=== PATIENT | male | born 1965 | race Caucasian/White ===

== ENCOUNTER 2022-09-02 12:11 | Outpatient (REF) | payer MEDICARE, MEDICAID, SELFPAY ==
--- NOTE | ~2022-09-02 | XR_ITS ---
EXAMINATION: XR CHEST CLINICAL INFORMATION: Other general symptoms and signs COMPARISON: Previous chest x-ray from 2011 TECHNIQUE: 2 views of the chest were obtained. FINDINGS: No significant abnormality is noted involving the heart, lungs, mediastinum, or soft tissues. Mild old T10 vertebral body compression fracture similar to previous exam. Mild degenerative changes of the spine. XR/XR chest 2V IMPRESSION: No evidence for acute disease in the chest.
[2022-09-02 15:40] LABS: Influenza A PCR NEGATIVE (Negative); Influenza B PCR NEGATIVE (Negative); Resp Syncy Virus RNA Qual PCR NEGATIVE (Negative); SARS COV2 PCR INHOUSE NEGATIVE (Negative)
== END 2022-09-02 12:12 | disposition home or self-care (01) ==
LOC: HO.HMGCX 12:11
PROVIDERS: Visit Provider Nurse Practitioner Family
DX: Z20.822 Contact with and (suspected) exposure to COVID-19 (principal); R05.9 Cough, unspecified; R68.89 Other general symptoms and signs
CPT/HCPCS: 0241U; 71046

== ENCOUNTER 2023-02-14 02:50 | Emergency (ER) | payer MEDICARE, MEDICAID, SELFPAY ==
[2023-02-14 02:57] VITALS: BP 153/87; PULSE 63; RESP 18; TEMP 36.5; O2SAT 98; BMI 39.9
--- NOTE | 2023-02-14 03:17 | PC.NURSE ---
Assumed care of pt. pt ambulated to room under own power, no cute distress. Pt c/o generalized itchiness throughout torso and rash in inguinal area and under arms. Pt is liver transplant patient, with cats as pets and interior construction work being done in basement including demolition and insulation work, house was built in 1959's (unknown construction materials). Advised pts of risks tiwth cats and transplant patients, and suggested non-pharmacological options for taking care of itchiness. MD entered for assessment. pt made aware of p[werner of care for discharge with prescriptions.
--- NOTE | 2023-02-14 03:25 | ED_ITS ---
HPI - General Adult General Chief complaint: Skin/Abscess/Foreign Body Stated complaint: itchiness Time Seen by Provider: 02/14/23 03:03 Source: patient Mode of arrival: ambulatory Limitations: no limitations History of Present Illness HPI narrative: 57-year-old male with history of liver disease presents with pruritus. Patient's symptoms are generalized but particularly over the chest, groin and axilla. Symptoms have been going on for least a month. They are moderate nature. Denies any difficulty breathing or shortness of breath. No wheezing. No difficulty swallowing. Symptoms are moderate in nature. There is no clear relieving or exacerbating features. There is no prior treatment. Related Data Home Medications Medication Instructions Recorded Confirmed insulin detemir U-100 100 unit/mL unit subcut 09/17/21 09/02/22 (3 mL) subcutaneous pen (Levemir FlexTouch U-100 Insulin) hydroxyzine HCl 25 mg tablet 25 mg PO 09/02/22 09/02/22 insulin lispro 100 unit/mL subcut 09/02/22 09/02/22 subcutaneous pen (Humalog KwikPen (U-100) Insulin) lisinopril 5 mg tablet 5 mg PO DAILY 09/02/22 09/02/22 pen needle, diabetic 31 gauge x #50 ea 09/02/22 09/02/22 3/16 (BD Ultra-Fine Mini Pen Needle) pravastatin 20 mg tablet 20 mg PO DAILY 09/02/22 09/02/22 Previous Rx's Medication Instructions Recorded hydrocortisone 2.5 % topical cream 1 appl topical BID PRN skin 05/25/22 irritation #20 grams hydrocortisone acetate 25 mg 25 mg IN BEDTIME #12 ea 08/05/22 rectal suppository (Anusol-HC) albuterol sulfate 90 mcg/actuation 2 puff inhalation Q4-6H PRN 09/02/22 aerosol inhaler shortness of breath or wheezing 30 days #8.5 grams benzonatate 100 mg capsule 100 mg PO BID 10 days #20 caps 09/02/22 doxycycline hyclate 100 mg capsule 100 mg PO BID 7 days #14 caps 09/02/22 clotrimazole 1 % topical cream 1 appl topical BID 2 weeks #45 02/12/23 (Antifungal (clotrimazole)) grams hydroxyzine HCl 25 mg tablet 25 mg PO QID PRN itching #20 tabs 06/11/23 Allergies Allergy/AdvReac Type Severity Reaction Status Date / Time No Known Allergies Allergy Verified 02/12/23 11:00 Review of Systems Review of Systems: CONSTITUTIONAL: Denies weight loss, fever and chills. HEENT: Denies changes in vision and hearing. RESPIRATORY: Denies SOB and cough. CV: Denies palpitations no CP. GI: Denies abdominal pain, nausea, vomiting and diarrhea. : Denies dysuria and urinary frequency. MSK: Denies myalgia and joint pain. SKIN: Denies rash and pruritus. NEUROLOGICAL: Denies headache and syncope. PSYCHIATRIC: Denies recent changes in mood. Denies anxiety and depression. All other ROS are negative unless in HPI PMFSH Past Medical History Medical History Flu-like symptoms Social History Social History Alcohol intake: never Patient Tobacco Use Status: Never used Tobacco Smoked in Last 30 Days: No Use of substances other than those prescribed or required for medical reasons: No Advance Directives: No Advance Directives Information Provided: Yes Physical Exam ED Vital Signs: Vital Signs - 24 hr 02/14/23 02:57 Temperature 97.7 F Pulse Rate 63 Respiratory Rate 18 Blood Pressure 153/87 H Pulse Oximetry 98 Oxygen Delivery Method Room Air BMI result Body Mass Index 39.9 GEN: Well developed, no acute distress, alert, oriented HEENT: Normocephalic, atraumatic, normal external ears, nose appears normal, no oropharyngeal edema or exudates Eyes: Normal to appearance, no icterus Neck: Supple, no lymphadenopathy Respiratory: Talks in complete sentences, no respiratory distress, clear to auscultation bilaterally Cardiovascular: Regular rate and rhythm, no murmurs rubs or gallops Abdomen: Soft, nontender, nondistended, no guarding, no rebound Back: No CVA tenderness Extremities: No clubbing cyanosis or edema, no jaundice Neurologic: No focal neurologic deficits, cranial nerves 2-12 intact, strength is 5/5 bilaterally Skin: No rash Course Course Course Narrative: Patient presents with generalized pruritus/urticaria. Exam. There is no there is no angioedema. There is no stridor. Patient will be discharged on antihistamines he can follow-up with his primary care provider. Medical Decision Making Medical Decision Making [facility] Narrative: Patient presents with pruritus. Examination is benign. There is no evidence of wheezing or stridor. Symptoms have been going on for several weeks. Patient will be discharged on antihistamines and follow up with primary care provider. Differential Diagnosis Differential Diagnoses: The differential diagnosis associated with the presentation includes (Allergic reaction, urticaria, pruritus) Discharge Plan Discharge Clinical Impression: Urticaria Patient Disposition: Home, Self-Care Instructions: Urticaria (ED) Additional Instructions: For itchiness: Zyrtec or Annie daily in the morning At night hydroxyzine 25 mg Prescriptions: New hydroxyzine HCl 25 mg tablet 25 mg PO QID PRN (Reason: itching) Qty: 20 0RF No Action hydrocortisone 2.5 % cream 1 appl topical BID PRN (Reason: skin irritation) Qty: 20 0RF hydrocortisone acetate [Anusol-HC] 25 mg suppository 25 mg IN BEDTIME Qty: 12 0RF insulin lispro [Humalog KwikPen Insulin] 100 unit/mL insulin pen subcut lisinopril 5 mg tablet 5 mg PO DAILY pravastatin 20 mg tablet 20 mg PO DAILY hydroxyzine HCl 25 mg tablet 25 mg PO (DME) pen needle, diabetic [BD Ultra-Fine Mini Pen Needle] 31 gauge x 3/16 needle See Rx Instructions .ROUTE TID Qty: 50 Rx Instructions: As directed albuterol sulfate 90 mcg/actuation HFA aerosol inhaler 2 puff inhalation Q4-6H PRN (Reason: shortness of breath or wheezing) 30 Days Qty: 8.5 0RF doxycycline hyclate 100 mg capsule 100 mg PO BID 7 Days Qty: 14 0RF benzonatate 100 mg capsule 100 mg PO BID 10 Days Qty: 20 1RF clotrimazole [Antifungal (clotrimazole)] 1 % cream 1 appl topical BID 14 Days Qty: 45 0RF Rx Instructions: apply under breast folds and bilateral inner thighs. Levemir FlexTouch U100 Insulin 100 unit/mL (3 mL) insulin pen subcut Referrals: Physician,Unknown J [Primary Care Provider] - (primary care in 1-2 weeks)
== END 2023-02-14 03:42 | disposition home or self-care (01) ==
PROVIDERS: Emergency Provider Emergency Medicine
DX: L50.0 Allergic urticaria (principal)
CPT/HCPCS: 99283

== ENCOUNTER 2023-02-22 06:15 | Emergency (ER) | payer MEDICARE, MEDICAID, SELFPAY ==
[2023-02-22 06:29] VITALS: BP 152/95; PULSE 77; RESP 18; TEMP 36.1; O2SAT 99
[2023-02-22 06:53] VITALS: BMI 41.6
--- NOTE | 2023-02-22 07:58 | ED_ITS ---
HPI - Skin/Abscess/Foreign Bdy General Chief complaint: Skin/Abscess/Foreign Body Stated complaint: stomach rash? Time Seen by Provider: 02/22/23 07:27 Source: patient Mode of arrival: ambulatory Limitations: no limitations History of Present Illness HPI narrative: 57 yo male with a history of pediculosis pubis, yuko corpis, DM, and s/p liver transplant 2016 presents with itchiness of the chest, stomach, inner thighs and pubic region. He states that his itching started over a month ago and was last treated for pruritis on 02/14. He reports brown spots on his skin where the itchiness is. He states he believes that they may be bite mcdonnell. Denies sick contacts. Denies rash, fever, chest pain, and shortness of breath. MD complaint: other Onset (ago): month(s) Tetanus up to date: unsure Location: chest and genitals Severity: moderate Quality: pruritic Pain Consistency: constant Relieving factors: none Exacerbating factors: none Context: none Associated symptoms: denies other symptoms Treatments prior to arrival: other (treated 02/14 for pruritis with hydroxyzine ) Related Data Home Medications Medication Instructions Recorded Confirmed insulin detemir U-100 100 unit/mL unit subcut 09/17/21 09/02/22 (3 mL) subcutaneous pen (Levemir FlexTouch U-100 Insulin) hydroxyzine HCl 25 mg tablet 25 mg PO 09/02/22 09/02/22 insulin lispro 100 unit/mL subcut 09/02/22 09/02/22 subcutaneous pen (Humalog KwikPen (U-100) Insulin) lisinopril 5 mg tablet 5 mg PO DAILY 09/02/22 09/02/22 pen needle, diabetic 31 gauge x #50 ea 09/02/22 09/02/22 3/16 (BD Ultra-Fine Mini Pen Needle) pravastatin 20 mg tablet 20 mg PO DAILY 09/02/22 09/02/22 Previous Rx's Medication Instructions Recorded hydrocortisone 2.5 % topical cream 1 appl topical BID PRN skin 05/25/22 irritation #20 grams hydrocortisone acetate 25 mg 25 mg FL BEDTIME #12 ea 08/05/22 rectal suppository (Anusol-HC) albuterol sulfate 90 mcg/actuation 2 puff inhalation Q4-6H PRN 09/02/22 aerosol inhaler shortness of breath or wheezing 30 days #8.5 grams benzonatate 100 mg capsule 100 mg PO BID 10 days #20 caps 09/02/22 doxycycline hyclate 100 mg capsule 100 mg PO BID 7 days #14 caps 09/02/22 clotrimazole 1 % topical cream 1 appl topical BID 2 weeks #45 02/12/23 (Antifungal (clotrimazole)) grams hydroxyzine HCl 25 mg tablet 25 mg PO QID PRN itching #20 tabs 02/14/23 permethrin 5 % topical cream 1 appl topical Q14D 2 doses #60 02/22/23 grams Allergies Allergy/AdvReac Type Severity Reaction Status Date / Time No Known Allergies Allergy Verified 02/22/23 06:55 Review of Systems Review of Systems: Yes all other systems are reviewed and are negative [facility] Past Medical History Medical History Flu-like symptoms Social History Social History Alcohol intake: never Patient Tobacco Use Status: Never used Tobacco Smoked in Last 30 Days: No Use of substances other than those prescribed or required for medical reasons: No Advance Directives: Yes Advance Directives Information Provided: No Advance Directives on File: No Physical Exam Vital Signs: Vital Signs: Last Vital Signs Temp 97 F 02/22/23 06:29 Pulse 77 02/22/23 06:29 Resp 18 02/22/23 06:29 BP 152/95 H 02/22/23 06:29 Pulse Ox 99 02/22/23 06:29 O2 Del Method Room Air 02/22/23 06:29 BMI result Body Mass Index 41.6 Appearance: Alert. Oriented X3. No acute distress. HEENT: normal inspection CVS: Normal heart rate and rhythm. Pulses normal. Abdomen: well healed surgical scar c/w liver transplant, soft, nontender, nondistended, no guarding or rebound tenderness Respiratory: No respiratory distress. Skin: Skin warm and dry. Normal skin color. Normal skin turgor. No rashes. Extremities: normal ROM, no cyanosis, edema or jaundice Neuro: Oriented X 3. No motor deficit. No sensory deficit. Skin: no rash, brown spotted pigments on skin of the chest and suprapubic area with mild excoriation, no urticaria Medical Decision Making Medical Decision Making MDM Narrative: 57 yo male with a history of pediculosis pubis, yuko corpis, DM, and s/p liver transplant 2016 presents with itchiness of the chest, stomach, inner thighs and pubic region. Physical exam demonstrated no red rash but brown pigmenetations on the chest and visible burrows on the pubis. Diagnosis most likely scabies given physical exam findings. Topical permethrin prescribed. encouraged to f/u with PCP Differential Diagnosis Differential Diagnoses: The differential diagnosis associated with the presentation includes Scabies, pediculosis pubis, tinea corpis External Record Review External record reviewed: Outpatient record Prescription Management I considered prescription management with: Other (topical antiparasitic) Chronic Conditions Patient?s care impacted by: Other (immunocompromised s/p liver transplant) Critical Care Time Critical Care Time Critical Care Time: No Discharge Plan Discharge Clinical Impression: Scabies Patient Disposition: Home, Self-Care Instructions: Scabies (ED) Additional Instructions: Apply permithrin cream before bed and leave on until the morning, then wash off. Clean all clothes, linen, stuffed animals thoroughly, with a tumbler machine operator and nuñez Notify all [id number] contacts for treatment Follow-up with your primary care provider If symptoms do not improve with treatment, please come back Prescriptions: New permethrin 5 % cream 1 appl topical Q14D Qty: 60 0RF Rx Instructions: apply second treatment 14 days after first treatment if live lice remain No Action hydroxyzine HCl 25 mg tablet 25 mg PO QID PRN (Reason: itching) Qty: 20 0RF hydrocortisone 2.5 % cream 1 appl topical BID PRN (Reason: skin irritation) Qty: 20 0RF hydrocortisone acetate [Anusol-HC] 25 mg suppository 25 mg FL BEDTIME Qty: 12 0RF insulin lispro [Humalog KwikPen Insulin] 100 unit/mL insulin pen subcut lisinopril 5 mg tablet 5 mg PO DAILY pravastatin 20 mg tablet 20 mg PO DAILY hydroxyzine HCl 25 mg tablet 25 mg PO (DME) pen needle, diabetic [BD Ultra-Fine Mini Pen Needle] 31 gauge x 3/16 needle See Rx Instructions .ROUTE TID Qty: 50 Rx Instructions: As directed albuterol sulfate 90 mcg/actuation HFA aerosol inhaler 2 puff inhalation Q4-6H PRN (Reason: shortness of breath or wheezing) 30 Days Qty: 8.5 0RF doxycycline hyclate 100 mg capsule 100 mg PO BID 7 Days Qty: 14 0RF benzonatate 100 mg capsule 100 mg PO BID 10 Days Qty: 20 1RF clotrimazole [Antifungal (clotrimazole)] 1 % cream 1 appl topical BID 14 Days Qty: 45 0RF Rx Instructions: apply under breast folds and bilateral inner thighs. Levemir FlexTouch U100 Insulin 100 unit/mL (3 mL) insulin pen subcut Interventions: ED Discharge Assessment Last Done: 02/22/23 08:09 Discharge Date/Time: 02/22/23 08:10
== END 2023-02-22 08:10 | disposition home or self-care (01) ==
PROVIDERS: Emergency Provider Student in an Organized Health Care Education/Training Program; PCP Internal Medicine
DX: B86 Scabies (principal)
CPT/HCPCS: 99283; 99284

== ENCOUNTER 2023-11-08 09:21 | Outpatient (AMB) | payer MEDICARE, MEDICAID, SELFPAY ==
--- NOTE | 2023-11-08 10:47 | AM.OFFWIN_ITS ---
Intake Vital Signs 11/08/23 10:52 Weight 234 lb BP 184/80 H Blood Pressure Location Rt brachial Position Sitting Pulse 73 Pulse Source Pulse Oximeter Pulse Oximetry (%) 97 Oxygen Delivery Method Room Air Intake Visit Reasons: EP Itchy between legs [phone] Intake Note: Patient here for rash in between legs that has been present for about 1 month. Patient Tobacco Use Status: Never used Tobacco Allergies No Known Allergies Allergy (Verified 02/18/24 10:32) Do you need a note to return to daycare/school/sports/work: No HPI HPI Comments History of Present Illness Details 58-year-old male presents today complain ing of a priuritic rash in his groin area. Status states he has had for about a month. [facility] Medical History Flu-like symptoms Social History Alcohol intake: never Patient Tobacco Use Status: Never used Tobacco Review of Systems Const All systems reviewed & are unremarkable except as noted in HPI and below Physical Exam Vital Signs: Last Vital Signs Pulse 73 11/08/23 10:52 BP 184/80 H 11/08/23 10:52 Pulse Ox 97 11/08/23 10:52 Oxygen Delivery Method Room Air 11/08/23 10:52 Other: He received the surrounding the scrotum and genitalia Male General Exam: Yes erythema Assessment & Plan Assessment & Plan (1) Tinea corporis: Code(s): B35.4 - Tinea corporis Plan: Clotrimazole was ordered for the patient. He will follow up with Dermatology if needed Plan See plan Medications: Changed From clotrimazole 1% apply under breast folds and bilateral inner thighs. 1 appl topical BID 2 weeks 45 grams 0RF B35.4 - Tinea corporis To clotrimazole 1% (Antifungal (clotrimazole)) apply to affected area 1 appl topical BID 45 grams 0RF 2 weeks B35.4 - Tinea corporis Coding Level of Care Code Est Pt Level 3 (60140) Diagnoses Tinea corporis B35.4
[2023-11-08 10:52] VITALS: BP 184/80; PULSE 73; O2SAT 97
== END 2023-11-08 12:04 | disposition home or self-care (01) ==
PROVIDERS: PCP Internal Medicine; Visit Provider Physician Assistant Medical
DX: B35.4 Tinea corporis (principal)
CPT/HCPCS: 99213

== ENCOUNTER 2024-02-18 10:24 | Outpatient (AMB) | payer MEDICARE, MEDICAID, SELFPAY ==
--- NOTE | 2024-02-18 10:24 | MHC.OFFWIV ---
Intake Vital Signs 02/18/24 10:25 Height 5 ft 5 in Weight 235 lb BMI 39.1 BP 130/70 Blood Pressure Location Lt brachial Position Sitting Pulse 75 Pulse Source Pulse Oximeter Temp 97.8 F Temp Source Temporal Artery Scan Pulse Oximetry (%) 96 Oxygen Delivery Method Room Air Intake Visit Reasons: EP itchy stomach Intake Note: pt is here today for itchy stomach started 4 days ago Patient Tobacco Use Status: Never used Tobacco Allergies No Known Allergies Allergy (Verified 02/18/24 10:32) Do you need a note to return to daycare/school/sports/work: No HPI HPI Comments History of Present Illness Details Patient is a 58-year-old male complaining of itching under his bilateral armpits, underneath his bilateral breasts, groin area and upper abdomen for ?awhile? he states he went to the emergency department and they gave him some cream which he has been using daily but it has not working. He states he has bumps in these areas and they are very itchy. He was also given pills that are not working. He denies any fevers. He states his is cheating on him and he thinks she has the 1 who brought something home to him. [facility] Medical History Flu-like symptoms Social History Alcohol intake: never Patient Tobacco Use Status: Never used Tobacco Review of Systems Const All systems reviewed & are unremarkable except as noted in HPI and below Physical Exam Vital Signs: Last Vital Signs Temp 97.8 F 02/18/24 10:25 Pulse 75 02/18/24 10:25 BP 130/70 02/18/24 10:25 Pulse Ox 96 02/18/24 10:25 Oxygen Delivery Method Room Air 02/18/24 10:25 BMI result Body Mass Index 39.1 Const General: cooperative, healthy appearing, comfortable, no acute distress and well developed Orientation/consciousness: patient oriented x3 Limitations: no limitations Eyes General: appearance normal, both eyes and all related structures Resp Effort & Inspection: normal respiratory effort and able to speak in complete sentences Skin Other: Clusters of excoriated pinpoint brown pigmented rash under bilateral armpits, upper central abdomen, underneath bilateral breasts and in his groin and scrotum. Neuro General: patient oriented x3 Assessment & Plan Assessment & Plan (1) Scabies: Code(s): B86 - Scabies Plan: Patient was diagnosed with scabies on February 14 in the emergency department. His physical exam today is consistent with scabies. He was given permethrin cream which she has been applying daily, incorrectly. Educated patient on how to apply the cream properly and sent a new prescription to his pharmacy because he was out of the cream. Also gave him patient education on how to care for his home, washing sheets, clothes, etc. Apply permithrin cream before bed and leave on until the morning, then wash off. Clean all clothes, linen, stuffed animals thoroughly, with a pig casting machine operator and nuñez Notify all [id number] contacts for treatment Follow-up with your primary care provider If symptoms do not improve with treatment, please call the office and we will prescribe ivermectin at that point. Plan see above. Medications: Refilled permethrin 5% apply second treatment 14 days after first treatment if live lice remain 1 appl topical Q14D 60 grams 0RF Coding Level of Care Code Est Pt Level 3 (69731) Diagnoses Scabies B86
[2024-02-18 10:25] VITALS: BP 130/70; PULSE 75; TEMP 36.6; O2SAT 96; BMI 39.1
== END 2024-02-18 10:58 | disposition home or self-care (01) ==
PROVIDERS: PCP Internal Medicine; Visit Provider Physician Assistant
DX: B86 Scabies (principal)
CPT/HCPCS: 99213

== ENCOUNTER 2024-08-15 01:05 | Emergency (ER) | payer MEDICARE, MEDICAID, SELFPAY ==
--- NOTE | ~2024-08-15 | XR_ITS ---
EXAMINATION: XR SHOULDER, RIGHT CLINICAL INFORMATION: painful COMPARISON: None available. TECHNIQUE: AP external rotated, Grashey and transscapular radiographs of the right shoulder. FINDINGS: Glenohumeral and acromioclavicular joint space and alignment are normal in appearance. Chronic appearing posttraumatic deformity of the clavicle is visualized. Visualized right ribs and lung are normal in appearance. A 3 mm x 1 mm ossific/calcific density is noted adjacent to the proximal greater tuberosity. No associated donor site noted. XR/XR shoulder RT min 2V IMPRESSION: *Single 3 mm x 1 mm ossific/calcific density noted in the expected location of the distal supraspinatus tendon. Findings may represent chronic calcific tendinosis. 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 \ *No acute abnormalities identified. Electronically signed by: Kyle Solis MD 08/15/2024 02:46 AM COLT
[2024-08-15 01:11] VITALS: BP 147/81; PULSE 82; RESP 20; TEMP 36.8; O2SAT 98; BMI 36.5
--- NOTE | 2024-08-15 06:27 | ED.EXTPRO ---
HPI - Extremity Problem General Chief complaint: Extremity Injury, Upper Stated complaint: R arm sore Time Seen by Provider: 08/15/24 06:26 Source: patient Mode of arrival: ambulatory Limitations: no limitations History of Present Illness ED Provider: Mary Chakraborty PA-C HPI Narrative: 59 yo right hand dominant male presents to the ER for evaluation of acute on chronic right shoulder pain. He states he has had pain in the right lateral shoulder since May. He states the pain started after he got a vaccine in that arm. He reports history of an old fracture in the right arm as well. He reports the shoulder is very sore after using it, especially at the end of the day and at night. No weakness, numbness or tingling. He reports pain with lateral abduction. He denies any recent falls or new injuries. He has not seen an orthopedic for the pain. MD Complaint: joint pain Onset (ago): month(s) Pain Consistency: constant Location: right and upper extremity Quality: aching Radiation: none Relieving factors: rest Exacerbating factors: range of motion and palpation Associated symptoms: denies other symptoms Related Data Home Medications ?Medication ?Instructions ?Recorded ?Confirmed insulin detemir U-100 100 unit/mL unit subcut 09/17/21 09/02/22 (3 mL) subcutaneous pen (Levemir FlexTouch U-100 Insulin) hydroxyzine HCl 25 mg tablet 25 mg PO 09/02/22 09/02/22 insulin lispro 100 unit/mL subcut 09/02/22 09/02/22 subcutaneous pen (Humalog KwikPen (U-100) Insulin) lisinopril 5 mg tablet 5 mg PO DAILY 09/02/22 09/02/22 pen needle, diabetic 31 gauge x #50 ea 09/02/22 09/02/22 3/16 (BD Ultra-Fine Mini Pen Needle) pravastatin 20 mg tablet 20 mg PO DAILY 09/02/22 09/02/22 Previous Rx's ?Medication ?Instructions ?Recorded hydrocortisone 2.5 % topical cream 1 appl topical BID PRN skin 05/25/22 irritation #20 grams hydrocortisone acetate 25 mg 25 mg IA BEDTIME #12 ea 08/05/22 rectal suppository (Anusol-HC) albuterol sulfate 90 mcg/actuation 2 puff inhalation Q4-6H PRN 12/28/22 aerosol inhaler shortness of breath or wheezing 30 days #8.5 grams benzonatate 100 mg capsule 100 mg PO BID 10 days #20 caps 09/02/22 doxycycline hyclate 100 mg capsule 100 mg PO BID 7 days #14 caps 09/02/22 hydroxyzine HCl 25 mg tablet 25 mg PO QID PRN itching #20 tabs 02/14/23 clotrimazole 1 % topical cream 1 appl topical BID 2 weeks #45 11/08/23 (Antifungal (clotrimazole)) grams permethrin 5 % topical cream 1 appl topical Q14D 2 doses #60 02/18/24 grams naproxen 500 mg tablet,delayed 500 mg PO BID PRN pain #30 tabs 08/15/24 release Allergies Allergy/AdvReac Type Severity Reaction Status Date / Time No Known Allergies Allergy Verified 08/15/24 01:13 Review of Systems Review of Systems: Yes all other systems are reviewed and are negative PMFSH Past Medical History Medical History Flu-like symptoms Social History Social History Alcohol intake: never Patient Tobacco Use Status: Never used Tobacco Advance Directives: No Advance Directives Information Provided: Yes Do you have a plan to hurt others: No Plan Physical Exam Vital Signs: Vital Signs: Last Vital Signs Temp 97.5 F 08/15/24 07:02 Pulse 65 08/15/24 07:02 Resp 16 08/15/24 07:02 BP 139/76 08/15/24 07:02 Pulse Ox 96 08/15/24 07:02 O2 Del Method Room Air 08/15/24 07:02 BMI result Body Mass Index 36.5 Appearance: Alert. Oriented X3. No acute distress. HEENT: normal inspection CVS: Normal heart rate and rhythm. Pulses normal. Respiratory: No respiratory distress. Skin: Skin warm and dry. Normal skin color. Normal skin turgor. No rashes. Extremities: normal inspection of bilateral upper extremities. pain with passive lateral abduction once at 90 degrees. tender lateral shoulder/ac joint. +empty can test. strength is slightly decreased in the proximal UE on the right side. NV intact distally, equal motel front desk clerk strength Neuro: Oriented X 3. nonfocal Medical Decision Making Medical Decision Making MDM Narrative: 59 y/o [id number] male presents to the ER for evaluation of acute on chronic atraumatic right shoulder pain for the last several months. He reports history of a fracture in the past. Reports the pain started after getting a vaccination in the right deltoid. Has tenderness and pain with abduction. Positive empty can test. No overlying swelling, erythema to suggest septic joint or gout. His x-ray today is showing some calcific tendonitis. Will start on anti-inflammatories. Will refer to Orthopedics and his PCP for further evaluation and treatment. Patient advised of the results and need for outpatient follow-up. He is stable for discharge home. Differential Diagnosis Differential Diagnoses: The differential diagnosis associated with the presentation includes Rotator cuff injury, tendinopathy, osteoarthritis, inflammatory arthritis, gout, septic joint less likely Independent Interpretation I performed an independent interpretation of an: Plain X-Ray Interpretation: No acute fracture appreciated, agree with radiology read Radiology Impression Discussion of test interpretation with radiology: I have reviewed the radiologist's reading. Radiologist Impression: XR/XR shoulder RT min 2V IMPRESSION: *Single 3 mm x 1 mm ossific/calcific density noted in the expected location of the distal supraspinatus tendon. Findings may represent chronic calcific tendinosis. 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 \ *No acute abnormalities identified. External Record Review External record reviewed: Outpatient record, Prior outpatient labs and Prior outpatient radiology Prescription Management I considered prescription management with: Pain Medication Critical Care Time Critical Care Time Critical Care Time: No Discharge Plan Discharge Clinical Impression: Calcific tendonitis Patient Disposition: Home, Self-Care Instructions: Calcific Tendinitis (ED) Additional Instructions: You have tendonitis. Rest your shoulder, no heavy lifting with your right arm. Use ice several times per day for 20 minutes at a time for the next 48 hours and then change to heat. Take medication as prescribed to help with pain and discomfort. Continue tylenol. Follow up with your Orthopedics for further evaluation - call for an appointment. name and number below If you develop new or worsening symptoms call 911 or come back to the ER for further evaluation. EXAMINATION: XR SHOULDER, RIGHT CLINICAL INFORMATION: painful COMPARISON: None available. TECHNIQUE: AP external rotated, Grashey and transscapular radiographs of the right shoulder. FINDINGS: Glenohumeral and acromioclavicular joint space and alignment are normal in appearance. Chronic appearing posttraumatic deformity of the clavicle is visualized. Visualized right ribs and lung are normal in appearance. A 3 mm x 1 mm ossific/calcific density is noted adjacent to the proximal greater tuberosity. No associated donor site noted. XR/XR shoulder RT min 2V IMPRESSION: *Single 3 mm x 1 mm ossific/calcific density noted in the expected location of the distal supraspinatus tendon. Findings may represent chronic calcific tendinosis. 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 \ *No acute abnormalities identified. Prescriptions: New naproxen 500 mg tablet,delayed release (DR/EC) 500 mg PO BID PRN (Reason: pain) Qty: 30 0RF No Action hydroxyzine HCl 25 mg tablet 25 mg PO QID PRN (Reason: itching) Qty: 20 0RF hydrocortisone 2.5 % cream 1 appl topical BID PRN (Reason: skin irritation) Qty: 20 0RF hydrocortisone acetate [Anusol-HC] 25 mg suppository 25 mg IA BEDTIME Qty: 12 0RF insulin lispro [Humalog KwikPen Insulin] 100 unit/mL insulin pen subcut lisinopril 5 mg tablet 5 mg PO DAILY pravastatin 20 mg tablet 20 mg PO DAILY hydroxyzine HCl 25 mg tablet 25 mg PO (DME) pen needle, diabetic [BD Ultra-Fine Mini Pen Needle] 31 gauge x 3/16 needle See Rx Instructions .ROUTE TID Qty: 50 Rx Instructions: As directed albuterol sulfate 90 mcg/actuation HFA aerosol inhaler 2 puff inhalation Q4-6H PRN (Reason: shortness of breath or wheezing) 30 Days Qty: 8.5 0RF doxycycline hyclate 100 mg capsule 100 mg PO BID 7 Days Qty: 14 0RF benzonatate 100 mg capsule 100 mg PO BID 10 Days Qty: 20 1RF permethrin 5 % cream 1 appl topical Q14D Qty: 60 0RF Rx Instructions: apply second treatment 14 days after first treatment if live lice remain Levemir FlexTouch U100 Insulin 100 unit/mL (3 mL) insulin pen subcut clotrimazole [Antifungal (clotrimazole)] 1 % cream 1 appl topical BID 14 Days Qty: 45 0RF Rx Instructions: apply to affected area Referrals: [facility] [place], [place] Orthopedic Surgeons [Provider Group] Rodger Dia MD [Primary Care Provider] - Interventions: ED Discharge Assessment Last Done: 08/15/24 07:02 Discharge Date/Time: 08/15/24 07:02 Print Language: [place]
[2024-08-15 06:41] VITALS: BP 139/76; PULSE 65; RESP 16; TEMP 36.4; O2SAT 96
[2024-08-15 07:02] VITALS: BP 139/76; PULSE 65; RESP 16; TEMP 36.4; O2SAT 96
--- OUTSIDE RECORDS SUMMARY | 2024-08-16 18:14 | XMS_ITS ---
Author Organization [facility] Address [address] [place] [address] Care Team Providers Care Exchange Administrator Name Role Phone Ifeoma BLAIR, Shiraztn Jagdish Primary Care Provider Remington Nam Unavailable [phone] Allergies No Known Allergies REASON FOR VISIT Painful nail(s) aggrevated by shoes and causing difficulty standing/walking. Medications Medication SIG (Take, Route, Frequency, Duration) Notes Start Date End Date Status cycloSPORINE 75 mg Active Insulin Active Lisinopril 5 MG TAKE 1 TABLET BY JAYRO TH DAILY Oral for 90 Days Active Pravastatin Sodium 20 MG TAKE 1 TABLET B Y MOUTH DAILY Oral for 90 Days Active Extra Depth Diabetic Shoes with 3 Pair Custom heat-molded multi-density innersoles for 1 year Dx: 12/02/2023 Active Extra Depth Diabetic Shoes with 3 Pair Custom heat-molded multi-density innersoles for 1 year Dx: 06/22/2024 Active Social History Tobacco Use: Social History Observation Description Date Details (start date - stop date) Never Smoker NA - NA Tobacco Use/Smoking Question Answer Notes Are you a: nonsmoker Additional Findings: Tobacco Non-User Current no n-smoker Alcohol Screen Question Answer Notes Did you have a drink containing alcohol in the p ast year? No Points 0 Interpretation Negative Tobacco use other than smoking: Question Answer Notes Are you an other tobacco user? No Vital Signs Height 5ft 5in in 06/22/2024 Weight 236 lbs 06/22/2024 BMI 39.27 kg/m2 06/22/2024 Encounters Encounter Location Date Provider Diagnosis [facility] [address] [place] [address] 06/22/2024 Remington Huerta Type 1 diabetes mellitus with diabetic polyneuropathy E10.42 ; Pain in right toe(s) M79.674 ; Pain in left toe(s) M79.675 ; Tinea unguium B35.1 and Arthritis of right ankle M19.071 Assessments Encounter Date Diagnosis (ICD Code) Assessment Notes Treatment Notes Treatment Clinical Notes Section Notes 06/22/2024 Type 1 diabetes mellitus with diabetic polyneuropathy (ICD-10 - E10.42) 06/22/2024 Pain in right toe(s) (ICD-10 - M79.674) 06/22/2024 Pain in left toe(s) (ICD-10 - M79.675) 06/22/2024 Tinea unguium (ICD-10 - B35.1) 06/22/2024 Arthritis of right ankle (ICD-10 - M19.071) Plan Of Treatment Medication Medication Name Sig Start Date Stop Date Notes Extra Depth Diabetic Shoes w ith 3 Pair Custom heat-molded multi-density innersoles for 1 year Dx: 06/22/2024 Next Appt Details Follow Up: 3 Months, Reason: Provider Name:Debra machado, 09/21/2024 10:00:00 AM, [address] [place] [address], [place], [address], Procedure Notes * Category Sub-Category Detail Notes Debride Nail 6-10 Nail debridement Nail debridem ent performed extensively to reduce/remove overall nail length and girth, subungual debris, and necrotic tissue, by manual and electrical means with use of a nail nipper and/or dremel, to more viable healthy nail plate or bed tissue 6-10. Silver nitrate used for any petechial bleeding as necessary. Patient chooses, no pharmaceutical tx (48515) Keratoma Treatment Parring or Cutting o f Benign Hyperkeratotic Lesion(s) 80114 ( More than 4 Lesions ) - The Benign hyperkeratotic lesions, as described above were pared, and/or cut utilizing a sterile 15 blade, tissue nippers, and/or dremel Progress Notes * Tavon SALTERDOB: [birth year] (59 yo M)Acc No.[id number]:06/22/2024 Progress Note Patient:?Tavon Salter Provider:?Remington Huerta DPM :1965???Age:59 Y???Sex:Male Jayy e:06/22/2024 [facility] [id number] Pcp:Rodger Dia MD Subjective: * Chief Complaints: * ??? Painful nail(s) aggrevat ed by shoes and causing difficulty standing/walking. * HPI: ???At Risk footcare:?Pt States Last PCP Visit:?Date?05/08/2024 ?Misc?liver transplant pt.?Foot Pain:?Nature:?aching.?Location?Right , Midfoot, Rearfoot.?Duration:?several years.?Onset/Cause:?fx ankle 2014.?Aggrevated:?standing, walking.?Treatments:?orif at [facility].?Quality/Severity?moderate.? * ROS:?General/Constitutional:?Nausea?denies.?Vomiting?denies.?Hunger Thirst?denies.?Loss appetite?denies.?Chills?denies.?Fatigue?denies.?Fever?denies.?Night Sweats?denies.?Unexplained weight loss?denies.?Unexplained weight gain?denies.?HEENTM:?Dentures?denies.?Dizziness?denies.?Glasses/contacts?denies.?Retinopathy?de nies.?Blurred/double vision?denies.?TMJ?denies.?Discharge/drainage?denies.?Implants?denies.?Sore throat?denies.?Dental implants?denies.?Hard of hearing ?denies.?Difficulty chewing/swallowing/speaking?denies.?Nose bleeds?denies.?Sore mouth?denies.?Respiratory:?On Oxygen?denies.?Pneumonia/pleurisy?denies.?Bronchitis?denies.?Emphysema?denies.?C oughing?denies.?Cough blood?denies.?Shortness of breath?denies.?Wheezing?denies.?Cardiovascular:?Pacemaker?denies.?MVP?denies.?WPW?denies.?CHF?denies.?Heart attack?denies.?Septal defect?denies.?Rapid beat?denies.?Chest pain ?denies.?Atrial Fib.?denies.?Murmur/Palpitations?denies.?Gastrointestinal:?Hemorrhoids?denies.?Stomach/Abdominal pain?denies.?Dark blood stool?denies.?Irritable bowel ?denies.?Constipation?denies.?Diarrhea?denies.?Hematology:?Swelling?denies.?Clots?denies.?Varicose Veins?denies.?Bruising?denies.?Bleeding problem?denies.?Genitourinary:?Blood urine?denies.?Frequent/Painfu/urination/bladder control?denies.?Kidney stones?denies.?Infection (UTI)?denies.?Nephropathy?denies.?sex trans dis (STD)?denies.?Prostate?denies.?Musculoskeletal:?Hammertoes?denies.?Bunions?denies.?Back Pain?denies.?Muscle Cramps/ Resting?denies.?Muscle cramps / walking?denies.?Generalized aches and pains?denies.?Weakness?denies.?Integ.:?Page?denies.?Scars?denies.?Corns/calluses?denies.?Ingrown nails?denies.?Painful nails?denies.?Open Sores?denies.?Rashes?denies.?Neurologic:?Difficulty sleeping?denies.?Brain disorder?denies.?Numbness?denies.?Balance trouble?denies.?Confusion?denies.?Fainting/blackouts?denies.?Tingling?denies.?Tr emors?denies.? * Medical History:? * Surgical History:?liver sánchez splant - 5 months 03/2016ankle surgery * Hospitalization/Major Diagno stic Procedure:?Denies Past Hospitalization * Family History:?Mother: dece ased, diagnosed with Other malignant neoplasm of unspecified site.?Father: .? * Social History:?Tobacco Use:?Tobacco Use/Smoking?Are you a:?nonsmoker ?Additional Findings: Tobacco Non-User?Current non-smoker ?Tobacco use other than smoking?Are you an other tobacco user??No ???Drugs/Alcohol:?Drugs?Have you used drugs other than those for medical reasons in the past 12 months??No ?Alcohol Screen?Did you have a drink containing alcohol in the past year??No ?Points?0 ?Interpretation?Negative ???Miscellaneous:?no Caffeine. ?Children: yes. ?Exercise: yes, Gym, walking. ?Marital status: . ?Occupation: Retired. * Medications:?TakingInsulin c ycloSPORINE , Notes: 75 mgExtra Depth Diabetic Shoes with 3 Pair Custom heat-molded multi-density innersoles for 1 year Dx:Pravastatin Sodium 20 MG Tablet TAKE 1 TABLET BY MOUTH DAILY Oral Lisinopril 5 MG Tablet TAKE 1 TABLET BY MOUTH DAILY Oral Medication List reviewed and reconciled with the patientTaking Insulin Taking cycloSPORINE , Notes: 75 mgTaking Extra Depth Diabetic Shoes with 3 Pair Custom heat-molded multi-density innersoles for 1 year Dx:Taking Pravastatin Sodium 20 MG Tablet TAKE 1 TABLET BY MOUTH DAILY Oral Taking Lisinopril 5 MG Tablet TAKE 1 TABLET BY MOUTH DAILY Oral Medication List reviewed and reconciled with the patient * Allergies:?N.K.D.A.yes[Aller gies Verified] Objective: * Vitals:?Ht: 5ft 5in, Wt:236, BMI:39.27, Shoe size: 10, BS: 130, Ht-cm: 165.1 cm, Wt-k.05 kg. * Examination: ???Ophthalmology Referral: ?DIABETES EYE EXAM?Neurological: ?SENSORY:? Neurological exam demonstrates, reduced vibration sensation, 5.07 monofilament test performed at plantar aspects of 5 varied sites per foot shows sensation, reduced , B/L, at Forefoot.?TINEL'S COMPRESSION:?Negative tarsal tunnel, la pedis, and medial calcaneal nerves B/L.?BABINSKI REFLEX:?absent.?Vascular: ?DP PULSES(B):? 2/4, B/L.?PT PULSES(B):? 2/4, B/L.?CAPILLARY FILL TIME:?3 secs. per digit, B/L.?TROPHIC CONDITION-TEXTURE/ELASTICITY/TURGOR/HAIR GROWTH(B):?normal, B/L.?TEMPERTURE GRADIENT(C):?warm to cool, proximal to distal, B/L.?PIGMENTATION:?normal, B/L.?EDEMA(C):?no edema.?TELANGECTASIA:?absent.?VARICOSITIES:?absent.?Nails: ?NAILS are:? Elongated, overgrown, dystrophic, lytic, greater than 3mm thick, discolored and friable with crumbly malodorous subungual debris, with dull to no pain on palpation due to neuropathy, 1-4 B/L.?Dermatologic: ?SKIN FINDINGS:? Skin exam reveals Keratotic lesion(s) located at, Plantar, T4, T9, SUB MTH (s), 1, 5, B/L, Heel(s), Left.?General Examination: ?GENERAL APPEARANCE:?pleasant, alert, well nourished, well developed, well hydrated, with good attention to hygene/body habitus, and in no acute distress.?ORIENTED:?person,place, and time.?FOOT EXAM:?Neuroma Pain: ?PALPATION:?No interspace pain noted on palpation.?Orthopedic: ?MUSCLE STRENGTH:?5/5 all groups in a symmetrical fashion , B/L.?GAIT ABNORMALITY:?pronated, abducted, B/L.? Assessment: * Assessment: 1.?Type 1 diabetes mellitus with diabetic polyneuropathy - E10.42?2.?Pain in right toe(s) - M79.674?3.?Pain in left toe(s) - M79.675?4.?Tinea unguium - B35.1 (Primary)?5.?Arthritis of right ankle - M19.071? Plan: * Treatment: * Procedures:?Debride Nail 6-10:?Nail debridement?Nail debridement performed extensively to reduce/remove overall nail length and girth, subungual debris, and necrotic tissue, by manual and electrical means with use of a nail nipper and/or dremel, to more viable healthy nail plate or bed tissue 6-10. Silver nitrate used for any petechial bleeding as necessary. Patient chooses, no pharmaceutical tx (89788).?Keratoma Treatment:?Parring or Cutting of Benign Hyperkeratotic Lesion(s)?20857 ( More than 4 Lesions ) - The Benign hyperkeratotic lesions, as described above were pared, and/or cut utilizing a sterile 15 blade, tissue nippers, and/or dremel.? * Procedure Codes:?53523 DEBRI DE NAIL, 6 OR MORE, Modifiers: XS 19848 TRIM SKIN LESIONS, OVER 4, Modifiers: XS * Follow Up:?3 Months * Images: * Sign off status: Completed true * Provider:?Remington Huerta DPM Date:? 024 Generated for Printi ng/Faxing/eTransmitting on:?08/16/2024 06:14 PM EST History and Physical Notes * HPI (History of Present Illness) Category Sub-Category Detail Notes Category Not es At Risk footcare Pt States Last PCP Visit: Date: [facility] [place] Foot Pain Aggrevated: standing, walking Onset/Cause: fx ankle 2013 Duration: several years Nature: aching Treatments: orif at [facility] Quality/Severity moderate Location Right , Midfoot, [place] rfoot Examination Category Sub-Category Detail Notes Category Not es Neuroma Pain PALPATION: No interspace pain noted on palpation Neurological SENSORY: Neurological exa m demonstrates, reduced vibration sensation, 5.07 monofilament test performed at plantar aspects of 5 varied sites per foot shows sensation, reduced , B/L, at Forefoot BABINSKI REFLEX: absent TINEL'S COMPRESSION: Negative tarsal dominick rusty, la pedis, and medial calcaneal nerves B/L Dermatologic SKIN FINDINGS: Skin exam reveal s Keratotic lesion(s) located at, Plantar, T4, T9, SUB MTH (s), 1, 5, B/L, Heel(s), Left Orthopedic GAIT ABNORMALITY: pronated, abducted, B/L MUSCLE STRENGTH: 5/5 all groups in a symmetrical fashion , B/L General Examination GENERAL APPEARANCE: pleasant , alert, well nourished, well developed, well hydrated, with good attention to hygene/body habitus, and in no acute distress FOOT EXAM: Lower Extremity Neurological Exa m performed:: Yes Visual exam of foot performed:: Yes Date: 06/22/2024 Sensory testing performed:: sensations d iminished Pedal pulse taking performed:: 2+ ORIENTED: person,place, and ti me Ophthalmology Referral DIABETES EYE EXAM Diabetic Reti nopathy Screening:: Yes 08/28 Findings of Diabetic Eye Exam:: no retin opathy Vascular DP PULSES(B): 2/4, B/L PT PULSES(B): 2/4, B/L CAPILLARY FILL TIME: 3 secs. per digit, B/L TEMPERTURE GRADIENT(C): warm to cool, pr oximal to distal, B/L TROPHIC CONDITION-TEXTURE/ELASTICITY/TURGOR/HAIR GROWTH(B): normal, B/L EDEMA(C): no edema TELANGECTASIA: absent VARICOSITIES: absent PIGMENTATION: normal, B/L Nails NAILS are: Elongated, overg rown, dystrophic, lytic, greater than 3mm thick, discolored and friable with crumbly malodorous subungual debris, with dull to no pain on palpation due to neuropathy, 1-4 B/L
--- OUTSIDE RECORDS SUMMARY | 2024-08-16 18:15 | XMS_ITS | Patient Health Record ---
Author Organization [facility] pamela [place] Address [address] [facility] [place] [address] Care Team Providers Care Workers Compensation Coordinator Name Role Phone Ifeoma BLAIR, Rodger Dubon Primary Care Provider Remington Nam Unavailable [phone] Allergies No Known Allergies Reason For Referral No Information Medications Medication SIG (Take, Route, Frequency, Duration) Notes Start Date End Date Status cycloSPORINE 75 mg Active Insulin Active Extra Depth Diabetic Shoes with 3 Pair Custom heat-molded multi-density innersoles for 1 year Dx: 06/22/2024 Active Lisinopril 5 MG TAKE 1 TABLET BY JAYRO TH DAILY Oral for 90 Days Active Pravastatin Sodium 20 MG TAKE 1 TABLET B Y MOUTH DAILY Oral for 90 Days Active Extra Depth Diabetic Shoes with 3 Pair Custom heat-molded multi-density innersoles for 1 year Dx: 12/02/2023 Active Immunizations Vaccine Route Administration Date Status Comme nts Influenza Unknown 05/07/2023 Administered Social History Tobacco Use: Social History Observation [...] Are you an other tobacco user? No Problems Problem Type SNOMED Code ICD Code Onset Dates Problem Status W/U Status Risk Notes Problem Polyneuropathy due to diabetes mellitus type I (378615466) Type 1 diabetes mellitus with diabetic polyneuropathy (E10.42) Active confirmed Problem [id number] Arthritis of right ankle (M19.071) Active confirmed Vital Signs Height 5ft 5in in 06/22/2024 Weight 236 lbs 06/22/2024 BMI 39.27 kg/m2 06/22/2024 Procedures Procedure Date Ordered Date Performed Result Body Sit e 48165-EFIX SKIN LESIONS, OVER 4 12/02/2023 N/A 24982-CSRV SKIN LESIONS, OVER 4 03/13/2024 N/A Encounters Encounter Location Date Provider Diagnosis [address] [address] 12/02/2023 Remington Huerta Type 1 diabetes mellitus with diabetic polyneuropathy E10.42 ; Pain in right toe(s) M79.674 ; Tinea unguium B35.1 ; Pain in left toe(s) M79.675 and Arthritis of right ankle M19.[address] [address] 03/13/2024 RemingtonBrice Type 1 diabetes mellitus with diabetic polyneuropathy E10.42 ; Pain in right toe(s) M79.674 ; Pain in left toe(s) M79.675 ; Tinea unguium B35.1 and Arthritis of right ankle M19.[address] [address] 06/22/2024 Remington Huerta Type 1 diabetes mellitus with diabetic polyneuropathy E10.42 ; Pain in right toe(s) M79.674 ; Pain in left toe(s) M79.675 ; Tinea unguium B35.1 and Arthritis of right ankle M19.[address] [address] 09/13/2023 Remington Huerta [address] [address] 05/31/2024 Remington Bradley Assessments Encounter Date Diagnosis (ICD Code) Assessment Notes Treatment Notes Treatment Clinical Notes Section Notes 12/02/2023 Type 1 diabetes mellitus with diabetic polyneuropathy (ICD-10 - E10.42) 03/13/2024 Type 1 diabetes mellitus with diabetic polyneuropathy (ICD-10 - E10.42) 06/22/2024 Type 1 diabetes mellitus with diabetic polyneuropathy (ICD-10 - E10.42) 06/22/2024 Pain in right toe(s) (ICD-10 - M79.674) 12/02/2023 Pain in right toe(s) (ICD-10 - M79.674) 03/13/2024 Pain in right toe(s) (ICD-10 - M79.674) 03/13/2024 Pain in left toe(s) (ICD-10 - M79.675) 12/02/2023 Tinea unguium (ICD-10 - B35.1) 03/13/2024 Tinea unguium (ICD-10 - B35.1) 12/02/2023 Pain in left toe(s) (ICD-10 - M79.675) 06/22/2024 Pain in left toe(s) (ICD-10 - M79.675) 03/13/2024 Arthritis of right ankle (ICD-10 - M19.071) 06/22/2024 Tinea unguium (ICD-10 - B35.1) 12/02/2023 Arthritis of right ankle (ICD-10 - M19.071) 06/22/2024 Arthritis of right ankle (ICD-10 - M19.071) Plan Of Treatment Pending Test Test Name Order Date 85906-TAIX SKIN LESIONS, OVER 4 12/02/19 24 73388-EFKK SKIN LESIONS, OVER 4 03/13/20 Next Appt Details Provider Name:Debra machado, 09/21/2024 10:00:00 AM, [address] [place] [address], [phone], Insurance Providers Payer Name Payer Address Payer Phone Subscriber Number Group Number Insured Name Patient Relationship to Insured Coverage Start Date Coverage End Date Medicare National [employer] [address] [place] [address] [id number] Tavon Black Self - patient is the insured Medical (General) History Medical History History ICD Code Diabetic Liver disease Mumps Chicken pox Transfusions Surgical History Surgery Date(Month/Year) liver transplant - 5 months 03/2016 ankle surgery
--- OUTSIDE RECORDS SUMMARY | 2024-08-16 18:15 | XMS_ITS ---
Author Organization [facility] Address [address] [place] [address] Care Team Providers Care Client Liaison Name Role Phone Ifeoma BLAIR, Rodger Dubon Primary Care Provider Unav Remington Cesar Unavailable [phone] Simmons Encounters Encounter Location Date Provider Diagnosis [facility] [address] [place] [address] 06/21/2024 Remington Huerta Plan Of Treatment Next Appt Details Provider Name:Debra machado, 09/21/2024 10:00:00 AM, [address] [place], [address], Progress Notes * Tavon SALTERDOB: [birth year] (59 yo M)Acc No.[id number]:06/21/2024 Progress Note Patient:?Tavon SALTER Provider:?Remington Huerta DPM :1965???Age:59 Y???Sex:Male Jayy e:06/21/2024 Address:[address] [id number] Pcp:Rodger Dia MD Subjective: * Chief Complaints: * ???1. Dr Simmons. * Medical History:? Objective: * Vitals:? Assessment: Plan: * Treatment: * Images: * The named appointment provid er may or may not be the originator of this progress note, and it is not deemed complete until electronically signed by the appointment provider. Sign off status: Pending * Provider:?Remington Huerta DPM Date:? 024 Generated for Cameron bill/Kevin/Lala on:?08/16/2024 06:14 PM EST
--- OUTSIDE RECORDS SUMMARY | 2024-08-16 18:15 | XMS_ITS ---
Author Organization [facility] Address [address] [place] [address] Care Team Providers Care Electrician'S Assistant Name Role Phone Ifeoma BLAIR, Rodger Dubon Primary Care Provider Remington Nam [phone] REASON FOR VISIT Balance DOS 03/13 Encounters Encounter Location Date Provider Diagnosis [facility] [address] [place] [address] 05/31/2024 Remington Huerta Plan Of Treatment Next Appt Details Provider Name:Debra machado, 09/21/2024 10:00:00 AM, [address] [place], [address], Progress Notes * Tavon SALTERDOB: [birth year] (59 yo M)Acc No.[id number]:05/31/2024 Patient:?Tavon Salter :1965???Age:59 Y???Sex:Male Address:[place] [address] * true * Date:? Generated for Printi ng/Favickig/eTransmitting on:?08/16/2024 06:14 PM EST
== END 2024-08-15 07:02 | disposition home or self-care (01) ==
PROVIDERS: Emergency Provider Emergency Medicine; PCP Internal Medicine
DX: M75.31 Calcific tendinitis of right shoulder (principal); M25.511 Pain in right shoulder
CPT/HCPCS: 73030; 99283

== ENCOUNTER 2024-09-20 08:55 | Outpatient (AMB) | payer MEDICARE, MEDICAID, SELFPAY ==
--- NOTE | 2024-09-20 08:57 | MHC.OFFVIS ---
Vital Signs 09/20/24 08:58 Height 5 ft 8 in Weight 240 lb BMI 36.5 Intake Visit Reasons: Right shoulder pain and weakness Intake Note: Tavon is a 59 year old male who presents with complaints of progressively worsening right shoulder pain and weakness. The patient states that he 1st injured his shoulder in 2013 when he fell on ice. He suffered a right clavicle fracture at that time. That fracture was treated non operatively. The patient states that since that time he has had difficulty lifting his right hand above shoulder height. The patient states that last year he received an injection in his right shoulder which seemed to aggravate his pain. He has done physical therapy exercises which gave him minimal relief. He has also tried Tylenol and anti-inflammatory medicines which gave him no relief. The patient reports difficulty lifting his right hand above shoulder height. He has failed the last 6 weeks of conservative treatment. Allergies No Known Allergies Allergy (Verified 09/20/24 08:58) Medication List - Last Reviewed 09/20/24 by AMBIKA Glaser clotrimazole 1% (Antifungal (clotrimazole)) 1 appl topical BID 2 weeks cyclosporine modified 50 mg PO BID hydrocortisone 2.5% 1 appl topical BID PRN hydroxyzine HCl 25 mg PO QID PRN insulin detemir U-100 (Levemir FlexTouch U-100 Insulin) units subcut insulin lispro (Humalog KwikPen (U-100) Insulin) subcut lisinopril 5 mg PO DAILY naproxen 500 mg PO BID PRN pen needle, diabetic (BD Ultra-Fine Mini Pen Needle) As directed permethrin 5% 1 appl topical Q14D 2 doses pravastatin 20 mg PO DAILY [facility] Medical History Flu-like symptoms Social History (Updated 09/20/24 @ 09:01 by AMBIKA Glaser) Alcohol intake: never Patient Tobacco Use Status: Never used Tobacco Current occupational status: unemployed Current occupation: rt handed Physical Exam Vital Signs: BMI result Body Mass Index 36.5 Const Other: Well-nourished well-developed very friendly male awake alert and oriented x3 in no acute distress Extrem Other: Bilateral upper extremity examination shows good capillary refill, no skin lesions noted, normal sensation light touch Right shoulder examination shows decreased range of motion when compared to his left shoulder, 4/5 strength with supraspinatus testing, positive impingement signs, tenderness over his acromioclavicular joint, no instability Results Reviewed Results Reviewed: X-rays of the patient's right shoulder show a healed mid shaft clavicle fracture, a type 2 acromion, severe acromioclavicular joint narrowing, no acute bony abnormalities Assessment & Plan Assessment & Plan (1) Rotator cuff insufficiency of right shoulder: Code(s): M25.311 - Other instability, right shoulder Category: Medical Plan Mr. Black presents with progressively worsening right shoulder pain and weakness most likely due to a full-thickness rotator cuff tear. Thus, I will send the patient for an MRI of his right shoulder for further evaluation. I will see him back once the MRI is completed to discuss the findings and treatment options. Feel free to call me at any time should questions regarding his orthopedic management arise. I spent 22 minutes in reviewing the patient's records and imaging studies, seeing the patient and documenting in the medical record. Orders: Orders MR shoulder RT wo con Today M25.311 - Other instability, right shoulder Coding Level of Care Code New Pt Level 3 (17140) Complex EM visit Add On G2211 Diagnoses Rotator cuff insufficiency of right shoulder M25.311
[2024-09-20 08:58] VITALS: BMI 36.5
== END 2024-09-20 09:12 | disposition home or self-care (01) ==
LOC: HO.HOS 08:56
PROVIDERS: PCP Internal Medicine; Visit Provider Orthopaedic Surgery
DX: M25.311 Other instability, right shoulder (principal)
CPT/HCPCS: 99203; G2211

== ENCOUNTER → 2024-09-20 08:55 | Outpatient (BNVA) | payer MEDICARE, MEDICAID, SELFPAY | PROVIDERS: PCP Internal Medicine; Visit Provider Orthopaedic Surgery | DX: M25.311 Other instability, right shoulder (principal) | CPT/HCPCS: 99202 ==

== ENCOUNTER → 2024-10-01 14:50 | Outpatient (BNV) | payer MEDICARE, MEDICAID, SELFPAY | PROVIDERS: PCP Internal Medicine; Visit Provider Radiology Diagnostic Radiology | DX: M19.011 Primary osteoarthritis, right shoulder (principal); M75.101 Unspecified rotator cuff tear or rupture of right shoulder, not specified as traumatic | CPT/HCPCS: 73221 ==

== ENCOUNTER 2024-10-01 14:52 | Outpatient (REF) | payer MEDICARE, MEDICAID, SELFPAY ==
--- NOTE | ~2024-10-01 | MR_ITS ---
EXAMINATION: MRI RIGHT SHOULDER WITHOUT CONTRAST HISTORY: M25.311 - Other instability, right shoulder COMPARISON: Correlation is made with plain films of the right shoulder dated 08/15/2024. TECHNIQUE: Coronal T1, T2, and fat suppressed T2, axial fat suppressed proton density, and sagittal T2 weighted MR images of the right shoulder were obtained. FINDINGS: There is moderate osteoarthritis of the AC joint with cartilage loss and osteophyte formation causing mass effect on the supraspinatus musculotendinous junction. There is no significant joint effusion. There is fraying of the joint surface of the distal supraspinatus tendon near its insertion on the greater tuberosity of the humerus. A focus of fluid signal intensity is seen extending through the thickness of the tendon approximately 1.2 cm proximal to its insertion consistent with a full-thickness tear. There is a small amount of fluid in the subdeltoid/subacromial bursa. There is no tendon retraction or muscle atrophy. The infraspinatus, subscapularis, and teres minor tendons are intact. The biceps tendon is normally located. There is marked thickening of the anterior band of the inferior glenohumeral ligament. The glenoid labrum is grossly unremarkable in appearance. MR/MR shoulder RT wo con IMPRESSION: 1. Moderate osteoarthritis of the AC joint as described. 2. Full-thickness tear of the supraspinatus tendon as described. 3. Marked thickening of the anterior band of the inferior glenohumeral ligament which can be seen in the setting of adhesive capsulitis. Clinical correlation is recommended. Electronically signed by: Santy Weston MD 10/02/2024 02:00 PM EST
--- OUTSIDE RECORDS SUMMARY | 2024-10-01 14:55 | XMS_ITS | Patient Health Record ---
[facility] pamela [place] Address [address] [facility] [place] [address] Care Team Providers Care Foreign Correspondent Name Role Phone Ifeoma BLAIR, Rodger Dubon Primary Care Provider Milad BrowerDebra carrion Unavailable [phone] Remington Huerta Unavailable [phone] Allergies No Known Allergies Results Component Value Reference Range Notes HEMOGLOBIN A1C (GLYCOHEMOGLO BIN) Reviewed date:09/21/2024 10:10:18 AM Interpretation: Performing Lab: Notes/Report: HEMOGLOBIN A1C % (HH) 6.4 Reason For Referral No Information Medications Medication SIG (Take, Route, Frequency, Duration) Notes Start Date End Date Status Extra Depth Diabetic Shoes with 3 Pair Custom heat-molded multi-density innersoles for 1 year Dx: 06/22/2024 Active Insulin Active Lisinopril 5 MG TAKE 1 TABLET BY JAYRO TH DAILY Oral for 90 Days Active Pravastatin Sodium 20 MG TAKE 1 TABLET B Y MOUTH DAILY Oral for 90 Days Active Extra Depth Diabetic Shoes with 3 Pair Custom heat-molded multi-density innersoles for 1 year Dx: 12/02/2023 Active cycloSPORINE 75 mg Active Immunizations Vaccine Route Administration Date Status Comme nts Influenza Unknown 05/07/2023 Administered Social History Tobacco Use: Social History Observation Description Date Details (start date - stop date) Never Smoker NA - NA Tobacco use other than smoking: Question Answer Notes Are you an other tobacco user? No Tobacco Control (Standard) Question Answer Notes Tobacco use: Nonsmoker Additional Findings: Tobacco non-user Current no nsmoker AUDIT-C (Standard) Question Answer Notes Did you have a drink containing alcohol in the p ast year? No Points 0 Interpretation Negative Problems Problem Type SNOMED Code ICD Code Onset Dates Problem Status W/U Status Risk Notes Problem Acquired hammer toe of right foot (7563036488492041 ) Other hammer toe(s) (acquired), right foot (M20.41) Active confirmed Response to treatment, Heri t Problem Acquired hammer toe of left foot (7560192682986802 ) Other hammer toe(s) (acquired), left foot (M20.42) Active confirmed Response to treatment, Improvemen t Problem Polyneuropathy due to diabetes mellitus type I (080327617) Type 1 diabetes mellitus with diabetic polyneuropathy (E10.42) Active confirmed Problem Polyneuropathy due to type 2 diabetes mellitus (482678115) Type 2 diabetes mellitus with diabetic polyneuropathy (E11.42) Active confirmed Vital Signs Blood pressure diastolic 80 mm Hg 09/21/2024 Height 5ft 5in in 09/21/2024 Blood pressure systolic 120 mm Hg 09/21/2024 Weight 236 lbs 09/21/2024 BMI 39.27 kg/m2 09/21/2024 Procedures Procedure Date Ordered Date Performed Result Body Sit e 74238-KJKU SKIN LESIONS, OVER 4 12/02/2023 N/A 33214-GDAA SKIN LESIONS, OVER 4 03/13/2024 N/A 20015-HOUCSZE NAIL, 6 OR MORE 09/21/2024 N/A Encounters Encounter Location Date Provider Diagnosis [address] [address] 12/02/2023 Remington Huerta Type 1 diabetes mellitus with diabetic polyneuropathy E10.42 ; Pain in right toe(s) M79.674 ; Tinea unguium B35.1 ; Pain in left toe(s) M79.675 and Arthritis of right ankle M19.[address] [address] 03/13/2024 Remington Huerta Type 1 diabetes mellitus with diabetic polyneuropathy E10.42 ; Pain in right toe(s) M79.674 ; Pain in left toe(s) M79.675 ; Tinea unguium B35.1 and Arthritis of right ankle M19.[address] [address] 06/22/2024 Remington Huerta Type 1 diabetes mellitus with diabetic polyneuropathy E10.42 ; Pain in right toe(s) M79.674 ; Pain in left toe(s) M79.675 ; Tinea unguium B35.1 and [facility]thritis of right ankle M19.[facility] [address] 09/21/2024 Debra White Type 2 diabetes mellitus with diabetic polyneuropathy E11.42 ; Tinea unguium B35.1 ; Other hammer toe(s) (acquired), right foot M20.41 and Other hammer toe(s) (acquired), left foot M20.[address] [address] 05/31/2024 Remington Huerta Assessments Encounter Date Diagnosis (ICD Code) Assessment Notes Treatment Notes Treatment Clinical Notes Section Notes 12/02/2023 Type 1 diabetes mellitus with diabetic polyneuropathy (ICD-10 - E10.42) 03/13/2024 Type 1 diabetes mellitus with diabetic polyneuropathy (ICD-10 - E10.42) 06/22/2024 Type 1 diabetes mellitus with diabetic polyneuropathy (ICD-10 - E10.42) 09/21/2024 Type 2 diabetes mellitus with diabetic polyneuropathy (ICD-10 - E11.42) 09/21/2024 Tinea unguium (ICD-10 - B35.1) 06/22/2024 Pain in right toe(s) (ICD-10 - M79.674) 12/02/2023 Pain in right toe(s) (ICD-10 - M79.674) 03/13/2024 Pain in right toe(s) (ICD-10 - M79.674) 03/13/2024 Pain in left toe(s) (ICD-10 - M79.675) 12/02/2023 Tinea unguium (ICD-10 - B35.1) 03/13/2024 Tinea unguium (ICD-10 - B35.1) 12/02/2023 Pain in left toe(s) (ICD-10 - M79.675) 06/22/2024 Pain in left toe(s) (ICD-10 - M79.675) 09/21/2024 Other hammer toe(s) (acquired), right foot (ICD-10 - M20.41) Response to treatment,Impro vement 09/21/2024 Other hammer toe(s) (acquired), left foot (ICD-10 - M20.42) Response to treatment,Impro vement 03/13/2024 Arthritis of right ankle (ICD-10 - M19.071) 06/22/2024 Tinea unguium (ICD-10 - B35.1) 12/02/2023 Arthritis of right ankle (ICD-10 - M19.071) 06/22/2024 Arthritis of right ankle (ICD-10 - M19.071) Plan Of Treatment Pending Test Test Name Order Date 59895-RKZUSXN NAIL, 6 OR MORE 09/21/2024 58705-EJLE SKIN LESIONS, OVER 4 12/02/19 24 72266-MZGR SKIN LESIONS, OVER 4 03/13/20 24 Next Appt Details Provider Name:Debra Rangel carter, 01/25/2025 09:15:00 AM, [address] [place] [address], [phone], Insurance Providers Payer Name Payer Address Payer Phone Subscriber Number Group Number Insured Name Patient Relationship to Insured Coverage Start Date Coverage End Date Medicare National Gov[employer] Sv[employer] [address] [place] [address] [id number] Tavon Black Self - patient is the insured Medical (General) History Medical History History ICD Code Diabetic Liver disease Mumps Chicken pox Transfusions Surgical History Surgery Date(Month/Year) liver transplant - 5 months 03/2016 ankle surgery
--- OUTSIDE RECORDS SUMMARY | 2024-10-01 14:55 | XMS_ITS | Clinical Summary ---
Author Organization [address] Address [address] [place] [phone] Phone Care Team Providers Care Feeder Switchboard Operator Name Role Phone Rodger Dia MD Primary Care Provider [phone] Allergies No known active allergies Medications Medication Sig Dispensed Refills Start Date End Date Status lisinopriL (PRINIVIL,ZESTRI L) 5 mg tablet Take 1 tablet (5 mg total) by mouth 1 (one) time each day. 11/23/2023 Active pen needle, diabetic (PEN NEEDLE MISC) USE THREE TIMES DAILY WITH INSULIN 07/05/2023 Active cetirizine (ZyrTEC) 10 mg tablet Take 1 Tablet by mouth daily for 10 days 03/14/2024 Active clotrimazole (LOTRIMIN) 1 % cream Apply thin layer to affected areas twice daily for 4 weeks 03/03/2024 Active cycloSPORINE modified (NEORAL) 25 mg capsule Take 1 capsule (25 mg total) by mouth 2 (two) times a day. 03/17/2022 Active PEN NEEDLE, DIABETIC MISC Insulin Pen Needle (B-D U/F PEN NEEDLE) 31G X 5 MM Misc USE TO INJECT INSULIN 3 TIMES A DAY Active glucose blood test strip 1 each by Other route if needed. Use as instructed Active miscellaneous medical supply misc 1 EA. Dexcom G7 Active hydrocortisone 1 % cream with perineal applicator APPLY THIN LAYER TO AFFECTED AREA TWICE DAILY FOR 2 WEEKS. 06/21/2024 Active BD Ultra-Fine Mini Pen Needle 31 gauge x 3/16 needle USE TO INJECT INSULIN 3 TIMES A DAY 07/20/2024 Active HumaLOG KwikPen Insulin 100 unit/mL injection pen Per Sliding Scale.USE PER SLIDING SCALE three times a day before meals 101-150: 6 units , 151-200: 9 UNITS, 201-250: 12 units . 251-300: 15 units, 301-350: 18 units , 351-400: 20 units >400: call me. 21 units. 30 mL 2 07/25/2024 Active insulin glargine (LANTUS) 100 unit/mL injection Use 21-22 units at bedtime 30 mL 2 07/25/2024 Active pravastatin (PRAVACHOL) 20 mg tablet TAKE 1 TABLET BY MOUTH DAILY 90 tablet 1 09/22/2024 Active pravastatin (PRAVACHOL) 20 mg tablet Take 1 tablet (20 mg total) by mouth 1 (one) time each day. 02/18/2024 5 Discontinued Active Problems Problem Noted Date Diagnosed Date Hemorrhoids 2021 Class 2 severe obesity due t o excess calories with serious comorbidity in adult 12/24/2020 CKD (chronic kidney disease) stage 3, GFR 30-59 ml/min 11/21/2019 Type II diabetes mellitus wi th peripheral circulatory disorder 11/06/2019 Diabetic polyneuropathy asso ciated with diabetes mellitus due to underlying condition 11/03/2019 Hypertension 05/09/2019 Mixed hyperlipidemia 11/02/2018 Diabetes type 2, controlled 07/01/2015 Choledocholithiasis 03/06/2014 Overview (06/14/2024): Status post hospitalization, ERCP with sphincterectomy stone-extraction and stent placement 02/2014. Helicobacter pylori gastritis 10/16/2013 Overview (06/14/2024): EGD and bx 2013, small gastric and duodenal ulcers. Treatment initiated. Esophageal varices without bleeding 10/11/2013 Overview (06/14/2024): Large at EGD 2006 and 2013. Esophageal varices without mention of bleeding in diseases classified elsewhere Compression fracture of vertebrae 12/07/2010 Overview (06/14/2024): Vertebral T10 of uncertain age, noted incidental finding 11/09/2010. [facility]. Pancytopenia 12/01/2010 Obesity (BMI 30-39.9) 12/04/2006 Portal hypertension 12/04/2006 Overview (06/14/2024): See comment on cirrhosis of liver Encounters Date Type Department Care Team Description 07/25/2024 8:20 AM EST Office Visit [facility] [address] [place] [id number] Carisa Silverman PA Type II diabetes mellitus with peripheral circulatory disorder (CMS/HCC) (Primary Dx); Obesity (BMI 30-39.9); Primary hypertension; Mixed hyperlipidemia from Last 3 Months Immunizations Name Administration Dates Next Due Hepatitis A Adult (Havrix; V aqta) 19yo and older 05/02/2014 Hepatitis B (Recombivax HB-D ialysis) 18yo and older 05/02/2014,12/06/2013 Hepatitis B Pediatric (Enger ix B; Recombivax HB) to less than 20 yo 11/02/2013 Influenza Quadravalent, 0.5m l (Fluzone High-dose) 65yo and older 05/10/2024 Influenza Quadravalent, MDCK , 0.5ml, preservative free (Flucelvax) 6mo and older 06/26/2022,05/23/2020,05/09/2019,05/20 Influenza Quadravalent, MDCK , 0.5ml, with preservative (Flucelvax) 6mo and older 05/28/2017 Influenza trivalent, with pr eservative (Fluzone; Afluria) 6mo and older 06/12/2021,06/21/2015,06/07/2014,06/06,05/24/2012,05/26/2011,06/25/2010 ,05/20/2009,06/26/2008,06/22/2007,10/2005 Influenza, Unspecified 05/12/2023 Moderna (age 6mo & older) Bi valent, COVID-19, 0.5 mL or 0.25 mL dosage 05/29/2022 Pneumococcal polysaccharide 23 valent (Pneumovax 23) 2yo and older 12/01/2010 Td Tetanus diptheria (Tdvax) 7yo and older 01/16/2021 Tdap Tetanus diptheria acell ular pertussis (Boostrix; Adacel) 7yo and older 01/16/2021,08/26/2009 Surgical History Surgery Date Site/Laterality Comments COLONOSCOPY 05/23/2007 PROCEDURE: HISTORICAL COLONOSCOPY; COMMENT: Negative HERNIA REPAIR 2004 PROCEDURE: REPAIR UMBILICAL HERNIA; COMMENT: approximately 2004 COLONOSCOPY 10/11/2013 PROCEDURE: HISTORICAL COLONOSCOPY; COMMENT: 6 mm sigmoid colon polyp: Tubular adenoma OTHER SURGICAL HISTORY 03/30/2016 PROCEDURE: LIVER TRANSPLANT, HETEROTOPIC; COMMENT: [facility]. UPPER GASTROINTESTINAL ENDOSCOPY 10/11/2013 PROCEDURE: IN UPPER GI ENDOSCOPY PERFORMED; COMMENT: gastritis, small duodenal ulcers, large esophageal varices. Gastric biopsies positive for H. pylori. UPPER GASTROINTESTINAL ENDOSCOPY 05/23/2007 PROCEDURE: IN UPPER GI ENDOSCOPY PERFORMED; COMMENT: Large esoph varices and portal hypertensive gastropathy. COLONOSCOPY 10/18/2019 PROCEDURE: HISTORICAL COLONOSCOPY; COMMENT: 6 mm cecal polyp. Pathology: Hyperplastic. Medical History Medical History Date Comments Cirrhosis of liver without m ention of alcohol 04/07/2007 DX:Cirrhosis of liver withou t mention of alcohol; COMMENT: EGD 05/23/2007. Large esophageal varices, portal hypertensive gastropathy. Fibula fracture 11/10/2010 DX:Fibula fractu re Portal hypertension (CMS/HCC) 12/04/2006 DX :Portal hypertension (HCC) Esophageal varices without m ention of bleeding in diseases classified elsewhere 10/11/2013 DX:Esophageal varices withou t mention of bleeding in diseases classified elsewhere; COMMENT: Large at EGD 10/11/2013. Helicobacter pylori gastritis 10/16/2013 DX :Helicobacter pylori gastritis; COMMENT: EGD and bx 2013. Choledocholithiasis 03/06/2014 DX:Choledoch olithiasis; COMMENT: Status post hospitalization, ERCP with sphincterectomy stone-extraction and stent placement 02/2014. Liver transplanted (CMS/HCC) 05/14/2016 DX: Liver transplanted (HCC); COMMENT: 03/30/2016 at [facility]. CKD (chronic kidney disease) DX: CKD (chronic kidney disease) Family History Medical History Relation Name Comments Breast cancer Aunt paternal Diabetes Father hypertension Diabetes Mother hypertension Relation Name Status Comments Aunt Father Alive as of 10/03/2012 Mother Alive as of 10/03/2012 Social History Tobacco Use Types Packs/Day Years Used Date Smoking Tobacco: Never Smokeless Tobacco: Never Tobacco Cessation:Counseling Given: Not Answered Alcohol Use Standard Drinks/Week Comments No 0 (1 standard drink = 0.6 oz pur e alcohol) Sex and Gender Information Value Date Recorded Sex Assigned at Not on file Gender Identity Not on file Sexual Orientation Not on file Job Start Date Occupation Industry Not on file Not on file Not on file Obstetrics History Last Filed Vital Signs Vital Sign Reading Time Taken Comments Blood Pressure 108/72 07/25/2024 8:44 AM EST C Pulse 72 07/25/2024 8:44 AM EST Temperature 36.2 ??C (97.2 ??F) 07/25/2024 8:44 AM ES T Respiratory Rate - - Oxygen Saturation 97% 07/25/2024 8:44 AM EST Inhaled Oxygen Concentration - - Weight 105 kg (231 lb 3.2 oz) 07/25/2024 8:44 AM EST Height 165.1 cm (5' 5 ) 07/25/2024 8:44 AM EST Body Mass Index 38.47 07/25/2024 8:44 AM EST Plan of Treatment Upcoming Encounters Date Type Department Care Team (Late st Contact Info) Description 10/16/2024 8:00 AM EST Office Visit Adult Medicine [address] [phone] Gumaro Lan NP [address], [place] 10/26/2024 8:00 AM EST Office Visit Endocrinology [address] [phone] Carisa Silverman PA [address], [place] 11/15/2024 9:30 AM EDT Appointment [facility] [address] [place] [phone] Sameer Hanson MD [address] [phone] Health Maintenance Due Date Last Done Comments Zoster Vaccines (1 of 2) 1983 Pneumococcal Vaccine: Pediatrics (0 to 5 Years) and At-Risk Patients (6 to 64 Years) (2 of 2 - PCV) 12/02/2011 12/01/2010 Hepatitis B Vaccines (3 of 3 - 19+ 3-dose series) 06/27/2014 05/02/2014, 12/06/2013, 11/02/2013 HIV Screening 08/15/2022 Medicare Annual Wellness Visit 08/15/2022 Social Influencers of Health Screening 08/15/2022 Depression Screening 09/14/2024 09/14/2023 Colorectal Cancer Screening: Colonoscopy 10/18/2024 10/18/2019 Diabetes: Annual Retina Eye Exam 11/24/2024 11/25/2023 Diabetes: Annual Foot Exam 03/13/2025 03/13/2024 Diabetes: Blood Sugar Control Test (HGBA1C) 03/18/2025 09/18/2024, 03/28/2024, 03/28/2024 Diabetes: Annual Urine Albumin-Creatinine Ratio (uACR) 03/28/2025 03/28/2024 Diabetes: Annual GFR (Glomerular Filtration Rate) 09/18/2025 09/18/2024, 03/28/2024, 03/28/2024 Hypertension/CHF/CAD Annual BMP Blood Test 09/18/2025 09/18/2024, 03/28/2024, 03/28/2024 Cholesterol Screening (Lipid Panel) 11/25/2028 11/26/2023 DTaP,Tdap,and Td Vaccines (4 - Td or Tdap) 01/16/2031 01/16/2021, 01/16/2021, 08/26/2009 Hepatitis C Screening Completed 01/11/2007 Hepatitis A Vaccines Aged Out 05/02/2014 No long er eligible based on patient's age to complete this topic Influenza Vaccine Completed 05/22/2024, , 06/02/2023, Additional history exists RSV Immunization Patients 60+ Years Old Completed 05/22/2024 COVID-19 Vaccine Completed 06/02/2024, , 01/27/2022, Additional history exists HIB Vaccines Aged Out No longer eligi ble based on patient's age to complete this topic HPV Vaccines Aged Out No longer eligi ble based on patient's age to complete this topic IPV Vaccines Aged Out No longer eligi ble based on patient's age to complete this topic MMR Vaccines Aged Out No longer eligi ble based on patient's age to complete this topic Meningococcal ACWY Vaccine Aged Out N o longer eligible based on patient's age to complete this topic RSV Immunization Patients Under 20 months Aged Out No longer eligible based on patient's age to complete this topic Varicella Vaccines Aged Out No longer eligible based on patient's age to complete this topic Procedures Procedure Name Priority Date/Time Associated Diagnosis Comments BASIC METABOLIC PANEL Routine 09/18/2024 9:37 AM EST Type II diabetes mellitus with peripheral circulatory disorder ([facility]/HCC) Primary hypertension HEMOGLOBIN A1C Routine 09/18/2024 9:37 AM EST Type II diabetes mellitus with peripheral circulatory disorder (CMS/HCC) URINE ALBUMIN CREATININE RATIO Routine 03/28/2024 DIABETES FOOT EXAM Routine 03/13/2024 LIPID PANEL Routine 11/26/2023 DIABETES EYE EXAM Routine 11/25/2023 DEPRESSION SCREENING Routine 09/14/2023 COLONOSCOPY Routine 10/18/2019 HEPATITIS C SCREENING Routine 01/11/2007 from Last 3 Months or Most Recently Relevant to Health Maintenance Results * (ABNORMAL) Hemoglobin A1c (09/18/2024 9:37 AM EST) Hemoglobin A1C 7.1(H) <6.5 % LAB CHEMISTRY METHOD 09/18/2024 2:51 PM EST [facility] Mean Bld Glu Estim. 157 mg/dL LAB CHEMISTRY METHOD 09/18/2024 2:51 PM EST [facility] Blood Venous blood specimen / Unknown Venipuncture / Unknown 09/18/2024 9:37 AM EST 09/18/2024 9:37 AM EST Carisa CHIN LAB BLOOD ORDERABLES [facility] [address] [place] [address], * (ABNORMAL) Basic metabolic panel (09/18/2024 9:37 AM EST) Sodium 141 133 - 145 mmol/L LAB CHEMISTRY METHOD 09/18/2024 1:53 PM [facility] Potassium 4.5 3.5 - 5.5 mmol/L LAB CHEMISTRY METHOD 09/18/2024 1:53 PM [facility] Chloride 112(H) 96 - 110 mmol/L LAB CHEMISTRY METHOD 09/18/2024 1:53 PM [facility] CO2 24 21 - 32 mmol/L LAB CHEMISTRY METHOD 09/18/2024 1:53 PM [facility] Anion Gap 5 3 - 11 LAB CHEMISTRY METHOD 09/18/2024 1:53 PM [facility] Glucose 116(H) 70 - 100 mg/dL LAB CHEMISTRY METHOD 09/18/2024 1:53 PM [facility] BUN 32(H) 5 - 25 mg/dL LAB CHEMISTRY METHOD 09/18/2024 1:53 PM [facility] Creatinine 1.35(H) 0.70 - 1.30 mg/dL LAB CHEMISTRY METHOD 09/18/2024 1:53 PM [facility] eGFR 60 >=60 mL/min/1. 73m2 LAB CHEMISTRY METHOD 09/18/2024 1:53 PM [facility] Comment:Calculation based on the??Chronic Kidney Disease Epidemiology Collaboration (CKD-EPI) equation refit??without adjustment for race. BUN/Creatinine Ratio 23.7 LAB CHEMISTRY METHOD 09/18/2024 1:53 PM EST [facility] Calcium 9.1 8.5 - 10.5 mg/dL LAB CHEMISTRY METHOD 09/18/2024 1:53 PM EST [facility] Blood Venous blood specimen / Unknown Venipuncture / Unknown 09/18/2024 9:37 AM EST 09/18/2024 9:37 AM EST Carisa CHIN LAB BLOOD ORDERABLES [facility] [address] [place] [address], * Urine Albumin Creatinine Ratio (03/28/2024) [facility] Urine Albumin Creatinine Ratio abstracted Historical Provider [facility] Diabetes Foot Exam (03/13/2024) [facility] Diabetes: Annual Foot Exam abstracted Historical Provider [facility] (ABNORMAL) Lipid panel (11/26/2023) [facility] LDL/HDL Ratio 4 0 - 4 Triglycerides 175(A) 0 - 150 mg/dL Cholesterol 166 0 - 200 mg/dL HDL 38(A) 40 mg/dL LDL Cholesterol 93 0 - 100 mg/dL Blood Venous blood specimen / Unknown Historical Provider LAB BLOOD ORDERAB LES * Diabetes Eye Exam (11/25/2023) [facility] Diabetes: Annual Retina Eye Exam abstracted Historical Provider MD WORRELL [facility] Depression Screening (09/14/2023) [facility] Depression Screening abstracted [facility] Provider [facility] * Colonoscopy (10/18/2019) [facility] Colonoscopy no interpretation , abstracted Anatomical Region Laterality Modality Other Historical Provider MD WORRELL [facility] Hepatitis C Screening (01/11/2007) Hepatitis C Screening abstracted Historical Provider MD GM Salazar from Last 3 Months or Most Recently Relevant to Health Maintenance Advance Directives Documents on File Type Date Recorded Patient [employer] Director Expl anation Health Care Decision (hx) 02/24/2014 AD VALENCIA DIRECTIVE Health Care Decision (hx) 02/24/2014 AD VALENCIA DIRECTIVE Health Care Decision (hx) 02/24/2014 AD VALENCIA DIRECTIVE Health Care Decision (hx) 02/24/2014 AD VALENCIA DIRECTIVE Health Care Decision (hx) 02/24/2014 AD VALENCIA DIRECTIVE Health Care Decision (hx) 02/24/2014 AD VALENCIA DIRECTIVE Health Care Decision (hx) 02/24/2014 AD VALENCIA DIRECTIVE Health Care Decision (hx) 02/23/2014 AD VALENCIA DIRECTIVE Health Care Decision (hx) 02/23/2014 AD VALENCIA DIRECTIVE Health Care Decision (hx) 02/23/2014 AD VALENCIA DIRECTIVE Health Care Decision (hx) 02/23/2014 AD VALENCIA DIRECTIVE Health Care Decision (hx) 02/23/2014 AD VALENCIA DIRECTIVE Health Care Decision (hx) 02/23/2014 AD VALENCIA DIRECTIVE Health Care Decision (hx) 02/23/2014 AD VALENCIA DIRECTIVE Care Teams Feeder Switchboard Operator Relationship Specialty Start Date End Date Rodger Dia MD [address] [place] [address] PCP - General 02/10/11
--- OUTSIDE RECORDS SUMMARY | 2024-10-01 14:56 | XMS_ITS ---
Author Organization [facility] Address [address] [place] [address] Care Team Providers Care Transport Driver Name Role Phone Ifeoma BLAIR, Rodger Dubon Primary Care Provider Milad esquivel Debra White Unavailable [phone] Remington Huerta Unavailable [phone] Allergies No Known Allergies REASON FOR VISIT [...] 06/22/2024 Encounters Encounter Location Date Provider Diagnosis [facility] [address] [place] [address] 06/22/2024 Remington Huerta Type 1 diabetes mellitus [...] Up: 3 Months, Reason: Provider Name:Debra machado, 01/25/2025 09:15:00 AM, [address] [place], [phone], Procedure Notes * Category Sub-Category Detail Notes [...] as necessary. Patient chooses, no pharmaceutical tx (45912) Keratoma Treatment Parring or Cutting o f Benign Hyperkeratotic Lesion(s) 08285 ( More than 4 Lesions ) - The Benign hyperkeratotic lesions, as described above were pared, and/or cut utilizing a sterile 15 blade, tissue nippers, and/or dremel Progress Notes * Tavon SALTERDOB: [birth year] (59 yo M)Acc No.[id number]:06/22/2024 Progress Note Patient:?Tavon Salter Provider:?Remington Huerta DPM :1965???Age:59 Y???Sex:Male Jayy e:06/22/2024 Address: [address], [facility] [place], [phone] Pcp:Rodger Dia MD Subjective: * Chief Complaints: * ??? Painful nail(s) aggrevat ed by shoes and causing difficulty standing/walking. * HPI: ???At Risk footcare:?Pt States Last PCP Visit:?Date?05/08/2024 ?Misc?liver transplant pt.?Foot Pain:?Nature:?aching.?Location?Right , Midfoot, Rearfoot.?Duration:?several years.?Onset/Cause:?fx ankle 2014.?Aggrevated:?standing, walking.?Treatments:?orif at [facility].?Quality/Severity?moderate.? * ROS:?General/Constitutional:?Nausea?denies.?Vomiting?denies.?Hunger Thirst?denies.?Loss appetite?denies.?Chills?denies.?Fatigue?denies.?Fever?denies.?Night Sweats?denies.?Unexplained weight loss?denies.?Unexplained [...] as necessary. Patient chooses, no pharmaceutical tx (09802).?Keratoma Treatment:?Parring or Cutting of Benign Hyperkeratotic Lesion(s)?28634 ( More than 4 Lesions ) - The Benign hyperkeratotic lesions, as described above were pared, and/or cut utilizing a sterile 15 blade, tissue nippers, and/or dremel.? * Procedure Codes:?19855 DEBRI DE NAIL, 6 OR MORE, Modifiers: XS 18892 TRIM SKIN LESIONS, OVER 4, Modifiers: XS * Follow Up:?3 Months * Images: * Sign off status: Completed true * Provider:?Remington Huerta DPM Date:? 024 Generated for Printi ng/Leanderg/eTransmitting on:?10/01/2024 02:55 PM EST History and Physical Notes * HPI (History of Present Illness) Category Sub-Category Detail Notes Category Not es At Risk footcare Pt States Last PCP Visit: Date: [facility] liver transplant pt Foot Pain Aggrevated: standing, walking Onset/Cause: fx ankle 2014 Duration: several years Nature: aching Treatments: orif at [facility] Quality/Severity moderate Location Right , Midfoot, [place] rfoot Examination Category Sub-Category Detail Notes Category [...] Eye Exam:: no retin opathy Vascular DP PULSES (B): 2/4, B/L PT PULSES (B): 2/4, B/L CAPILLARY FILL TIME: 3 secs. per digit, B/L TEMPERTURE GRADIENT (C): warm to cool, p roximal to distal, B/L TROPHIC CONDITION-TEXTURE/ELASTICITY/TURGOR/HAIR GROWTH (B): normal, B/L EDEMA (C): no edema TELANGECTASIA: absent VARICOSITIES: absent PIGMENTATION: normal, B/L Nails NAILS are: Elongated, overg rown, dystrophic, lytic, greater than 3mm thick, discolored and friable with crumbly malodorous subungual debris, with dull to no pain on palpation due to neuropathy, 1-4 B/L
--- OUTSIDE RECORDS SUMMARY | 2024-10-01 14:56 | XMS_ITS ---
Author Organization [facility] Address [address] [place] [address] Care Team Providers Care 5Th Grade Teacher Name Role Phone Ifeoma BLAIR, Rodger Dubon Primary Care Provider Debra Hansen Unavailable [phone] Remington Huerta [phone] Simmons Encounters Encounter Location Date Provider Diagnosis [address] [address] 06/21/2024 Remington Huerta Plan Of Treatment Next Appt Details Provider Name:Debra Rangel carter, 01/25/2025 09:15:00 AM, [address] [place] [address], [phone], Progress Notes * Tavon SALTERDOB: [birth year] (59 yo M)Acc No.[id number]:06/21/2024 Progress Note Patient:?aTvon SALTER Provider:?Remington Huerta DPM :1965???Age:59 Y???Sex:Male Jayy [...] appointment provider. Sign off status: Pending * Provider:Melissa Huerta DPM Date:? 024 Generated for Cameron bill/Kevin/Lala on:?10/01/2024 02:55 PM EST
== END 2024-10-01 14:53 | disposition home or self-care (01) ==
LOC: HO.MRI 14:52
PROVIDERS: PCP Internal Medicine; Visit Provider Orthopaedic Surgery
DX: M25.311 Other instability, right shoulder (principal)
CPT/HCPCS: 73221

== ENCOUNTER 2024-10-30 08:19 | Outpatient (AMB) | payer MEDICARE, MEDICAID, SELFPAY ==
--- OUTSIDE RECORDS SUMMARY | 2024-10-30 08:23 | XMS_ITS | Encounter Summary ---
Author Organization [facility] Address [address] [place] [address] Care Team Providers Care Business Director Name Role Phone Rodger Dia MD Primary Care Provider [phone] Encounter Details Date Type Department Care Team Description 03/25/2015 Hospital Medical Records [address] [place] [address] Rip Tijerina MD [address] [place] [id number] Social History Tobacco Use Types Packs/Day Years Used Date Smoking Tobacco: Never Smokeless Tobacco: Never Alcohol Use Standard Drinks/Week Comments No 0 (1 standard drink = 0.6 oz pur e alcohol) Sex Assigned at Date Recorded Not on file Job Start Date Occupation Industry Not on file Not on file Not on file documented as of this encounter Plan of Treatment Not on file documented as of this encounter Visit Diagnoses Not on filedocumented in this encounter Care Teams Business Director Relationship Specialty Start Date End Date Rodger Dia MD [address] [place] [phone] PCP - General 02/10/11 documented as of this encounter
--- OUTSIDE RECORDS SUMMARY | 2024-10-30 08:24 | XMS_ITS | Encounter Summary ---
Author Organization [facility] Address [address] [place] [address] Care Team Providers Care Service Attendant Cafeteria Name Role Phone Rodger Dia MD Primary Care Provider [phone] Encounter Details Date Type Department Care Team Description 01/23/2020 Orders Only Adult Medicine [address] [phone] Rodger Dia MD [address] [place] [address] [phone] Social History Tobacco Use Types Packs/Day Years [...] on filedocumented in this encounter Care Teams Service Attendant Cafeteria Relationship Specialty Start Date End Date Rodger Dia MD [address] [place] [phone] PCP - General 02/10/11 documented as of this encounter
--- OUTSIDE RECORDS SUMMARY | 2024-10-30 08:24 | XMS_ITS | Encounter Summary ---
Author Organization [facility] Address [address] [place] [address] Care Team Providers Care Chinese Language Professor Name Role Phone Rodger Dia MD Primary Care Provider [phone] Encounter Details Date Type Department Care Team Description 12/25/2019 Spot Welder Body Assembly Report Medical Records [address] [place] [phone] Candace Marroquin Social History Tobacco Use Types Packs/Day Years [...] on filedocumented in this encounter Care Teams Chinese Language Professor Relationship Specialty Start Date End Date Rodger Dia MD [address] [place] [address] [phone] PCP - General 02/10/11 documented as of this encounter
--- OUTSIDE RECORDS SUMMARY | 2024-10-30 08:24 | XMS_ITS | Encounter Summary ---
Author Organization [facility] Address [address] [place] [address] Care Team Providers Care Patient Service Rep Name Role Phone Rodgre Dia MD Primary Care Provider [phone] Encounter Details Date Type Department Care Team Description 02/12/2020 Behavioral Therapist Report Medical Records [address] [place] [address] Renetta Rosales [address] [place] [address] Social History Tobacco Use Types Packs/Day Years [...] on filedocumented in this encounter Care Teams Patient Service Rep Relationship Specialty Start Date End Date Rodger Dia MD [address] [place] [address] [phone] PCP - General 02/10/11 documented as of this encounter
--- OUTSIDE RECORDS SUMMARY | 2024-10-30 08:24 | XMS_ITS | Encounter Summary ---
Author Organization [facility] Address [address] [place] [address] Care Team Providers Care Global Expansion Sales Director Name Role Phone Rodger Dia MD Primary Care Provider [phone] Reason for Visit * Reason Onset Date Comments refill request 03/06/2020 Encounter Details Date Type Department Care Team Description 03/06/2020 Telephone Adult Medicine [address] [phone] Rodger Dia MD [address] [place] [address] [phone] refill request Social History Tobacco Use Types Packs/Day Years Used Date Smoking Tobacco: Never Smokeless Tobacco: Never Alcohol Use Standard Drinks/Week Comments No 0 (1 standard drink = 0.6 oz pur e alcohol) Sex Assigned at Date Recorded Not on file Job Start Date Occupation Industry Not on file Not on file Not on file documented as of this encounter Miscellaneous Notes * Telephone Encounter - Hailey Carpenter - 03/06/2020 1:01 PM EDT Patient would like script to be: E-PRESCRIBED/FAXED TO PHARMACY MEDICATION WAS SENT TO PHARMACY THEN CANCELED. PLEASE RESEND JORGE WHEN WAS THE PATIENT'S LAST APPOINTMENT IN ADULT MEDICINE? 01/17/20 WHEN WAS THE LAST TIME THE PATIENT SAW THEIR PCP? Same as above Does patient have an upcoming appointment? NO (THE MEDICATION REQUESTED IS ON THE MED LIST ABOVE) One or some of the medications requested were on the HISTORICAL MED list Did you check the Pharmacy information above?: YES Patient wants: 30 -day supply Is this a mail order prescription request ? NO If the refill is from a FAXED refill request what is the RX # listed on the fax? N/A Patients current insurance carrier is: [place] / Plan: [place]ARE-[employer] / Product Type: MEDICARE [id number] documented in this encounter Plan of Treatment Not on file documented as of this encounter Visit Diagnoses Diagnosis Uncontrolled type 2 diabetes mellitus with stage 3 chronic kidney disease, with long-term current use of insulin documented in this encounter Care Teams Global Expansion Sales Director Relationship Specialty Start Date End Date Rodger Dia MD [address] [place] [address] [phone] PCP - General 02/10/11 documented as of this encounter
--- OUTSIDE RECORDS SUMMARY | 2024-10-30 08:24 | XMS_ITS | Encounter Summary ---
Author Organization [facility] Address [address] [place] [address] Care Team Providers Care Heat Engineering Teacher Name Role Phone Rodger Dia MD Primary Care Provider [phone] Encounter Details Date Type Department Care Team Description 11/13/2014 Freight Broker Report Medical Records [address] [place] [phone] Ronny Mendoza MD Social History Tobacco Use Types Packs/Day Years [...] on filedocumented in this encounter Care Teams Heat Engineering Teacher Relationship Specialty Start Date End Date Rodger Dia MD [address] [place] [address] [phone] PCP - General 02/10/11 documented as of this encounter
--- NOTE | 2024-10-30 08:25 | A.OFFVIS_ITS ---
Vital Signs 10/30/24 08:29 Height 5 ft 8 in Weight 240 lb BMI 36.5 Intake Visit Reasons: OV-right shoulder MRI review. Intake Note: Tavon is a 59 year old right hand dominant male who presents today for a MRI review of his right shoulder. The patient has been doing his range of motion exercises. He reports mild discomfort in his right shoulder. He reports minimal weakness when lifting his right hand above shoulder height. Allergies No Known Allergies Allergy (Verified 10/30/24 08:27) Medication List - Last Reconciled 10/30/24 by Harpal Franklin MD clotrimazole 1% (Antifungal (clotrimazole)) 1 appl topical BID 2 weeks cyclosporine modified 50 mg PO BID hydrocortisone 2.5% 1 appl topical BID PRN hydroxyzine HCl 25 mg PO QID PRN insulin detemir U-100 (Levemir FlexTouch U-100 Insulin) units subcut insulin glargine (Lantus Solostar U-100 Insulin) units subcut insulin lispro (Humalog KwikPen (U-100) Insulin) subcut lisinopril 5 mg PO DAILY pen needle, diabetic (BD Ultra-Fine Mini Pen Needle) As directed permethrin 5% 1 appl topical Q14D 2 doses pravastatin 20 mg PO DAILY PFSH Medical History Flu-like symptoms Social History (Updated 09/20/24 @ 09:01 by AMBIKA Glaser) Alcohol intake: never Patient Tobacco Use Status: Never used Tobacco Current occupational status: unemployed Current occupation: rt handed Physical Exam Vital Signs: BMI result Body Mass Index 36.5 Const Other: Well-nourished well-developed very friendly male awake alert and oriented x3 in no acute distress Extrem Other: Right shoulder examination shows full range of motion when compared to his left shoulder, 4/5 strength with supraspinatus testing, positive impingement signs, tenderness over his acromioclavicular joint, no instability Results Reviewed Results Reviewed: MRI of the patient's right shoulder show severe acromioclavicular joint narrowing, a type 2 acromion, a small full-thickness supraspinatus tendon tear Assessment & Plan Assessment & Plan (1) Rotator cuff insufficiency of right shoulder: Code(s): M25.311 - Other instability, right shoulder Category: Medical Plan Mr. lBack presents with intermittent right shoulder discomfort due to impingement syndrome, acromioclavicular joint arthritis and a small full- thickness rotator cuff tear. I had a lengthy discussion with the patient regarding the treatment options. At this point the patient's symptoms are tolerable to him. He will continue with his range of motion exercises. The do's and don'ts of lifting were discussed at length with the patient. He will contact me prior to his follow-up appointment in 3 months should his symptoms worsen in any way. Feel free to call me at any time should questions regarding his orthopedic management arise. I spent 22 minutes in reviewing the patient's records and imaging studies, seeing the patient and documenting in the medical record. Coding Level of Care Code Est Pt Level 3 (88063) Complex EM visit Add On G2211 Diagnoses Rotator cuff insufficiency of right shoulder M25.311
--- OUTSIDE RECORDS SUMMARY | 2024-10-30 08:25 | XMS_ITS | Encounter Summary ---
Author Organization [facility] Address [address] [place] [address] Care Team Providers Care Coat Presser Name Role Phone Rodger Dia MD Primary Care Provider [phone] Reason for Visit * Reason Onset Date Comments Medication 06/30/2019 prep Encounter Details Date Type Department Care Team Description 06/30/2019 Refill Gastroenterology - [address] [place] [phone] Vikash Leo MD Medication (prep) Social History Tobacco Use Types Packs/Day Years [...] on filedocumented in this encounter Care Teams Coat Presser Relationship Specialty Start Date End Date Rodger Dia MD [address] [place] [address] [phone] PCP - General 02/10/11 documented as of this encounter
--- OUTSIDE RECORDS SUMMARY | 2024-10-30 08:26 | XMS_ITS | Encounter Summary ---
Author Organization [facility] Address [address] [place] [address] Care Team Providers Care Spray Booth Operator Name Role Phone Rodger Dia MD Primary Care Provider [phone] Encounter Details Date Type Department Care Team Description 07/11/2014 Release of Information Medical Records [address] [place] [id number] Abstract, Provider Social History Tobacco Use Types Packs/Day Years [...] on filedocumented in this encounter Care Teams Spray Booth Operator Relationship Specialty Start Date End Date Rodger Dia MD [address] [place] [phone] PCP - General 02/10/11 documented as of this encounter
--- OUTSIDE RECORDS SUMMARY | 2024-10-30 08:26 | XMS_ITS | Encounter Summary ---
Author Organization [facility] Address [address] [place] [address] Care Team Providers Care Tractor Trailer Driver Name Role Phone Rodger Dia MD Primary Care Provider [phone] Encounter Details Date Type Department Care Team Description 07/17/2014 Charger Operator Report Medical Records [address] [place] [phone] Ronny Mendoza MD Social History Tobacco Use [...] on filedocumented in this encounter Care Teams Tractor Trailer Driver Relationship Specialty Start Date End Date Rodger Dia MD [address] [place] [address] [phone] PCP - General 02/10/11 documented as of this encounter
--- OUTSIDE RECORDS SUMMARY | 2024-10-30 08:26 | XMS_ITS | Encounter Summary ---
Author Organization [employer] [facility] Address [address] [place] [address] Care Team Providers Care Returned Case Inspector Name Role Phone Rodger Dia MD Primary Care Provider [phone] Encounter Details Date Type Department Care Team Description 09/05/2014 SCAN Medical Records [address] [place] [address] Abstract, Provider Social History Tobacco Use Types [...] on file documented as of this encounter Procedures Procedure Name Priority Date/Time Associated Diagnosis Comments OUTSIDE LAB Routine 06/07/2014 documented in this encounter Results * OUTSIDE LAB (06/07/2014) Provider Abstract LAB documented in this encounter Visit Diagnoses Not on filedocumented in this encounter Care Teams Returned Case Inspector Relationship Specialty Start Date End Date Rodger Dia MD [address] [place] [address] PCP - General 02/10/11 documented as of this encounter
--- OUTSIDE RECORDS SUMMARY | 2024-10-30 08:26 | XMS_ITS | Encounter Summary ---
Author Organization [facility] Address [address] [place] [address] Care Team Providers Care Bingo Checker Name Role Phone Rodger Dia MD Primary Care Provider [phone] Encounter Details Date Type Department Care Team Description 04/15/2011 Legal Mediator Report Orthopedic Surgery - [address] [place] [address] [facility] [place] Social History Tobacco Use Types Packs/Day Years [...] on filedocumented in this encounter Care Teams Bingo Checker Relationship Specialty Start Date End Date Rodger Dia MD [address] [place] [address] [phone] PCP - General 02/10/11 documented as of this encounter
--- OUTSIDE RECORDS SUMMARY | 2024-10-30 08:27 | XMS_ITS | Encounter Summary ---
Author Organization [facility] Address [address] [place] [address] Care Team Providers Care Class A Regional Drivers Name Role Phone Rodger Dia MD Primary Care Provider [phone] Encounter Details Date Type Department Care Team Description 11/04/2015 Welder/Fabricator Report Medical Records [address] [place] [address] Grisel [place] Social History Tobacco Use Types Packs/Day Years [...] on filedocumented in this encounter Care Teams Class A Regional Drivers Relationship Specialty Start Date End Date Rodger Dia MD [address] [place] [address] [phone] PCP - General 02/10/11 documented as of this encounter
--- OUTSIDE RECORDS SUMMARY | 2024-10-30 08:27 | XMS_ITS | Encounter Summary ---
Author Organization [facility] Address [address] [place] [address] Care Team Providers Care Computer Aided Drafter Name Role Phone Rodger Dia MD Primary Care Provider [phone] Encounter Details Date Type Department Care Team Description 11/12/2015 Wellness Visit Medical Records [address] [place] [address] Rodger Dia MD [address] [place] [address] [phone] Social History Tobacco Use Types Packs/Day Years [...] on filedocumented in this encounter Care Teams Computer Aided Drafter Relationship Specialty Start Date End Date Rodger Dia MD [address] [place] [address] [phone] PCP - General 02/10/11 documented as of this encounter
--- OUTSIDE RECORDS SUMMARY | 2024-10-30 08:27 | XMS_ITS | Encounter Summary ---
Author Organization [facility] Address [address] [place] [address] Care Team Providers Care Deputy Jailer Name Role Phone Rodger Dia MD Primary Care Provider [phone] Reason for Visit * Reason Comments Diabetes Encounter Details Date Type Department Care Team (Late st Contact Info) Description 10/26/2024 8:00 AM EST Office Visit Endocrinology - [place] [address] [place] [phone] Carisa Silverman PA [address] [place] [address] Type II diabetes mellitus with peripheral circulatory disorder (CMS/HCC) (Primary Dx); Primary hypertension; Obesity (BMI 30-39.9); Mixed hyperlipidemia Social History Tobacco Use Types Packs/Day Years Used Date Smoking Tobacco: Never Smokeless Tobacco: Never Tobacco Cessation:Counseling Given: Not Answered Alcohol Use Standard Drinks/Week Comments No 0 (1 standard drink = 0.6 oz pur e alcohol) Sex and Gender Information Value Date Recorded Sex Assigned at Not on file Legal Sex Male 11:01 AM EST Gender Identity Not on file Sexual Orientation Not on file documented as of this encounter Last Filed Vital Signs Vital Sign Reading Time Taken Comments Blood Pressure 128/82 10/26/2024 7:57 AM EST C Pulse 75 10/26/2024 7:57 AM EST Temperature 36.4 ??C (97.5 ??F) 10/26/2024 7:57 AM ES T Respiratory Rate - - Oxygen Saturation 98% 10/26/2024 7:57 AM EST Inhaled Oxygen Concentration - - Weight 105 kg (232 lb) 10/26/2024 7:57 AM EST Height 165.1 cm (5' 5 ) 10/26/2024 7:57 AM EST Body Mass Index 38.61 10/26/2024 7:57 AM EST documented in this encounter Progress Notes * Eden Montoya MA - 10/26/2024 8:00 AM EST BS - 208 - Per CGM per PT - Fasting * GIUSEPPE Claudio - 10/26/2024 8:00 AM EST CHIEF COMPLAINT: Diabetes IDENTIFIER: Tavon Black is a 59 y.o. old male HPI: Patient is a 59-year-old male with a history of liver transplant (following with [facility]) who presents today for diabetes. Current diabetic regimen: Lantus 22 units at bedtime Humalog sliding scale TID Using Dexcom device to monitor glucose levels. Average glucose: 196 Standard deviation: 70% GMI: 8.1% Time in range: Very high: 20% High: 34% In range: 46% Low or very low: <0% Joined gym--going twice a week. Fasting sugars are generally in the low 100s. Sugars are high during the day after meals--admits to poor dietary choices. No low sugars. Denies any polyuria, polydipsia. Denies any nausea or vomiting. No abdominal pain. Negative microalbumin urine test. Up-to-date on eye exam. BP today at 128/82. With CKD. Following nephrology, Dr. Berumen Following with [facility] routinely, history of liver transplant. Hyperlipidemia is treated with 20 mg of pravastatin daily. Lab Results Component Value Date HGBA1C 7.1 (H) 09/18/2024 ROS: GENERAL: No malaise HEENT: No changes in hearing or vision RESPIRATORY: No cough, wheezing or shortness of breath CARDIOVASCULAR: No chest pain, leg swelling or palpitations GI: No abdominal discomfort ENDO: see HPI NEURO: No persistent headache, syncope PAST MEDICAL HISTORY: Patient Active Problem List Diagnosis Date Noted Hemorrhoids 2021 Class 2 severe obesity due to excess calories with serious comorbidity in adult (CMS/HCC) 12/24/2020 CKD (chronic kidney disease) stage 3, GFR 30-59 ml/min ([facility]) 11/21/2019 Type II diabetes mellitus with peripheral circulatory disorder ([facility]) 11/06/2019 Diabetic polyneuropathy associated with diabetes mellitus due to underlying condition ([facility]) 11/03/2019 Hypertension 05/09/2019 Mixed hyperlipidemia 11/02/2018 Diabetes type 2, controlled ([facility]) 07/01/2015 Choledocholithiasis 03/06/2014 Helicobacter pylori gastritis 10/16/2013 Esophageal varices without bleeding ([facility]) 10/11/2013 Compression fracture of vertebrae ([facility]) 12/07/2010 Pancytopenia ([facility]) 12/01/2010 Obesity (BMI 30-39.9) 12/04/2006 Portal hypertension ([facility]) 12/04/2006 Past Surgical History: Procedure Laterality Date COLONOSCOPY 05/23/2007 PROCEDURE: HISTORICAL COLONOSCOPY; COMMENT: Negative COLONOSCOPY 10/11/2013 PROCEDURE: HISTORICAL COLONOSCOPY; COMMENT: 6 mm sigmoid colon polyp: Tubular adenoma COLONOSCOPY 10/18/2019 PROCEDURE: HISTORICAL COLONOSCOPY; COMMENT: 6 mm cecal polyp. Pathology: Hyperplastic. HERNIA REPAIR 2004 PROCEDURE: REPAIR UMBILICAL HERNIA; COMMENT: approximately 2004 OTHER SURGICAL HISTORY 03/30/2016 PROCEDURE: LIVER TRANSPLANT, HETEROTOPIC; COMMENT: [facility]. UPPER GASTROINTESTINAL ENDOSCOPY 10/11/2013 PROCEDURE: [place] UPPER GI ENDOSCOPY PERFORMED; COMMENT: gastritis, small duodenal ulcers, large esophageal varices. Gastric biopsies positive for H. pylori. UPPER GASTROINTESTINAL ENDOSCOPY 05/23/2007 PROCEDURE: [place] UPPER GI ENDOSCOPY PERFORMED; COMMENT: Large esoph varices and portal hypertensive gastropathy. SOCIAL HISTORY: Social History Tobacco Use Smoking status: Never Smokeless tobacco: Never Substance Use Topics Alcohol use: No FAMILY HISTORY: Family History Problem Relation Name Age of Onset Diabetes Mother hypertension Diabetes Father hypertension Breast cancer Aunt paternal Family Status Relation Name Status Mother Alive as of 10/03/2012 Father Alive as of 10/03/2012 Aunt (Not Specified) No partnership data on file MEDICATIONS DISCONTINUED/REORDERED: Medications Discontinued During This Encounter Medication Reason BD Ultra-Fine Mini Pen Needle 31 gauge x 3/16 needle Duplicate order ACTIVE MEDICATIONS: Outpatient Medications Marked as Taking for the 10/26/24 encounter (Office Visit) with GIUSEPPE Claudio Medication Sig Dispense Refill BD Ultra-Fine Short Pen Needle 31 gauge x 5/16 needle USE DIRECTED TO INJECT INSULIN 3 TIMES A DAY. 100 each 3 cycloSPORINE modified (NEORAL) 25 mg capsule Take 1 capsule (25 mg total) by mouth 2 (two) times a day. Transplant Team in [place] prescribe. He had a liver Transplant. glucose blood test strip 1 each by Other route if needed. Use as instructed HumaLOG KwikPen Insulin 100 unit/mL injection pen Per Sliding Scale.USE PER SLIDING SCALE three times a day before meals 101-150: 6 units , 151-200: 9 UNITS, 201-250: 12 units . 251-300: 15 units, 301-350: 18 units , 351-400: 20 units >400: call me. 21 units. 30 mL 2 insulin glargine (LANTUS) 100 unit/mL injection Use 21-22 units at bedtime 30 mL 2 lisinopriL (PRINIVIL,ZESTRIL) 5 mg tablet Take 1 tablet (5 mg total) by mouth 1 (one) time each day. 90 tablet 1 miscellaneous medical supply misc 1 EA. Dexcom G7 pen needle, diabetic (PEN NEEDLE MISC) USE THREE TIMES DAILY WITH INSULIN pravastatin (PRAVACHOL) 20 mg tablet TAKE 1 TABLET BY MOUTH DAILY 90 tablet 1 ALLERGIES: Patient has no known allergies. PHYSICAL EXAM: Blood pressure 128/82, pulse 75, temperature 36.4 ??C (97.5 ??F), temperature source Temporal, height 1.651 m (65 ), weight 105 kg (232 lb), SpO2 98%. Body mass index is 38.61 kg/m??. BMI is greater than 25.0 (above the normal range) - see Plan APPEARANCE: Alert and in no acute distress HEART: RRR LUNG: clear to auscultation NEURO: Awake, alert LABS: Lab Results Component Value Date HGBA1C 7.1 (H) 09/18/2024 HGBA1C 6.9 (A) 03/28/2024 Lab Results Component Value Date CREATININE 1.35 (H) 09/18/2024 MICROALBCREA abstracted 03/28/2024 Lab Results Component Value Date GLUCOSE 116 (H) 09/18/2024 IMAGING: IMPRESSION: 1. Type II diabetes mellitus with peripheral circulatory disorder (CMS/HCC) 2. Primary hypertension 3. Obesity (BMI 30-39.9) 4. Mixed hyperlipidemia PLAN: Diabetes: A1c at 7.1% No change to lantus. Humalog TID per SS--add 2 units before lunch and dinner. New instructions are given to patient. Has been eating fast foods. Cut back on carbohydrates avoid sugary snacks and drinks, add more protein in diet along healthy fats and fiber. Increase workouts, at least 3 times at the gym per week. Negative microalbumin urine test. CKD. Monitor renal function. Avoid NSAIDS, hydrate appropriately Up-to-date on eye exam Continue with statin. Low-fat diet advised. Approaches towards weight loss are discussed, including burning more calories than one takes in by frequent, small meals, portion control and avoiding eating before bedtime. Seeing podiatry Follow-up with [facility] in May as scheduled. Return here in 3 months for reevaluation of diabetes, complete labs before appointment Medication and lab orders: Orders Placed This Encounter Procedures Hemoglobin A1c None GIUSEPPE Perez on 10/26/2024 at 9:49 AM EST documented in this encounter Plan of Treatment Upcoming Encounters Date Type Department Care Team (Late st Contact Info) Description 11/15/2024 9:30 AM EDT Appointment Endoscopy [address] [place] [phone] Sameer Hanson MD [address] [address] 01/25/2025 8:20 AM EDT Office Visit Endocrinology [address] [phone] Carisa Silverman PA [address] [place] [address] 04/26/2025 11:00 AM EDT Office Visit Adult Medicine [facility] - [address] [phone] Rodger Dia MD [address] [place] [address] Scheduled Orders Name Type Priority Associated Diagnoses Orde r Schedule Hemoglobin A1c Lab Routine Type II diabetes mellitus with peripheral circulatory disorder (CMS/HCC) Expected: 01/17/2025, Expires: 10/26/2025 documented as of this encounter Visit Diagnoses Diagnosis Type II diabetes mellitus with peripheral circulatory disorder (CMS/HCC)- Primary Type II or unspecified type diabetes mellitus with peripheral circulatory disorders, not stated as uncontrolled Primary hypertension Unspecified essential hypertension Obesity (BMI 30-39.9) Mixed hyperlipidemia documented in this encounter Discontinued Medications Medication Sig Discontinue Reason Start Date End Da te BD Ultra-Fine Mini Pen Needle 31 gauge x 3/16 needleIndications:Type II diabetes mellitus with peripheral circulatory disorder (CMS/HCC) USE TO INJECT INSULIN 3 TIMES A DAY Duplicate order 10/25/2024 10/26/2024 documented as of this encounter Additional Health Concerns Assessment Noted Time PHQ-9 Depression Total Score: 0 10/16/19 25 8:00 AM EST documented as of this encounter Care Teams Deputy Jailer Relationship Specialty Start Date End Date Rodger Dia MD [address] [place] [address] PCP - General 02/10/11 documented as of this encounter
--- OUTSIDE RECORDS SUMMARY | 2024-10-30 08:27 | XMS_ITS | Encounter Summary ---
Author Organization [facility] Address [address] [place] [address] Care Team Providers Care Casting Associate Name Role Phone Rodger Dia MD Primary Care Provider [phone] Blayne Peres MD Primary Care Provider [phone] Encounter Details Date Type Department Care Team Description 12/26/2010 Home Health Certification Medical Records [address] [place] [address] Social History Tobacco Use Types Packs/Day Years [...] on filedocumented in this encounter Care Teams Casting Associate Relationship Specialty Start Date End Date Rodger Dia MD [address] [place] [address] [phone] PCP - General 02/10/11 Blayne Peres MD [address] [place] [address] [phone] PCP - General 08/26/1994 02/09/11 documented as of this encounter
--- OUTSIDE RECORDS SUMMARY | 2024-10-30 08:27 | XMS_ITS | Encounter Summary ---
Author Organization [facility] Address [address] [place] [address] Care Team Providers Care Business Unit Leader Name Role Phone Rodger Dia MD Primary Care Provider [phone] Encounter Details Date Type Department Care Team Description 04/14/2015 Hospital Medical Records [address] [place] [id number] Marga Quinones NP Social History Tobacco Use Types Packs/Day Years [...] filedocumented in this encounter Care Teams Business Unit Leader Relationship Specialty Start Date End Date Rodger iDa MD [address] [place] [address] [phone] PCP - General 02/10/11 documented as of this encounter
--- OUTSIDE RECORDS SUMMARY | 2024-10-30 08:27 | XMS_ITS | Encounter Summary ---
Author Organization [facility] Address [address] [place] [address] Care Team Providers Care Residential Lawn Specialist Name Role Phone Rodger Dia MD Primary Care Provider [phone] Reason for Visit * Reason Comments Follow-up 4 month f/u for bp , DM , LIPID blood sugar 173 fasting Encounter Details Date Type Department Care Team (Late st Contact Info) Description 10/16/2024 8:00 AM EST Office Visit Adult Medicine [facility] [address] [place] [id number] Gumaro Lan, RAGMAN [address] [place] [phone] Controlled type 2 diabetes mellitus with stage 3 chronic kidney disease, without long-term current use of insulin ([facility]) (Primary Dx); Primary hypertension; Mixed hyperlipidemia; Class 2 severe obesity due to excess calories with serious comorbidity and body mass index (BMI) of 39.0 to 39.9 in adult ([facility]/HCC); Encounter for screening for malignant neoplasm of prostate; Need for tetanus, diphtheria, and acellular pertussis (Tdap) vaccine; Need for vaccination with 20-polyvalent pneumococcal conjugate vaccine Social History Tobacco Use Types Packs/Day Years [...] Sign Reading Time Taken Comments Blood Pressure 124/82 10/16/2024 8:48 AM EST Pulse 68 10/16/2024 8:23 AM EST Temperature 35.9 ??C (96.7 ??F) 10/16/2024 8:23 AM ES T Respiratory Rate 18 10/16/2024 8:23 AM EST Oxygen Saturation 98% 10/16/2024 8:23 AM EST Inhaled Oxygen Concentration - - Weight 106 kg (234 lb 3.2 oz) 10/16/2024 8:23 AM EST Height 165.1 cm (5' 5 ) 10/16/2024 8:23 AM EST Body Mass Index 38.97 10/16/2024 8:23 AM EST documented in this encounter Ordered Prescriptions Prescription Sig Dispense Quantity Refills Last Filled Start Date End Date lisinopriL (PRINIVIL,ZESTRIL) 5 mg tablet Take 1 tablet (5 mg total) by mouth 1 (one) time each day. 90 tablet 1 10/16/2024 documented in this encounter Progress Notes * Gumaro Lan, RAGMAN - 10/16/2024 8:00 AM ESTAssociated Problem(s): Diabetes type 2, controlled ([facility]) Diabetes: Patient is to continue Humalog sliding scale. Per patient he has not been following sliding scale because he was only aware. I print highlighted in bold sliding scale. I also educated patient on sliding scale and how to use. Checking Your Blood Sugars: Please check your sugars at the following times of day: before breakfast, before lunch, before dinner, and before bedtime. Write your fingerstick blood sugars down on a log sheet or record book. Bring them to your appointment Educated patient on pre and post prandial blood sugar goals of <120 and <170 respectively, aswell as an A1c goal of <7% and goal FBG of 90-130. Educated patient on complications associated with uncontrolled diabetes. These include but are not limited to an increased risk of cardiovasculardisease, retinopathy, neuropathy, renal disease, increased risk of infections with open wounds and a mputations. Diet Recommendation: Patient is maintain a low carb diet to optimize blood sugar levels. Patient iscounseled about low calorie diet (avoid sweet drinks/snacks, and replace red meat with chicken and fish and increase salad intake). Activity/Exercise Recommendation: Patient is to attempt exercise daily or at least 3 times a week for 30 min. If able to set aside 2 days of of the week for strength exercise. Recheck A1c in 3 months Patient has appointment with endocrinology 10/26/2024. When to Call your Healthcare Provider If your blood sugar falls below 70 and you do not know why or you become unconscious If you are sick and unable to take liquids because or nausea or vomiting If you have a fever over 101 If your blood sugar is 300 or higher on greater than 3 separate occasions during the same week If you are just unsure what to do Your Action Plan Check blood glucose as directed and write down all results. Review blood pressure medications Make appointment to see your eye doctor Check feet for sores every day Avoid walking in bare or stocking feet due to the numbness in your feet Increase physical activity Contact the office if you experience any barriers to care such as inability to purchase your medication difficulty getting to your appointments or difficulty understanding your care plan Avoid alcohol Please get your pneumonia shot Please get your yearly flu shot Orders: Hemoglobin A1c; Future Basic metabolic panel; Future * Gumaro Lan NP - 10/16/2024 8:00 AM ESTAssociated Problem(s): Hypertension blood pressure stable patient is to continue lisinopril 5 mg daily. Patient is to maintain a low-sodium diet. Contact office if blood pressures greater than 140/90 twice. Orders: Hemoglobin A1c; Future Basic metabolic panel; Future * Gumaro Lan NP - 10/16/2024 8:00 AM ESTAssociated Problem(s): Mixed hyperlipidemia Last LDL 93. I will continue statin. Cardiovascular risk and specific lipid/LDL goals reviewed. Tavon is asked to be alert for persistent nausea, abdominal pain, jaundice or pronounced persistent, diffuse muscle pain. Should such symptoms occur. He is to discontinue the drug immediately and let us know. Orders: Hemoglobin A1c; Future Basic metabolic panel; Future * Gumaro Lan NP - 10/16/2024 8:00 AM ESTAssociated Problem(s): Class 2 severe obesity due to excess calories with serious comorbidity in adult (CMS/HCC) Nutritional and exercise counseling - Approaches towards weight loss were encouraged, including burning more calories than one takes in by frequent, small meals, portion control, avoiding eating before bedtime, regular exercise with an emphasis on duration rather than intensity , and strength training exercise. Orders: Hemoglobin A1c; Future Basic metabolic panel; Future * Gumaro Lan NP - 10/16/2024 8:00 AM EST SLIDING SCALE three times a day before meals 101-150: 6 units , 151-200: 9 UNITS, 201-250: 12 units . 251-300: 15 units, 301-350: 18 units , 351-400: 20 units Greater 400: call Provider 21 units. * Gumaro Lan NP - 10/16/2024 8:00 AM EST PATIENT'S PCP: Rodger Dia MD LAST VISIT IN THIS DEPARTMENT: Visit date not found Tavon Black is a 59 y.o. (: 1965) male who presents today for chronic medical and medication management. SUBJECTIVE HPI Diabetes & CKD Stage III: Last A1c was 7.1%. Patient is followed by endocrine and uses a sensorto check blood sugar. He is on lispro sliding scale and Lantus 20 units at bedtime. Per patient he did not know he was on a sliding scale and has been taking 12 units when his blood sugar is elevated. I reiterate what his sliding scale is and a printout was given to patient, so patient would know what is exact Humalog dose should be after he check his blood sugar. Patient has had a 1 pound weightincrease in weight since last appointment. Activities include walking. He denies any hypoglycemic episodes. Patient renal function has decreased, compared to previous lab work. Last GFR 60, creatinine 1.35 and BUN 32. Patient is followed by nephrology in [place]. He is up-to-date with foot exam and eye exam. He denies any lower extremity pain such as neuropathy. Hypertension: Stable, Tavon is on 1 antihypertensive medication, lisinopril 5 mg daily. Blood pressure in the office is today 148/89. After patient sat for a while BP was reassessed manually and was 124/82. Today he reported no chest pain on exertion, no dyspnea on exertion, no swelling of ankles, no palpitation, sweating, dizziness, abdominal pain or tearing back pain. He also denied TIAs, headache, vision changes, or sensory and motor deficit. Hypercholesterolemia: Last LDL was 93, triglyceride 175. Patient is on a statin. He is tolerating statin well. He denies nausea, abdominal pain, jaundice or pronounced persistent, diffuse muscle pain. Health Maintenance Addressed Today: Patient's colonoscopy is scheduled for November 16, 2023. He is torepeat every every 5 years. Tdap given in office today. Pneumonia vaccine also completed in office today. ROS Review of Systems Constitutional: Negative. Respiratory: Negative. Cardiovascular: Negative. Gastrointestinal: Negative. Endocrine: Negative. Genitourinary: Negative. Musculoskeletal: Negative. Skin: Negative. Neurological: Negative. Hematological: Negative. PAST MEDICAL HISTORY: Patient Active Problem List Diagnosis Date Noted Hemorrhoids 2021 Class 2 severe obesity due to excess calories with serious comorbidity in adult ([facility] 12/24/2020 CKD (chronic kidney disease) stage 3, GFR 30-59 ml/min ([facility] 11/21/2019 Type II diabetes mellitus with peripheral circulatory disorder ([facility] 11/06/2019 Diabetic polyneuropathy associated with diabetes mellitus due to underlying condition ([facility] 11/03/2019 Hypertension 05/09/2019 Mixed hyperlipidemia 11/02/2018 Diabetes type 2, controlled ([facility] 07/01/2015 Choledocholithiasis 03/06/2014 Helicobacter pylori gastritis 10/16/2013 Esophageal varices without bleeding ([facility] 10/11/2013 Compression fracture of vertebrae ([facility] 12/07/2010 Pancytopenia ([facility] 12/01/2010 Obesity (BMI 30-39.9) 12/04/2006 Portal hypertension ([facility] 12/04/2006 Past Surgical History: Procedure Laterality Date COLONOSCOPY 05/23/2007 PROCEDURE: HISTORICAL COLONOSCOPY; COMMENT: Negative COLONOSCOPY 10/11/2013 PROCEDURE: HISTORICAL COLONOSCOPY; COMMENT: 6 mm sigmoid colon polyp: Tubular adenoma COLONOSCOPY 10/18/2019 PROCEDURE: HISTORICAL COLONOSCOPY; COMMENT: 6 mm cecal polyp. Pathology: Hyperplastic. HERNIA REPAIR 2004 PROCEDURE: REPAIR UMBILICAL HERNIA; COMMENT: approximately 2004 OTHER SURGICAL HISTORY 03/30/2016 PROCEDURE: LIVER TRANSPLANT, HETEROTOPIC; COMMENT: [facility]. UPPER GASTROINTESTINAL ENDOSCOPY 10/11/2013 PROCEDURE: [place] UPPER [...] (Not Specified) No partnership data on file Social Influencer of Health (SIOH): The following portions of the patient's chart were reviewed in this encounter and updated as appropriate: OBJECTIVES Vitals: 10/16/24 0823 10/16/24 0848 BP: (!) 147/89 124/82 BP Location: Left arm Patient Position: Sitting Pulse: 68 Resp: 18 Temp: 35.9 ??C (96.7 ??F) SpO2: 98% Weight: 106 kg (234 lb 3.2 oz) Height: 1.651 m (65 ) Body mass index is 38.97 kg/m??. BMI is greater than 25.0 (above the normal range) - see Plan BP Readings from Last 5 Encounters: 10/16/24 124/82 07/25/24 108/72 06/21/24 114/72 06/14/24 128/82 03/28/24 116/64 Wt Readings from Last 5 Encounters: 10/16/24 0823 106 kg (234 lb 3.2 oz) 07/25/24 0844 105 kg (231 lb 3.2 oz) 06/21/24 1303 105 kg (231 lb 6.4 oz) 06/14/24 0801 106 kg (233 lb) 03/28/24 0842 104 kg (230 lb) No Known Allergies Active Medications: Current Outpatient Medications Medication Instructions BD Ultra-Fine Mini Pen Needle 31 gauge x 3/16 needle USE TO INJECT INSULIN 3 TIMES A DAY cycloSPORINE modified (NEORAL) 25 mg capsule Take 1 capsule (25 mg total) by mouth 2 (two) times a day. Transplant Team in [place] prescribe. He had a liver Transplant. glucose blood test strip 1 each, As needed HumaLOG KwikPen Insulin 100 unit/mL injection pen Per Sliding Scale.USE PER SLIDING SCALE three times a day before meals 101-150: 6 units , 151-200: 9 UNITS, 201-250: 12 units . 251-300: 15 units, 301-350: 18 units , 351-400: 20 units >400: call me. 21 units. insulin glargine (LANTUS) 100 unit/mL injection Use 21-22 units at bedtime lisinopriL (PRINIVIL,ZESTRIL) 5 mg, oral, Daily miscellaneous medical supply misc 1 EA pen needle, diabetic (PEN NEEDLE MISC) USE THREE TIMES DAILY WITH INSULIN PEN NEEDLE, DIABETIC MISC Insulin Pen Needle (B-D U/F PEN NEEDLE) 31G X 5 MM Misc USE TO INJECT INSULIN 3 TIMES A DAY pravastatin (PRAVACHOL) 20 mg, oral, Daily Physical Exam Vitals reviewed. Constitutional: Appearance: Normal appearance. Cardiovascular: Rate and Rhythm: Normal rate and regular rhythm. Pulses: Normal pulses. Heart sounds: Normal heart sounds. Pulmonary: Effort: Pulmonary effort is normal. Breath sounds: Normal breath sounds. Abdominal: General: Bowel sounds are normal. Palpations: Abdomen is soft. Musculoskeletal: General: Normal range of motion. Cervical back: Normal range of motion and neck supple. Skin: General: Skin is warm and dry. Neurological: General: No focal deficit present. Mental Status: He is alert. Mental status is at baseline. Imaging No Pertinent Imaging Laboratory: CBC: No results found for: WBC , HGB , HCT , MCV , PLT CMP: Lab Results Component Value Date NA 141 09/18/2024 K 4.5 09/18/2024 CL 112 (H) 09/18/2024 CO2 24 09/18/2024 GLUCOSE 116 (H) 09/18/2024 BUN 32 (H) 09/18/2024 CREATININE 1.35 (H) 09/18/2024 CALCIUM 9.1 09/18/2024 EGFR 60 09/18/2024 A1c/Microalbuminuria/LDL/GFR: Lab Results Component Value Date HGBA1C 7.1 (H) 09/18/2024 HGBA1C 6.9 (A) 03/28/2024 Lab Results Component Value Date CREATININE 1.35 (H) 09/18/2024 MICROALBCREA abstracted 03/28/2024 Lipids: Lab Results Component Value Date CHOL 166 11/26/2023 TRIG 175 (A) 11/26/2023 HDL 38 (A) 11/26/2023 TSH: No results found for: TSH PSA: No results found for: PSA Assessment & Plan Controlled type 2 diabetes mellitus with stage 3 chronic kidney disease, without long-term current use of insulin ([facility]) Diabetes: Patient is to continue Humalog sliding scale. Per patient he has not been following sliding scale because he was only aware. I print highlighted in bold sliding scale. I also educated patient on sliding scale and how to use. Checking Your Blood Sugars: Please check your sugars at the following times of day: before breakfast, before lunch, before dinner, and before bedtime. Write your fingerstick blood sugars down on a log sheet or record book. Bring them to your appointment Educated patient on pre and post prandial blood sugar goals of <120 and <170 respectively, aswell as an A1c goal of <7% and goal FBG of 90-130. Educated patient on complications associated with uncontrolled diabetes. These include but are not limited to an increased risk of cardiovasculardisease, retinopathy, neuropathy, renal disease, increased risk of infections with open wounds and a mputations. Diet Recommendation: Patient is maintain a low carb diet to optimize blood sugar levels. Patient iscounseled about low calorie diet (avoid sweet drinks/snacks, and replace red meat with chicken and fish and increase salad intake). Activity/Exercise Recommendation: Patient is to attempt exercise daily or at least 3 times a week for 30 min. If able to set aside 2 days of of the week for strength exercise. Recheck A1c in 3 months Patient has appointment with endocrinology 10/26/2024. When to Call your Healthcare Provider If your blood sugar falls below 70 and you do not know why or you become unconscious If you are sick and unable to take liquids because or nausea or vomiting If you have a fever over 101 If your blood sugar is 300 or higher on greater than 3 separate occasions during the same week If you are just unsure what to do Your Action Plan Check blood glucose as directed and write down all results. Review blood pressure medications Make appointment to see your eye doctor Check feet for sores every day Avoid walking in bare or stocking feet due to the numbness in your feet Increase physical activity Contact the office if you experience any barriers to care such as inability to purchase your medication difficulty getting to your appointments or difficulty understanding your care plan Avoid alcohol Please get your pneumonia shot Please get your yearly flu shot Orders: Hemoglobin A1c; Future Basic metabolic panel; Future Primary hypertension blood pressure stable patient is to continue lisinopril 5 mg daily. Patient is to maintain a low-sodium diet. Contact office if blood pressures greater than 140/90 twice. Orders: Hemoglobin A1c; Future Basic metabolic panel; Future Mixed hyperlipidemia Last LDL 93. I will continue statin. Cardiovascular risk and specific lipid/LDL goals reviewed. Tavon is asked to be alert for persistent nausea, abdominal pain, jaundice or pronounced persistent, diffuse muscle pain. Should such symptoms occur. He is to discontinue the drug immediately and let us know. Orders: Hemoglobin A1c; Future Basic metabolic panel; Future Class 2 severe obesity due to excess calories with serious comorbidity and body mass index (BMI) of39.0 to 39.9 in adult ([facility]) Nutritional and exercise counseling - Approaches towards weight loss were encouraged, including burning more calories than one takes in by frequent, small meals, portion control, avoiding eating before bedtime, regular exercise with an emphasis on duration rather than intensity , and strength training exercise. Orders: Hemoglobin A1c; Future Basic metabolic panel; Future Encounter for screening for malignant neoplasm of prostate Orders: Hemoglobin A1c; Future Prostate specific antigen screen; Future Basic metabolic panel; Future Need for tetanus, diphtheria, and acellular pertussis (Tdap) vaccine Orders: Hemoglobin A1c; Future Tdap Tetanus diptheria acellular pertussis (Boostrix; Adacel) 7yo and older Basic metabolic panel; Future Need for vaccination with 20-polyvalent pneumococcal conjugate vaccine Orders: Hemoglobin A1c; Future Pneumococcal conjugate 20 valent (Prevnar 20, PCV 20) 2mo and older Basic metabolic panel; Future FOLLOW-UP: Follow up in about 4 months (around 02/13/2025) for Please book with PCP, AWV and DM. Health Maintenance Due Topic Date Due Zoster Vaccines (1 of 2) Never done Social Influencers of Health Screening Never done Medicare Annual Wellness Visit Never done Colorectal Cancer Screening: Colonoscopy 10/18/2024 Gumaro Lan NP [address] [phone] Today's documentation was made using voice recognition software.This note may contain grammatical errors secondary to this software. * Duyen Sarabia MA - 10/16/2024 8:00 AM EST The patient acknowledges that they will be receiving the Tdap (Brand Name Boostrix or Adacel) (Tetanus/Diptheria/Pertussis) vaccine: yes Immunization tab reviewed: It has been at least 9 years since last Tdap vaccine administration. If less than 9 years, provider notified. yes Exception: patients should receive a Tdap with each , preferably during the 3rd trimester. Denies allergy or reaction to previous Tetanus, Diptheria or pertussis vaccination: yes Denies history of Guillain [place] Syndrome.or any type of seizure disorder. yes Patient made aware that they may experience pain/swelling at the site after receiving a Tetanus or Diptheria vaccine. yes Acknowledges reviewing the VIS for Tdap vaccine (copy made available): yes Denies moderate or severe illness or fever of >100 degrees F: yes Patient agrees to wait in the office for 20 minutes after receiving the injection: { yes Tdap vaccine administered IM. See Imm/Inj tab Electronically signed by: Duyen Sarabia MA 10/16/2024 11:12 AM EST * Duyen Sarabia MA - 10/16/2024 8:00 AM EST Staff Review: Pneumococcal vaccine has been ordered. The following was reviewed: Immunization verified as PCV20 in Operations Section Manager: yes Immunization tab reviewed: If previous immunization of Pneumococcal vaccine noted in Immunization tab, order and time interval confirmed with provider: yes Female patient under 55 years old: Last LMP confirmed. If - may be able to receive immunization- check with provider Confirmed that patient is not receiving Shingrix on same day or within 28 days of the PPSV23: yes Patient: The following questions were reviewed with the patient: The patient acknowledges that they will be receiving the pneumococcal vaccine: yes Denies allergy or reaction to previous Pneumococcal vaccine or Diptheria toxoid: yes Acknowledges reviewing the VIS for PPSV23, for PCV13, or for PCV20 (copy made available): yes Denies moderate or severe illness or fever of >100 degrees F: yes Patient agrees to wait in the office for 20 minutes after receiving the injection: yes Pneumococcal vaccine administered: PCV20. See Imm/Inj tab Electronically signed by: Duyen Sarabia MA 10/16/2024 11:14 AM EST documented in this encounter Plan of Treatment Upcoming Encounters Date Type Department Care Team (Late st Contact Info) Description 11/15/2024 9:30 AM EDT Appointment Endoscopy [address] [place] [id number] Sameer Hanson MD [address] [facility] [address] [place] [address] 01/25/2025 8:20 AM EDT Office Visit Endocrinology [address] [phone] Carisa Silverman PA [address], [place] 04/26/2025 11:00 AM EDT Office Visit Adult Medicine [place] [address] [phone] Rodger Dia MD [address], [place] Scheduled Orders Name Type Priority Associated Diagnoses Orde r Schedule Hemoglobin A1c Lab Routine Controlled type 2 diabetes mellitus with stage 3 chronic kidney disease, without long-term current use of insulin ([facility]) Primary hypertension Mixed hyperlipidemia Class 2 severe obesity due to excess calories with serious comorbidity and body mass index (BMI) of 39.0 to 39.9 in adult ([facility]) Encounter for screening for malignant neoplasm of prostate Need for tetanus, diphtheria, and acellular pertussis (Tdap) vaccine Need for vaccination with 20-polyvalent pneumococcal conjugate vaccine Expected: 10/16/2024, Expires: 04/15/2025 Prostate specific antigen screen Lab Routine Encounter for screening for malignant neoplasm of prostate 1 Occurrences starting 10/16/2024 until 04/15/2025 Basic metabolic panel Lab Routine Controlled type 2 diabetes mellitus with stage 3 chronic kidney disease, without long-term current use of insulin ([facility]) Primary hypertension Mixed hyperlipidemia Class 2 severe obesity due to excess calories with serious comorbidity and body mass index (BMI) of 39.0 to 39.9 in adult ([facility]) Encounter for screening for malignant neoplasm of prostate Need for tetanus, diphtheria, and acellular pertussis (Tdap) vaccine Need for vaccination with 20-polyvalent pneumococcal conjugate vaccine 1 Occurrences starting 10/16/2024 until 10/16/2025 documented as of this encounter Visit Diagnoses Diagnosis Controlled type 2 diabetes mellitus with stage 3 chronic kidney disease, without long-term current use of insulin ([facility])- Primary Primary hypertension Unspecified essential hypertension Mixed hyperlipidemia Class 2 severe obesity due to excess calories with serious comorbidity and body mass index (BMI) of 39.0 to 39.9 in adult ([facility]) Encounter for screening for malignant neoplasm of prostate Need for tetanus, diphtheria, and acellular pertussis (Tdap) vaccine Need for vaccination with 20-polyvalent pneumococcal conjugate vaccine documented in this encounter Discontinued Medications Medication Sig Discontinue Reason Start Date End Da te clotrimazole (LOTRIMIN) 1 % cream Apply thin layer to affected areas twice daily for 4 weeks Stop Taking at Discharge 03/03/2024 10/16/2024 hydrocortisone 1 % cream with perineal applicator APPLY THIN LAYER TO AFFECTED AREA TWICE DAILY FOR 2 WEEKS. Therapy completed 06/21/2024 10/16/2024 cetirizine (ZyrTEC) 10 mg tablet Take 1 Tablet by mouth daily for 10 days 03/14/2024 10/16/2024 lisinopriL (PRINIVIL,ZESTRIL) 5 mg tablet Take 1 tablet (5 mg total) by mouth 1 (one) time each day. Reorder 11/23/2023 10/16/2024 documented as of this encounter Orders Immunization/Injection Count Last Ordered Date First Ordered Date PNEUMOCOCCAL CONJUGATE 20 VA LENT (PREVNAR 20, PCV 20) 2MO AND OLDER 1 10/16/2024 TDAP TETANUS DIPTHERIA ACELL ULAR PERTUSSIS (BOOSTRIX; ADACEL) 7YO AND OLDER 1 10/16/2024 documented in this encounter Additional Health Concerns Assessment Noted Time PHQ-9 Depression Total Score: 0 10/16/19 25 8:00 AM EST documented as of this encounter Care Teams Residential Lawn Specialist Relationship Specialty Start Date End Date Rodger Dia MD [address] [place] [address] PCP - General 02/10/11 documented as of this encounter
--- OUTSIDE RECORDS SUMMARY | 2024-10-30 08:28 | XMS_ITS | Encounter Summary ---
Author Organization [facility] Address [address] [place] [address] Care Team Providers Care Senior Sql Developer Name Role Phone Rodger Dia MD Primary Care Provider [phone] Encounter Details Date Type Department Care Team Description 01/15/2016 Hospital Medical Records [address] [place] [id number] Roseline Monroy MD Social History Tobacco Use Types Packs/Day [...] on filedocumented in this encounter Care Teams Senior Sql Developer Relationship Specialty Start Date End Date Rodger Dia MD [address] [place] [address] [phone] PCP - General 02/10/11 documented as of this encounter
--- OUTSIDE RECORDS SUMMARY | 2024-10-30 08:28 | XMS_ITS | Encounter Summary ---
Author Organization [facility] Address [address] [place] [address] Care Team Providers Care Lockstitcher Name Role Phone Rodger Dia MD Primary Care Provider [phone] Encounter Details Date Type Department Care Team Description 01/07/2012 Deliverer Merchandise Report Medical Records [address] [place] [address] Ronny Mendoza MD Social History Tobacco Use [...] on filedocumented in this encounter Care Teams Lockstitcher Relationship Specialty Start Date End Date Rodger Dia MD [address] [place] [address] [phone] PCP - General 02/10/11 documented as of this encounter
--- OUTSIDE RECORDS SUMMARY | 2024-10-30 08:28 | XMS_ITS | Encounter Summary ---
Author Organization [facility] Address [address] [place] [address] Care Team Providers Care Medical Dermatologist Name Role Phone Rodger Dia MD Primary Care Provider [phone] Reason for Visit * Reason Comments E-prescribe Rx Request Encounter Details Date Type Department Care Team Description 11/21/2023 Refill Adult Medicine [facility] [address] [place] [address] [phone] Rodger Dia MD [address] [place] [address] [phone] E-prescribe Rx Request Social History Tobacco Use Types Packs/Day Years [...] encounter Miscellaneous Notes * Telephone Encounter - Danni Arambula M.A. - 11/23/2023 9:34 AM EDT Lab Results Component Value Date NA 143 08/11/2023 K 5.2 08/11/2023 CO2 25 08/11/2023 CL 111 08/11/2023 BUN 29 08/11/2023 CREAT 1.47 08/11/2023 GLU 134 08/11/2023 CA 9.3 08/11/2023 GFR 55 08/11/2023 Last appt 09/14/23 * Telephone Encounter - Alexandra Ruiz - 11/23/2023 7:42 AM EDT Patient would like script to be: E-PRESCRIBED/FAXED TO PHARMACY WHEN WAS THE PATIENT'S LAST APPOINTMENT IN ADULT MEDICINE? 09/14/23 WHEN WAS THE LAST TIME THE PATIENT SAW THEIR PCP? 05/25/23 Does patient have an upcoming appointment? No-[facility] to refill request. (THE MEDICATION REQUESTED IS ON THE MED LIST ABOVE) All of the medications requested were on the CURRENT MEDS list Did you check the Pharmacy information above?: YES Patient wants: 90 -day supply Is this a mail order prescription request ? NO If the refill is from a FAXED refill request what is the RX # listed on the fax? N/A Patients current insurance carrier is: [place] / [place] / Product Type: MED[place]ARE [id number] documented in this encounter Plan of Treatment Not on file documented as of this encounter Visit Diagnoses Diagnosis Essential hypertension Unspecified essential hypertension documented in this encounter Care Teams Medical Dermatologist Relationship Specialty Start Date End Date Rodger Dia MD [address] [place] [address] PCP - General 02/10/11 documented as of this encounter
--- OUTSIDE RECORDS SUMMARY | 2024-10-30 08:28 | XMS_ITS | Encounter Summary ---
Author Organization [facility] Address [address] [place] [address] Care Team Providers Care Stock Mixer Name Role Phone Rodger Dia MD Primary Care Provider [phone] Encounter Details Date Type Department Care Team Description 08/09/2015 Draftsperson Report Medical Records [address] [place] [address] Ronny Mendoza MD Social History Tobacco Use [...] on filedocumented in this encounter Care Teams Stock Mixer Relationship Specialty Start Date End Date Rodger Dia MD [address] [place] [address] [phone] PCP - General 02/10/11 documented as of this encounter
--- OUTSIDE RECORDS SUMMARY | 2024-10-30 08:28 | XMS_ITS | Encounter Summary ---
Author Organization [facility] Address [address] [place] [address] Care Team Providers Care Woven Paper Hat Mender Name Role Phone Rodger Dia MD Primary Care Provider Blayne Peres MD Primary Care Provider [phone] Encounter Details Date Type Department Care Team Description 02/09/2011 Customer Consulting Manager Report Orthopedic Surgery - [address] [address] Rehab[facility] [place] Social History Tobacco Use Types Packs/Day Years [...] on filedocumented in this encounter Care Teams Woven Paper Hat Mender Relationship Specialty Start Date End Date Rodger Dia MD [address] [place] [address] [phone] PCP - General 02/10/11 Blayne Peres MD [address] [place] [address] [phone] PCP - General 08/26/1994 02/09/11 documented as of this encounter
--- OUTSIDE RECORDS SUMMARY | 2024-10-30 08:28 | XMS_ITS | Encounter Summary ---
Author Organization [facility] Address [address] [place] [address] Care Team Providers Care Joint Cutter Machine Name Role Phone Rodger Dia MD Primary Care Provider [phone] Reason for Visit * Reason Onset Date Comments Faxed Order 01/29/2016 Encounter Details Date Type Department Care Team Description 01/29/2016 Telephone Adult Medicine [address] [phone] Rodger Dia MD [address] [place] [address] [phone] Faxed Order Social History Tobacco Use Types Packs/Day Years [...] encounter Miscellaneous Notes * Telephone Encounter - Zulay Amador - 01/29/2016 1:33 PM EDT Pysicians order-Diabetic Form/Sent to Dr Dia documented in this encounter Plan of Treatment Not on file documented as of this encounter Visit Diagnoses Not on filedocumented in this encounter Care Teams Joint Cutter Machine Relationship Specialty Start Date End Date Rodger Dia MD [address] [place] [phone] PCP - General 02/10/11 documented as of this encounter
--- OUTSIDE RECORDS SUMMARY | 2024-10-30 08:28 | XMS_ITS | Encounter Summary ---
Author Organization [facility] Address [address] [place] [address] Care Team Providers Care Health Information Technician Name Role Phone Rodger Dia MD Primary Care Provider [phone] Encounter Details Date Type Department Care Team Description 07/17/2015 System Architect Report Medical Records [address] [place] [address] Grisel Jackson Social History Tobacco Use Types [...] on filedocumented in this encounter Care Teams Health Information Technician Relationship Specialty Start Date End Date Rodger Dia MD [address] [place], [place] [phone] PCP - General 02/10/11 documented as of this encounter
[2024-10-30 08:29] VITALS: BMI 36.5
--- OUTSIDE RECORDS SUMMARY | 2024-10-30 08:29 | XMS_ITS | Encounter Summary ---
Author Organization [facility] Address [address] [place] [address] Care Team Providers Care Vehicle Painter Name Role Phone Rodger Dia MD Primary Care Provider [phone] Reason for Visit * Reason Comments E-prescribe Rx Request Encounter Details Date Type Department Care Team Description 03/14/2012 Refill Gastroenterology - [address] [phone] Vikash Leo MD E-prescribe Rx Request Social History Tobacco Use [...] on filedocumented in this encounter Care Teams Vehicle Painter Relationship Specialty Start Date End Date Rodger Dia MD [address] [place] [address] PCP - General 02/10/11 documented as of this encounter
--- OUTSIDE RECORDS SUMMARY | 2024-10-30 08:29 | XMS_ITS | Clinical Summary ---
Author Organization [facility] Address [address] [place] [address] Care Team Providers Care Global Compensation Analyst Name Role Phone Rodger Dia MD Primary Care Provider [phone] Medications Medication Sig Dispensed Refills Start Date End Date Status Continuous Blood Gluc Sensor (DEXCOM G6 SENSOR) MiscIndications:Unco ntrolled type 2 diabetes mellitus with stage 3 chronic kidney disease, with long-term current use of insulin 3 sensors per 1 month supply--Use as directed 1 Each 12 11/03/2019 Active cycloSPORINE modified (NEORAL) 25 MG capsule 0 03/17/2022 Active pravastatin (PRAVACHOL) 20 MG tablet TAKE 1 TABLET BY MOUTH DAILY 90 Tablet 1 02/18/2024 Active clotrimazole (LOTRIMIN) 1 % cream Apply thin layer to affected areas twice daily for 4 weeks 60 g 0 03/03/2024 02/26/2025 Active Insulin Lispro (HumaLOG KwikPen) 100 UNIT/ML Solution Pen-injectorIndicati ons:Type II diabetes mellitus with peripheral circulatory disorder (HCC) USE PER SLIDING SCALE three times a day before meals 101-150: 4 units , 151-200: 8 UNITS, 201-250: 10UNITS . 251-300: 12 units 300-350: 13 units 351-400: 14units >400: call me. 15 units. PLUS 2 UNITS BEFORE DINNER 15 mL 2 05/17/2024 Active lisinopril (PRINIVIL,ZESTRIL) 5 MG tabletIndications:Es sential hypertension Take 1 Tablet by mouth daily. 90 Tablet 1 05/24/2024 Active Insulin Glargine (Lantus SoloStar) 100 UNIT/ML Solution Pen-injector Use 20 units at bedtime. 30 mL 2 05/27/2024 Active Insulin Pen Needle (B-D U/F PEN NEEDLE) 31G X 5 MM MiscIndications:Type II diabetes mellitus with peripheral circulatory disorder (HCC) USE TO INJECT INSULIN 3 TIMES A DAY 300 Each 2 06/21/2024 Active hydrocortisone 1 % cream Apply thin layer to affected area twice daily for 2 weeks. 30 g 0 06/21/2024 06/16/2025 Active Active Problems Problem Noted Date Hemorrhoids 2021 Class 2 severe obesity due t o excess calories with serious comorbidity in adult 12/24/2020 CKD (chronic kidney disease) stage 3, GF R 30-59 ml/min 11/21/2019 Type II diabetes mellitus with periphera l circulatory disorder 11/06/2019 Diabetic polyneuropathy asso ciated with diabetes mellitus due to underlying condition 11/03/2019 Hypertension 05/09/2019 Mixed hyperlipidemia 11/02/2018 S/P liver transplant (HCC) fax / [facility] 08/27/2017 Overview: 03/30/2016; cirrhosis due to SANCHEZ. Diabetes type 2, controlled 07/01/2015 Choledocholithiasis 03/06/2014 Overview: Status post hospitalization, ERCP with sphincterectomy stone-extraction and stent placement 02/2014. Helicobacter pylori gastritis 10/16/2013 Overview: EGD and bx 2013, small gastric and duodenal ulcers. Treatment initiated. Esophageal varices without m ention of bleeding in diseases classified elsewhere 10/11/2013 Overview: Large at EGD 2006 and 2013. Compression fracture 12/07/2010 Overview: Vertebral T10 of uncertain age, noted incidental finding 11/09/2010. [facility]. Pancytopenia 12/01/2010 Portal hypertension 12/04/2006 Overview: See comment on cirrhosis of liver Obesity (BMI 30-39.9) 12/04/2006 Resolved Problems Problem Noted Date Resolved Date Liver transplant recipient 12/06/201712/06 Liver transplanted 05/14/2016 12/06/2017 Overview: 03/30/2016 at [facility]. CIRRHOSIS OF LIVER / liver t ransplant candidate fax [phone]/ [facility] 11/16/2013 12/06/2017 Overview: MELD=23 (04/11/2015) Positive blood culture, 07/17 with pneumonia 08/27/2017 Pneumonia 08/03/2011 08/27/2017 Hyperglycemia 03/05/2011 09/20/2015 Ankle fracture, right,s/p ORIF 12/01/2010 1 10/28/2016 Fibula fracture 11/10/2010 08/27/2017 Overview: Right 10/17 Elevated blood sugar 07/14/2007 09/20/2015 Special screening for malignant neoplasms, colon 05/26/2007 10/11/2013 Overview: Negative colonoscopy 05/23/2007, no colon cancer screening needed for 10 years. CIRRHOSIS OF LIVER 04/07/2007 11/16/2013 Overview: Etiology not clear. [facility] transplant evaluation 2008. EGD 05/23/2007. Large esophageal varices, portal hypertensive gastropathy. MELD=12 on 03/15/2007. MELD=14 on 06/26/2008. MELD=13 (01/04/2009). MELD-UNOS=17 (10/28/2010); 18 (02/25/2011); 16 (04/19/2012). [facility] service advocate contact: Brissa García RN. Thrombocytopenia 12/04/2006 10/11/2013 Immunizations Name Administration Dates Next Due COVID-19 (Moderna) 01/27/2022, 1,12/18/2020,11/19 Covid-19 Bivalent (Moderna) 05/29/2022 Flu (Generic) 06/21/2015, 4,06/06/2013,05/24,05/26/2011,06/25/2010,05/20/2009 ,06/26/2008,06/22/2007,08/07/2006 Hepatitis B (Generic) 05/02/2014,12/06/2013 Hepatitis B > 19yrs 05/02/2014,12/06/2013 Hepatitis B-3 Dose (<19yrs) 11/02/2013 Hepatitis-A (>19YRS) 05/02/2014 Hepb Vacc, Ill Pat 3 Dose 05/02/2014,12/06/2013 Influenza (> 6 Months) 06/12/2021,2014,06/21/2015,06/07,06/07/2014,06/06/2013,06/06/2013 ,05/24/2012,05/24/2012,05/26/2011,05/08,06/25/2010,06/25/2010, 9,05/20/2009,06/26/2008,06/26/2008,,06/22/2007,08/07/2006,08/07/20 06 Influenza Flu (PT Reported) 05/12/2023 Influenza Vaccine-preservati ve Free-quadrivalent 4 Years 06/26/2022,05/23/2020,05/09/2019,05/20 Influenza Vaccine-quadrivale nt 4 Years Plus 06/12/2021,05/28/2017 Influenza vaccine high dose age 65 and over 05/10/2024 Pneumoccoccal(Adult) Polysac charide PPSV23 12/01/2010 TD (STATE SUPPLIED FOR ADULT S AND CHILDREN) 01/16/2021 Tdap 08/26/2009 Tdap (Adacel) 01/16/2021 Family History Medical History Relation Name Comments CA Breast Aunt paternal Diabetes Father hypertension Diabetes Mother [...] file Not on file Not on file Last Filed Vital Signs Vital Sign Reading Time Taken Comments Blood Pressure 114/72 06/21/2024 1:03 PM EDT Pulse 78 06/21/2024 1:03 PM EDT Temperature 36.6 ??C (97.9 ??F) 06/21/2024 1:03 PM ED T Respiratory Rate 14 06/21/2024 1:03 PM EDT Oxygen Saturation 96% 06/21/2024 1:03 PM EDT Inhaled Oxygen Concentration - - Weight 105 kg (231 lb 6.4 oz) 06/21/2024 1:03 PM EDT Height 165.1 cm (5' 5 ) 06/21/2024 1:03 PM EDT Body Mass Index 38.51 06/21/2024 1:03 PM EDT Plan of Treatment Health Maintenance Due Date Last Done Comments Covid-19 Vaccine (2022-10 4 season) 2024 05/29/2022, 01/27/2022, 04/24/2021, Additional history exists DIABETES: BLOOD SUGAR CONTRO L TEST (HGBA1C) 06/28/2024 03/28/2024, 03/28/2024, 11/26/2023, Additional history exists BMI CHECK/ADVISE 09/06/2024 06/21/2024, 05/2024, 03/28/2024, Additional history exists DEPRESSION SCREEN 09/14/2024 09/14/2023 (Co mpleted), 06/26/2022, 06/26/2022 (Completed), Additional history exists COLON CANCER SCREENING 10/18/2024 (Completed), 10/18/2019, 10/12/2013, Additional history exists DIABETES: ANNUAL EYE EXAM 11/24/20242023 (External Completion of test per patient (Patient reports normal results)), 11/24/2023, 10/12/2022, Additional history exists DIABETES/HEART DISEASE: BLANCA AL CHOLESTEROL (LDL) 11/25/2024 11/26/2023, 09/14/2022, 04/06/2022, Additional history exists DIABETES: ANNUAL FOOT EXAM 03/13/202503/13, 12/02/2023, 09/14/2023, Additional history exists DIABETES: ANNUAL URINE PROTE IN TEST (MICROALBUMIN) 03/28/2025 03/28/2024, 12/17/2022, 04/06/2022, Additional history exists BASELINE HEALTH EXAM 40-64 05/19/202505/19 (Completed), 04/25/2021, 02/03/2019, Additional history exists PNEUMOCOCCAL VACCINE FOR HIG H RISK PATIENTS (#2) 2029 12/01/2010 DTAP/TDAP/TD (4 - Td or Tdap) 01/16/2031, 01/16/2021, 08/26/2009 HEPATITIS C SCREENING Completed 01/11/2007, 005 INFLUENZA Completed 05/10/2024, 02/2023, 06/26/2022, Additional history exists SHINGLES VACCINE Discontinued Advance Directives For more information, please contact: [phone] Documents on File Type Date Recorded Patient Grab Hooker Expl [facility] Proxy 12/05/2010 Care Teams Global Compensation Analyst Relationship Specialty Start Date End Date Rodger Dia MD [address] [place] [id number] PCP - General 02/10/11
--- OUTSIDE RECORDS SUMMARY | 2024-10-30 08:29 | XMS_ITS | Encounter Summary ---
Author Organization [facility] Address [address] [place] [address] Care Team Providers Care Project Buyer Name Role Phone Rodger Dia MD Primary Care Provider [phone] Reason for Visit * Reason Comments E-prescribe Rx Request Encounter Details Date Type Department Care Team Description 07/29/2024 Refill Adult Medicine [facility] [address] [place] [address] [phone] Gumaro Lan, BEAN PICKER [address] [place], [place] [phone] E-prescribe Rx Request Social History Tobacco Use [...] on filedocumented in this encounter Care Teams Project Buyer Relationship Specialty Start Date End Date Rodger Dia MD [address] [place] [address] [phone] PCP - General 02/10/11 documented as of this encounter
--- OUTSIDE RECORDS SUMMARY | 2024-10-30 08:30 | XMS_ITS | Clinical Summary ---
Author Organization [facility] [address] [place] [address] [place] [phone] Phone Care Team Providers Care Research Advisor Name Role Phone Rodger Dia MD Primary Care Provider [phone] Allergies No known active allergies Medications pen needle, diabetic (PEN NEEDLE MISC) USE THREE TIMES DAILY WITH INSULIN 023 Active cycloSPORINE modified (NEORAL) 25 mg capsule Take 1 capsule (25 mg total) by mouth 2 (two) times a day. Transplant Team in [place] prescribe. He had a liver Transplant. Active glucose blood test strip 1 each by Other route if needed. Use as instructed Active miscellaneous medical supply misc 1 EA. Dexcom G7 Active HumaLOG KwikPen Insulin 100 unit/mL injection pen Per Sliding Scale.USE PER SLIDING SCALE three times a day before meals 101-150: 6 units , 151-200: 9 UNITS, 201-250: 12 units . 251-300: 15 units, 301-350: 18 units , 351-400: 20 units >400: call me. 21 units. 30 mL 2 024 Active insulin glargine (LANTUS) 100 unit/mL injection Use 21-22 units at bedtime 30 mL 2 024 Active pravastatin (PRAVACHOL) 20 mg tablet TAKE 1 TABLET BY MOUTH DAILY 90 tablet 1 025 Active lisinopriL (PRINIVIL,ZESTRIL ) 5 mg tablet Take 1 tablet (5 mg total) by mouth 1 (one) time each day. 90 tablet 1 025 Active BD Ultra-Fine Short Pen Needle 31 gauge x 5/16 needleIndications :Diabetic polyneuropathy associated with diabetes mellitus due to underlying condition (CMS/HCC) USE DIRECTED TO INJECT INSULIN 3 TIMES A DAY. 100 each 3 025 Active lisinopriL (PRINIVIL,ZESTRIL ) 5 mg tablet Take 1 tablet (5 mg total) by mouth 1 (one) time each day. 024 2024 Discontinued(R eorder) cetirizine (ZyrTEC) 10 mg tablet Take 1 Tablet by mouth daily for 10 days 024 2024 Discontinued clotrimazole (LOTRIMIN) 1 % cream Apply thin layer to affected areas twice daily for 4 weeks 024 2024 Discontinued(S top Taking at Discharge) PEN NEEDLE, DIABETIC MISC Insulin Pen Needle (B-D U/F PEN NEEDLE) 31G X 5 MM Misc USE TO INJECT INSULIN 3 TIMES A DAY 2024 Discontinued(R eorder) hydrocortisone 1 % cream with perineal applicator APPLY THIN LAYER TO AFFECTED AREA TWICE DAILY FOR 2 WEEKS. 024 2024 Discontinued(T herapy completed) BD Ultra-Fine Mini Pen Needle 31 gauge x 3/16 needle USE TO INJECT INSULIN 3 TIMES A DAY 024 2024 Discontinued(R eorder) pen needle, diabetic 31 gauge x 5/16 needle 1 each by Other route 3 (three) times a day. Insulin Pen Needle (B-D U/F PEN NEEDLE) 31G X 5 MM Misc USE TO INJECT INSULIN 3 TIMES A DAY 100 each 3 025 2024 Discontinued BD Ultra-Fine Mini Pen Needle 31 gauge x 3/16 needleIndications :Type II diabetes mellitus with peripheral circulatory disorder (CMS/HCC) USE TO INJECT INSULIN 3 TIMES A DAY 200 each 2 025 2024 Discontinued(D uplicate order) Active Problems Problem Noted Date Diagnosed Date Hemorrhoids 2021 Class 2 severe obesity due t o excess calories with serious comorbidity in adult 12/24/2020 Assessment & Plan (10/16/2024 7:15 PM EST): Nutritional and exercise counseling - Approaches towards weight loss were encouraged, including burning more calories than one takes in by frequent, small meals, portion control, avoiding eating before bedtime, regular exercise with an emphasis on duration rather than intensity , and strength training exercise. Orders: Hemoglobin A1c; Future Basic metabolic panel; Future CKD (chronic kidney disease) stage 3, GFR 30-59 ml/min 11/21/2019 Type II diabetes mellitus wi th peripheral circulatory disorder 11/06/2019 Diabetic polyneuropathy asso ciated with diabetes mellitus due to underlying condition 11/03/2019 Hypertension 05/09/2019 Assessment & Plan (10/16/2024 7:15 PM EST): blood pressure stable patient is to continue lisinopril 5 mg daily. Patient is to maintain a low-sodium diet. Contact office if blood pressures greater than 140/90 twice. Orders: Hemoglobin A1c; Future Basic metabolic panel; Future Mixed hyperlipidemia 11/02/2018 Assessment & Plan (10/16/2024 7:15 PM EST): Last LDL 93. I will continue statin. Cardiovascular risk and specific lipid/LDL goals reviewed. Tavon is asked to be alert for persistent nausea, abdominal pain, jaundice or pronounced persistent, diffuse muscle pain. Should such symptoms occur. He is to discontinue the drug immediately and let us know. Orders: Hemoglobin A1c; Future Basic metabolic panel; Future Diabetes type 2, controlled 07/01/2015 Assessment & Plan (10/16/2024 7:15 PM EST): Diabetes: Patient is to continue Humalog sliding [...] sugar goals of <120 and <170 respectively, as well as an A1c goal of <7% and goal FBG of 90-130. Educated patient on complications associated with uncontrolled diabetes. These include but are not limited to an increased risk of cardiovascular disease, retinopathy, neuropathy, renal disease, increased risk of infections with open wounds and amputations. Diet Recommendation: Patient is maintain a low carb diet to optimize blood sugar levels. Patient is counseled about low calorie diet (avoid sweet drinks/snacks, [...] Hemoglobin A1c; Future Basic metabolic panel; Future Choledocholithiasis 03/06/2014 Overview (06/14/2024): Status post hospitalization, [...] of uncertain age, noted incidental finding 11/09/2010. [facility]. Pancytopenia 12/01/2010 Obesity (BMI 30-39.9) 12/04/2006 Portal hypertension 12/04/2006 Overview (06/14/2024): See comment on cirrhosis of liver Encounters Date Type Department Care Team Description 10/26/2024 8:00 AM EST Office Visit [facility] - [address] [phone] Carisa Silverman PA Type II diabetes mellitus with peripheral circulatory disorder (CMS/HCC) (Primary Dx); Primary hypertension; Obesity (BMI 30-39.9); Mixed hyperlipidemia 10/16/2024 8:00 AM EST Office Visit [facility] [place] - [address] [phone] Gumaro Lan NP Controlled type 2 diabetes mellitus with stage 3 chronic kidney disease, without long-term current use of insulin (CMS/HCC) (Primary Dx); Primary hypertension; Mixed hyperlipidemia; Class 2 severe obesity due to excess calories with serious comorbidity and body mass index (BMI) of 39.0 to 39.9 in adult (CMS/HCC); Encounter for screening for malignant neoplasm of prostate; Need for tetanus, diphtheria, and acellular pertussis (Tdap) vaccine; Need for vaccination with 20-polyvalent pneumococcal conjugate vaccine from Last 3 Months Immunizations Name Administration [...] eservative (Fluzone; Afluria) 6mo and older 06/12/2021,06/21/2015,06/07/2014,06/06,05/24/2012,05/26/2011,06/25/2010 ,05/20/2009,06/26/2008,06/22/2007,12/0 10/2005 Influenza, Unspecified 05/12/2023 Moderna (age 6mo & older) Bi valent, COVID-19, 0.5 mL or 0.25 mL dosage 05/29/2022 Pneumococcal conjugate 20 va lent (Prevnar 20, PCV 20) 2mo and older 10/16/2024 Pneumococcal polysaccharide 23 valent (Pneumovax 23) 2yo and older 12/01/2010 Td Tetanus diptheria (Tdvax) 7yo and older 01/16/2021 Tdap Tetanus diptheria acell ular pertussis (Boostrix; Adacel) 7yo and older 10/16/2024,01/16/2021,08/26/2009 Surgical History Surgery Date Site/Laterality Comments COLONOSCOPY 05/23/2007 PROCEDURE: HISTORICAL COLONOSCOPY; COMMENT: Negative HERNIA REPAIR 2004 PROCEDURE: REPAIR UMBILICAL HERNIA; COMMENT: approximately 2005 COLONOSCOPY 10/11/2013 PROCEDURE: HISTORICAL COLONOSCOPY; COMMENT: 6 mm sigmoid colon polyp: Tubular adenoma OTHER SURGICAL HISTORY 03/30/2016 PROCEDURE: LIVER TRANSPLANT, HETEROTOPIC; COMMENT: [facility]. UPPER GASTROINTESTINAL ENDOSCOPY 10/11/2013 PROCEDURE: [place] UPPER GI ENDOSCOPY PERFORMED; COMMENT: gastritis, small duodenal ulcers, large esophageal varices. Gastric biopsies positive for H. pylori. UPPER GASTROINTESTINAL ENDOSCOPY 05/23/2007 PROCEDURE: [place] UPPER GI ENDOSCOPY PERFORMED; COMMENT: Large esoph [...] DX: Liver transplanted (HCC); COMMENT: 03/30/2016 at [facility]. CKD (chronic kidney disease) DX: CKD (chronic [...] on file Sexual Orientation Not on file Obstetrics History Last Filed Vital Signs Vital Sign Reading Time Taken Comments Blood Pressure 128/82 10/26/2024 7:57 AM EST C Pulse 75 10/26/2024 7:57 AM EST Temperature 36.4 ??C (97.5 ??F) 10/26/2024 7:57 AM ES T Respiratory Rate 18 10/16/2024 8:23 AM EST Oxygen Saturation 98% 10/26/2024 7:57 AM EST Inhaled Oxygen Concentration - - Weight 105 kg (232 lb) 10/26/2024 7:57 AM EST Height 165.1 cm (5' 5 ) 10/26/2024 7:57 AM EST Body Mass Index 38.61 10/26/2024 7:57 AM EST Plan of Treatment Upcoming Encounters Date Type Department Care Team (Late st Contact Info) Description 11/15/2024 9:30 AM EDT Appointment [facility] [address] [place] [phone] Sameer Hanson MD [address] [address] 01/25/2025 8:20 AM EDT Office Visit Endocrinology [facility] [address], [place] [phone] Carisa Silverman PA [address] [place], [place] 04/26/2025 11:00 AM EDT Office Visit [facility] [place] [facility] [place] [address] [place] [address] Rodger Dia MD [address] [place], [place] Health Maintenance Due Date Last Done Comments Zoster Vaccines (1 of 2) 1983 Medicare Annual Wellness Visit 08/15/2022 Social Influencers of Health Screening 08/15/2022 Colorectal Cancer Screening: Colonoscopy 10/18/2024 10/18/2019 Diabetes: Annual Retina Eye Exam 11/24/2024 11/25/2023 Diabetes: Annual Foot Exam 03/13/2025 03/13/2024 Diabetes: Blood Sugar Control Test (HGBA1C) 03/18/2025 09/18/2024, 03/28/2024, 03/28/2024 Diabetes: Annual Urine Albumin-Creatinine Ratio (uACR) 03/28/2025 03/28/2024 Diabetes: Annual GFR (Glomerular Filtration Rate) 09/18/2025 09/18/2024, 03/28/2024, 03/28/2024 Hypertension/CHF/CAD Annual BMP Blood Test 09/18/2025 09/18/2024, 03/28/2024, 03/28/2024 Depression Screening 10/16/2025 10/16/2024, 09/14/19 24 Cholesterol Screening (Lipid Panel) 11/25/2028 11/26/2023 DTaP,Tdap,and Td Vaccines (5 - Td or Tdap) 10/16/2034 10/16/2024, 01/16/2021, 01/16/2021, Additional history exists Hepatitis C Screening Completed 01/11/2007 Hepatitis A Vaccines Aged Out 05/02/2014 No long er eligible based on patient's age to complete this topic Hepatitis B Vaccines Discontinued 05/02/2014, 12/06/2013, 11/02/2013 Influenza Vaccine Completed 05/22/2024, , 06/02/2023, Additional history exists RSV Immunization Patients 60+ Years Old Completed 05/22/2024 COVID-19 Vaccine Completed 06/02/2024, , 01/27/2022, Additional history exists Pneumococcal Vaccine: 50+ Years Completed 10/16/2024, 12/01/2010 Pneumococcal Vaccine: Pediatrics (0 to 5 Years) and At-Risk Patients (6 to 64 Years) Discontinued 10/16/2024, 12/01/2010 HIB Vaccines Aged Out No longer eligi ble based on patient's age to complete this topic HIV Screening Discontinued HPV Vaccines Aged Out No longer eligi [...] patient's age to complete this topic Meningococcal B Vacine Aged Out No lo nger eligible based on patient's age to complete [...] diabetes mellitus with peripheral circulatory disorder (CMS/HCC) Primary hypertension HEMOGLOBIN A1C Routine 09/18/2024 9:37 [...] (ABNORMAL) Hemoglobin A1c (09/18/2024 9:37 AM EST) Pathologist [facility] Hemoglobin A1C 7.1(H) <6.5 % LAB CHEMISTRY METHOD 09/18/2024 2:51 PM EST [facility] Mean Bld Glu Estim. 157 mg/dL LAB CHEMISTRY METHOD 09/18/2024 2:51 PM [facility] Blood Venous blood specimen / Unknown Venipuncture / Unknown 09/18/2024 9:37 AM EST 09/18/2024 9:37 AM EST us Carisa CHIN LAB BLOOD ORDERABLES Final Resul t [facility] [address] [place] [address], * (ABNORMAL) Basic metabolic panel (09/18/2024 9:37 AM EST) Pathologist [facility] Sodium 141 133 - 145 mmol/L LAB CHEMISTRY METHOD 09/18/2024 1:53 PM [facility] Potassium 4.5 3.5 - 5.5 mmol/L LAB CHEMISTRY METHOD 09/18/2024 1:53 PM [facility] Chloride 112(H) 96 - 110 mmol/L LAB CHEMISTRY METHOD 09/18/2024 1:53 PM [facility] CO2 24 21 - 32 mmol/L LAB CHEMISTRY METHOD 09/18/2024 1:53 PM [facility] Anion Gap 5 3 - 11 LAB CHEMISTRY METHOD 09/18/2024 1:53 PM EST [facility] Glucose 116(H) 70 - 100 mg/dL LAB CHEMISTRY METHOD 09/18/2024 1:53 PM [facility] BUN 32(H) 5 - 25 mg/dL LAB CHEMISTRY METHOD 09/18/2024 1:53 PM [facility] Creatinine 1.35(H) 0.70 - 1.30 mg/dL LAB CHEMISTRY METHOD 09/18/2024 1:53 PM [facility] eGFR 60 >=60 mL/min/1. 73m2 LAB CHEMISTRY METHOD 09/18/2024 1:53 PM [facility] Comment:Calculation based on the??Chronic Kidney Disease Epidemiology Collaboration (CKD-EPI) equation refit??without adjustment for race. BUN/Creatinine Ratio 23.7 LAB CHEMISTRY METHOD 09/18/2024 1:53 PM [facility] Calcium 9.1 8.5 - 10.5 mg/dL LAB CHEMISTRY METHOD 09/18/2024 1:53 PM [facility] Blood Venous blood specimen / Unknown Venipuncture / Unknown 09/18/2024 9:37 AM EST 09/18/2024 9:37 AM EST Carisa CHIN LAB BLOOD ORDERABLES Final Resul t [facility] [address] [place] [address], * Urine Albumin Creatinine Ratio (03/28/2024) Urine Albumin Creatinine Ratio abstracted Historical Provider MD HEALTH MAINTENANCE Final Result * Diabetes Foot Exam (03/13/2024) Pathologist [facility] Diabetes: Annual Foot Exam abstracted Historical Provider HEALTH MAINTENANCE Final Result * (ABNORMAL) Lipid panel (11/26/2023) Pathologist [facility] LDL/HDL Ratio 4 0 - 4 Triglycerides 175(A) 0 - 150 mg/dL Cholesterol 166 0 - 200 mg/dL HDL 38(A) >=40 mg/dL LDL Cholesterol 93 0 - 100 mg/dL Blood Venous blood specimen / Unknown Result [facility] Provider LAB BLOOD ORDERABLES Saida l Result * Diabetes Eye Exam (11/25/2023) [facility] Diabetes: Annual Retina Eye Exam abstracted Result [facility] Provider HEALTH MAINTENANCE Final Result * Depression Screening (09/14/2023) [facility] Depression Screening abstracted Result Replaced by [facility] HEALTH MAINTENANCE Final Result * Colonoscopy (10/18/2019) [facility] Colonoscopy no interpretation , abstracted Anatomical Region Laterality Modality Other Result [facility] Provider HEALTH MAINTENANCE Final Result * Hepatitis C Screening (01/11/2007) [facility] Hepatitis C Screening abstracted [facility] Provider HEALTH MAINTENANCE Final Result from Last 3 Months or Most Recently Relevant to Health Maintenance Insurance MEDICARE [place]ICAID - [place] Advance Directives Documents on File Type Date Recorded Patient Bar Finish Operator Expl anation Health Care Decision (hx) 02/24/2014 [...] (hx) 02/23/2014 AD VALENCIA DIRECTIVE Care Teams Research Advisor Relationship Specialty Start Date End Date Rodger Dia MD [address] [place] [address] PCP - General 02/10/11
--- OUTSIDE RECORDS SUMMARY | 2024-10-30 08:30 | XMS_ITS | Encounter Summary ---
Author Organization [facility] Address [address] [place] [address] Care Team Providers Care Colon And Rectal Surgeon Name Role Phone Rodger Dia MD Primary Care Provider [phone] Reason for Visit * Reason Onset Date Comments refill request 05/23/2024 Encounter Details Date Type Department Care Team Description 05/23/2024 Refill Adult Medicine [address] [id number] Rodger Dia MD [address] [place] [phone] refill request Social History Tobacco Use Types [...] encounter Miscellaneous Notes * Telephone Encounter - Myrna Hazel M.A. - 05/24/2024 12:26 PM EDT Last office visit 03/14/24 Next office visit 06/14/24 Lab Results Component Value Date NA 142 03/28/2024 K 4.9 03/28/2024 CO2 23 03/28/2024 CL 112 03/28/2024 BUN 38 03/28/2024 CREAT 1.58 03/28/2024 GLU 108 03/28/2024 CA 9.6 03/28/2024 GFR 50 03/28/2024 * Telephone Encounter - Thelma Jayce - 05/23/2024 1:42 PM EDT Patient would like script to be: E-PRESCRIBED/FAXED TO PHARMACY WHEN WAS THE PATIENT'S LAST APPOINTMENT IN ADULT MEDICINE? 03/14/24 WHEN WAS THE LAST TIME THE PATIENT SAW THEIR PCP? 05/25/23 Does patient have an upcoming appointment? Yes 06/14/24 (THE MEDICATION REQUESTED IS ON THE MED [...] / Plan: [place] / Product Type: MEDICARE [id number] documented in this encounter Plan of Treatment Not on file documented as of this encounter Visit Diagnoses Diagnosis Essential hypertension Unspecified essential hypertension documented in this encounter Care Teams Colon And Rectal Surgeon Relationship Specialty Start Date End Date Rodger Dia MD [address] [place] [address] PCP - General 02/10/11 documented as of this encounter
--- OUTSIDE RECORDS SUMMARY | 2024-10-30 08:30 | XMS_ITS | Encounter Summary ---
Author Organization [facility] Address [address] [place] [address] Care Team Providers Care Motel Operator Name Role Phone Rodger Dia MD Primary Care Provider [phone] Reason for Visit * Reason Onset Date Comments REFERRAL 01/01/2021 pt requesting a ref to derm Mr. Joy for a full skin exam Encounter Details Date Type Department Care Team Description 01/01/2021 Telephone Adult Medicine [address] [phone] Rodger Dia MD [address] [place] [address] [phone] REFERRAL (pt requesting a ref to derm Mr. Joy for a full skin exam) Social History Tobacco Use Types Packs/Day Years Used Date Smoking Tobacco: Never Smokeless Tobacco: Never Alcohol Use Standard Drinks/Week Comments No 0 (1 standard drink = 0.6 oz pur e alcohol) Sex Assigned at Date Recorded Not on file Job Start Date Occupation Industry Not on file Not on file Not on file COVID-19 Exposure Response Date Recorded In the last month, have you been in contact with someone who was confirmed or suspected to have Coronavirus / COVID-19? No / Unsure 12/24/2020 9:47 AM EDT documented as of this encounter Miscellaneous Notes * Telephone Encounter - Clive Jacobsen L.P.NRyder - 01/03/2021 2:31 PM EDT Spoke with patitn he doesn't need a referral to derm He wants an appt with Dr. Dia for follow up on his liver cancer he will needs labs Appt with Dr Dia on 01/20 at 3:30 * Telephone Encounter - DANGELO Cook- BC, PMKAYDEN-BC - 01/03/2021 8:11 AM EDT Please triage patient and ask what the skin issue is. I might be able to just refer him without an appointment. If it is a new and bothersome rash we [facility] set up a video call if he does not want to come in. Take care Maryam Ramey * Telephone Encounter - Danni Arambula M.A. - 01/02/2021 8:59 AM EDT Message left on pt voicemail advising him to call our office back [phone] when pt calls back ask him why he is requesting a referral to derm * Telephone Encounter - Soraya Moon R.N. - 01/01/2021 12:29 PM EDT I left a message for the patient to return my call. Pt was seen by maryam Ramey 12/24 but no mention of any skin problems, needs triage * Telephone Encounter - Chucho Sinclair - 01/01/2021 12:17 PM EDT Caller requesting call back from provider: Is the caller the patient? YES If caller is not the patient, what is the callers name? N/A Callers relationship to patient? N/A If person calling is not the patient themselves, is there a verbal release in FYI or permanent comments for this person: NO Reason for call back: Pt asking for referral to dermotology Caller offered to speak with the nurse for assistance: YES Response: Patient offered to speak with nurse for assistance and patient agreed. Message forwarded to nurse. documented in this encounter Plan of Treatment Not on file documented as of this encounter Visit Diagnoses Not on filedocumented in this encounter Care Teams Motel Operator Relationship Specialty Start Date End Date Rodger Dia MD [address] [place] [id number] PCP - General 02/10/11 documented as of this encounter
--- OUTSIDE RECORDS SUMMARY | 2024-10-30 08:30 | XMS_ITS | Encounter Summary ---
Author Organization [facility] Address [address] [place] [address] Care Team Providers Care Cut And Cover Line Worker Name Role Phone Rodger Dia MD Primary Care Provider [phone] Reason for Visit * Reason Onset Date Comments medication problems 05/23/2024 Encounter Details Date Type Department Care Team Description 05/23/2024 Telephone Adult Medicine [address] [phone] Rodger Dia MD [address] [place] [address] [phone] medication problems Social History Tobacco Use Types Packs/Day Years [...] encounter Miscellaneous Notes * Telephone Encounter - Eden Mnotoya M.A. - 05/26/2024 4:15 PM EDT Telephone Information: Spoke to PT, he states his INS will no longer cover Levemir and will cover Tresiba, will you send in for provider out of the office this afternoon? Pended for your review, thank you. * Telephone Encounter - Duyen Dumont - 05/25/2024 3:22 PM EDT Patient is here stating he needs the Lantus Tresiba. This will be going to [facility] on [address] [facility]. * Telephone Encounter - Kiara Jeong PA-C - 05/25/2024 1:00 PM EDT Please call patient and clarify specific information regarding which pen needles she is requesting * Telephone Encounter - Thelma Eduardo - 05/23/2024 1:50 PM EDT Patient calling in states we sent over the incorrect pen needles, requests call back documented in this encounter Plan of Treatment Not on file documented as of this encounter Visit Diagnoses Not on filedocumented in this encounter Care Teams Cut And Cover Line Worker Relationship Specialty Start Date End Date Rodger Dia MD [address] [place] [phone] PCP - General 02/10/11 documented as of this encounter
--- OUTSIDE RECORDS SUMMARY | 2024-10-30 08:30 | XMS_ITS | Patient Health Record ---
Author Organization [facility] [place] Address [address] [facility] [place] [address] Care Team Providers Care Speed Belt Sander Name Role Phone Ifeoma BLAIR, Rodger Dubon Primary Care Provider Unarenetta BrowerDebra carrion Unavailable [phone] Remington Huerta Unavailable [phone] Allergies No Known Allergies Results Component Value [...] Problem Acquired hammer toe of right foot (8123626973809199 ) Other hammer toe(s) (acquired), right foot (M20.41) Active confirmed Response to treatment, Heri t Problem Acquired hammer toe of left foot (0067109126552824 ) Other hammer toe(s) (acquired), left foot (M20.42) Active confirmed Response to treatment, Improvemen t Problem Polyneuropathy due to diabetes mellitus type I (866702296) Type 1 diabetes mellitus with diabetic polyneuropathy (E10.42) Active confirmed Problem Polyneuropathy due to type 2 diabetes mellitus (526015401) Type 2 diabetes mellitus with diabetic polyneuropathy (E11.42) Active confirmed Vital Signs Blood pressure diastolic 80 mm Hg 09/21/2024 Height 5ft 5in in 09/21/2024 Blood pressure systolic 120 mm Hg 09/21/2024 Weight 236 lbs 09/21/2024 BMI 39.27 kg/m2 09/21/2024 Procedures Procedure Date Ordered Date Performed Result Body Sit e 63285-FODS SKIN LESIONS, OVER 4 12/02/2023 N/A 80009-LTRN SKIN LESIONS, OVER 4 03/13/2024 N/A 08342-NOVRRTK NAIL, 6 OR MORE 09/21/2024 N/A Encounters Encounter Location Date Provider Diagnosis [address] [address] 12/02/2023 Remington Huerta Type 1 diabetes mellitus with diabetic polyneuropathy E10.42 ; Pain in right toe(s) M79.674 ; Tinea unguium B35.1 ; Pain in left toe(s) M79.675 and Arthritis of right ankle M19.[address] [address] 03/13/2024 Remington Huerta Type 1 diabetes mellitus with diabetic polyneuropathy E10.42 ; Pain in right toe(s) M79.674 ; Pain in left toe(s) M79.675 ; Tinea unguium B35.1 and Arthritis of right ankle M19.[address] [address] 06/22/2024 Remington Huerta Type 1 diabetes mellitus with diabetic polyneuropathy E10.42 ; Pain in right toe(s) M79.674 ; Pain in left toe(s) M79.675 ; Tinea unguium B35.1 and Arthritis of right ankle M19.071 [facility] [address] 09/21/2024 Debra White Type 2 diabetes mellitus with diabetic polyneuropathy E11.42 ; Tinea unguium B35.1 ; Other hammer toe(s) (acquired), right foot M20.41 and Other hammer toe(s) (acquired), left foot M20.[address] [address] 05/31/2024 Remington Huerta Assessments Encounter Date Diagnosis [...] Treatment Pending Test Test Name Order Date 26331-DOVPNZT NAIL, 6 OR MORE 09/21/2024 11486-ZNVU SKIN LESIONS, OVER 4 12/02/19 24 01664-HYZS SKIN LESIONS, OVER 4 03/13/20 24 Next Appt Details Provider Name:Debra Rangel carter, 01/25/2025 09:15:00 AM, [address] [place] [address], [phone], Insurance Providers Payer Name Payer Address Payer Phone Subscriber Number Group Number Insured Name Patient Relationship to Insured Coverage Start Date Coverage End Date Medicare National [employer] [address] [place] [address] [id number] Tavon Black Self - patient is the insured Medical (General) History Medical History History ICD Code Diabetic Liver disease Mumps Chicken pox Transfusions Surgical History Surgery Date(Month/Year) liver transplant - 5 months 03/2016 ankle surgery
--- OUTSIDE RECORDS SUMMARY | 2024-10-30 08:30 | XMS_ITS | Encounter Summary ---
Author Organization [facility] Address [address] [place] [address] Care Team Providers Care Buyer Grain Name Role Phone Rodger Dia MD Primary Care Provider [phone] Encounter Details Date Type Department Care Team Description 12/27/2020 Electrostatic Paint Operator Report Medical Records [address] [place] [address] Abstract, Provider Social History Tobacco Use Types [...] AM EDT documented as of this encounter Plan of Treatment Not on file documented as of this encounter Visit Diagnoses Not on filedocumented in this encounter Care Teams Buyer Grain Relationship Specialty Start Date End Date Rodger Dia MD [address] [place] [address] PCP - General 02/10/11 documented as of this encounter
--- OUTSIDE RECORDS SUMMARY | 2024-10-30 08:31 | XMS_ITS ---
Author Organization [facility] Address [address] [place] [address] Care Team Providers Care Oven Baker Name Role Phone Ifeoma BLAIR, Rodger Dubon Primary Care Provider Milad esquivel Debra White Unavailable [phone] Remington Huerta Unavailable [phone] Allergies No Known Allergies REASON FOR VISIT [...] 06/22/2024 Encounters Encounter Location Date Provider Diagnosis [facility] [address] [place] [address] 06/22/2024 Remington Huerta Type 1 diabetes mellitus [...] Provider Name:Debra machado, 01/25/2025 09:15:00 AM, [address] [place], [address], Procedure Notes * Category Sub-Category Detail Notes [...] as necessary. Patient chooses, no pharmaceutical tx (46331) Keratoma Treatment Parring or Cutting o f Benign Hyperkeratotic Lesion(s) 64435 ( More than 4 Lesions ) - The Benign hyperkeratotic lesions, as described above were pared, and/or cut utilizing a sterile 15 blade, tissue nippers, and/or dremel Progress Notes * Tavon SALTERDOB: [birth year] (59 yo M)Acc No.[id number]:06/22/2024 Progress Note Patient:?Tavon Salter Provider:?Remington Huerta DPM :1965???Age:59 Y???Sex:Male Jayy e:06/22/2024 Address: [address], [facility] [place], [id number] Pcp:Rodger Dia MD Subjective: * Chief Complaints: * ??? Painful nail(s) aggrevat ed by shoes and causing difficulty standing/walking. 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 * ROS:?General/Constitutional:?Nausea?denies.?Vomiting?denies.?Hunger Thirst?denies.?Loss appetite?denies.?Chills?denies.?Fatigue?denies.?Fever?denies.?Night Sweats?denies.?Unexplained weight loss?denies.?Unexplained [...] as necessary. Patient chooses, no pharmaceutical tx (90337).?Keratoma Treatment:?Parring or Cutting of Benign Hyperkeratotic Lesion(s)?61456 ( More than 4 Lesions ) - The Benign hyperkeratotic lesions, as described above were pared, and/or cut utilizing a sterile 15 blade, tissue nippers, and/or dremel.? * Procedure Codes:?28512 DEBRI DE NAIL, 6 OR MORE, Modifiers: XS 49350 TRIM SKIN LESIONS, OVER 4, Modifiers: XS * Follow Up:?3 Months * Images: * Sign off status: Completed true * Provider:?Remington Huerta DPM Date:? 024 Generated for Printi ng/Leanderg/eTransmitting on:?10/30/2024 08:30 AM EST History and Physical Notes * HPI (History of Present Illness) Category Sub-Category Detail Notes Category Not es At Risk footcare Pt States Last PCP Visit: [place] [facility] [place] Foot Pain Aggrevated: standing, walking Onset/Cause: fx ankle 2014 Duration: several years Nature: aching Treatments: orif at [facility] Quality/Severity moderate Location Right , Midfoot, Rosanne rfoot Examination Category Sub-Category Detail Notes Category [...]
--- OUTSIDE RECORDS SUMMARY | 2024-10-30 08:31 | XMS_ITS | Encounter Summary ---
Author Organization [facility] Address [address] [place] [address] Care Team Providers Care Schedule Checker Name Role Phone Rodger Dia MD Primary Care Provider [phone] Encounter Details Date Type Department Care Team Description 12/27/2020 Cyber Instructor Report Medical Records [address] [place] [address] Abstract, Provider Social History Tobacco Use Types [...] on filedocumented in this encounter Care Teams Schedule Checker Relationship Specialty Start Date End Date Rodger Dia MD [address] [place] [address] PCP - General 02/10/11 documented as of this encounter
--- OUTSIDE RECORDS SUMMARY | 2024-10-30 08:31 | XMS_ITS | Encounter Summary ---
Author Organization [facility] Address [address] [place] [address] Care Team Providers Care Senior Ui Ux Designer Name Role Phone Rodger Dia MD Primary Care Provider [phone] Encounter Details Date Type Department Care Team Description 02/09/2022 Cashier Office Report Medical Records [address] [place] [address] Grisel Jackson Social History Tobacco Use Types [...] filedocumented in this encounter Care Teams Senior Ui Ux Designer Relationship Specialty Start Date End Date Rodger Dia MD [address] [place] [address] [phone] PCP - General 02/10/11 documented as of this encounter
--- OUTSIDE RECORDS SUMMARY | 2024-10-30 08:31 | XMS_ITS | Encounter Summary ---
Author Organization [facility] Address [address] [place] [address] Care Team Providers Care Field Organizer Name Role Phone Rodger Dia MD Primary Care Provider [phone] Encounter Details Date Type Department Care Team Description 04/26/2016 Log Rafter Report Medical Records [address] [place] [address] Tavon Rodriguez Social History Tobacco Use Types Packs/Day Years [...] on filedocumented in this encounter Care Teams Field Organizer Relationship Specialty Start Date End Date Rodger Dia MD [address] [place] [address] [phone] PCP - General 02/10/11 documented as of this encounter
--- OUTSIDE RECORDS SUMMARY | 2024-10-30 08:32 | XMS_ITS | Encounter Summary ---
Author Organization [facility] Address [address] [place] [address] Care Team Providers Care Technical Supervisor Name Role Phone Rodger Dia MD Primary Care Provider [phone] Encounter Details Date Type Department Care Team Description 04/03/2016 Welder Apprentice Arc Report Medical Records [address] [place] [address] Grisel Jackson Social History Tobacco Use Types [...] on filedocumented in this encounter Care Teams Technical Supervisor Relationship Specialty Start Date End Date Rodger Dia MD [address] [place], [place] [phone] PCP - General 02/10/11 documented as of this encounter
--- OUTSIDE RECORDS SUMMARY | 2024-10-30 08:32 | XMS_ITS | Encounter Summary ---
Author Organization [facility] Address [address] [place] [address] Care Team Providers Care Organ Teacher Name Role Phone Rodger Dia MD Primary Care Provider [phone] Encounter Details Date Type Department Care Team Description 05/01/2016 Hospital Medical Records [address] [place] [address] Grisel Jackson Social History Tobacco Use Types [...] on filedocumented in this encounter Care Teams Organ Teacher Relationship Specialty Start Date End Date Rodger Dia MD [address] [place] [address] [phone] PCP - General 02/10/11 documented as of this encounter
--- OUTSIDE RECORDS SUMMARY | 2024-10-30 08:32 | XMS_ITS | Encounter Summary ---
Author Organization [facility] Address [address] [place] [address] Care Team Providers Care Roofing Machine Operator Name Role Phone Rodger Dia MD Primary Care Provider [phone] Encounter Details Date Type Department Care Team Description 04/10/2016 Hospital Medical Records [address] [place] [address] Grisel Jackson Social History Tobacco Use Types [...] on filedocumented in this encounter Care Teams Roofing Machine Operator Relationship Specialty Start Date End Date Rodger Dia MD [address] [place] [address] [phone] PCP - General 02/10/11 documented as of this encounter
--- OUTSIDE RECORDS SUMMARY | 2024-10-30 08:33 | XMS_ITS | Encounter Summary ---
Author Organization [facility] Address [address] [place] [address] Care Team Providers Care Toe Stripper Name Role Phone Rodger Dia MD Primary Care Provider [phone] Encounter Details Date Type Department Care Team Description 08/06/2016 Ambulance Dispatcher Report Medical Records [address] [place] [address] Paresh Hirsch Social History Tobacco Use Types Packs/Day Years [...] on filedocumented in this encounter Care Teams Toe Stripper Relationship Specialty Start Date End Date Rodger Dia MD [address] [place] [address] [phone] PCP - General 02/10/11 documented as of this encounter
--- OUTSIDE RECORDS SUMMARY | 2024-10-30 08:33 | XMS_ITS | Encounter Summary ---
Author Organization [facility] Address [address] [place] [address] Care Team Providers Care Tilting Head Band Sawyer Name Role Phone Rodger Dia MD Primary Care Provider [phone] Encounter Details Date Type Department Care Team Description 03/30/2016 Hospital Medical Records [address] [place] [address] AkMirela long Social History Tobacco Use Types Packs/Day Years [...] on filedocumented in this encounter Care Teams Tilting Head Band Sawyer Relationship Specialty Start Date End Date Rodger Dia MD [address] [place] [address] [phone] PCP - General 02/10/11 documented as of this encounter
--- OUTSIDE RECORDS SUMMARY | 2024-10-30 08:34 | XMS_ITS | Encounter Summary ---
Author Organization [facility] Address [address] [place] [address] Care Team Providers Care Curb Worker Name Role Phone Rodger Dia MD Primary Care Provider [phone] Encounter Details Date Type Department Care Team Description 04/28/2017 Wellness Visit Medical Records [address] [place] [address] Rodger Dia MD [address] [place] [address] [phone] Social History Tobacco Use Types Packs/Day Years [...] on filedocumented in this encounter Care Teams Curb Worker Relationship Specialty Start Date End Date Rodger Dia MD [address] [place] [address] [phone] PCP - General 02/10/11 documented as of this encounter
--- OUTSIDE RECORDS SUMMARY | 2024-10-30 08:34 | XMS_ITS | Encounter Summary ---
Author Organization [facility] Address [address] [place] [address] Care Team Providers Care Signal Engineer Name Role Phone Rodger Dia MD Primary Care Provider [phone] Reason for Visit * Reason Onset Date Comments Faxed Order 11/01/2016 Encounter Details Date Type Department Care Team Description 11/01/2016 Telephone Adult Medicine [address] [phone] Rodger Dia MD [address] [place] [address] [phone] Faxed Order Social History Tobacco Use Types [...] encounter Miscellaneous Notes * Telephone Encounter - An Roy - 11/01/2016 4:04 PM EST ANABELLA IS FAXING ORDERS. FAX BACK TO [phone] documented in this encounter Plan of Treatment Not on file documented as of this encounter Visit Diagnoses Not on filedocumented in this encounter Care Teams Signal Engineer Relationship Specialty Start Date End Date Rodger Dia MD [address] [place] [address] [phone] PCP - General 02/10/11 documented as of this encounter
--- OUTSIDE RECORDS SUMMARY | 2024-10-30 08:34 | XMS_ITS | Encounter Summary ---
Author Organization [facility] Address [address] [place] [address] Care Team Providers Care Steel Layout Worker Name Role Phone Rodger Dia MD Primary Care Provider [phone] Encounter Details Date Type Department Care Team Description 07/24/2022 CGM Report Medical Records [address] [place] [address] Abstract, Provider Social History Tobacco Use Types Packs/Day Years Used Date Smoking Tobacco: Never Smokeless Tobacco: Never Alcohol Use Standard Drinks/Week Comments No 0 (1 standard drink = 0.6 oz pur e alcohol) Sex Assigned at Date Recorded Not on file Job Start Date Occupation Industry Not on file Not on file Not on file COVID-19 Exposure Response Date Recorded In the last 10 days, have hayley arroyo been in contact with someone who was confirmed or suspected to have Coronavirus/COVID-19? No / Unsure 06/26/2022 7:40 AM EDT documented as of this encounter Plan of Treatment Not on file documented as of this encounter Visit Diagnoses Not on filedocumented in this encounter Care Teams Steel Layout Worker Relationship Specialty Start Date End Date Rodger Dia MD [address] [place] [address] PCP - General 02/10/11 documented as of this encounter
--- OUTSIDE RECORDS SUMMARY | 2024-10-30 08:34 | XMS_ITS | Encounter Summary ---
Author Organization [facility] Address [address] [place] [address] Care Team Providers Care Sidehand Name Role Phone Rodger Dia MD Primary Care Provider [phone] Encounter Details Date Type Department Care Team Description 07/14/2012 Allergist/Immunologist Report Medical Records [address] [place] [address] Ronny Mendoza MD Social History Tobacco Use [...] on filedocumented in this encounter Care Teams Sidehand Relationship Specialty Start Date End Date Rodger Dia MD [address] [place] [address] [phone] PCP - General 02/10/11 documented as of this encounter
--- OUTSIDE RECORDS SUMMARY | 2024-10-30 08:34 | XMS_ITS | Encounter Summary ---
Author Organization [facility] Address [address] [place] [address] Care Team Providers Care Fuel Assembler Name Role Phone Rodger Dia MD Primary Care Provider Encounter Details Date Type Department Care Team Description 06/20/2012 Rotary Bar Operator Report Medical Records [address] [place] [address] Grisel Jackson Social History Tobacco Use Types [...] on filedocumented in this encounter Care Teams Fuel Assembler Relationship Specialty Start Date End Date Rodger Dia MD [address] [place], [place] [phone] PCP - General 02/10/11 documented as of this encounter
--- OUTSIDE RECORDS SUMMARY | 2024-10-30 08:34 | XMS_ITS | Encounter Summary ---
Author Organization [facility] Address [address] [place] [address] Care Team Providers Care Data Input Clerk Name Role Phone Rodger Dia MD Primary Care Provider [phone] Reason for Visit * Reason Onset Date Comments Care Management 01/05/2017 monthly outreach Encounter Details Date Type Department Care Team Description 01/05/2017 Telephone Adult Medicine [address] [phone] Rodger Dia MD [address] [place] [address] [phone] Care Management (monthly outreach) Social History Tobacco Use Types Packs/Day Years [...] encounter Miscellaneous Notes * Telephone Encounter - Pina Colvin RN - 01/05/2017 1:51 PM EDT Outreach call to assess care needs complex medical issues. History of DDLT for SANCHEZ in 03/2016. Message left for patient to return call to childbirth and infant care teacher. documented in this encounter Plan of Treatment Not on file documented as of this encounter Visit Diagnoses Not on filedocumented in this encounter Care Teams Data Input Clerk Relationship Specialty Start Date End Date Rodger Dia MD [address] [place] [phone] PCP - General 02/10/11 documented as of this encounter
--- OUTSIDE RECORDS SUMMARY | 2024-10-30 08:34 | XMS_ITS | Encounter Summary ---
Author Organization [facility] Address [address] [place] [address] Care Team Providers Care Rug Measurer Name Role Phone Rodger Dia MD Primary Care Provider [phone] Encounter Details Date Type Department Care Team Description 03/29/2023 Building Maintenance Worker Report Medical Records [address] [place] [address] Grisel Jackson Social History Tobacco Use Types [...] on filedocumented in this encounter Care Teams Rug Measurer Relationship Specialty Start Date End Date Rodger Dia MD [address] [place] [address] [phone] PCP - General 02/10/11 documented as of this encounter
--- OUTSIDE RECORDS SUMMARY | 2024-10-30 08:34 | XMS_ITS | Encounter Summary ---
Author Organization [facility] Address [address] [place] [address] Care Team Providers Care Intermediate Teacher Name Role Phone Rodger Dia MD Primary Care Provider [phone] Encounter Details Date Type Department Care Team Description 06/20/2012 Release of Information Medical Records [address] [place] [address] Abstract, Provider Social History Tobacco Use Types [...] on filedocumented in this encounter Care Teams Intermediate Teacher Relationship Specialty Start Date End Date Rodger Dia MD [address] [place] [address] [phone] PCP - General 02/10/11 documented as of this encounter
--- OUTSIDE RECORDS SUMMARY | 2024-10-30 08:34 | XMS_ITS | Encounter Summary ---
Author Organization [facility] Address [address] [place] [address] Care Team Providers Care Lavender Farm Worker Name Role Phone Rodger Dia MD Primary Care Provider [phone] Encounter Details Date Type Department Care Team Description 09/28/2012 Karate Instructor Report Medical Records [address] [place] [address] Grisel Jackson Social History Tobacco Use Types [...] on filedocumented in this encounter Care Teams Lavender Farm Worker Relationship Specialty Start Date End Date Rodger Dia MD [address] [place] [address] [phone] PCP - General 02/10/11 documented as of this encounter
--- OUTSIDE RECORDS SUMMARY | 2024-10-30 08:35 | XMS_ITS | Encounter Summary ---
Author Organization [facility] Address [address] [place] [address] Care Team Providers Care Cyber Instructor Name Role Phone Rodger Dia MD Primary Care Provider [phone] Encounter Details Date Type Department Care Team Description 10/01/2017 Instrument Repairer Steam Plant Report Medical Records [address] [place] [address] Brittanie Sauceda Social History Tobacco Use Types Packs/Day Years [...] on filedocumented in this encounter Care Teams Cyber Instructor Relationship Specialty Start Date End Date Rodger Dia MD [address] [place] [address] [phone] PCP - General 02/10/11 documented as of this encounter
--- OUTSIDE RECORDS SUMMARY | 2024-10-30 08:35 | XMS_ITS ---
Author Organization [facility] pamela [place] Address [address] [facility] [place] [address] Care Team Providers Care Hot Dip Plating Supervisor Name Role Phone Ifeoma BLAIR, Rodger Dubon Primary Care Provider Debra Hansen Unavailable [phone] Allergies No Known Allergies REASON FOR VISIT At Risk Footcare, Toe Irritation Medications Medication SIG (Take, Route, Frequency, Duration) Notes Start Date End Date Status Extra Depth Diabetic Shoes with 3 Pair Custom heat-molded multi-density innersoles for 1 year Dx: 06/22/2024 Active Insulin Active Lisinopril 5 MG TAKE 1 TABLET BY JAYRO TH DAILY Oral for 90 Days Active Extra Depth Diabetic Shoes with 3 Pair Custom heat-molded multi-density innersoles for 1 year Dx: 12/02/2023 Active cycloSPORINE 75 mg Active Pravastatin Sodium 20 MG TAKE 1 TABLET B Y MOUTH DAILY Oral for 90 Days Active Social History Tobacco Use: Social History [...] Status Risk Notes Problem Polyneuropathy due to type 2 diabetes mellitus (600930514) Type 2 diabetes mellitus with diabetic polyneuropathy (E11.42) Active confirmed Problem Polyneuropathy due to diabetes mellitus type I (255998777) Type 1 diabetes mellitus with diabetic polyneuropathy (E10.42) Active confirmed Problem Acquired hammer toe of right foot (8029146930059957 ) Other hammer toe(s) (acquired), right foot (M20.41) Active confirmed Response to treatment, Improvemen t Problem Acquired hammer toe of left foot (8102216019430423 ) Other hammer toe(s) (acquired), left foot (M20.42) Active confirmed Response to treatment, Improvemen t Vital Signs Height 5ft 5in in 09/21/2024 Weight 236 lbs 09/21/2024 BMI 39.27 kg/m2 09/21/2024 Blood pressure systolic 120 mm Hg 09/21/19 25 Blood pressure diastolic 80 mm Hg 025 Procedures Procedure Date Ordered Date Performed Result Body Sit e 54975-LAJUXFA NAIL, 6 OR MORE 09/21/2024 N/A Encounters Encounter Location Date Provider Diagnosis [facility] [address] [address] 09/21/2024 Debra White Type 2 diabetes mellitus with diabetic polyneuropathy E11.42 ; Tinea unguium B35.1 ; Other hammer toe(s) (acquired), right foot M20.41 and Other hammer toe(s) (acquired), left foot M20.42 Assessments Encounter Date Diagnosis (ICD Code) Assessment Notes Treatment Notes Treatment Clinical Notes Section Notes 09/21/2024 Type 2 diabetes mellitus with diabetic polyneuropathy (ICD-10 - E11.42) 09/21/2024 Tinea unguium (ICD-10 - B35.1) 09/21/2024 Other hammer toe(s) (acquired), right foot (ICD-10 - M20.41) Response to treatment,Impro vement 09/21/2024 Other hammer toe(s) (acquired), left foot (ICD-10 - M20.42) Response to treatment,Impro vement Plan Of Treatment Pending Test Test Name Order Date [id number] NAIL, 6 OR MORE 09/21/2024 Next Appt Details Follow Up: 3 Months, Reason: Provider Name:Debra machado, 01/25/2025 09:15:00 AM, [address] [place] [address], [id number], Procedure Notes * Category Sub-Category Detail Notes Debride Nail 6-10 Nail debridement Due to the cl inical pathology outlined in the exam findings, performance of this nail treatment is medically necessary as its management by an unskilled/untrained nonprofessional would put this patients foot and overall health at risk. Therefore, debridement to affected nail(s), as described in exam ( TA, T1, T2, T3, T4, T5, T6, T7, T8 ), was performed exclusively by the physician of record to reduce/remove overall nail length, girth, thickness, subungual debris, and necrotic tissue, by manual and/or electrical means through the use of a nail nipper and/or dremel-type grinder hardboard, to a more viable healthy nail plate or bed tissue 6-10 nails in total. Silver nitrate was used for any petechial bleeding as necessary. Definitive antifungal treatment options, both pharmaceutical and surgical, have been reviewed and discussed with the patient. The patient solely prefers the use of intermittent/as needed professional debridement services for their nail condition and understands the need for additional periodic treatments to maintain effectiveness in symptomatic relief - 47234 Keratoma Treatment Parring or Cutting o f Benign Hyperkeratotic Lesion(s) (-57) More than 4 Lesions - Due to the at risk nature of the patients medical condition as documented in the exam findings, performance of this keratoderma treatment is medically necessary as its management by an unskilled/untrained nonprofessional would put this patients foot and overall health at risk. Therefore, the benign hyperkeratotic lesions, ( 7) in total, locations as stated and described in the exam (Plantar, T9, SUB MTH (s), 1, 5, B/L, Heel(s), Left.), were pared, and/or cut utilizing a sterile 15 blade, tissue nippers, and/or power dremel instrumentation by the physician of record - 33733 Progress Notes * GAETANOAbdirashid RICHEYjovi JimenezDOB: [birth year] (59 yo M)Acc No.[id number]:09/21/2024 Progress Note Patient:?Tavon SALTER Provider:?Debra White DPM :1965???Age:59 Y???Sex:Male Jayy e:09/21/2024 Address:[address], [facility] [place], [id number] Pcp:Rodger Dia MD Subjective: * Chief Complaints: * ???At Risk FootcareToe Irrit ation * HPI: ???At Risk footcare:?Pt States Last PCP Visit:?Date?05/08/2024 ???Toe pain:?Treatments:?Rx shoes .? * ROS:?General/Constitutional:?Nausea?denies.?Vomiting?denies.?Hunger Thirst?denies.?Loss appetite?denies.?Chills?denies.?Fatigue?denies.?Fever?denies.?Night Sweats?denies.?Unexplained weight loss?denies.?Unexplained [...] unspecified site.?Father: .? * Social History:?Tobacco Use:?Tobacco use other than smoking?Are you an other tobacco user??No ?Tobacco Control (Standard)?Tobacco use:?Nonsmoker ?Additional Findings: Tobacco non-user?Current nonsmoker ???Drugs/Alcohol:?Drugs?Have you used drugs other than those for medical reasons in the past 12 months??No ???Drug/Alcohol:?AUDIT-C (Standard)?Did you have a drink containing alcohol in the past year??No ?Points?0 ?Interpretation?Negative * Medications:?TakingInsulin c ycloSPORINE , Notes to Pharmacist: 75 mgExtra Depth Diabetic Shoes with 3 Pair Custom heat-molded multi-density innersoles for 1 year Dx: Pravastatin Sodium 20 MG Tablet TAKE 1 TABLET BY MOUTH DAILY Oral Lisinopril 5 MG Tablet TAKE 1 TABLET BY MOUTH DAILY Oral Extra Depth Diabetic Shoes with 3 Pair Custom heat-molded multi-density innersoles for 1 year Dx: Medication List reviewed and reconciled with the patientTaking Insulin Taking cycloSPORINE , Notes to Pharmacist: 75 mgTaking Extra Depth Diabetic Shoes with 3 Pair Custom heat- molded multi-density innersoles for 1 year Dx: Taking Pravastatin Sodium 20 MG Tablet TAKE 1 TABLET BY MOUTH DAILY Oral Taking Lisinopril 5 MG Tablet TAKE 1 TABLET BY MOUTH DAILY Oral Taking Extra Depth Diabetic Shoes with 3 Pair Custom heat-molded multi- density innersoles for 1 year Dx: Medication List reviewed and reconciled with the patient * Allergies:?N.K.D.A.yes[Aller gies Verified] Objective: * Vitals:?Ht:5ft 5in, Wt:236, BMI:39.27, Shoe size:10, BP:120/80mm Hg, BS:204, Ht- cm: 165.1 cm, Wt-k.05 kg. * ???Past Orders: ???Lab:HEMOGLOBIN A1C (GLYCO HEMOGLOBIN) (Order Date - 09/21/2024) (Collection Date & Time - 07/07/2024 10:09 AM) ? Value Reference Range ?HEMOGLOBIN A1C % (HH) 6.4 * Examination: ???Ophthalmology Referral: ?DIABETES EYE EXAM?Neurological: ?SENSORY:? Neurological exam demonstrates, reduced light touch sensation, reduced sharp/dull pin prick discrimination , B/L, 5.07 monofilament test performed at plantar aspects of 5 varied sites per foot shows sensation, reduced , B/L.?Nails: ?NAILS are:?Elongated, overgrown, dystrophic, lytic, greater than 3mm thick, discolored and friable with crumbly malodorous subungual debris, TA, T1, T2, T3, T4, T5, T6, T7, T8.?Dermatologic: ?SKIN FINDINGS:?Skin exam reveals Keratotic lesion(s) located at?Plantar,? T9, SUB MTH (s), 1, 5, B/L, Heel(s), Left..?Vascular: ?DP PULSES (B):?2/4, B/L.?PT PULSES (B):? 2/4, B/L.?CAPILLARY FILL TIME:?3 secs. per digit, B/L.?TROPHIC CONDITION-TEXTURE/ELASTICITY/TURGOR/HAIR GROWTH (B):?normal, B/L.?TEMPERTURE GRADIENT (C):?warm to cool, proximal to distal, B/L.?PIGMENTATION:?normal, B/L.?EDEMA (C):?no edema.?TELANGECTASIA:?absent.?VARICOSITIES:?absent.?Orthopedic: ?MUSCLE STRENGTH:?5/5 all groups in a symmetrical fashion, B/L.?FOOTWEAR:?good condition, exhibit proper fit and accommodation for pedal deformities. OT were inspected and noted to be worn, but in good condition giving proper support at the present time.?General Examination: ?GENERAL APPEARANCE:?Reveals a pleasant, alert, well nourished, well- developed, well hydrated individual, who demonstrates proper attention to hygiene/body habitus, and is in no acute distress, Pt serves as own historian for office visit today.?ORIENTED:?person, place, and time.?Footwear Evaluation? Assessment: * Assessment: 1.?Type 2 diabetes mellitus with diabetic polyneuropathy - E11.42 (Primary)???2.?Tinea unguium - B35.1???3.?Other hammer toe(s) (acquired), right foot - M20.41???Specify :Chronic problem, Stable (1=3,2=4)???Notes :Response to treatment,Improvement???4.?Other hammer toe(s) (acquired), left foot - M20.42???Specify :Chronic problem, Stable (1=3,2=4)???Notes :Response to treatment,Improvement??? Plan: * Treatment: * Procedures:?Debride Nail 6-10:?Nail debridement?Due to the clinical pathology outlined in the exam findings, performance of this nail treatment is medically necessary as its management by an unskilled/untrained nonprofessional would put this patients foot and overall health at risk. Therefore, debridement to affected nail(s), as described in exam ( TA, T1, T2, T3, T4, T5, T6, T7, T8 ), was performed exclusively by the physician of record to reduce/remove overall nail length, girth, thickness, subungual debris, and necrotic tissue, by manual and/or electrical means through the use of a nail nipper and/or dremel-type grinder hardboard, to a more viable healthy nail plate or bed tissue 6- 10 nails in total. Silver nitrate was used for any petechial bleeding as necessary. Definitive antifungal treatment options, both pharmaceutical and surgical, have been reviewed and discussed with the patient. The patient solely prefers the use of intermittent/as needed professional debridement services for their nail condition and understands the need for additional periodic treatments to maintain effectiveness in symptomatic relief - 36450.?Keratoma Treatment:?Parring or Cutting of Benign Hyperkeratotic Lesion(s)?(-57) More than 4 Lesions - Due to the at risk nature of the patients medical condition as documented in the exam findings, performance of this keratoderma treatment is medically necessary as its management by an unskilled/untrained nonprofessional would put this patients foot and overall health at risk. Therefore, the benign hyperkeratotic lesions, ( 7) in total, locations as stated and described in the exam (Plantar,? T9, SUB MTH (s), 1, 5, B/L, Heel(s), Left.), were pared, and/or cut utilizing a sterile 15 blade, tissue nippers, and/or power dremel instrumentation by the physician of record - 09855.? * Procedure Codes:?15453 DEBRI DE NAIL, 6 OR MORE, Modifiers: XS 3044F HG A1C LEVEL LT 7.0% * Preventive Medicine:? ??Counseling:?Discussion:?-13: Office or other outpatient visit for the evaluation and management of an established patient, which required a medically appropriate history and/or examination and LOW level of DECISION MAKING for: 1 STABLE ACUTE UNCOMPLICATED PROBLEM, 2 OR MORE MINOR PROBLEMS, OR 1 STABLE CHRONIC PROBLEM, THAT POSE(S) A LOW RISK FOR MORBIDITY/MORTALITY. The visit on the day of the encounter encompassed interpreting the data and educating the patient as to the nature of their condition, treatment options available according to their individual PMH, meds, allergies, and overall health/living conditions, as well as any potential risks or complications that may occur from a failure to adhere to, and participate in, the recommended course of therapy. The discussion included a complete verbal, and/or written explanation of the examination results, any x-rays taken, the proposed diagnosis, and outline of the treatment plan. A schedule for future care needs was also explained. The patient verbalized an understanding of the instructions at this time and agreed to be an active participant in their treatment. If the patient should think of any questions or concerns after the visit, I have encouraged the patient to call the office.?Shoe Gear Counseling:?A thorough inspection of the patients Rxed shoegear and inserts was performed and findings communicated. We reviewed the many important medical advantages for adhering to regularly wearing these shoe and insert accomidative devices daily as well as reviewed the fact that a failure in accepting these recommedations may be deleterious, unable to prevent, and disadvantagely result in, many pedal complications such as skin irritation, skin ulceration, infection, and even loss of toe/foot/leg/or even their life. Time was also spent reviewing the proper footcare techniques including daily skin moisturization, daily foot inspection for any interruption in skin integrity, open lesions, or sign of infection such as redness/malodor/drainage/swelling as well as daily shoe inspection for the presence of internal foreign bodies and shoe as well as insert wear. Patient questions re: shoes, inserts, and self foot inspections were answered to their satisfaction as the patient verbally confirmed a full understanding of the above information.? ??Screening/Special Tests:?Fall Risk?Screening:?No falls in the past year ?FALLS: Screening for Future Fall Risk?Have you had any falls with injury in the past year??No * Follow Up:?3 Months * Images: * Sign off status: Completed true * Provider:?Debra White DPM Date:?0 09/21/2024 Generated for Cameron bill/Kevin/Lala on:?10/30/2024 08:35 AM EST History and Physical Notes * HPI (History of Present Illness) Category Sub-Category Detail Notes Category Not es Toe pain Treatments: Rx shoes At Risk footcare Pt States Last PCP Visit: Date: 4 Examination Category Sub-Category Detail Notes Category Not es Neurological SENSORY: Neurological exa m demonstrates, reduced light touch sensation, reduced sharp/dull pin prick discrimination , B/L, 5.07 monofilament test performed at plantar aspects of 5 varied sites per foot shows sensation, reduced , B/L Dermatologic SKIN FINDINGS: Skin exam reveal s Keratotic lesion(s) located at Plantar, T9, SUB MTH (s), 1, 5, B/L, Heel(s), Left. Orthopedic FOOTWEAR: good condition, exhibit proper fit and accommodation for pedal deformities. OT were inspected and noted to be worn, but in good condition giving proper support at the present time MUSCLE STRENGTH: 5/5 all groups in a symmetrical fashion, B/L General Examination GENERAL APPEARANCE: Reveals a pleasant, alert, well nourished, well-developed, well hydrated individual, who demonstrates proper attention to hygiene/body habitus, and is in no acute distress, Pt serves as own historian for office visit today ORIENTED: person, place, and t deanne Footwear Evaluation Footwear Evaluation performe d:: Yes Ophthalmology Referral DIABETES EYE EXAM Procedure Perform ed:: No Findings of Diabetic Eye Exam:: no retin [...] and friable with crumbly malodorous subungual debris, TA, T1, T2, T3, T4, T5, T6, T7, T8
--- OUTSIDE RECORDS SUMMARY | 2024-10-30 08:35 | XMS_ITS | Encounter Summary ---
Author Organization [facility] Address [address] [place] [address] Care Team Providers Care Petroleum Refining Equipment Operator Name Role Phone Rodger Dia MD Primary Care Provider [phone] Encounter Details Date Type Department Care Team Description 02/23/2014 Hospital Medical Records [address] [place] [id number] Wesley Willis MD Social History Tobacco Use Types Packs/Day [...] on filedocumented in this encounter Care Teams Petroleum Refining Equipment Operator Relationship Specialty Start Date End Date Rodger Dia MD [address] [place] [address] [id number] PCP - General 02/10/11 documented as of this encounter
--- OUTSIDE RECORDS SUMMARY | 2024-10-30 08:35 | XMS_ITS | Encounter Summary ---
Author Organization [facility] Address [address] [place] [address] Care Team Providers Care Coating And Embossing Unit Operator Name Role Phone Rodger Dia MD Primary Care Provider [phone] Encounter Details Date Type Department Care Team Description 12/21/2016 Interior Design Consultant Report Medical Records [address] [place] [address] Grisel Jackson Social History Tobacco Use Types [...] on filedocumented in this encounter Care Teams Coating And Embossing Unit Operator Relationship Specialty Start Date End Date Rodger Dia MD [address] [place], [place] [phone] PCP - General 02/10/11 documented as of this encounter
--- OUTSIDE RECORDS SUMMARY | 2024-10-30 08:35 | XMS_ITS | Encounter Summary ---
Author Organization [facility] Address [address] [place] [address] Care Team Providers Care Tread Tuber Machine Operator Name Role Phone Rodger Dia MD Primary Care Provider [phone] Encounter Details Date Type Department Care Team Description 04/10/2013 Dictating Machine Transcriber Report Medical Records [address] [place] [address] Grisel Jackson Social History Tobacco Use Types [...] on filedocumented in this encounter Care Teams Tread Tuber Machine Operator Relationship Specialty Start Date End Date Rodger Dia MD [address] [place], [place] [phone] PCP - General 02/10/11 documented as of this encounter
--- OUTSIDE RECORDS SUMMARY | 2024-10-30 08:35 | XMS_ITS | Encounter Summary ---
Author Organization [facility] Address [address] [place] [address] Care Team Providers Care Anthropology Department Chair Name Role Phone Rodger Dia MD Primary Care Provider [phone] Encounter Details Date Type Department Care Team Description 11/17/2017 Hospital Medical Records [address] [place] [phone] Cheo Manley, DO Social History Tobacco Use Types Packs/Day Years [...] on filedocumented in this encounter Care Teams Anthropology Department Chair Relationship Specialty Start Date End Date Rodger Dia MD [address] [place] [address] [phone] PCP - General 02/10/11 documented as of this encounter
--- OUTSIDE RECORDS SUMMARY | 2024-10-30 08:35 | XMS_ITS | Encounter Summary ---
Author Organization [facility] Address [address] [place] [address] Care Team Providers Care Shipping Hand Name Role Phone Rodger Dia MD Primary Care Provider [phone] Encounter Details Date Type Department Care Team Description 09/03/2017 Night Triage Doc Medical Records [address] [place] [address] Abstract, Provider Social History Tobacco Use Types [...] on filedocumented in this encounter Care Teams Shipping Hand Relationship Specialty Start Date End Date Rodger Dia MD [address] [place], [place] [phone] PCP - General 02/10/11 documented as of this encounter
--- OUTSIDE RECORDS SUMMARY | 2024-10-30 08:35 | XMS_ITS | Encounter Summary ---
Author Organization [facility] Address [address] [place] [address] Care Team Providers Care Ward Nurse Name Role Phone Rodger Dia MD Primary Care Provider [phone] Encounter Details Date Type Department Care Team Description 10/04/2017 Preparation Department Supervisor Report Medical Records [address] [place] [id number] Abstract, Provider Social History Tobacco Use Types [...] on filedocumented in this encounter Care Teams Ward Nurse Relationship Specialty Start Date End Date Rodger Dia MD [address] [place] [phone] PCP - General 02/10/11 documented as of this encounter
--- OUTSIDE RECORDS SUMMARY | 2024-10-30 08:36 | XMS_ITS | Encounter Summary ---
Author Organization [facility] Address [address] [place] [address] Care Team Providers Care Rehabilitation Teacher Name Role Phone Rodger Dia MD Primary Care Provider [phone] Encounter Details Date Type Department Care Team Description 11/01/2013 Religious Ritual Slaughterer Report Medical Records [address] [place] [address] Grisel Jackson Social History Tobacco Use Types [...] on filedocumented in this encounter Care Teams Rehabilitation Teacher Relationship Specialty Start Date End Date Rodger Dia MD [address] [place] [address] [phone] PCP - General 02/10/11 documented as of this encounter
--- OUTSIDE RECORDS SUMMARY | 2024-10-30 08:36 | XMS_ITS | Encounter Summary ---
Author Organization [facility] Address [address] [place] [address] Care Team Providers Care Registration Representative Name Role Phone Rdoger Dia MD Primary Care Provider [phone] Encounter Details Date Type Department Care Team Description 02/23/2014 Hospital Medical Records [address] [place] [address] Eduarda Dubon MD Social History Tobacco Use Types Packs/Day [...] on filedocumented in this encounter Care Teams Registration Representative Relationship Specialty Start Date End Date Rodger Dia MD [address] [place] [address] [phone] PCP - General 02/10/11 documented as of this encounter
--- OUTSIDE RECORDS SUMMARY | 2024-10-30 08:36 | XMS_ITS | Encounter Summary ---
Author Organization [facility] Address [address] [place] [address] Care Team Providers Care Sole Conforming Machine Operator Name Role Phone Rodger Dia MD Primary Care Provider [phone] Encounter Details Date Type Department Care Team Description 11/09/2013 Can Maker Report Medical Records [address] [place] [address] Grisel Jackson Social History Tobacco Use Types [...] on filedocumented in this encounter Care Teams Sole Conforming Machine Operator Relationship Specialty Start Date End Date Rodger Dia MD [address] [place] [address] [phone] PCP - General 02/10/11 documented as of this encounter
--- OUTSIDE RECORDS SUMMARY | 2024-10-30 08:36 | XMS_ITS | Encounter Summary ---
Author Organization [facility] Address [address] [place] [address] Care Team Providers Care Neonatal Intensive Care Nurse Name Role Phone Rodger Dia MD Primary Care Provider Blayne Peres MD Primary Care Provider [phone] Encounter Details Date Type Department Care Team Description 12/10/2009 Die Maker Apprentice Report Medical Records [address] [place] [address] Ronny Mendoza MD Social History Tobacco Use Types Packs/Day Years Used Date Smoking Tobacco: Never Alcohol Use Standard Drinks/Week Comments [...] on filedocumented in this encounter Care Teams Neonatal Intensive Care Nurse Relationship Specialty Start Date End Date Rodger Dia MD [address] [place] [address] [phone] PCP - General 02/10/11 Blayne Peres MD [address] [place] [address] [phone] PCP - General 08/26/1994 02/09/11 documented as of this encounter
--- OUTSIDE RECORDS SUMMARY | 2024-10-30 08:37 | XMS_ITS | Encounter Summary ---
Author Organization [facility] Address [address] [place] [address] Care Team Providers Care Transformer Assembler Name Role Phone Rodger Dia MD Primary Care Provider [phone] Blayne Peres MD Primary Care Provider [phone] Encounter Details Date Type Department Care Team Description 11/25/2010 Hospital Medical Records [address] [place] [phone] Claus Watson, Social History Tobacco Use Types Packs/Day Years [...] on filedocumented in this encounter Care Teams Transformer Assembler Relationship Specialty Start Date End Date Rodger Dia MD [address] [place] [address] [phone] PCP - General 02/10/11 Blayne Peres MD [address] [place] [address] [phone] PCP - General 08/26/1994 02/09/11 documented as of this encounter
--- OUTSIDE RECORDS SUMMARY | 2024-10-30 08:37 | XMS_ITS | Encounter Summary ---
Author Organization [facility] Address [address] [place] [address] Care Team Providers Care Underwriting Operations Manager Name Role Phone Rodger Dia MD Primary Care Provider [phone] Blayne Peres MD Primary Care Provider [phone] Encounter Details Date Type Department Care Team Description 12/02/2010 Business Doc Medical Records [address] [place] [id number] Abstract, Provider Social History Tobacco Use Types [...] on filedocumented in this encounter Care Teams Underwriting Operations Manager Relationship Specialty Start Date End Date Rodger Dia MD [address] [place] [address] [id number] PCP - General 02/10/11 Blayne Peres MD [address] [place] [address] [phone] PCP - General 08/26/1994 02/09/11 documented as of this encounter
--- OUTSIDE RECORDS SUMMARY | 2024-10-30 08:38 | XMS_ITS | Encounter Summary ---
Author Organization [facility] Address [address] [place] [address] Care Team Providers Care Stock Parts Fabricator Name Role Phone Rodger Dia MD Primary Care Provider Blayne Peres MD Primary Care Provider [phone] Encounter Details Date Type Department Care Team Description 11/11/2010 Poke In Report Orthopedic Surgery - [address] [address] Sixto Blood MD Social History Tobacco Use Types Packs/Day [...] filedocumented in this encounter Care Teams Stock Parts Fabricator Relationship Specialty Start Date End Date Rodger Dia MD [address] [place] [address] [phone] PCP - General 02/10/11 Blayne Peres MD [address] [place] [address] [phone] PCP - General 08/26/1994 02/09/11 documented as of this encounter
--- OUTSIDE RECORDS SUMMARY | 2024-10-30 08:38 | XMS_ITS | Encounter Summary ---
Author Organization [facility] Address [address] [place] [address] Care Team Providers Care Distributor Cleaner Name Role Phone Rodger Dia MD Primary Care Provider [phone] Encounter Details Date Type Department Care Team Description 01/13/2019 Welder Report Medical Records [address] [place] [address] [facility] Diabetes Education [address] [facility] [address] [place] [address] Social History Tobacco Use Types Packs/Day Years [...] on filedocumented in this encounter Care Teams Distributor Cleaner Relationship Specialty Start Date End Date Rodger Dia MD [address] [place] [address] PCP - General 02/10/11 documented as of this encounter
--- OUTSIDE RECORDS SUMMARY | 2024-10-30 08:38 | XMS_ITS | Encounter Summary ---
Author Organization [facility] Address [address] [place] [address] Care Team Providers Care Computer Systems Information Director Name Role Phone Rodger Dia MD Primary Care Provider [phone] Encounter Details Date Type Department Care Team Description 06/09/2018 Record Label Internship Report Medical Records [address] [place] [id number] Abstract, Provider Social History Tobacco Use Types [...] filedocumented in this encounter Care Teams Computer Systems Information Director Relationship Specialty Start Date End Date Rodger Dia MD [address] [place] [address] [phone] PCP - General 02/10/11 documented as of this encounter
--- OUTSIDE RECORDS SUMMARY | 2024-10-30 08:38 | XMS_ITS ---
Author Organization [facility] Address [address] [place] [address] Care Team Providers Care Computer Typesetter Keyliner Name Role Phone Ifeoma BLAIR, Rodger Dubon Primary Care Provider Debra Hansen Unavailable [phone] Remington Huerta [phone] Simmons Encounters Encounter Location Date Provider Diagnosis [address] [phone] 06/21/2024 Remington Huerta Plan Of Treatment Next Appt Details Provider Name:Debra Rangel carter, 01/25/2025 09:15:00 AM, [address] [place] [address], [phone], Progress Notes * Tavon SALTERDOB: [birth year] (59 yo M)Acc No.[id number]:06/21/2024 Progress Note Patient:?Tavon SALTER Provider:?Remington Huerta DPM [...] DPM Date:? 024 Generated for Cameron bill/Kevin/Lala on:?10/30/2024 08:38 AM EST
--- OUTSIDE RECORDS SUMMARY | 2024-10-30 08:38 | XMS_ITS | Encounter Summary ---
Author Organization [facility] Address [address] [place] [address] Care Team Providers Care General Foreman Name Role Phone Rogder Dia MD Primary Care Provider [phone] Reason for Visit * Reason Onset Date Comments Error 05/20/2018 Encounter Details Date Type Department Care Team Description 05/20/2018 Refill Adult Medicine [address] [phone] Rodger Dia MD [address] [place] [address] [phone] Error Social History Tobacco Use Types Packs/Day Years [...] on filedocumented in this encounter Care Teams General Foreman Relationship Specialty Start Date End Date Rodger Dia MD [address] [place] [phone] PCP - General 02/10/11 documented as of this encounter
--- OUTSIDE RECORDS SUMMARY | 2024-10-30 08:39 | XMS_ITS | Encounter Summary ---
Author Organization [facility] Address [address] [place] [address] Care Team Providers Care Rigging Supervisor Name Role Phone Rodger Dia MD Primary Care Provider [phone] Encounter Details Date Type Department Care Team Description 03/15/2019 Family Resource Specialist Report Medical Records [address] [place] [address] [facility] Diabetes Education 300 [facility] [address] [place] [phone] Social History Tobacco Use Types Packs/Day Years [...] on filedocumented in this encounter Care Teams Rigging Supervisor Relationship Specialty Start Date End Date Rodger Dia MD [address] [place] [address] PCP - General 02/10/11 documented as of this encounter
--- OUTSIDE RECORDS SUMMARY | 2024-10-30 08:39 | XMS_ITS | Encounter Summary ---
Author Organization [facility] Address [address] [place] [address] Care Team Providers Care Test Engineering Technician Name Role Phone Rodger Dia MD Primary Care Provider Reason for Visit * Reason Onset Date Comments Call From Pharmacy 09/02/2018 Encounter Details Date Type Department Care Team Description 09/02/2018 Telephone Adult Medicine [facility] [address] [place] [address] [phone] Rodger Dia MD [address] [place] [address] [phone] Call From Pharmacy Social History Tobacco Use Types Packs/Day Years [...] encounter Miscellaneous Notes * Telephone Encounter - Janeth Ruff M.A. - 09/02/2018 4:16 PM EST Left message for fili to call back. We are unable to give office notes with out a release of information form. * Telephone Encounter - Karla Michel - 09/02/2018 3:53 PM EST Caller requesting call back from provider: Is the caller the patient? NO If caller is not the patient, what is the callers name? fili Callers relationship to patient? deccom If person calling is not the patient themselves, is there a verbal release in FYI or permanent comments for this person: NO Reason for call back: Fili is calling requesting office notes from the last office ivist and requesting it state how many times patient checks his blood sugar please advise and fax to: [phone] Caller offered to speak with the nurse for assistance: YES Response: Patient offered to speak with nurse for assistance and patient agreed. Message forwarded to nurse. documented in this encounter Plan of Treatment Not on file documented as of this encounter Visit Diagnoses Not on filedocumented in this encounter Care Teams Test Engineering Technician Relationship Specialty Start Date End Date Rodger Dia MD [address] [place] [id number] PCP - General 02/10/11 documented as of this encounter
--- OUTSIDE RECORDS SUMMARY | 2024-10-30 08:39 | XMS_ITS | Encounter Summary ---
Author Organization [facility] Address [address] [place] [address] Care Team Providers Care Top Closer Name Role Phone Rodger Dia MD Primary Care Provider [phone] Reason for Visit * Reason Onset Date Comments Call From Pharmacy 11/30/2018 supply compan y Encounter Details Date Type Department Care Team Description 11/30/2018 Telephone Adult Medicine [address] [phone] Rodger Dia MD [address] [place] [address] [phone] Call From Pharmacy ([facility]) Social History Tobacco Use Types Packs/Day Years [...] encounter Miscellaneous Notes * Telephone Encounter - Sanjana Blanco M.A. - 12/02/2018 2:25 PM EDT Called patient at phone num [phone] left a message to call us back.. * Telephone Encounter - Hannah So NP - 12/02/2018 7:26 AM EDT I cannot talk to anyone that is not on verbal release. * Telephone Encounter - Jagdish Valera MD - 12/01/2018 5:20 PM EDT I am going to forward this to Mayra. * Telephone Encounter - Myrna Hazel M.A. - 12/01/2018 1:20 PM EDT Last office visit 11/01/18 Next office visit 02/03/19 please review and advise * Telephone Encounter - Christopher Melendez - 11/30/2018 11:56 AM EDT Information Needed Who is calling: Other [employer] ([employer]) Information being requested? Calling to speak to Dr. Valera about patients progress for diabetes If information is regarding a referral and notes are needed- transfer call to HIM department If other information is needed, was an MICHELLE signed? NO How is the information to be communicated back to the caller? documented in this encounter Plan of Treatment Not on file documented as of this encounter Visit Diagnoses Not on filedocumented in this encounter Care Teams Top Closer Relationship Specialty Start Date End Date Rodger Dia MD [address] [place] [id number] PCP - General 02/10/11 documented as of this encounter
--- OUTSIDE RECORDS SUMMARY | 2024-10-30 08:39 | XMS_ITS | Encounter Summary ---
Author Organization [facility] Address [address] [place] [address] Care Team Providers Care Drapery Cutter Name Role Phone Rodger Dia MD Primary Care Provider [phone] Encounter Details Date Type Department Care Team Description 10/12/2018 Citrus Fruit Colorer Report Medical Records [address] [place] [address] [facility] Diabetes Education 300 [facility] [address] [place] [address] Social History Tobacco Use Types Packs/Day Years [...] on filedocumented in this encounter Care Teams Drapery Cutter Relationship Specialty Start Date End Date Rodger Dia MD [address] [place] [address] PCP - General 02/10/11 documented as of this encounter
== END 2024-10-30 08:42 | disposition home or self-care (01) ==
PROVIDERS: PCP Internal Medicine; Visit Provider Orthopaedic Surgery
DX: M25.311 Other instability, right shoulder (principal); M75.41 Impingement syndrome of right shoulder
CPT/HCPCS: 99213; G2211

== ENCOUNTER → 2024-10-30 08:19 | Outpatient (BNVA) | payer MEDICARE, MEDICAID, SELFPAY | PROVIDERS: PCP Internal Medicine; Visit Provider Orthopaedic Surgery | DX: M25.311 Other instability, right shoulder (principal) | CPT/HCPCS: 99212 ==

== ENCOUNTER 2025-01-21 12:07 | Emergency (ER) | payer MEDICARE, MEDICAID, SELFPAY ==
[2025-01-21] VITALS (7 sets, daily range): BP systolic 126–146; BP diastolic 61–75; PULSE 78–82; RESP 16–20; TEMP 36.4–36.8; O2SAT 96–98; BMI 38.3
--- NOTE | ~2025-01-21 | CT_ITS ---
CLINICAL HISTORY: RLQ tenderness CT abdomen and pelvis with contrast Comparison: CT - CT ABDOMEN PELVIS W IV CON - 01/21/25 13:51 EDT Findings: No consolidation or effusion. Calcification of the coronary vasculature. Gallbladder is absent. Liver is shrunken and demonstrates a nodular contour without focal mass. Solid organs are otherwise within normal limits. There are mildly distended small bowel loops, with a transition point at the right flank hernia. Colon is nondistended. Mild gastric distention. There is a fat containing anterior abdominal wall hernia measuring 90 mm transverse which contains the anti mesenteric wall of transverse colon. No pneumoperitoneum, or pneumatosis. There is a right flank hernia containing a loop of small bowel, measuring 90 mm anteroposterior, which contains internal fat stranding, as well as thickened small bowel loops, and a small amount of fluid. Multiple portosystemic collateral vessels are present, predominantly within the left upper quadrant and periesophageal location. Pelvic contents unremarkable. Appendix is not seen. No acute fracture. IMPRESSION: 1. Strangulated right flank hernia containing small bowel, causing small-bowel obstruction. The hernia contains thickened small bowel. 2. Fat and bowel containing anterior abdominal wall hernia. 3. Cirrhosis and portal hypertension. 4. Coronary artery disease. This document has been electronically signed by: Leeann Arrington MD on 01/21/2025 15:12:42
--- NOTE | 2025-01-21 12:10 | ED.ABDPAIN ---
HPI - Abdominal Pain General Chief Complaint: Abdominal Pain Stated Complaint: Abd pain Time Seen by Provider: 01/21/25 13:16 Source: patient, family, RN notes reviewed and old records reviewed Mode of arrival: ambulatory Limitations: no limitations History of Present Illness ED Provider: Gio HOWARD narrative: Patient is a 59-year-old male with history of liver transplant in [address] [facility] presenting to emergency department with right lower quadrant abdominal pain since 6:00 a.m. today. Reports known right sided abdominal hernia. Reports nausea without vomiting or diarrhea. States he attempted to have a bowel movement but was unable to go. Denies fever. Denies urinary symptoms. MD elicited complaint: abdominal pain Onset (ago): hour(s) Related Data Home Medications ?Medication ?Instructions ?Recorded ?Confirmed insulin detemir U-100 100 unit/mL unit subcut 09/17/21 09/20/24 (3 mL) subcutaneous pen (Levemir FlexTouch U-100 Insulin) insulin lispro 100 unit/mL subcut 09/02/22 09/20/24 subcutaneous pen (Humalog KwikPen (U-100) Insulin) lisinopril 5 mg tablet 5 mg PO DAILY 09/02/22 09/20/24 pen needle, diabetic 31 gauge x #50 ea 09/02/22 09/20/2411/19 (BD Ultra-Fine Mini Pen Needle) pravastatin 20 mg tablet 20 mg PO DAILY 09/02/22 09/20/24 cyclosporine modified 50 mg capsule 50 mg PO BID 09/20/24 10/30/24 insulin glargine 100 unit/mL (3 unit subcut 10/30/24 10/30/24 mL) subcutaneous pen (Lantus Solostar U-100 Insulin) Previous Rx's ?Medication ?Instructions ?Recorded hydrocortisone 2.5 % topical cream 1 appl topical BID PRN skin 05/25/22 irritation #20 grams hydroxyzine HCl 25 mg tablet 25 mg PO QID PRN itching #20 tabs 02/14/23 clotrimazole 1 % topical cream 1 appl topical BID 2 weeks #45 11/08/23 (Antifungal (clotrimazole)) grams permethrin 5 % topical cream 1 appl topical Q14D 2 doses #60 02/18/24 grams Allergies Allergy/AdvReac Type Severity Reaction Status Date / Time No Known Allergies Allergy Verified 01/21/25 12:12 Review of Systems Review of Systems As per HPI Yes all other systems are reviewed and are negative Constitutional: Reports as per HPI [facility] Past Medical History Medical History (Updated 01/21/25 @ 17:14 by Gillian Powers NP) Incisional hernia following transplant Flu-like symptoms Social History Social History Alcohol intake: never Patient Tobacco Use Status: Never used Tobacco Advance Directives: No Advance Directives Information Provided: Yes Current occupational status: unemployed Current occupation: rt handed Physical Exam ED Vital Signs: Vital Signs - 24 hr 01/21/25 12:10 01/21/25 15:34 01/21/25 16:02 Temperature 97.6 F 98.3 F Pulse Rate 80 82 Respiratory Rate 20 18 16 Blood Pressure 146/61 H 126/75 Pulse Oximetry 98 97 Oxygen Delivery Method Room Air Room Air 01/21/25 17:21 01/21/25 18:21 Temperature 97.9 F Pulse Rate 79 Respiratory Rate 18 16 Blood Pressure 137/68 Pulse Oximetry 97 Oxygen Delivery Method Room Air BMI result Body Mass Index 38.3 Vital signs have been reviewed and appear to be correct. Blood pressure normal. Heart rate normal. Respiratory rate normal. Temperature normal. Oxygen saturation normal. Const General: cooperative, healthy appearing and no acute distress Orientation/consciousness: oriented to person, oriented to place, oriented to time and patient oriented x3 Limitations: no limitations HENMT Head: Yes normocephalic and Yes atraumatic Ears: external ears normal General nose exam: Normal external nose present Face and sinus: Yes face symmetric Mouth: oropharynx normal and moist mucous membranes Throat: Yes uvula midline Eyes Pupils: Equal, round and reactive pupils present Neck Neck: Yes normal visual inspection and Yes supple Resp Effort & Inspection: normal respiratory effort and able to speak in complete sentences Auscultation: clear to auscultation bilaterally Cardio Rate: regular rate Rhythm: regular rhythm Heart sounds: S1 normal heart sound present and S2 normal heart sound present GI Inspection: Yes Abdominal panniculus present and Yes scar Palpation (GI): Soft to palpation, Tenderness to palpation present (GI) other (right mid abdomen in area of hernia) and Hernia present other (right mid abdomen) Auscultation: normoactive bowel sounds General: Yes no CVA tenderness Back/Spine/Pelvis Back: no CVA tenderness Skin General skin exam: elasticity normal and turgor normal Neuro General: oriented to person, oriented to place, oriented to time, patient oriented x3, moves all extremities, no focal motor deficits and CN's II-XI intact bilaterally Cranial nerves: Yes Equal, round and reactive pupils present Cognition (Neuro): normal cognition Extrem General: Yes full ROM, Yes no pedal edema and Yes no calf tenderness Psych Mental Status: mental status grossly normal Affect: normal affect Thought process: Normal thought process present Course Course Course Narrative: 01/21/25 1214 GIUSEPPE Munoz This is a Rapid Medical Examination (RME) performed by Todd Andrew PA-C in triage. Full HPI, ROS, assessment and treatment plan per primary provider in the Main ED. Hx: 59 yo male here w/ 10/10 RLQ abdominal pain since 0600 this morning. assoc nausea w/o vomiting. had normal BM this morning. surgical hx includes liver transplant in 2016. no other abd surgeries. no urinary sx. PE/vitals: large healed scar noted to RUQ. abd soft, ND, TTP of RLQ w/ mild guarding. no rebound. Plan: screening labs, UA Reevaluation(s) Reevaluation #1: Patient evaluated at bedside by Dr. Sinclair who feels patient is more appropriate for transfer to [facility] where his transplant was performed. Time: 16:00 Reevaluation #2: Spoke with Dr. Rivera at [facility] who accepts patient for transfer. Time: 17:12 Reevaluation #3: Notified by GEOVANY Otto that when she attempted to call report to [facility] she was told by transfer line nurse that the patient has not yet been accepted as a transfer as they do not have a bed available for him despite Dr. Rivera accepting the transfer. Transfer nurse unable to provide a timeline as to when a bed will become available. Tigertext sent to Dr. Sinclair to discuss admission here until bed is available at [facility]. Dr. Sinclair not willing to admit patient. Spoke with ED medical records specialist Dr. Gibson who recommends transfer elsewhere with availability. Time: 18:27 Additional Reevaluation(s): 01/21/[address] Rivera again at [facility] who states that he would prefer patient come to [facility] but they do not currently have an available bed and will not have an available bed until tomorrow morning at the earliest. Call out to [facility] as [facility] and [facility] both closed to transfers other than trauma and STEMIs at this time. 01/21/25 19:22 patient accepted as transfer to [facility] Emergency Department, accepting MD Dr. Cope. Medical Decision Making Medical Decision Making [facility] Narrative: Patient is a 59-year-old male with history of liver transplant in [address] [facility] presenting to emergency department with right lower quadrant abdominal pain since 6:00 a.m. today. On exam patient is awake, A+Ox3, VS WNL, afebrile, normal neurological exam without focal deficits, physical exam findings as above. Given reported symptoms and physical exam findings, initial differential includes but is not limited to incarcerated hernia, bowel obstruction, renal colic. Labs notable for left shift without leukocytosis, thrombocytopenia, mildly elevated bilirubin, elevated glucose without anion gap, hypomagnesemia. IV magnesium ordered. CT notable for strangulated right flank hernia containing small bowel causing small bowel obstruction. My interpretation is in agreement with the radiologist's interpretation. Case discussed with Dr. Sinclair who will come to the ED to evaluate patient, however, states patient may possibly need transferred to [facility] where his transplant was performed. Differential Diagnosis Differential Diagnoses: The differential diagnosis associated with the presentation includes as per the [facility] Admission/Observation Consideration of admission/observation: Escalation of care including admission/observation considered Patient would have been admitted to the hospital had their work up had any findings where hospital admission was appropriate and their clinical presentation warranted hospital admission. Consult Healthcare Provider Management of the patient was discussed with: Biomedical Repair Technician (Dr. Sinclair) Lab Data [facility] Lab Attestation statement: I reviewed the patient's lab results. as per the [facility] 01/21/25 12:21 01/21/25 12:21 Labs: Lab Results 01/21/25 01/21/25 Range/Units 12:21 12:23 WBC 8.0 (4.8-10.8) X10*3/uL RBC 4.61 (4.60-5.80) X10*6/uL Hgb 14.5 (14.0-18.0) g/dl Hct 41.3 L (42.0-52.0) % MCV 89.6 (80.0-98.0) fL MCH 31.5 (27.0-33.0) pg MCHC 35.1 (31.0-36.0) g/dl RDW 12.2 (11.0-16.0) % Plt Count 89 L (160-400) X10*3/uL MPV 11.0 (9.4-12.4) fL Immature Gran % (Auto) 0.4 (0.0-0.4) % Neut % (Auto) 84.8 H (45-73) % Lymph % (Auto) 9.2 L (20-40) % [place] % (Auto) 4.5 (2-11) % Eos % (Auto) 0.9 (0-4) % Baso % (Auto) 0.2 (0-2) % Lymph # (Auto) 0.7 L (1.2-4.9) X10*3/uL [place] # (Auto) 0.4 (0.1-1.2) X10*3/uL Eos # (Auto) 0.1 (0.0-0.4) X10*3/uL Baso # (Auto) 0.0 (0.0-0.2) X10*3/uL Abs Immat Gran (auto) 0.03 (0.00-0.03) X10*3/uL Absolute Neuts (auto) 6.8 (2.0-8.3) x10*3/uL Absolute Nucleated RBC 0.000 (0.0-0.012) X10*3/uL Nucleated RBC % (auto) 0.0 (0.0-0.2) /100WBC Sodium 136 (135-145) mmol/L Potassium 5.0 (3.3-5.1) mmol/L Chloride 108 (96-108) mmol/L Carbon Dioxide 19 L (22-29) mmol/L Anion Gap 14 (12-20) BUN 30 H (9-16) mg/dL Creatinine 1.33 (0.5-1.4) mg/dL Estim Creat Clear Calc 65.6 Estimated GFR 55 Random Glucose 269 H (60-115) mg/dL Calcium 9.4 (8.4-10.2) mg/dL Magnesium 1.5 L (1.6-2.6) mg/dL Total Bilirubin 1.3 H (0.0-1.0) mg/dL AST 15 (5-37) U/L ALT 6 (0-40) U/L Alkaline Phosphatase 82 (39-117) U/L Total Protein 6.7 (6.5-8.0) g/dL Albumin 4.0 (3.5-5.0) g/dL Lipase 8 (8-78) U/L Urine Color Yellow Urine Appearance Clear Urine pH 5.0 (5.0-9.0) Ur Specific [place] 1.020 (1.005-1.025) Urine Protein Negative (Neg-Trace) mg/dL Urine Glucose (UA) >=1000 H (Negative) mg/dL Urine Ketones Trace (Negative) mg/dL Urine Blood Trace H (Negative) Urine Nitrite Negative (Negative) Ur Leukocyte Esterase Negative (Negative) Urine RBC 0-2 (0-2) /HPF Urine WBC 0-5 (0-5) /HPF Ur Squamous Epith Cells 0-2 (0-2) /HPF Urine Bacteria None Seen (None Seen) Hyaline Casts 0-2 (0-2) /LPF Independent Interpretation I performed an independent interpretation of an: CT Scan Interpretation: CT notable for strangulated right flank hernia containing small bowel causing small bowel obstruction. Radiology Impression Discussion of test interpretation with radiology: I have reviewed the radiologist's reading. Radiologist Impression: IMPRESSION: 1. Strangulated right flank hernia containing small bowel, causing small-bowel obstruction. The hernia contains thickened small bowel. 2. Fat and bowel containing anterior abdominal wall hernia. 3. Cirrhosis and portal hypertension. 4. Coronary artery disease. External Record Review External record reviewed: Inpatient record, Office record and Outpatient record Medications Administered Discontinued Medications Generic Name Dose Route Start Last Admin Trade Name Freq PRN Reason Stop Dose Admin Magnesium Sulfate 2 gm in 50 mls @ 25 mls/hr 01/21/25 13:17 01/21/25 15:34 Magnesium Sulfate/H2o IV 01/21/25 15:16 Infused ONCE ONE Infusion Sodium Chloride 1,000 mls @ 999 mls/hr 01/21/25 15:45 01/21/25 16:50 Ns IV 01/21/25 16:45 Infused .Q1H1M LAVERN Infusion Iohexol 100 ml 01/21/25 14:03 01/21/25 14:03 Iohexol 350 Mg/Ml 100 Ml Infus..Btl IV 01/21/25 14:04 85 ml ONCE ONE Administration Morphine Sulfate 4 mg 01/21/25 15:27 01/21/25 15:34 Morphine Sulfate 4 Mg/Ml Cartridge IVPUSH 01/21/25 15:28 4 mg ONCE ONE Administration Protocol Morphine Sulfate 4 mg 01/21/25 17:14 01/21/25 17:21 Morphine Sulfate 4 Mg/Ml Cartridge IVPUSH 01/21/25 17:15 4 mg ONCE ONE Administration Protocol Ondansetron HCl 4 mg 01/21/25 15:27 01/21/25 15:34 Ondansetron Hcl 4 Mg/2 Ml Vial IVPUSH 01/21/25 15:28 4 mg ONCE ONE Administration Critical Care Time Critical Care Time Critical Care Time: Yes Total Critical Care Time: 47 Attestation: I have personally provided critical care time exclusive of time spent on separately billable procedures. Time includes review of lab data, radiology results, discussion with consultants, and monitoring for potential decompensation. Intervention performed as documented. Discharge Plan Discharge Clinical Impression: Incarcerated intra-abdominal hernia, Small bowel obstruction Patient Disposition: [facility] Transfer Details: to [facility] Emergency Department, accepting Dr. Cope Prescriptions: No Action hydroxyzine HCl 25 mg tablet 25 mg PO QID PRN (Reason: itching) Qty: 20 0RF hydrocortisone 2.5 % cream 1 appl topical BID PRN (Reason: skin irritation) Qty: 20 0RF insulin lispro [Humalog KwikPen Insulin] 100 unit/mL insulin pen subcut lisinopril 5 mg tablet 5 mg PO DAILY pravastatin 20 mg tablet 20 mg PO DAILY (DME) pen needle, diabetic [BD Ultra-Fine Mini Pen Needle] 31 gauge x 3/16 needle See Rx Instructions .ROUTE TID Qty: 50 Rx Instructions: As directed permethrin 5 % cream 1 appl topical Q14D Qty: 60 0RF Rx Instructions: apply second treatment 14 days after first treatment if live lice remain Levemir FlexTouch U100 Insulin 100 unit/mL (3 mL) insulin pen subcut clotrimazole [Antifungal (clotrimazole)] 1 % cream 1 appl topical BID 14 Days Qty: 45 0RF Rx Instructions: apply to affected area cyclosporine modified 50 mg capsule 50 mg PO BID insulin glargine [Lantus Solostar U-100 Insulin] 100 unit/mL (3 mL) insulin pen subcut Print Language: Hungarian
[2025-01-21 12:28] LABS: MANUAL DIFF FLAG NO
[2025-01-21 12:36] LABS: Appearance Urine Clear; Color Urine Yellow; Glucose Urine UA >=1000 mg/dL (Negative); Leukocyte Esterase Urine Negative (Negative); Nitrite Urine Negative (Negative); UMIC TRIGGER UACC YES; Urine Blood Trace (Negative); Urine Ketones Trace mg/dL (Negative); Urine Protein Negative (Neg-Trace)
[2025-01-21 12:39] LABS: Basophils Percent Auto 0.2 % (0-2); Eosinophils Absolute Auto 0.1 X10*3/uL (0.0-0.4); Eosinophils Percent Auto 0.9 % (0-4); Hematocrit 41.3 % (42.0-52.0); Hemoglobin 14.5 g/dl (14.0-18.0); Imm Gran Abs Auto 0.03 X10*3/uL (0.00-0.03); Imm Gran Pct Auto 0.4 % (0.0-0.4); Lymphocytes Absolute Auto 0.7 X10*3/uL (1.2-4.9); Lymphocytes Percent Auto 9.2 % (20-40); Mean Corpuscular HGB Conc 35.1 g/dl (31.0-36.0); Mean Corpuscular Hemoglobin 31.5 pg (27.0-33.0); Mean Corpuscular Volume 89.6 fL (80.0-98.0); Monocytes Absolute Auto 0.4 X10*3/uL (0.1-1.2); Monocytes Percent Auto 4.5 % (2-11); Neutrophils Absolute Auto 6.8 x10*3/uL (2.0-8.3); Neutrophils Percent Auto 84.8 % (45-73); Red Blood Count 4.61 X10*6/uL (4.60-5.80); Red Cell Distribution Width 12.2 % (11.0-16.0)
[2025-01-21 12:41] LABS: Bacteria Urine None Seen (None Seen); Hyaline Casts Urine 0-2 /LPF (0-2); RBC Urine 0-2 /HPF (0-2); Squamous Epithelial Cell Urine 0-2 /HPF (0-2); WBC Urine 0-5 /HPF (0-5)
[2025-01-21 12:42] LABS: Alanine Aminotransferase 6 U/L (0-40); Alkaline Phosphatase 82 U/L (39-117); Anion Gap 14 (12-20); Aspartate Amino Transferase 15 U/L (5-37); Bilirubin Total 1.3 mg/dL (0.0-1.0); Blood Urea Nitrogen 30 mg/dL (9-16); Calcium 9.4 mg/dL (8.4-10.2); Carbon Dioxide 19 mmol/L (22-29); Chloride 108 mmol/L (96-108); Creatinine Clr Calc Pharmacy 65.6; Estimated Glomerular Filt Rate 55; Glucose Random 269 mg/dL (60-115); Lipase 8 U/L (8-78); Magnesium 1.5 mg/dL (1.6-2.6); Sodium 136 mmol/L (135-145); Total Protein 6.7 g/dL (6.5-8.0)
[2025-01-21 12:57] LABS: Platelet Count 89 X10*3/uL (160-400)
--- OUTSIDE RECORDS SUMMARY | 2025-01-21 13:19 | XMS_ITS ---
Author Organization [facility] Address [address] [place] [address] Care Team Providers Care Director Loan Name Role Phone Ifeoma BLAIR, Rodger Dubon Primary Care Provider Milad esquivel Debra White Unavailable [phone] Remington Huerta Unavailable [phone] Allergies No Known Allergies REASON FOR VISIT [...] 06/22/2024 Encounters Encounter Location Date Provider Diagnosis [facility] [address] [place] [address] 06/22/2024 Remington Huerta Type 1 diabetes mellitus [...] Provider Name:Debra machado, 01/25/2025 09:15:00 AM, [address] [place], [address], Procedure Notes * Category Sub-Category Detail Notes [...] as necessary. Patient chooses, no pharmaceutical tx (05231) Keratoma Treatment Parring or Cutting o f Benign Hyperkeratotic Lesion(s) 29520 ( More than 4 Lesions ) - The Benign hyperkeratotic lesions, as described above were pared, and/or cut utilizing a sterile 15 blade, tissue nippers, and/or dremel Progress Notes * Tavon SALTERDOB: [birth year] (59 yo M)Acc No.[id number]:06/22/2024 Progress Note Patient:?Tavon Salter Provider:?Remington Huerta DPM :1965???Age:59 Y???Sex:Male Jayy e:06/22/2024 Address: [address], [facility] [place], [id number] Pcp:Rodger Dia MD Subjective: * Chief Complaints: * ??? Painful nail(s) aggrevat ed by shoes and causing difficulty standing/walking. * HPI: ???At Risk footcare:?Pt States Last PCP Visit:?Date?05/08/2024 ?Misc?liver transplant pt.?Foot Pain:?Nature:?aching.?Location?Right , Midfoot, Rearfoot.?Duration:?several years.?Onset/Cause:?fx ankle 2014.?Aggrevated:?standing, walking.?Treatments:?orif at [facility].?Quality/Severity?moderate.? * ROS:?General/Constitutional:?Nausea?denies.?Vomiting?denies.?Hunger Thirst?denies.?Loss appetite?denies.?Chills?denies.?Fatigue?denies.?Fever?denies.?Night Sweats?denies.?Unexplained weight [...] kg. * Examination: ???Ophthalmology Referral: ?DIABETES EYE EXAM?Diabetic Retinopathy Screening:?Yes 08/28 ?Findings of Diabetic Eye Exam:?no retinopathy?Neurological: ?SENSORY:? Neurological exam demonstrates, reduced vibration sensation, [...] and in no acute distress.?ORIENTED:?person,place, and time.?FOOT EXAM:?Lower Extremity Neurological Exam performed:?Yes ?Visual exam of foot performed:?Yes ?Date?06/22/2024 ?Sensory testing performed:?sensations diminished ?Pedal pulse taking performed:?2+?Neuroma Pain: ?PALPATION:?No interspace pain noted on palpation.?Orthopedic: [...] as necessary. Patient chooses, no pharmaceutical tx (33905).?Keratoma Treatment:?Parring or Cutting of Benign Hyperkeratotic Lesion(s)?70303 ( More than 4 Lesions ) - The Benign hyperkeratotic lesions, as described above were pared, and/or cut utilizing a sterile 15 blade, tissue nippers, and/or dremel.? * Procedure Codes:?93239 DEBRI DE NAIL, 6 OR MORE, Modifiers: XS 06872 TRIM SKIN LESIONS, OVER 4, Modifiers: XS * Follow Up:?3 Months * Images: * Sign off status: Completed true * Provider:?Remington Huerta DPM Date:? 024 Generated for Cameron bill/Kevin/eTransmitting on:?01/21/2025 01:19 PM EDT History and Physical Notes * HPI (History of Present Illness) Category Sub-Category Detail Notes Category Not es At Risk footcare Pt States Last PCP Visit: Date: 4 [facility] liver transplant pt Foot Pain Aggrevated: standing, walking Onset/Cause: fx ankle 2014 Duration: several years Nature: aching Treatments: orif at [facility] Quality/Severity moderate Location Right , Midfoot, [place] rfoot Examination Category Sub-Category Detail Notes Category [...] taking performed:: 2+ ORIENTED: person,place, and ti ma Ophthalmology Referral DIABETES EYE EXAM Diabetic Reti [...]
--- OUTSIDE RECORDS SUMMARY | 2025-01-21 13:20 | XMS_ITS ---
Author [facility] pam[facility] Cobb Address [address] [facility] [place] [address] Care Team Providers Care B[employer] Labor Name Role Phone Ifeoma BLAIR, Rodger Dubon Primary Care Provider Debra Hansen Unavailable [phone] Allergies No Known Allergies REASON FOR VISIT [...] Polyneuropathy due to type 2 diabetes mellitus (027726647) Type 2 diabetes mellitus with diabetic polyneuropathy (E11.42) Active confirmed Problem Polyneuropathy due to diabetes mellitus type I (772474559) Type 1 diabetes mellitus with diabetic polyneuropathy (E10.42) Active confirmed Problem Acquired hammer toe of right foot (3966293144084996 ) Other hammer toe(s) (acquired), right foot (M20.41) Active confirmed Response to treatment, Improvemen t Problem Acquired hammer toe of left foot (3086519650486193 ) Other hammer toe(s) (acquired), left foot (M20.42) Active confirmed Response to treatment, Improvemen t Vital Signs Height 5ft 5in in 09/21/2024 Weight 236 lbs 09/21/2024 BMI 39.27 kg/m2 09/21/2024 Blood pressure systolic 120 mm Hg 09/21/19 25 Blood pressure diastolic 80 mm Hg 025 Procedures Procedure Date Ordered Date Performed Result Body Sit e 91852-YZBNBVP NAIL, 6 OR MORE 09/21/2024 N/A Encounters Encounter Location Date Provider Diagnosis [facility] [address] [address] 09/21/2024 Debra White Type 2 diabetes mellitus [...] Treatment Pending Test Test Name Order Date 40015-TURBMAM NAIL, 6 OR MORE 09/21/2024 Next Appt Details Follow Up: 3 Months, Reason: Provider Name:Debra machado, 01/25/2025 09:15:00 AM, [address] [place] [address], [id number], Procedure Notes * Category Sub-Category Detail Notes [...] of a nail nipper and/or dremel-type grinder machine setter, to a more viable healthy nail plate [...] to maintain effectiveness in symptomatic relief - 94771 Keratoma Treatment Parring or Cutting o f [...] instrumentation by the physician of record - 13755 Progress Notes * GAETANOAbdirashid RICHEYjovi JimenezDOB: [birth year] (59 yo M)Acc No.[id number]:09/21/2024 Progress Note Patient:?Tavon SALTER Provider:?Debra White DPM :1965???Age:59 Y???Sex:Male Jayy e:09/21/2024 Address:[address], [facility] [place], [id number] Pcp:Rodger Dia MD Subjective: * Chief Complaints: [...] 6.4 * Examination: ???Ophthalmology Referral: ?DIABETES EYE EXAM?Procedure Performed:?No ?Findings of Diabetic Eye Exam:?no retinopathy?Neurological: ?SENSORY:? Neurological exam demonstrates, reduced light touch [...] for office visit today.?ORIENTED:?person, place, and time.?Footwear Evaluation?Footwear Evaluation performed:?Yes??? Assessment: * Assessment: 1.?Type 2 diabetes mellitus [...] of a nail nipper and/or dremel-type grinder machine setter, to a more viable healthy nail plate [...] to maintain effectiveness in symptomatic relief - 13456.?Keratoma Treatment:?Parring or Cutting of Benign Hyperkeratotic Lesion(s)?(-57) [...] instrumentation by the physician of record - 84511.? * Procedure Codes:?54470 DEBRI DE NAIL, 6 OR MORE, Modifiers: [...] Provider:?Debra White DPM Date:?0 09/21/2024 Generated for Cameorn bill/Kevin/Lala on:?01/21/2025 01:19 PM EDT History and Physical [...] (s), 1, 5, B/L, Heel(s), Left. Orthopedic FOOTWEAR EVALUATION: good condit ion, exhibit proper fit and accommodation for pedal [...]
--- OUTSIDE RECORDS SUMMARY | 2025-01-21 13:20 | XMS_ITS | Clinical Summary ---
Author Organization [address] Address [address] [place] [phone] Phone Care Team Providers Care Service Trainer Name Role Phone Rodger Dia MD Primary Care Provider [phone] Allergies No known active allergies Medications pen needle, diabetic (PEN NEEDLE MISC) USE THREE TIMES DAILY WITH INSULIN 07/05/20 23 Active cycloSPORINE modified (NEORAL) 25 mg capsule Take 1 capsule (25 mg total) by mouth 2 (two) times a day. Transplant Team in [place] prescribe. He had a liver Transplant. Active glucose blood test strip 1 each by Other route if needed. Use as instructed Active miscellaneous medical supply misc 1 EA. Dexcom G7 Acti ve HumaLOG KwikPen Insulin 100 unit/mL injection pen Per Sliding Scale.USE PER SLIDING SCALE three times a day before meals 101-150: 6 units , 151-200: 9 UNITS, 201-250: 12 units . 251-300: 15 units, 301-350: 18 units , 351-400: 20 units >400: call az. 21 units. 30 mL 2 07/25/20 24 Active lisinopriL (PRINIVIL,ZESTRIL) 5 mg tablet Take 1 tablet (5 mg total) by mouth 1 (one) time each day. 90 tablet 1 10/16/19 25 Active BD Ultra-Fine Short Pen Needle 31 gauge x 5/16 needleIndications: Diabetic polyneuropathy associated with diabetes mellitus due to underlying condition (CMS/HCC V24, CMS/HCC V28) USE DIRECTED TO INJECT INSULIN 3 TIMES A DAY. 100 each 3 10/25/19 25 Active polyethylene glycol (Golytely) 236-22.74-6.74 -5.86 gram solution Take 4L by mouth once for one dose. May substitue any PEG. Starting at 6PM the night before your procedure drink 1 8oz glasses at your own pace until you complete half of the gallon. Finish 2nd half of the gallon 5 hours before your procedure. 4000 mL 11/01/19 25 Active bisacodyL (DULCOLAX) 5 mg EC tablet Take 2 tablets by mouth right before beginning bowel prep. See instructions provided by the office 2 tablet 11/01/19 25 Active Lantus Solostar U-100 Insulin 100 unit/mL (3 mL) injection pen USE 21-22 UNITS AT BEDTIME 10/20/19 25 Active pravastatin (PRAVACHOL) 20 mg tablet Take 1 tablet (20 mg total) by mouth 1 (one) time each day. 90 tablet 1 12/19/19 25 Active Active Problems Problem Noted Date Diagnosed Date Supraspinatus tendon tear 12/07/2024 Overview (12/07/2024): Follows with Dr. Franklin. Hemorrhoids 2021 Class 2 severe obesity due t o excess calories with serious comorbidity in adult ([facility] V24, [facility] V28) 12/24/2020 Assessment & Plan (10/16/2024 7:15 PM [...] kidney disease) stage 3, GFR 30-59 ml/min ([facility] V24, [facility] V28) 11/21/2019 Type II diabetes mellitus wi th peripheral circulatory disorder ([facility] V24, [facility] V28) 11/06/2019 Diabetic polyneuropathy asso ciated with diabetes mellitus due to underlying condition ([facility] V24, [facility] V28) 11/03/2019 Hypertension 05/09/2019 Assessment & Plan (10/16/2024 [...] Cardiovascular risk and specific lipid/LDL goals reviewed. Kathleen is asked to be alert for persistent nausea, abdominal pain, jaundice or pronounced persistent, diffuse muscle pain. Should such symptoms occur. He is to discontinue the drug immediately and let us know. Orders: Hemoglobin A1c; Future Basic metabolic panel; Future Diabetes mellitus, type 2 ([facility] V24, [facility] V28) 07/01/2015 Assessment & Plan (10/16/2024 7:15 PM [...] duodenal ulcers. Treatment initiated. Esophageal varices without b leeding ([facility] V24, [facility] V28) 10/11/2013 Overview (06/14/2024): Large at EGD 2006 and 2013. Esophageal varices without mention of bleeding in diseases classified elsewhere Compression fracture of vert ebrae ([facility] V24, [facility] V28) 12/07/2010 Overview (06/14/2024): Vertebral T10 of uncertain age, noted incidental finding 11/09/2010. [facility]. Pancytopenia ([facility] V24, [facility] V28) 12/02/19 11 Obesity (BMI 30-39.9) 12/04/2006 Portal hypertension ([facility] V24, [facility] V28) 0 12/04/2006 Overview (06/14/2024): See comment on cirrhosis of liver Encounters Date Type Department Care Team Description 12/14/2024 Telephone Endocrinology - [place] [address] [place] [phone] Carisa Silverman PA 11/15/2024 9:13 AM EDT Anesthesia Event [facility] [address] [place] [phone] Elsi Giraldo MD 11/15/2024 7:06 AM EDT - 11/15/2024 11:59 PM EDT Hospital Encounter [facility] [address] [place] [phone] Sameer Hanson MD Steele, Matthew G, CRNA Chang, Daniel J, MD History of colon polyps Discharge Disposition: Home or Self Care 11/06/2024 Telephone Gastroenterology - [place] [address] [facility] [address] [facility] [address] [place] [phone] Sameer Hanson MD special procedure 10/26/2024 8:00 AM EST Office Visit Endocrinology - [address] [phone] Carisa Silverman PA Type II diabetes mellitus with peripheral circulatory disorder (CMS/HCC V24, CMS/HCC V28) (Primary Dx); Primary hypertension; Obesity (BMI 30-39.9); Mixed hyperlipidemia from Last 3 Months Immunizations [...] HISTORY 03/30/2016 PROCEDURE: LIVER TRANSPLANT, HETEROTOPIC; COMMENT: [facility]. UPPER GASTROINTESTINAL ENDOSCOPY 10/11/2013 PROCEDURE: [place] UPPER GI ENDOSCOPY PERFORMED; COMMENT: gastritis, small duodenal ulcers, large esophageal varices. Gastric biopsies positive for H. pylori. UPPER GASTROINTESTINAL ENDOSCOPY 05/23/2007 PROCEDURE: [place] UPPER GI ENDOSCOPY PERFORMED; COMMENT: Large esoph [...] fracture 11/10/2010 DX:Fibula fractu re Portal hypertension (CMS/HCC V24, CMS/HCC V28) 12/04/2006 DX:Portal hypertension (HCC) Esophageal varices without m ention of bleeding in diseases classified elsewhere 10/11/2013 DX:Esophageal varices withou t mention of bleeding in diseases classified elsewhere; COMMENT: Large at EGD 10/11/2013. Helicobacter pylori gastritis 10/16/2013 DX :Helicobacter pylori gastritis; COMMENT: EGD and bx 2013. Choledocholithiasis 03/06/2014 DX:Choledoch olithiasis; COMMENT: Status post hospitalization, ERCP with sphincterectomy stone-extraction and stent placement 02/2014. Liver transplanted (CMS/HCC V24, CMS/HCC V28) 05/14/2016 DX:Liver transplanted (HCC); COMMENT: 03/30/2016 at [facility]. CKD [...] drink = 0.6 oz pur e alcohol) Interpersonal Safety Answer Date Record ed Physical Abuse 11/15/2024 Verbal Abuse 11/15/2024 Sex and Gender Information Value Date Recorded Sex Assigned at Male 11/14/2024 9:31 AM EDT Legal Sex Male 11:01 AM EST Gender Identity Male 11/14/2024 9:31 AM EDT Sexual Orientation Straight 11/14/2024 9: 31 AM EDT Obstetrics History Last Filed Vital Signs Vital Sign Reading Time Taken Comments Blood Pressure 119/75 11/15/2024 9:56 AM EDT Pulse 69 11/15/2024 9:56 AM EDT Temperature 36.2 ??C (97.2 ??F) 11/15/2024 8:25 AM ED T Respiratory Rate 16 11/15/2024 9:56 AM EDT Oxygen Saturation 99% 11/15/2024 9:56 AM EDT Inhaled Oxygen Concentration - - Weight 107 kg (235 lb) 11/08/2024 11:00 AM EST Height 165.1 cm (5' 5 ) 11/08/2024 11:00 AM EST Body Mass Index 39.11 11/08/2024 11:00 AM EST Plan of Treatment Upcoming Encounters Date Type Department Care Team (Late st Contact Info) Description 01/25/2025 8:20 AM EDT Office Visit Endocrinology [facility] [address] [place] [address] Carisa Silverman PA [address], [place] 04/26/2025 11:00 AM EDT Office Visit Adult [facility] [place] [facility] [address] [place] [address] Rodger Dia MD [address], [place] Health Maintenance Due Date Last Done Comments Zoster Vaccines (1 of 2) 1983 Medicare Annual Wellness Visit 08/15/2022 Social Influencers of Health Screening 08/15/2022 Diabetes: Annual Retina Eye Exam 11/24/2024 11/25/2023 COVID-19 Vaccine (7 - Moderna risk 2023- season) 2024 06/02/2024, 05/29/2022, 01/27/2022, Additional history exists Diabetes: Annual Foot Exam 03/13/2025 03/13/2024 Diabetes: Blood Sugar Control Test (HGBA1C) 03/18/2025 09/18/2024, 03/28/2024, 03/28/2024 Diabetes: Annual Urine Albumin-Creatinine Ratio (uACR) 03/28/2025 03/28/2024 Diabetes: Annual GFR (Glomerular Filtration Rate) 09/18/2025 09/18/2024, 03/28/2024, 03/28/2024 Hypertension/CHF/CAD Annual BMP Blood Test 09/18/2025 09/18/2024, 03/28/2024, 03/28/2024 Depression Screening 10/16/2025 10/16/2024, 09/14/19 Colorectal Cancer Screening: Colonoscopy 11/16/2027 11/15/2024, 10/18/2019 Cholesterol Screening (Lipid Panel) 11/25/2028 11/26/2023 DTaP,Tdap,and Td Vaccines (5 - Td or Tdap) 10/16/2034 10/16/2024, 01/16/2021, 01/16/2021, Additional history exists Hepatitis C Screening Completed 01/11/2007 Hepatitis A Vaccines Aged Out 05/02/2014 No long er eligible based on patient's age to complete this topic Hepatitis B Vaccines Discontinued 05/02/2014, 12/06/2013, 11/02/2013 Influenza Vaccine Completed 05/22/2024, , 06/02/2023, Additional history exists RSV Immunization Adult Patients Completed 05/22/2024 Pneumococcal Vaccine: 50+ Years Completed 10/16/2024, 12/01/2010 [...] age to complete this topic Meningococcal B Vaccine Aged Out No l onger eligible based on patient's age to complete this topic RSV Immunization Patients Under 20 months Aged Out No longer eligible based on patient's age to complete this topic Varicella Vaccines Aged Out No longer eligible based on patient's age to complete this topic Procedures Procedure Name Priority Date/Time Associated Diagnosis Comments COLONOSCOPY Routine 11/15/2024 9:35 AM EDT History of colon polyps TISSUE EXAM Routine 11/15/2024 9:22 AM EDT History of colon polyps BASIC METABOLIC PANEL Routine 09/18/2024 9:37 AM EST Type II diabetes mellitus with peripheral circulatory disorder (CMS/HCC V24, CMS/HCC V28) Primary hypertension HEMOGLOBIN A1C Routine 09/18/2024 9:37 AM EST Type II diabetes mellitus with peripheral circulatory disorder (CMS/HCC V24, CMS/HCC V28) HM URINE ALBUMIN CREATININE RATIO Routine 03/28/2024 HM DIABETES FOOT EXAM Routine 03/13/2024 LIPID PANEL Routine 11/26/2023 DIABETES EYE EXAM Routine 11/25/2023 HM DEPRESSION SCREENING Routine 09/14/2023 HM HEPATITIS C SCREENING Routine 01/11/2007 from Last 3 Months or Most Recently Relevant to Health Maintenance Results * COLONOSCOPY Anesthesia - MAC; [facility] ENDOSCOPY (11/15/2024 9:35 AM EDT) Anatomical Region Laterality Modality Endoscopy 11/15/2024 9:15 AM EDT Impressions 11/15/2024 9:38 AM EDT - Five 3 to 7 mm polyps in the descending colon, in ? the transverse colon and in the cecum, removed with a ? cold snare. Resected and retrieved. ? - Internal hemorrhoids. ? - The examination was otherwise normal. Recommendation: ?- Discharge patient to home. ? - Await pathology results. ? - Repeat colonoscopy in 3 years for surveillance. Narrative 11/15/2024 9:[address] [facility] Patient Name: Kathleen Salter Procedure Date: 11/15/2024 9:15 AM Date of : 1965 Age: 59 Gender: Male Note Status: Finalized Attending MD: Sameer Hanson MD, Procedure Date No Time: 11/15/2024 Procedure: ? Colonoscopy Indications: ? Screening for colorectal malignant neoplasm Providers: ? Sameer Hanson MD Referring MD: ?Sameer Hanson MD Medicines: ? Monitored Anesthesia Care Complications: ? No immediate complications. Estimated blood loss: ? Minimal. Estimated Blood Loss: ? Estimated blood loss was minimal. Procedure: ? Pre-Anesthesia Assessment: ? - Prior to the procedure, a History and Physical was ? performed, and patient medications and allergies were ? reviewed. The patient is competent. The risks and ? benefits of the procedure and the sedation options and ? risks were discussed with the patient. All questions ? were answered and informed consent was obtained. ? Patient identification and proposed procedure were ? verified by the physician, the nurse, the construction operations manager ? and the lead based paint technician in the pre-procedure area in the ? endoscopy suite. Mental Status Examination: alert and ? oriented. Airway Examination: normal oropharyngeal ? airway and neck mobility. Respiratory Examination: ? clear to auscultation. CV Examination: normal. ? Prophylactic Antibiotics: The patient does not require ? prophylactic antibiotics. Prior Anticoagulants: The ? patient has taken no anticoagulant or antiplatelet ? agents. ASA Grade Assessment: III - A patient with ? severe systemic disease. After reviewing the risks and ? benefits, the patient was deemed in satisfactory ? condition to undergo the procedure. The anesthesia ? plan was to use monitored anesthesia care (MAC). ? Immediately prior to administration of medications, ? the patient was re-assessed for adequacy to receive ? sedatives. The heart rate, respiratory rate, oxygen ? saturations, blood pressure, adequacy of pulmonary ? ventilation, and response to care were monitored ? throughout the procedure. The physical status of the ? patient was re-assessed after the procedure. ? After I obtained informed consent, the scope was ? passed under direct vision. Throughout the procedure, ? the patient's blood pressure, pulse, and oxygen ? saturations were monitored continuously. The ? Colonoscope was introduced through the anus and ? advanced to the cecum, identified by appendiceal ? orifice and ileocecal valve. The colonoscopy was ? performed without difficulty. The patient tolerated ? the procedure well. The quality of the bowel ? preparation was good. Findings: ?The perianal and digital rectal examinations were ? normal. ? Five sessile polyps were found in the descending ? colon, transverse colon and cecum. The polyps were 3 ? to 7 mm in size. These polyps were removed with a cold ? snare. Resection and retrieval were complete. ? Estimated blood loss was minimal. ? Internal hemorrhoids were found during retroflexion. ? The hemorrhoids were Grade I (internal hemorrhoids ? that do not prolapse). ? The exam was otherwise without abnormality. Procedure Code(s): ? --- Professional --- ? 49631, Colonoscopy, flexible; with removal of ? tumor(s), polyp(s), or other lesion(s) by snare ? technique Diagnosis Code(s): ? --- Professional --- ? D12.4, Benign neoplasm of descending colon ? D12.3, Benign neoplasm of transverse colon (hepatic ? flexure or splenic flexure) ? D12.0, Benign neoplasm of cecum CPT copyright 2021 [employer]. All rights reserved. The codes documented in this report are preliminary and upon carding machine operator review may be revised to meet current compliance requirements. Sameer Hanson MD 11/15/2024 9:38:16 AM This report has been signed electronically.Sameer Hanson MD Number of Addenda: 0 Note Initiated On: 11/15/2024 9:15 AM Scope Withdrawal Time: 0 hours 12 minutes 46 seconds Scope In: 9:18:29 AM Scope Out: 9:33:10 AM ? Endoscopy Department at [facility] - [address] [place] [address], ? [place] [phone] Procedure Note Sameer Hanson MD - 11/15/2024 [facility] Patient Name: Kathleen Salter Procedure Date: 11/15/2024 9:15 AM Date of : 1965 Age: 59 Gender: Male Note Status: Finalized Attending MD: Sameer Hanson MD, Procedure Date No Time: 11/15/2024 Procedure: Colonoscopy Indications: Screening for colorectal malignant neoplasm Providers: Sameer Hanson MD Referring MD: Sameer Hanson MD Medicines: Monitored Anesthesia Care Complications: No immediate complications. Estimated blood loss: Minimal. Estimated Blood Loss: Estimated blood loss was minimal. Procedure: Pre-Anesthesia Assessment: - Prior to the procedure, a History and Physicalwas performed, and patient medications and allergieswere reviewed. The patient is competent. The risks and benefits of the procedure and the sedation optionsand risks were discussed with the patient. Allquestions were answered and informed consent was obtained. Patient identification and proposed procedure were verified by the physician, the nurse, theanesthetist and the lead based paint technician in the pre-procedure area in the endoscopy suite. Mental Status Examination: alertand oriented. Airway Examination: normal oropharyngeal airway and neck mobility. Respiratory Examination: clear to auscultation. CV Examination: normal. Prophylactic Antibiotics: The patient does notrequire prophylactic antibiotics. Prior Anticoagulants: The patient has taken no anticoagulant or antiplatelet agents. ASA Grade Assessment: III - A patient with severe systemic disease. After reviewing the risksand benefits, the patient was deemed in satisfactory condition to undergo the procedure. The anesthesia plan was to use monitored anesthesia care (MAC). Immediately prior to administration of medications, the patient was re-assessed for adequacy to receive sedatives. The heart rate, respiratory rate, oxygen saturations, blood pressure, adequacy of pulmonary ventilation, and response to care were monitored throughout the procedure. The physical status ofthe patient was re-assessed after the procedure. After I obtained informed consent, the scope was passed under direct vision. Throughout theprocedure, the patient's blood pressure, pulse, and oxygen saturations were monitored continuously. The Colonoscope was introduced through the anus and advanced to the cecum, identified by appendiceal orifice and ileocecal valve. The colonoscopy was performed without difficulty. The patient tolerated the procedure well. The quality of the bowel preparation was good. Findings: The perianal and digital rectal examinations were normal. Five sessile polyps were found in the descending colon, transverse colon and cecum. The polyps were3 to 7 mm in size. These polyps were removed with acold snare. Resection and retrieval were complete. Estimated blood loss was minimal. Internal hemorrhoids were found duringretroflexion. The hemorrhoids were Grade I (internal hemorrhoids that do not prolapse). The exam was otherwise without abnormality. Procedure Code(s): --- Professional --- 60254, Colonoscopy, flexible; with removal of tumor(s), polyp(s), or other lesion(s) by snare technique Diagnosis Code(s): --- Professional --- D12.4, Benign neoplasm of descending colon D12.3, Benign neoplasm of transverse colon (hepatic flexure or splenic flexure) D12.0, Benign neoplasm of cecum CPT copyright 2020 [employer]. All rights reserved. The codes documented in this report are preliminary and upon carding machine operator reviewmay be revised to meet current compliance requirements. Sameer Hanson MD 11/15/2024 9:38:16 AM This report has been signed electronically.Sameer Hanson MD Number of Addenda: 0 Note Initiated On: 11/15/2024 9:15 AM Scope Withdrawal Time: 0 hours 12 minutes 46 seconds Scope In: 9:18:29 AM Scope Out: 9:33:10 AM Endoscopy Department at [facility] - [address] [place] [phone] IMPRESSION: - Five 3 to 7 mm polyps in the descending colon, in the transverse colon and in the cecum, removed witha cold snare. Resected and retrieved. - Internal hemorrhoids. - The examination was otherwise normal. Recommendation: - Discharge patient to home. - Await pathology results. - Repeat colonoscopy in 3 years for surveillance. us Sameer Hanson MD GI~PROCEDURE ORDERABLES Fin al Result * Tissue exam (11/15/2024 9:22 AM EDT) Final Diagnosis A. Large Intestine, Cecum, polyp x1: - Sessile serrated lesion (polyp). B. Large Intestine, Transverse Colon, polyps x2: - Tubular adenoma(s). C. Large Intestine, Left/Descending Colon, polyps x2: - Tubular adenomas x2. 11/16/2024 8:39 AM EDT [facility] Gross Description A. Large Intestine, Cecum, polyp x1: Labeled colon cecum polyp x 1 . Received in formalin six irregular dobbins-pink to red disrupted mucosal tissue fragments, ranging from 0.2 cm to 0.8 cm in greatest dimension, which are wrapped in paper and submitted in toto one cassette, six pieces, multiple levels on one slide. B. Large Intestine, Transverse Colon, polyp x2: Labeled trans colon polyp x 2 . Received in formalin are two irregular dobbins mucosal tissue fragments, each measuring approximately 0.3 cm in greatest dimension, which are wrapped in paper and submitted in toto one cassette, two pieces, multiple levels on one slide. C. Large Intestine, Left/Descending Colon, polyp x2: Labeled descending colon polyp x 2 . Received in formalin are three irregular to polypoid dobbins-pink to white mucosal tissue fragments, ranging from 0.2 cm to 0.4 cm in greatest dimension, which are wrapped in paper and submitted in toto one cassette, three pieces, multiple levels on one slide. RHEA 11/16/2024 8:39 AM EDT [facility] Disclaimer Unless otherwise specified, all tissue is 10% NB formalin fixed and paraffin embedded. 11/16/2024 8:39 AM [facility] Tissue Cecum structure / Unknown 11/15/2024 9:22 AM EDT 11/15/2024 10:16 AM EDT Tissue specimen (specimen) Transverse colon structure / Unknown 11/15/2024 9:26 AM EDT 11/15/2024 10:16 AM EDT Tissue specimen (specimen) Descending colon structure / Unknown 11/15/2024 9:29 AM EDT 11/15/2024 10:16 AM EDT Sameer Hanson MD LAB PATHOLOGY ORDERABLES Fi nal Result Performing Organization Address [facility] Co de Phone Number [facility] [address] [place] [address], [place] [phone] * (ABNORMAL) Hemoglobin A1c (09/18/2024 9:37 AM EST) Hemoglobin A1C 7.1(H) <6.5 % LAB CHEMISTRY METHOD 09/18/2024 2:51 PM EST [facility] Mean Bld Glu Estim. 157 mg/dL LAB CHEMISTRY METHOD 09/18/2024 2:51 PM EST [facility] Blood Venous blood specimen / Unknown Venipuncture / Unknown 09/18/2024 9:37 AM EST 09/18/2024 9:37 AM EST Carisa CHIN LAB BLOOD ORDERABLES Final Resul t Performing Organization Address [facility]/ZIP Co de Phone Number [facility] [address] [place] [address], [place] [phone] * (ABNORMAL) Basic metabolic panel (09/18/2024 9:37 AM EST) Sodium 141 133 - 145 mmol/L LAB CHEMISTRY METHOD 09/18/2024 1:53 PM EST [facility] Potassium 4.5 3.5 - 5.5 mmol/L LAB CHEMISTRY METHOD 09/18/2024 1:53 PM EST [facility] Chloride 112(H) 96 - 110 mmol/L LAB CHEMISTRY METHOD 09/18/2024 1:53 PM [facility] CO2 24 21 - 32 mmol/L LAB CHEMISTRY METHOD 09/18/2024 1:53 PM [facility] Anion Gap 5 3 - 11 LAB CHEMISTRY METHOD 09/18/2024 1:53 PM [facility] Glucose 116(H) 70 - 100 mg/dL LAB CHEMISTRY METHOD 09/18/2024 1:53 PM [facility] BUN 32(H) 5 - 25 mg/dL LAB CHEMISTRY METHOD 09/18/2024 1:53 PM [facility] Creatinine 1.35(H) 0.70 - 1.30 mg/dL LAB CHEMISTRY METHOD 09/18/2024 1:53 PM [facility] eGFR 60 >=60 mL/min/1. 73m2 LAB CHEMISTRY METHOD 09/18/2024 1:53 PM [facility] Comment:Calculation based on the??Chronic Kidney Disease Epidemiology Collaboration (CKD-EPI) equation refit??without adjustment for race. BUN/Creatinine Ratio 23.7 LAB CHEMISTRY METHOD 09/18/2024 1:53 PM [facility] Calcium 9.1 8.5 - 10.5 mg/dL LAB CHEMISTRY METHOD 09/18/2024 1:53 PM [facility] Blood Venous blood specimen / Unknown Venipuncture / Unknown 09/18/2024 9:37 AM EST 09/18/2024 9:37 AM EST us Carisa CHIN LAB BLOOD ORDERABLES Final Resul t [facility] [address] [place] [address], [place] [phone] * Urine Albumin Creatinine Ratio (03/28/2024) Urine Albumin Creatinine Ratio abstracted Historical Provider HEALTH MAINTENANCE Final Result * Diabetes Foot Exam (03/13/2024) [facility] Diabetes: Annual Foot Exam abstracted [facility] Provider HEALTH MAINTENANCE Final Result * (ABNORMAL) Lipid panel (11/26/2023) [facility] LDL/HDL Ratio 4 0 - 4 Triglycerides 175(A) 0 - 150 mg/dL Cholesterol 166 0 - 200 mg/dL HDL 38(A) >=40 mg/dL LDL Cholesterol 93 0 - 100 mg/dL Blood Venous blood specimen / Unknown Result [facility] Provider LAB BLOOD ORDERABLES Saida l Result * Diabetes Eye Exam (11/25/2023) [facility] Diabetes: Annual Retina Eye Exam abstracted Result [facility] Provider HEALTH MAINTENANCE Final Result * Depression Screening (09/14/2023) [facility] Depression Screening abstracted [facility] Provider HEALTH MAINTENANCE Final Result * Hepatitis C Screening (01/11/2007) [facility] Hepatitis C Screening abstracted [facility] Provider HEALTH MAINTENANCE Final Result from Last 3 Months or Most Recently Relevant to Health Maintenance Insurance MEDICARE [place]ICAID - [place] Advance Directives Documents on File Type Date Recorded Patient Kalsominer Expl anation Health Care Decision (hx) 02/24/2014 AD VALENCIA DIRECTIVE Health Care Decision (hx) 02/24/2014 AD VALENICA DIRECTIVE Health Care Decision (hx) 02/24/2014 AD [...] (hx) 02/23/2014 AD VALENCIA DIRECTIVE Care Teams Service Trainer Relationship Specialty Start Date End Date Rodger Dia MD [address] [place] [id number] PCP - General 02/10/11
--- OUTSIDE RECORDS SUMMARY | 2025-01-21 13:20 | XMS_ITS | Patient Health Record ---
[facility] pamela [place] Address [address] [facility] [place] [address] Care Team Providers Care Vault Custodian Name Role Phone Ifeoma BLAIR, Rodger Dubon Primary Care Provider Unarenetta BrowerDebra carrion Unavailable [phone] Remington Huerta Unavailable [phone] Allergies No Known Allergies Results Component Value [...] Problem Status W/U Status Risk Notes Problem Other hammer toe(s) (acquired), right foot (M20.41) Active confirmed Response to treatment, Heri gonzalez Problem Acquired hammer toe of left foot (2945816422716922 ) Other hammer toe(s) (acquired), left foot (M20.42) Active confirmed Response to treatment, Improvemen t Problem Polyneuropathy due to diabetes mellitus type I (194335052) Type 1 diabetes mellitus with diabetic polyneuropathy (E10.42) Active confirmed Problem Polyneuropathy due to type 2 diabetes mellitus (160964482) Type 2 diabetes mellitus with diabetic polyneuropathy (E11.42) Active confirmed Vital Signs Blood pressure diastolic 80 mm Hg 09/21/2024 Height 5ft 5in in 09/21/2024 Blood pressure systolic 120 mm Hg 09/21/2024 Weight 236 lbs 09/21/2024 BMI 39.27 kg/m2 09/21/2024 Procedures Procedure Date Ordered Date Performed Result Body Sit e 73692-XVGV SKIN LESIONS, OVER 4 03/13/2024 N/A 90181-LRDIXRX NAIL, 6 OR MORE 09/21/2024 N/A Encounters Encounter Location Date Provider Diagnosis [address] [address] 03/13/2024 Remington Huerta Type 1 diabetes mellitus with diabetic polyneuropathy E10.42 ; Pain in right toe(s) M79.674 ; Pain in left toe(s) M79.675 ; Tinea unguium B35.1 and Arthritis of right ankle M19.[address] [address] 06/22/2024 Remington Huerta Type 1 diabetes mellitus with diabetic polyneuropathy E10.42 ; Pain in right toe(s) M79.674 ; Pain in left toe(s) M79.675 ; Tinea unguium B35.1 and Arthritis of right ankle M19.[address] [address] 09/21/2024 Debra White Type 2 diabetes mellitus with diabetic polyneuropathy E11.42 ; Tinea unguium B35.1 ; Other hammer toe(s) (acquired), right foot M20.41 and Other hammer toe(s) (acquired), left foot M20.42 [facility] [address] [address] 05/31/2024 Remington Huerta Assessments Encounter Date Diagnosis (ICD Code) Assessment Notes Treatment Notes Treatment Clinical Notes Section Notes 03/13/2024 Type 1 diabetes mellitus with diabetic [...] in left toe(s) (ICD-10 - M79.675) 03/13/2024 Tinea unguium (ICD-10 - B35.1) 06/22/2024 Pain in left toe(s) (ICD-10 - M79.675) 09/21/2024 Other hammer toe(s) (acquired), right foot (ICD-10 - M20.41) Response to treatment,Impro vement 09/21/2024 Other hammer toe(s) (acquired), left foot (ICD-10 - M20.42) Response to treatment,Impro vement 03/13/2024 Arthritis of right ankle (ICD-10 - M19.071) 06/22/2024 Tinea unguium (ICD-10 - B35.1) 06/22/2024 Arthritis of right ankle (ICD-10 - M19.071) Plan Of Treatment Pending Test Test Name Order Date 30871-TMAPXEN NAIL, 6 OR MORE 09/21/2024 02102-IBVR SKIN LESIONS, OVER 4 12/02/19 25129-LFGK SKIN LESIONS, OVER 4 03/13/20 Next Appt Details Provider Name:Debra machado, 01/25/2025 09:15:00 AM, [address] [place], [address], Insurance Providers Payer Name Payer Address Payer Phone Subscriber Number Group Number Insured Name Patient Relationship to Insured Coverage Start Date Coverage End Date Medicare [employer] [address] [place] [address] [id number] Tavon Black Self - patient is the insured Medical (General) History Medical History History ICD Code Diabetic Liver disease Mumps Chicken pox Transfusions Surgical History Surgery Date(Month/Year) liver transplant - 5 months 03/2016 ankle surgery
[2025-01-21] MEDS: Magnesium Sulfate/H2O 2 GM/50 ML PIGGYBACK IV (13:28)
[2025-01-21] MEDS: iohexoL 350 MG/ML 100 ML INFUS..BTL IV (14:03)
[2025-01-21] MEDS: Morphine Sulfate 4 MG/ML CARTRIDGE IVPUSH ×2 (15:34→17:21)
[2025-01-21] MEDS: ondansetron HCL 4 MG/2 ML VIAL IVPUSH (15:34)
[2025-01-21] MEDS: 0.9 % Sodium Chloride 1,000 ML 999 ML IV (15:37)
--- NOTE | 2025-01-21 16:17 | P.CONGS_ITS ---
History of Present Illness Consult details Consult date: 01/21/25 Narrative: 59-year-old male, known diabetic, with a liver transplant in [facility] in 2016, here today in the ER because of pain on the right flank area. He says this started early this morning. He said he has had this constant and moderate to severe pain. He denied any nausea or vomiting. He said he was fine when he went to bed last night He had a CAT scan here in the ER showing bowel containing hernia on the right flank area along his old right upper quadrant incision for his liver transplant. There seems to be some transition point within the hernia consistent with acute incarceration. There is another smaller hernia in the midline same incision containing mostly fat He said he actually has had a hernia for many years but this really did not bother him. He says his transplant surgeon new about his hernia for a long time but this has been asymptomatic, this was being followed clinically. He says he is being followed by Dr. Riojas in [facility]. 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 Review of Systems 2 Constitutional: Constitutional: Denies chills and Denies fever(s) Cardiovascular: Cardiovascular: Denies chest pain, Denies dyspnea and Denies dyspnea on exertion Respiratory: Respiratory: Denies cough, Denies dyspnea and Denies dyspnea on exertion Gastrointestinal: Gastrointestinal: Denies hematochezia and Denies change in bowel habits Genitourinary: Genitourinary: Denies hematuria and Denies difficulty urinating Musculoskeletal: Musculoskeletal: Denies back pain and Denies limited range of motion Neurologic: Denies focal weakness and Denies convulsions Psychiatric: Psychiatric: Denies depression and Denies mood swings [facility] Past Medical History Medical History (Updated 01/22/25 @ 00:00 by Ashley Dabart) Incisional hernia following transplant Flu-like symptoms Social History Social History Alcohol intake: never Patient Tobacco Use Status: Never used Tobacco Current occupational status: unemployed Current occupation: rt handed Meds Allergies Allergy/AdvReac Type Severity Reaction Status Date / Time No Known Allergies Allergy Verified 01/21/25 12:12 Active Medications: Current Medications Sodium Chloride (Ns) 1,000 mls @ 999 mls/hr IV .Q1H1M LAVERN Stop: 01/21/25 16:45 Last Admin: 01/21/25 15:37 Dose: 999 mls/hr Home Medications ?Medication ?Instructions ?Recorded ?Confirmed ?Last Taken ?Type insulin detemir U-100 100 unit/mL unit subcut 09/17/21 09/20/24 Unknown History (3 mL) subcutaneous pen (Levemir FlexTouch U-100 Insulin) insulin lispro 100 unit/mL subcut 09/02/22 09/20/24 Unknown History subcutaneous pen (Humalog KwikPen (U-100) Insulin) lisinopril 5 mg tablet 5 mg PO DAILY 09/02/22 09/20/24 Unknown History pen needle, diabetic 31 gauge x #50 ea 09/02/22 09/20/24 Unknown History 11/19 (BD Ultra-Fine Mini Pen Needle) pravastatin 20 mg tablet 20 mg PO DAILY 09/02/22 09/20/24 Unknown History cyclosporine modified 50 mg capsule 50 mg PO BID 09/20/24 10/30/24 Unknown History insulin glargine 100 unit/mL (3 unit subcut 10/30/24 10/30/24 Unknown History mL) subcutaneous pen (Lantus Solostar U-100 Insulin) Physical Exam 2 Vital Signs: Vital Signs: Last Vital Signs Temp 98.3 F 01/21/25 16:02 Pulse 82 01/21/25 16:02 Resp 16 01/21/25 16:02 BP 126/75 01/21/25 16:02 Pulse Ox 97 01/21/25 16:02 O2 Del Method Room Air 01/21/25 16:02 BMI result Body Mass Index 38.3 Const: General: no acute distress Resp: Effort & Inspection: normal respiratory effort Cardio: Rate: regular rate GI: Other: Palpable large vague hernia on the right upper quadrant towards the flank, tender to touch, nonreducible Results Labs 01/21/25 12:21 01/21/25 12:21 Labs: Abnormal lab results 01/21/25 01/21/25 Range/Units 12:21 12:23 Hct 41.3 L (42.0-52.0) % Plt Count 89 L (160-400) X10*3/uL Neut % (Auto) 84.8 H (45-73) % Lymph % (Auto) 9.2 L (20-40) % Lymph # (Auto) 0.7 L (1.2-4.9) X10*3/uL Carbon Dioxide 19 L (22-29) mmol/L BUN 30 H (9-16) mg/dL Random Glucose 269 H (60-115) mg/dL Magnesium 1.5 L (1.6-2.6) mg/dL Total Bilirubin 1.3 H (0.0-1.0) mg/dL Urine Glucose (UA) >=1000 H (Negative) mg/dL Urine Blood Trace H (Negative) Short CBC 01/21/25 Range/Units 12:21 WBC 8.0 (4.8-10.8) X10*3/uL Hgb 14.5 (14.0-18.0) g/dl Hct 41.3 L (42.0-52.0) % Plt Count 89 L (160-400) X10*3/uL BMP 01/21/25 12:21 Sodium 136 Potassium 5.0 Chloride 108 Carbon Dioxide 19 L BUN 30 H Creatinine 1.33 Calcium 9.4 Liver Function 01/21/25 Range/Units 12:21 Total Bilirubin 1.3 H (0.0-1.0) mg/dL AST 15 (5-37) U/L ALT 6 (0-40) U/L Alkaline Phosphatase 82 (39-117) U/L Albumin 4.0 (3.5-5.0) g/dL Urine 01/21/25 Range/Units 12:23 Urine Color Yellow Urine Appearance Clear Urine pH 5.0 (5.0-9.0) Ur Specific [place] 1.020 (1.005-1.025) Urine Protein Negative (Neg-Trace) mg/dL Urine Glucose (UA) >=1000 H (Negative) mg/dL All other labs normal. Imaging Additional studies: There are mildly distended small bowel loops, with a transition point at the right flank hernia. Colon is nondistended. Mild gastric distention. There is a fat containing anterior abdominal wall hernia measuring 90 mm transverse which contains the anti mesenteric wall of transverse colon. No pneumoperitoneum, or pneumatosis. There is a right flank hernia containing a loop of small bowel, measuring 90 mm anteroposterior, which contains internal fat stranding, as well as thickened small bowel loops, and a small amount of fluid. Multiple portosystemic collateral vessels are present, predominantly within the left upper quadrant and periesophageal location. Pelvic contents unremarkable. Appendix is not seen. No acute fracture. IMPRESSION: 1. Strangulated right flank hernia containing small bowel, causing small-bowel obstruction. The hernia contains thickened small bowel. 2. Fat and bowel containing anterior abdominal wall hernia. 3. Cirrhosis and portal hypertension. 4. Coronary artery disease. This document has been electronically signed by: Leeann Arrington MD on 01/21/2025 15:12:42 Assessment and Plan (1) Incisional hernia following transplant: Status: Acute He has an incisional hernia on the right upper quadrant along his old transplant surgery incision. This contains bowel loops on the CAT scan. He has significant tenderness on the area along with pain. His CAT scan is suggestive of acute incarceration with suggestion of some degree of the obstruction In view of this finding of acute incarceration, I have recommended surgical intervention to reduce the hernia, with possible small bowel resection. He will require a mesh. He is a transplant patient and is being followed by Dr. Riojas of [facility]. Liver transplant patients he had an abdominal abdominal issue requiring surgical intervention are normally managed by their own transplant surgeon in view of the risks to the explanted organ, and postop complications that may compromise organ function. I have therefore recommended for him to be transferred to the [facility] for further management. I explained this to the patient and his family at bedside. Their questions were answered I have discussed the above with the emergency room staff. Exam is otherwise benign but nevertheless, he should benefit from surgical intervention in view of the risk of strangulation. Procedures Date of Service Date of Service: 01/24/25
--- NOTE | 2025-01-21 18:31 | PC.NURSE ---
Per ED Provider and General Surgery notes, Pt to be transferred to [facility] for further management of incarcerated hernia and small bowel obstruction. Call placed to [facility] and spoke with Transfer RN Ricarda. Per RN Ricarda, Pt has not been accepted for transfer at this time. This RN reports that per General Surgery consult notes, Dr. Rivera accepted Pt for transfer. Ricarda restates that Pt has not been accepted at this time. Dr. Rivera gave orders for Pt to remain at [facility] until a bed is available at [facility]. ED provider made aware and reaching out to [facility] and [facility] General Surgery.
--- NOTE | 2025-01-21 18:56 | PM.EVENT ---
Event Note Date of Service: 01/24/25 Event Note: i have discussed the case with Dr Carlson of [facility] He stated he will accept the pstient He says they will wait for the bed to be available Time Spent With Patient Time: Total time managing care of this patient today ____ minutes.
== END 2025-01-21 20:14 | disposition short-term general hospital (02) ==
PROVIDERS: Physician Assistant Medical; Emergency Provider Emergency Medicine; PCP Internal Medicine
DX: K43.0 Incisional hernia with obstruction, without gangrene (principal); R10.31 Right lower quadrant pain; Z94.9 Transplanted organ and tissue status, unspecified
CPT/HCPCS: 36415; 74177; 80053; 81001; 83690; 83735; 85025; 96361; 96365; 96366; 96375; 96376; 99285; J2270; J2405; J3475; Q9967

== ENCOUNTER → 2025-01-21 13:16 | Outpatient (BNV) | payer MEDICARE, MEDICAID, SELFPAY | PROVIDERS: Emergency Provider Emergency Medicine; PCP Internal Medicine; Visit Provider Surgery | DX: K43.2 Incisional hernia without obstruction or gangrene (principal); Z94.9 Transplanted organ and tissue status, unspecified | CPT/HCPCS: 99283; 99499 ==

== ENCOUNTER → 2025-01-21 13:25 | Outpatient (BNV) | payer MEDICARE, MEDICAID, SELFPAY | PROVIDERS: Emergency Provider Emergency Medicine; PCP Internal Medicine; Visit Provider Radiology Diagnostic Radiology | DX: K45.0 Other specified abdominal hernia with obstruction, without gangrene (principal) | CPT/HCPCS: 74177 ==

== ENCOUNTER 2025-01-31 07:43 | Outpatient (AMB) | payer MEDICARE, MEDICAID, SELFPAY ==
--- NOTE | 2025-01-31 07:45 | A.OFFVIS_ITS ---
Vital Signs 01/31/25 07:48 Height 5 ft 8 in Weight 229 lb BMI 34.8 Intake Visit Reasons: OV- f/u right shoulder Intake Note: Tavon is a 59 year old right hand dominant male who presents today for follow up of his right shoulder pain. The patient continues with his range of motion exercises. He states that his right shoulder discomfort has improved somewhat since his last visit. He reports mild weakness when lifting objects above shoulder height. He does not take any medicines for his discomfort. Allergies No Known Allergies Allergy (Verified 01/31/25 07:48) Medication List - Last Reconciled 01/31/25 by Harpal Franklin MD clotrimazole 1% (Antifungal (clotrimazole)) 1 appl topical BID 2 weeks cyclosporine modified 50 mg PO BID hydrocortisone 2.5% 1 appl topical BID PRN hydroxyzine HCl 25 mg PO QID PRN insulin detemir U-100 (Levemir FlexTouch U-100 Insulin) units subcut insulin glargine (Lantus Solostar U-100 Insulin) units subcut insulin lispro (Humalog KwikPen (U-100) Insulin) subcut lisinopril 5 mg PO DAILY pen needle, diabetic (BD Ultra-Fine Mini Pen Needle) As directed permethrin 5% 1 appl topical Q14D 2 doses pravastatin 20 mg PO DAILY [facility] Medical History (Updated 01/22/25 @ 00:00 by Ashley Townsend) Incisional hernia following transplant Flu-like symptoms Social History Alcohol intake: never Patient Tobacco Use Status: Never used Tobacco Current occupational status: unemployed Current occupation: rt handed Physical Exam Vital Signs: BMI result Body Mass Index 34.8 Const Other: Well-nourished well-developed very friendly male awake alert and oriented x3 in no acute distress Extrem Other: Bilateral upper extremity examination shows good capillary refill, no skin lesions noted, normal sensation light touch Right shoulder examination shows full range of motion when compared to his left shoulder, 4/5 strength with supraspinatus testing, positive impingement signs, no instability Assessment & Plan Assessment & Plan (1) Rotator cuff insufficiency of right shoulder: Code(s): M25.311 - Other instability, right shoulder Category: Medical Plan Mr. Black presents with right shoulder pain and mild weakness due to impingem ent syndrome and a small rotator cuff tear. I had a lengthy discussion with the patient regarding the treatment options. At this point the patient's symptoms are tolerable to him. The do's and don'ts of lifting were discussed at length with the patient. The patient will contact me prior to his follow-up appointment in 3 months should his symptoms worsen in any way. Feel free to call me at any time should questions regarding his orthopedic management arise. I spent 21 minutes in reviewing the patient's records and imaging studies, seeing the patient and documenting in the medical record. Coding Level of Care Code Est Pt Level 3 (57779) Complex EM visit Add On G2211 Diagnoses Rotator cuff insufficiency of right shoulder M25.311
[2025-01-31 07:48] VITALS: BMI 34.8
== END 2025-01-31 07:53 | disposition home or self-care (01) ==
LOC: HO.HOS 07:44
PROVIDERS: PCP Internal Medicine; Visit Provider Orthopaedic Surgery
DX: M25.311 Other instability, right shoulder (principal)
CPT/HCPCS: 99213; G2211

== ENCOUNTER → 2025-01-31 07:43 | Outpatient (BNVA) | payer MEDICARE, MEDICAID, SELFPAY | PROVIDERS: PCP Internal Medicine; Visit Provider Orthopaedic Surgery | DX: M25.311 Other instability, right shoulder (principal) | CPT/HCPCS: 99212 ==

== ENCOUNTER 2025-03-08 08:02 | Emergency (ER) | payer MEDICARE, MEDICAID, SELFPAY ==
--- OUTSIDE RECORDS SUMMARY | 2025-01-25 05:15 | XMS_ITS ---
Author Organization [facility] Address [address] [place] [address] Care Team Providers Care Electrophysiology Scientist Name Role Phone Ifeoma BLAIR, Rodger Dubon Primary Care Provider Unav Debra Kay [phone] Encounters Encounter Location Date Provider Diagnosis [facility] [address] [place] [address] 01/25/2025 Debra White Plan Of Treatment Next Appt Details Provider Name:Debra machado, 03/08/2025 03:00:00 PM, [address] [place], [address], Progress Notes * Tavon SALTERDOB: [birth year] (59 yo M)Acc No.[id number]:01/25/2025 Progress Note Patient: Parrish MONTEMAYORTavon Provider: Jimmy White DPM :1965 A ge:59 Y S ex:Male Date:01/25/2025 Address:[address] [id number] Pcp:Rodger Dia MD Subjective: * Chief Complaints: * * Medical History: Objective: * Vitals: Assessment: Plan: * Treatment: * Images: * The named appointment provid er may or may not be the originator of this progress note, and it is not deemed complete until electronically signed by the appointment provider. Sign off status: Pending * Provider: Jimmy White DPM Date: 0 01/25/2025 Generated for Cameron bill/Kevin/Lala on: 0 03/08/2025 09:50 AM EDT
--- NOTE | ~2025-03-08 | CT_ITS ---
EXAMINATION: CT ABDOMEN AND PELVIS WITH CONTRAST CLINICAL INFORMATION: Right lower quadrant abdominal pain. COMPARISON: January 21, 2025. TECHNIQUE: Multidetector volumetric images were obtained from the superior aspect of the liver through the pubic symphysis following administration 85 mL of Omnipaque 350 intravenous contrast. Sagittal and coronal reformatted images were obtained on the technologist's workstation. Oral contrast: No This CT examination was performed using dose optimization techniques as appropriate, variously including the following: *Automated exposure control *Adjustment of mA and/or kV according to patient size (this includes techniques or standardized protocols for targeted exams where dose is matched to indication/reason for exam; i.e. extremities or head) *Use of iterative reconstruction technique. DLP: 783 mGy centimeter. FINDINGS: LUNG BASES: No acute airspace disease. Nonspecific 2 mm pulmonary nodule, left lung base. LIVER, GALLBLADDER, AND BILIARY TREE: Liver measures 13 cm. Sutures in the posterior medial margin of the right hepatic lobe. No focal lesion. Normal enhancement pattern of the main vessels. No intrahepatic biliary ductal dilatation. Absent gallbladder. Common bile duct measures 3 mm. PANCREAS: No peripancreatic fluid collection. Decreased volume of the pancreatic parenchyma. No focal mass. No main pancreatic ductal dilatation. SPLEEN: 11 cm. No focal lesion. ADRENAL GLANDS: No nodular lesions. KIDNEYS AND URETERS: Bilateral renal cortical thinning. No gross hydronephrosis. No gross nephrolithiasis. No enhancing mass. Normal enhancement pattern of the renal parenchyma. Extrarenal pelvises bilaterally. BLADDER: Fluid-filled. GASTROINTESTINAL TRACT: There is a lobulated fat omental herniation/eventration through at least 2 or 3 abdominal wall defect in the anterior right midline upper abdomen with edema pattern. There is a catheter and fluid-filled distended small bowel loops herniating through a anterior lateral right lower abdomen and pelvis wall defect with edema pattern within the fat component. Multiple prominent gas and fluid-filled air-fluid levels in the mid to distal small bowel loops. There is a collapsed appearance of the distal ileal loops and terminal ileum. Fat-containing epigastric hernia. I do not see the appendix. No pneumoperitoneum. No pneumatosis intestinalis. There is a collapsed appearance of the large intestine with questionable edema pattern more pronounced in the transverse colon and hepatic colonic flexure. No peripheral enhancing fluid collection peritoneal cavity. No gross ascites. ABDOMINAL WALL: Multiple abdominal wall defect/eventration in the right midline upper and right lateral lower abdominal wall. LYMPH NODES: No lymphadenopathy, mesenteric or retroperitoneal. VASCULAR: Gastroesophageal varices and splenorenal shunting. No aneurysm or dissection abdominal aorta. Mixed plaques throughout the abdominal aorta wall and iliac arteries. PELVIC VISCERA: Not enlarged. OSSEOUS STRUCTURES: Multilevel thoracolumbar spondylosis. Old wedge-shaped compression deformity representing 50% volume loss at T10 resulting in kyphotic deformity T9-10. Desiccation in the posterior intervertebral disc L5-S1. Degenerative changes in the coxofemoral joints. No acute fracture or dislocation in either hip. CT/CT abdomen pelvis w IV con IMPRESSION: Concerning partial/intermittent distal small bowel obstruction through a anterior lateral right lower abdominal wall defect. Multiple lobulated omental fat herniation right midline upper abdomen wall defect. Collapsed large intestine. Superimposed colitis cannot be excluded. No other change. Fleischner guidelines were followed. Electronically signed by: Arya Cintron MD 03/08/2025 10:05 AM EDT
--- NOTE | ~2025-03-08 | XR_ITS ---
EXAMINATION: XR CHEST CLINICAL INFORMATION: NGT placement recheck COMPARISON: March 08, 2025 at 12:14 PM. TECHNIQUE: Frontal view of the chest was obtained. FINDINGS: The NG tube tip ends below the left hemidiaphragm. No other change in the appearance of the lungs or the cardiomediastinal silhouette. XR/XR chest 1V IMPRESSION: Extremity below the left hemidiaphragm near the proximal stomach region. Electronically signed by: Arya Cintron MD 03/08/2025 12:50 PM EDT
--- NOTE | ~2025-03-08 | XR_ITS ---
EXAMINATION: XR CHEST 1 VIEW HISTORY: ng tube placement COMPARISON: Comparison is made with the prior examination dated 09/02/2022. FINDINGS: Two AP portable views of the chest performed at 12:14 PM are submitted. A nasogastric tube has been placed with its tip at the GE junction and the sidehole in the distal esophagus. The lungs are expanded and clear. There is no pleural effusion, pneumothorax, or pulmonary vascular congestion. The heart is normal in size. The bones are intact. XR/XR chest 1V IMPRESSION: The tip of the nasogastric tube is at the GE junction, with the sidehole in the distal esophagus. Advancement of the tube is recommended. Electronically signed by: Santy Weston MD 03/08/2025 12:31 PM EDT
[2025-03-08 08:08] VITALS: BP 144/86; PULSE 78; RESP 16; TEMP 36.7; O2SAT 98; BMI 38.3
[2025-03-08 08:17] LABS: Glucose, Whole Blood 338 mg/dL (60-115)
--- NOTE | 2025-03-08 08:17 | ECG_ITS ---
Test Reason : abd pain Blood Pressure : */* mmHG Vent. Rate : 75 BPM Atrial Rate : 75 BPM P-R Int : 166 ms QRS Dur : 80 ms QT Int : 370 ms P-R-T Axes : 37 25 50 degrees QTcB Int : 413 ms Normal sinus rhythm Normal ECG No previous ECGs available Referred By: Irma Espinosa Electronically Signed By: TERESA ROSS MD
[2025-03-08 08:33] LABS: MANUAL DIFF FLAG NO
[2025-03-08 08:39] LABS: Hematocrit 39.5 % (42.0-52.0); Hemoglobin 14.1 g/dl (14.0-18.0); Imm Gran Abs Auto 0.03 X10*3/uL (0.00-0.03); Imm Gran Pct Auto 0.3 % (0.0-0.4); Lymphocytes Absolute Auto 0.7 X10*3/uL (1.2-4.9); Mean Corpuscular HGB Conc 35.7 g/dl (31.0-36.0); Mean Corpuscular Hemoglobin 31.8 pg (27.0-33.0); Mean Corpuscular Volume 89.2 fL (80.0-98.0); NRBC Abs Auto 0.000 X10*3/uL (0.0-0.012); NRBC Pct Auto 0.0 /100WBC (0.0-0.2); Platelet Count 102 X10*3/uL (160-400); Red Blood Count 4.43 X10*6/uL (4.60-5.80); White Blood Count 9.1 X10*3/uL (4.8-10.8)
--- NOTE | 2025-03-08 08:40 | PC.NURSE ---
Pt roomed and changed and placed on full monitor- VSS NSR no ectopy on telemetry. Pt being seen by provcider. Provider aware of glucose POC >300. Pt states hx liver transplant and right lower quad hernia. States recent bowel obstruction as well.
[2025-03-08 08:51] LABS: Alanine Aminotransferase 6 U/L (0-40); Albumin Level 4.3 g/dL (3.5-5.0); Alkaline Phosphatase 88 U/L (39-117); Aspartate Amino Transferase 15 U/L (5-37); Blood Urea Nitrogen 39 mg/dL (9-16); Calcium 9.7 mg/dL (8.4-10.2); Creatinine Clr Calc Pharmacy 50.7; Estimated Glomerular Filt Rate 41; Lipase 10 U/L (8-78); Magnesium 2.0 mg/dL (1.6-2.6); Total Protein 6.9 g/dL (6.5-8.0)
--- NOTE | 2025-03-08 08:58 | ED_ITS ---
HPI - Abdominal Pain General Chief Complaint: Abdominal Pain Stated Complaint: SOB Time Seen by Provider: 03/08/25 08:13 Related Data Home Medications ?Medication ?Instructions ?Recorded ?Confirmed insulin detemir U-100 100 unit/mL unit subcut 09/17/21 01/31/25 (3 mL) subcutaneous pen (Levemir FlexTouch U-100 Insulin) insulin lispro 100 unit/mL subcut 09/02/22 01/31/25 subcutaneous pen (Humalog KwikPen (U-100) Insulin) lisinopril 5 mg tablet 5 mg PO DAILY 09/02/2201/31 pen needle, diabetic 31 gauge x #50 ea 09/02/2211/19 (BD Ultra-Fine Mini Pen Needle) pravastatin 20 mg tablet 20 mg PO DAILY 09/02/2201/05 cyclosporine modified 50 mg capsule 50 mg PO BID 09/2001/31/25 insulin glargine 100 unit/mL (3 unit subcut 10/30/24 0 01/31/25 mL) subcutaneous pen (Lantus Solostar U-100 Insulin) Previous Rx's ?Medication ?Instructions ?Recorded hydrocortisone 2.5 % topical cream 1 appl topical BID PRN skin 05/25/22 irritation #20 grams hydroxyzine HCl 25 mg tablet 25 mg PO QID PRN itching #20 tabs 02/14/23 clotrimazole 1 % topical cream 1 appl topical BID 2 we eks #45 11/08/23 (Antifungal (clotrimazole)) grams permethrin 5 % topical cream 1 appl topical Q14D 2 dos es #60 02/18/24 grams Allergies Allergy/AdvReac Type Severity Reaction Status Date / Time No Known Allergies Allergy Verified 03/08/25 08:13 FOR[facility]LY [facility] Past Medical History Medical History (Updated 03/08/25 @ 12:50 by Irma Espinosa MD) Incisional hernia following transplant Flu-like symptoms Social History Social History Alcohol intake: never Patient Tobacco Use Status: Never used Tobacco Smoked in Last 30 Days: No Use of substances other than those prescribed or required for medical reasons: No Advance Directives: No Advance Directives Information Provided: No Current occupational status: unemployed Current occupation: rt handed Physical Exam ED Vital Signs: Vital Signs - 24 hr 03/08/25 08:08 03/08/25 11:38 03/08/25 11:59 Temperature 98.1 F 98.2 F Pulse Rate 78 88 Respiratory Rate 16 18 18 Blood Pressure 144/86 H 145/78 H Pulse Oximetry 98 98 Oxygen Delivery Method Room Air Room Air BMI result Body Mass Index 38.3 Medical Decision Making Medical Decision Making [facility] Narrative: Patient presented today with having nausea vomiting generalized malaise. Has a history of liver transplant has a history of internal hernia in the past. Complicated by history of bowel obstruction. Last time was evaluated at [facility] then subsequently sent to [facility]. Patient complaining of similar symptoms right lower quadrant pain. His electrolytes showed an elevated potassium of 6.1. With elevated BUN and creatinine. I verify with the lab it is not hemolyzed. We gave him treatment for hyperkalemia including insulin glucose bicarb and lokelma. His creatinine was elevated at 1.7 today we gave him additional fluids thinking patient has pre renal insufficiency. CT scan of the abdomen pelvis was done. It was done without contrast because refused p.o. contrast. CT scan showed evidence of small bowel obstruction. An NG tube was placed by nursing. Patient's lactate is 1.2. Patient's case consulted by surgeon at [facility] felt patient case beyond the capability of [facility]. Patient's case then spoke with the surgeon at [facility] accepted patient to their emergency department. Risk and benefit of transfer explained to the patient. Patient is going to have by ambulance I repeated patient's electrolyte after IV fluids and treatment. Potassium is down to 5.1. Patient's creatinine is down to 1.48. Risk and benefits explained to patient he is going to [facility] in [facility] Differential Diagnosis Differential Diagnoses: The differential diagnosis associated with the presentation includes Small-bowel obstruction, electrolyte disturbance Admission/Observation Consideration of admission/observation: Escalation of care including admission/observation considered Will transfer to [facility] Consult Healthcare Provider Surgery at [facility] surgery at [facility] Lab Data [facility] Lab Attestation statement: I reviewed the patient's lab results. 03/08/25 08:25 03/08/25 12:09 Labs: Lab Results 03/08/25 03/08/25 03/08/25 Range/Units 08:14 08:25 09:10 WBC 9.1 (4.8-10.8) X10*3/uL RBC 4.43 L (4.60-5.80) X10*6/uL Hgb 14.1 (14.0-18.0) g/dl Hct 39.5 L (42.0-52.0) % MCV 89.2 (80.0-98.0) fL MCH 31.8 (27.0-33.0) pg MCHC 35.7 (31.0-36.0) g/dl RDW 12.2 (11.0-16.0) % Plt Count 102 L (160-400) X10*3/uL MPV 11.1 (9.4-12.4) fL Immature Gran % (Auto) 0.3 (0.0-0.4) % Neut % (Auto) 87.1 H (45-73) % Lymph % (Auto) 7.9 L (20-40) % [place] % (Auto) 4.5 (2-11) % Eos % (Auto) 0.1 (0-4) % Baso % (Auto) 0.1 (0-2) % Lymph # (Auto) 0.7 L (1.2-4.9) X10*3/uL [place] # (Auto) 0.4 (0.1-1.2) X10*3/uL Eos # (Auto) 0.0 (0.0-0.4) X10*3/uL Baso # (Auto) 0.0 (0.0-0.2) X10*3/uL Abs Immat Gran (auto) 0.03 (0.00-0.03) X10*3/uL Absolute Neuts (auto) 7.9 (2.0-8.3) x10*3/uL Absolute Nucleated RBC 0.000 (0.0-0.012) X10*3/uL Nucleated RBC % (auto) 0.0 (0.0-0.2) /100WBC PT 11.8 (10.9-12.4) SEC INR 1.0 (0.9-1.1) VBG pH (7.32-7.43) VBG pCO2 mmHg VBG pO2 mmHg VBG HCO3 (22-26) mmol/L VBG O2 Saturation % VBG Base Excess mmol/L Sodium 133 L (135-145) mmol/L Potassium 6.3 H* D (3.3-5.1) mmol/L Chloride 105 (96-108) mmol/L Carbon Dioxide 20 L (22-29) mmol/L Anion Gap 14 (12-20) BUN 39 H (9-16) mg/dL Creatinine 1.72 H (0.5-1.4) mg/dL Estim Creat Clear Calc 50.7 Estimated GFR 41 POC Glucose 338 H (60-115) mg/dL Random Glucose 401 H* (60-115) mg/dL Lactic Acid 1.2 (0.5-2.0) mmol/L Calcium 9.7 (8.4-10.2) mg/dL Magnesium 2.0 (1.6-2.6) mg/dL Total Bilirubin 1.5 H (0.0-1.0) mg/dL Direct Bilirubin 0.5 (0.0-0.5) mg/dL AST 15 (5-37) U/L ALT 6 (0-40) U/L Alkaline Phosphatase 88 (39-117) U/L Troponin I High Sens 3.5 (<3.5-35.0) ng/L Total Protein 6.9 (6.5-8.0) g/dL Albumin 4.3 (3.5-5.0) g/dL Lipase 10 (8-78) U/L Urine Color Urine Appearance Urine pH (5.0-9.0) Ur Specific [place] (1.005-1.025) Urine Protein (Neg-Trace) mg/dL Urine Glucose (UA) (Negative) mg/dL Urine Ketones (Negative) mg/dL Urine Blood (Negative) Urine Nitrite (Negative) Ur Leukocyte Esterase (Negative) Urine RBC (0-2) /HPF Urine WBC (0-5) /HPF Ur Squamous Epith Cells (0-2) /HPF Urine Bacteria (None Seen) Hyaline Casts (0-2) /LPF 03/08/25 03/08/25 03/08/25 Range/Units 09:16 09:45 09:54 WBC (4.8-10.8) X10*3/uL RBC (4.60-5.80) X10*6/uL Hgb (14.0-18.0) g/dl Hct (42.0-52.0) % MCV (80.0-98.0) fL MCH (27.0-33.0) pg MCHC (31.0-36.0) g/dl RDW (11.0-16.0) % Plt Count (160-400) X10*3/uL MPV (9.4-12.4) fL Immature Gran % (Auto) (0.0-0.4) % Neut % (Auto) (45-73) % Lymph % (Auto) (20-40) % [place] % (Auto) (2-11) % Eos % (Auto) (0-4) % Baso % (Auto) (0-2) % Lymph # (Auto) (1.2-4.9) X10*3/uL [place] # (Auto) (0.1-1.2) X10*3/uL Eos # (Auto) (0.0-0.4) X10*3/uL Baso # (Auto) (0.0-0.2) X10*3/uL Abs Immat Gran (auto) (0.00-0.03) X10*3/uL Absolute Neuts (auto) (2.0-8.3) x10*3/uL Absolute Nucleated RBC (0.0-0.012) X10*3/uL Nucleated RBC % (auto) (0.0-0.2) /100WBC PT (10.9-12.4) SEC INR (0.9-1.1) VBG pH 7.41 (7.32-7.43) VBG pCO2 29 mmHg VBG pO2 49 mmHg VBG HCO3 19 L (22-26) mmol/L VBG O2 Saturation 82.0 % VBG Base Excess -4.3 mmol/L Sodium (135-145) mmol/L Potassium (3.3-5.1) mmol/L Chloride (96-108) mmol/L Carbon Dioxide (22-29) mmol/L Anion Gap (12-20) BUN (9-16) mg/dL Creatinine (0.5-1.4) mg/dL Estim Creat Clear Calc Estimated GFR POC Glucose 399 H* (60-115) mg/dL Random Glucose (60-115) mg/dL Lactic Acid (0.5-2.0) mmol/L Calcium (8.4-10.2) mg/dL Magnesium (1.6-2.6) mg/dL Total Bilirubin (0.0-1.0) mg/dL Direct Bilirubin (0.0-0.5) mg/dL AST (5-37) U/L ALT (0-40) U/L Alkaline Phosphatase (39-117) U/L Troponin I High Sens (<3.5-35.0) ng/L Total Protein (6.5-8.0) g/dL Albumin (3.5-5.0) g/dL Lipase (8-78) U/L Urine Color Yellow Urine Appearance Clear Urine pH 6.0 (5.0-9.0) Ur Specific [place] 1.020 (1.005-1.025) Urine Protein Negative (Neg-Trace) mg/dL Urine Glucose (UA) >=1000 H (Negative) mg/dL Urine Ketones Trace (Negative) mg/dL Urine Blood Negative (Negative) Urine Nitrite Negative (Negative) Ur Leukocyte Esterase Negative (Negative) Urine RBC 0-2 (0-2) /HPF Urine WBC 0-5 (0-5) /HPF Ur Squamous Epith Cells 6-10 (0-2) /HPF Urine Bacteria None Seen (None Seen) Hyaline Casts 0-2 (0-2) /LPF 03/08/25 03/08/25 Range/Units 10:51 12:09 WBC (4.8-10.8) X10*3/uL RBC (4.60-5.80) X10*6/uL Hgb (14.0-18.0) g/dl Hct (42.0-52.0) % MCV (80.0-98.0) fL MCH (27.0-33.0) pg MCHC (31.0-36.0) g/dl RDW (11.0-16.0) % Plt Count (160-400) X10*3/uL MPV (9.4-12.4) fL Immature Gran % (Auto) (0.0-0.4) % Neut % (Auto) (45-73) % Lymph % (Auto) (20-40) % [place] % (Auto) (2-11) % Eos % (Auto) (0-4) % Baso % (Auto) (0-2) % Lymph # (Auto) (1.2-4.9) X10*3/uL [place] # (Auto) (0.1-1.2) X10*3/uL Eos # (Auto) (0.0-0.4) X10*3/uL Baso # (Auto) (0.0-0.2) X10*3/uL Abs Immat Gran (auto) (0.00-0.03) X10*3/uL Absolute Neuts (auto) (2.0-8.3) x10*3/uL Absolute Nucleated RBC (0.0-0.012) X10*3/uL Nucleated RBC % (auto) (0.0-0.2) /100WBC PT (10.9-12.4) SEC INR (0.9-1.1) VBG pH (7.32-7.43) VBG pCO2 mmHg VBG pO2 mmHg VBG HCO3 (22-26) mmol/L VBG O2 Saturation % VBG Base Excess mmol/L Sodium 135 (135-145) mmol/L Potassium 5.1 (3.3-5.1) mmol/L Chloride 106 (96-108) mmol/L Carbon Dioxide 22 (22-29) mmol/L Anion Gap 12 (12-20) BUN 35 H (9-16) mg/dL Creatinine 1.48 H (0.5-1.4) mg/dL Estim Creat Clear Calc 59.0 Estimated GFR 48 POC Glucose 335 H (60-115) mg/dL Random Glucose 367 H* (60-115) mg/dL Lactic Acid (0.5-2.0) mmol/L Calcium 8.8 D (8.4-10.2) mg/dL Magnesium (1.6-2.6) mg/dL Total Bilirubin (0.0-1.0) mg/dL Direct Bilirubin (0.0-0.5) mg/dL AST (5-37) U/L ALT (0-40) U/L Alkaline Phosphatase (39-117) U/L Troponin I High Sens (<3.5-35.0) ng/L Total Protein (6.5-8.0) g/dL Albumin (3.5-5.0) g/dL Lipase (8-78) U/L Urine Color Urine Appearance Urine pH (5.0-9.0) Ur Specific [place] (1.005-1.025) Urine Protein (Neg-Trace) mg/dL Urine Glucose (UA) (Negative) mg/dL Urine Ketones (Negative) mg/dL Urine Blood (Negative) Urine Nitrite (Negative) Ur Leukocyte Esterase (Negative) Urine RBC (0-2) /HPF Urine WBC (0-5) /HPF Ur Squamous Epith Cells (0-2) /HPF Urine Bacteria (None Seen) Hyaline Casts (0-2) /LPF Independent Interpretation I performed an independent interpretation of an: EKG (Sinus heart rate is 75 [place] QRS QTC within normal limits is no acute ST segment elevation) and CT Scan (CT scan showed small bowel obstruction) Radiology Impression Discussion of test interpretation with radiology: I have reviewed the radiologist's reading. External Record Review External record reviewed: Inpatient record Social Determinants Patient?s care significantly limited by Social Determinants of Health including: Problems related to primary support group Medications Administered Discontinued Medications Generic Name Dose Route Start Last Admin Trade Name Richyq PRN Reason Stop Dose Admin Dextrose 25 gm 03/08/25 09:01 03/08/25 09:13 Dextrose 50 % 25 Gm/50 Ml Syringe IVPUSH 03/08/25 09:02 25 gm ONCE ONE Administration Hydromorphone HCl 0.5 mg 03/08/25 11:34 03/08/25 11:38 Hydromorphone Hcl 0.5 Mg/0.5 Ml Syringe IVPUSH 03/08/25 11:35 0.5 mg ONCE ONE Administration Protocol Sodium Chloride 1,000 mls @ 999 mls/hr 03/08/25 09:00 03/08/25 10:14 Ns IV 03/08/25 10:00 Infused .Q1H1M LAVERN Infusion Insulin Human Regular 5 unit 03/08/25 09:01 03/08/25 09:12 Insulin Regular, Human 100 Unit/Ml 10 Ml Vial IVPUSH 03/08/25 09:02 5 unit ONCE ONE Administration Iohexol 100 ml 03/08/25 09:36 03/08/25 09:36 Iohexol 350 Mg/Ml 100 Ml Infus..Btl IV 03/08/25 09:37 80 ml ONCE ONE Administration Ondansetron HCl 4 mg 03/08/25 08:29 03/08/25 08:33 Ondansetron Hcl 4 Mg/2 Ml Vial IVPUSH 03/08/25 08:30 4 mg ONCE ONE Administration Sodium Bicarbonate 50 meq 03/08/25 09:01 03/08/25 09:13 Sodium Bicarbonate 8.4% 50 Meq/50 Ml Syringe IVPUSH 03/08/25 09:02 50 meq ONCE ONE Administration Sodium Zirconium Cyclosilicate 10 gm 03/08/25 09:01 03/08/25 09:15 Sodium Zirconium Cyclosilicate 10 Gm Powd.Pack PO 03/08/25 09:02 10 gm ONCE ONE Administration Critical Care Time Critical Care Time Critical Care Time: Yes Total Critical Care Time: 90 Attestation: I have personally provided 90 minutes of critical care time exclusive of time spent on separately billable procedures. ?Time includes review of lab data, radiology results, discussion with consultants, and monitoring for potential decompensation. ?Interventions were performed as documented above Discharge Plan Discharge Clinical Impression: Acute hyperkalemia, Intermittent small bowel obstruction, Acute renal insufficiency Patient Disposition: [facility] Transfer Details: Transferred to [facility] Prescriptions: No Action hydroxyzine HCl 25 mg tablet 25 mg PO QID PRN (Reason: itching) Qty: 20 0RF hydrocortisone 2.5 % cream 1 appl topical BID PRN (Reason: skin irritation) Qty: 20 0RF insulin lispro [Humalog KwikPen Insulin] 100 unit/mL insulin pen subcut lisinopril 5 mg tablet 5 mg PO DAILY pravastatin 20 mg tablet 20 mg PO DAILY (DME) pen needle, diabetic [BD Ultra-Fine Mini Pen Needle] 31 gauge x 3/16 needle See Rx Instructions .ROUTE TID Qty: 50 Rx Instructions: As directed permethrin 5 % cream 1 appl topical Q14D Qty: 60 0RF Rx Instructions: apply second treatment 14 days after first treatment if live lice remain Levemir FlexTouch U100 Insulin 100 unit/mL (3 mL) insulin pen subcut clotrimazole [Antifungal (clotrimazole)] 1 % cream 1 appl topical BID 14 Days Qty: 45 0RF Rx Instructions: apply to affected area cyclosporine modified 50 mg capsule 50 mg PO BID insulin glargine [Lantus Solostar U-100 Insulin] 100 unit/mL (3 mL) insulin pen subcut Print Language: American
[2025-03-08 09:01] LABS: Anion Gap 14 (12-20); Carbon Dioxide 20 mmol/L (22-29); Chloride 105 mmol/L (96-108); Potassium 6.3 mmol/L (3.3-5.1); Sodium 133 mmol/L (135-145)
[2025-03-08 09:09] LABS: Troponin-I High Sensitivity 3.5 ng/L (<3.5-35.0)
[2025-03-08 09:19] LABS: Venous Blood Gas Refer to POC result
[2025-03-08 09:19] LABS: VBG HCO3 19 mmol/L (22-26); VBG O2 % Saturation 82.0 %
[2025-03-08 09:24] LABS: INTERNATIONAL NORM RATIO 1.0 (0.9-1.1); Prothrombin Time 11.8 SEC (10.9-12.4)
[2025-03-08] MEDS: iohexoL 350 MG/ML 100 ML INFUS..BTL IV (09:36)
--- OUTSIDE RECORDS SUMMARY | 2025-03-08 09:50 | XMS_ITS | Encounter Summary ---
Author Organization [facility] Address [address] [place] [address] Care Team Providers Care Food Service Sales Representatives Name Role Phone Rodger iDa MD Primary Care Provider [phone] Encounter Details Date Type Department Care Team Description 03/25/2015 Hospital Medical Records [address] [place] [address] Rip Tijerina MD [address] [place] [id number] Social History Tobacco Use Types Packs/Day Years [...] on filedocumented in this encounter Care Teams Food Service Sales Representatives Relationship Specialty Start Date End Date Rodger Dia MD [address] [place] [address] [id number] PCP - General 02/10/11 documented as of this encounter
--- OUTSIDE RECORDS SUMMARY | 2025-03-08 09:50 | XMS_ITS | Clinical Summary ---
Author Organization [facility] Address [address] [place] [address] Care Team Providers Care Cardiology Physician Assistant Name Role Phone Rodger Dia MD Primary Care Provider Unavailabl e Allergies No known active allergies Medications Lantus SoloStar 100 UNIT/ML prefilled pen injection Inject 22 Units under the skin nightly. Active HumaLOG KWIKPEN 100 UNIT/ML prefilled pen injection Inject 12 Units under the skin 3 (three) times a day before meals. In addition to sliding scale: 101-150: 6 units , 151-200: 9 UNITS, 201-250: 12 units . 251-300: 15 units, 301-350: 18 units , 351-400: 20 units >400: call me. 21 units. 05/17/2024 Active B-D UF III MINI PEN NEEDLES 31G X 5 MM needle USE DIRECTED TO INJECT INSULIN 3 TIMES A DAY. 12/11/2024 Active lisinopril (PRINIVIL,ZeSTR IL) 5 MG tablet Take 1 tablet (5 mg total) by mouth daily. Active pravastatin (PRAVACHOL) 20 MG tablet Take 1 tablet (20 mg total) by mouth daily. 02/18/2024 Active PREDNISONE PO Take 10 mg by mouth daily. Active cycloSPORINE (SandIMMUNE) 100 MG capsule Take 1 capsule (100 mg total) by mouth 2 (two) times a day. Active Active Problems Problem Noted Date Diagnosed Date Bowel obstruction 01/21/2025 Encounters Date Type Department Care Team Description 01/21/2025 9:55 PM EDT Ancillary Procedure [facility] Radiology [address] [place] [address] 01/21/2025 9:02 PM EDT - 01/23/2025 11:22 AM EDT Hospital Encounter [place] [address] [address] [place] [address] Jesus Cope MD Hannoush, Edward J, MD Small bowel obstruction (HCC) (Primary Dx); Liver transplant recipient (HCC); Abdominal pain, right lower quadrant; Incisional hernia, without obstruction or gangrene Discharge Disposition: Home or Self Care 01/21/2025 Travel from Last 3 Months Social History Tobacco Use Types Packs/Day Years Used Date Smoking Tobacco: Never Passive Smoke Exposure: Never Smokeless Tobacco: Never Tobacco Cessation:Counseling Given: No Alcohol Use Standard Drinks/Week Comments Never 0 (1 standard drink = 0.6 oz pur e alcohol) [facility] Utilities Answer Date Recorded In the past 12 months has th e electric, gas, oil, or water company threatened to shut off services in your home? No 01/22/2025 AUDIT-C Answer Date Recorded Q1: How often do you have a drink containing alcohol? Never 01/22/2025 Q2: How many drinks containi ng alcohol do you have on a typical day when you are drinking? Patient does not drink Q3: How often do you have si x or more drinks on one occasion? Never 01/22/2025 Hunger Vital Sign Answer Date Recorded Within the past 12 months, y ou worried that your food would run out before you got the money to buy more. Never true 01/23/20 25 Within the past 12 months, t he food you bought just didn't last and you didn't have money to get more. Never true 01/22/2025 PRAPARE - Transportation Answer Date Re corded In the past 12 months, has l ack of transportation kept you from medical appointments or from getting medications? No 01/04 In the past 12 months, has l ack of transportation kept you from meetings, work, or from getting things needed for daily living? No 01/22/2025 Housing Stability Vital Sign Answer Jayy e Recorded In the last 12 months, was t here a time when you were not able to pay the mortgage or rent on time? No 01/22/2025 In the past 12 months, how m any times have you moved where you were living? 1 01/22/2025 At any time in the past 12 m [facility], were you homeless or living in a group home (including now)? No 01/22/2025 Sex and Gender Information Value Date Recorded Sex Assigned at Male 01/21/2025 9:28 PM EDT Legal Sex Male 7:11 PM EDT Gender Identity Male 01/21/2025 9:28 PM EDT Sexual Orientation Heterosexual (straight) 01/21 9:28 PM EDT Last Filed Vital Signs Vital Sign Reading Time Taken Comments Blood Pressure 140/74 01/23/2025 8:30 AM EDT Pulse 77 01/23/2025 8:30 AM EDT Temperature 36.6 C (97.9 F) 01/23/2025 8:30 AM EDT Respiratory Rate 17 01/23/2025 8:30 AM EDT Oxygen Saturation 97% 01/23/2025 8:30 AM EDT Inhaled Oxygen Concentration - - Weight 121 kg (265 lb 10.5 oz) 01/22/2025 11:57 PM EDT Height 165.1 cm (5' 5 ) 01/22/2025 11:57 PM EDT Body Mass Index 44.21 01/22/2025 11:57 PM EDT Plan of Treatment Health Maintenance Due Date Last Done Comments Hepatitis C Virus Screening 1964 HIV Screening 1977 DTaP/Tdap/Td Vaccines (1 - Tdap) 1983 Pneumococcal Vaccines 50+ (1 of 2 - PCV) 1983 Zoster (Shingles) Vaccine (1 of 2) 1983 Colonoscopy 2009 COVID-19 Vaccine ( season) 2024 05/29/2022, 01/27/2022, 04/24/2021, Additional history exists RSV Vaccine 60 years and older and Patients (1 - Risk 60-74 years 1-dose series) 2024 Influenza Vaccine 04/06/2025 05/10/2024, , 05/12/2023, Additional history exists Hepatitis B Vaccines Aged Out No long er eligible based on patient's age to complete this topic Procedures Procedure Name Priority Date/Time Associated Diagnosis Comments POCT GLUCOSE, FINGERSTICK (CHARGE) Routine 01/23/2025 8:18 AM EDT HEMOGLOBIN A1C WITH ESTIMATED AVERAGE GLUCOSE STAT 01/23/2025 6:33 AM EDT CYCLOSPORINE LEVEL (FPIA) STAT 01/23/2025 6:33 AM EDT HEPATIC FUNCTION PANEL STAT 6:33 AM EDT POCT GLUCOSE, FINGERSTICK (CHARGE) Routine 01/23/2025 3:55 AM EDT POCT GLUCOSE, FINGERSTICK (CHARGE) Routine 01/23/2025 12:20 AM EDT XR ABDOMEN 1 VIEW STAT 01/22/2025 9:1 8 PM EDT POCT GLUCOSE, FINGERSTICK (CHARGE) Routine 01/22/2025 8:22 PM EDT [place] SMALL BOWEL SERIES ONLY STAT 01/22/2025 6:42 PM EDT POCT GLUCOSE, FINGERSTICK (CHARGE) Routine 01/22/2025 4:33 PM EDT HEPATIC FUNCTION PANEL STAT 2:06 PM EDT BASIC METABOLIC PANEL STAT 01/22/2025 2:06 PM EDT POCT GLUCOSE, FINGERSTICK (CHARGE) Routine 01/22/2025 11:42 AM EDT POCT GLUCOSE, FINGERSTICK (CHARGE) Routine 01/22/2025 8:04 AM EDT CYCLOSPORINE LEVEL (FPIA) STAT 01/22/2025 5:19 AM EDT HEPATIC FUNCTION PANEL STAT 5:19 AM EDT COMPLETE BLOOD COUNT, WITH DIFFERENTIAL STAT 01/22/2025 3:56 AM EDT PHOSPHORUS STAT 01/22/2025 3:56 AM EDT MAGNESIUM STAT 01/22/2025 3:56 AM EDT BASIC METABOLIC PANEL STAT 01/22/2025 3:56 AM EDT ABO CONFIRMATION STAT 01/21/2025 11:2 1 PM EDT XR ABDOMEN 1 VIEW-PORTABLE STAT 01/21/2025 11:12 PM EDT BESSY ARCHIVE FOR REFERENCE ONLY Routine 01/21/2025 9:55 PM EDT LACTIC ACID, PLASMA Routine 01/21/2025 9 :29 PM EDT MAGNESIUM STAT 01/21/2025 9:29 PM EDT PROTIME-INR STAT 01/21/2025 9:29 PM EDT COMPREHENSIVE METABOLIC PANEL STAT 01/21/2025 9:29 PM EDT COMPLETE BLOOD COUNT, WITH DIFFERENTIAL STAT 01/21/2025 9:29 PM EDT TYPE AND SCREEN STAT 01/21/2025 9:27 PM EDT from Last 3 Months Results * (ABNORMAL) POCT Glucose, Fingerstick (01/23/2025 8:18 AM EDT) Only the most recent of7 resultswithin the time period is included. POC Glucose 201(H) 65 - 99 mg/dL 01/23/2025 8:23 AM EDT Blood specimen / Unknown 01/23/2025 8:18 AM EDT 01/23/2025 8:23 AM EDT us Jesus Cope MD POINT OF CARE TEST ORDERABLES Fi nal Result HOSPITAL LAB See Below * (ABNORMAL) Hemoglobin A1c with Estimated Average Glucose (01/23/2025 6:33 AM EDT) Hemoglobin A1C 7.4(H) <5.7 % 01/23/2025 1:19 PM EDT [facility] Comment: A1c% Interpretation 5.7 - 6.0 Increase risk of diabetes 6.1 - 6.4 Higher risk of diabetes > or = 6.5 Consistent with diabetes Diabetes Care, 33(Supp 1):S1-S61, 2010 Estimated Average Glucose 166 mg/dL 01/23/2025 1:19 PM EDT [facility] Blood Blood specimen / Unknown 01/23/2025 6:33 AM EDT 01/23/2025 7:18 AM EDT Carina Alaniz APRN LAB BLOOD ORDERABLES Fi nal Result Performing Organization Address City/[facility]/ZIP Co de Phone Number [address] [address], [address] [address] * Cyclosporine Level (FPIA) (01/23/2025 6:33 AM EDT) Only the most recent of2 resultswithin the time period is included. Cyclosporine Level 621 ng/mL 2024 3:14 PM EDT [facility] Comment: Performed by using Direct Chemiluminescence Test results repeated. Time of Last Dose 1,700 025 9:30 PM EDT [facility] Blood Blood specimen / Unknown 01/23/2025 6:33 AM EDT 01/23/2025 7:19 AM EDT Elvis Ty MD LAB BLOOD ORDERABLES Final Result [facility] [address] [place] [address], * (ABNORMAL) HEPATIC FUNCTION PANEL (01/23/2025 6:33 AM EDT) Only the most recent of3 resultswithin the time period is included. Alkaline Phosphatase 71 45 - 128 U/L 01/23/2025 7:55 AM EDT [facility] Aspartate Aminotrans (AST) 21 10 - 55 U/L 01/23/2025 7:55 AM EDT [facility] Alanine Aminotrans (ALT) 11 10 - 55 U/L 01/23/2025 7:55 AM [facility] Bilirubin, Total 1.0 0.2 - 1.0 mg/dL 01/23/2025 7:55 AM T [facility] Protein, Total 5.5(L) 6.3 - 8.3 g/dL 01/23/2025 7:55 AM T [facility] Albumin 3.3(L) 3.5 - 5.0 g/dL 01/23/2025 7:55 AM [facility] Bilirubin, Direct 0.3(H) 0 - 0.2 mg/dL 01/23/2025 7:55 AM [facility] Globulin 2.2 1.5 - 3.9 g/dL 01/23/2025 7:55 AM [facility] Albumin/Globulin Ratio 1.5 1.0 - 3.0 Ratio 01/23/2025 7:55 AM [facility] Blood Blood specimen / Unknown 01/23/2025 6:33 AM EDT 01/23/2025 7:18 AM EDT Elvis Ty MD LAB BLOOD ORDERABLES Final Result Performing Organization Address City/State/[facility] Co de Phone Number [address] [address], [address] [address] * XR Abdomen 1 view (01/22/2025 9:18 PM EDT) Anatomical Region Laterality Modality Abdomen Computed Radiogr aphy 01/22/2025 8:53 PM EDT Impressions 01/23/2025 3:03 AM EDT * Contrast opacification of the transverse and distal colon. * Persistent dilated loops of small bowel measuring up to 3.7 cm. * Overall, the abnormally dilated small bowel segments in conjunction with contrast agent arising within the descending colon without evidence of colonic obstruction is suspicious for low-grade small bowel obstruction or ileus. Interpreted by: Shashi Danielle DO Aluminum Molding Machine Operator I personally reviewed the images and the resident's preliminary report and AGREE with the report as it is now presented ([email or web address]). Narrative 01/23/2025 3:03 AM EDT EXAMINATION: XR ABDOMEN PORTABLE 1 VIEW CLINICAL INDICATION: Advancement of contrast, COMPARISON: Abdominal radiograph 01/21/2025 TECHNIQUE: AP view of the abdomen. FINDINGS: Contrast opacification of the transverse and distal colon. Persistent dilated loops of small bowel measuring up to 3.7 cm. Visualized lung bases are unremarkable. No acute osseus abnormalities. Procedure Note Kyle Solis MD - 01/23/2025 EXAMINATION: XR ABDOMEN PORTABLE 1 VIEW CLINICAL INDICATION: Advancement of contrast, COMPARISON: Abdominal radiograph 01/21/2025 TECHNIQUE: AP view of the abdomen. FINDINGS: Contrast opacification of the transverse and distal colon. Persistent dilated loops of small bowel measuring up to 3.7 cm. Visualized lung bases are unremarkable. No acute osseus abnormalities. IMPRESSION: * Contrast opacification of the transverse and distal colon. * Persistent dilated loops of small bowel measuring up to 3.7 cm. * Overall, the abnormally dilated small bowel segments in conjunction with contrast agent arising within the descending colon without evidence of colonic obstruction is suspicious for low-grade small bowel obstruction or ileus. Interpreted by: Shashi Danielle DO Aluminum Molding Machine Operator I personally reviewed the images and the resident's preliminary report and AGREE with the report as it is now presented ([email or web address]). Elvis Ty MD [facility] DIAGNOSTIC IMAGING CAROLINAMartin COWAN Final Result * FL Small bowel series only (01/22/2025 6:42 PM EDT) Anatomical Region Laterality Modality Abdomen, Pelvis Radio Fluoroscop y 01/22/2025 10:2 6 AM EDT Impressions 01/23/2025 10:21 AM EDT No evidence of small bowel obstruction with normal progression of contrast through to the colon. Interpreted by: Hayes Dwyer MD Aluminum Molding Machine Operator I personally reviewed the images and, if necessary, I edited the report. I agree with the report as now presented. Narrative 01/23/2025 10:21 AM EDT EXAMINATION: FLUOROSCOPY SMALL BOWEL SERIES WITH GASTROGRAFIN CLINICAL INFORMATION: hx of liver tx in 2016, now with ? SBO, please evaluate for obstruction COMPARISON: XR abdomen 01/21/2025 TECHNIQUE: Pre and 6 hours post AP views of the abdomen were obtained following ingestion of oral Gastroview. FINDINGS: Initial hand fabric cutter images: No dilated loops of small bowel. Scattered stool and air throughout the colon and rectum. Visualized lung bases are clear. Enteric tube tip overlying the proximal stomach. Postcontrast images: Oral contrast seen progressed through to the sigmoid colon with residual contrast in the colon and small bowel. No dilated small bowel loops. Procedure Note Esequiel Hoang MD - 01/23/2025 EXAMINATION: FLUOROSCOPY SMALL BOWEL SERIES WITH GASTROGRAFIN CLINICAL INFORMATION: hx of liver tx in 2016, now with ? SBO, please evaluate for obstruction COMPARISON: XR abdomen 01/21/2025 TECHNIQUE: Pre and 6 hours post AP views of the abdomen were obtained following ingestion of oral Gastroview. FINDINGS: Initial hand fabric cutter images: No dilated loops of small bowel. Scattered stool and air throughout the colon and rectum. Visualized lung bases are clear. Enteric tube tip overlying the proximal stomach. Postcontrast images: Oral contrast seen progressed through to the sigmoid colon with residual contrast in the colon and small bowel. No dilated small bowel loops. IMPRESSION: No evidence of small bowel obstruction with normal progression of contrast through to the colon. Interpreted by: Hayes Dwyer MD Aluminum Molding Machine Operator I personally reviewed the images and, if necessary, I edited the report. I agree with the report as now presented. Carina Alainz LAB ANALYST IMG FLUOROSCOPY ORDERAB LES Final Result * (ABNORMAL) Basic Metabolic Panel (Routine) (01/22/2025 2:06 PM EDT) Only the most recent of2 resultswithin the time period is included. Glucose 244(H) 65 - 99 mg/dL 01/22/2025 3:44 PM EDT [facility] Comment:Fasting: <100 mg/dL, Non-Fasting: <200 mg/dL (ADA 2004) Blood Urea Nitrogen (BUN) 32(H) 8 - 21 mg/dL 01/22/2025 3:44 PM EDT [facility] Creatinine 1.5(H) 0.5 - 1.3 mg/dL 01/22/2025 3:44 PM EDT [facility] eGFR 53(L) >59 01/22/2025 3:44 PM EDT [facility] Comment:CKD-EPI (2020) in mL /min/1.73 sq meters. Sodium 136 136 - 145 mmol/L 01/22/2025 3:44 PM EDT [facility] Potassium 5.2 3.4 - 5.3 mmol/L 01/22/2025 3:44 PM EDT [facility] Chloride 107 98 - 107 mmol/L 01/22/2025 3:44 PM EDT [facility] CO2 20(L) 22 - 33 mmol/L 01/22/2025 3:44 PM EDT [facility] Anion Gap 9 7 - 17 01/22/2025 3:44 PM EDT [facility] Calcium 9.3 8.7 - 10.5 mg/dL 01/22/2025 3:44 PM EDT [facility] BUN/Creatinine Ratio 21 10.0 - 25.0 Ratio 01/22/2025 3:44 PM T [facility] Blood Blood specimen / Unknown 01/22/2025 2:06 PM EDT 01/22/2025 3:11 PM EDT Elvis Ty MD LAB BLOOD ORDERABLES Final Result [address] [address], [address] [address] * (ABNORMAL) Complete Blood Count, with Differential (01/22/2025 3:56 AM EDT) Only the most recent of2 resultswithin the time period is included. White Blood Cell Count 6.5 4.0 - 11.0 Thou/uL 01/22/2025 4:29 AM EDT [facility] Platelet Count 84(L) 150 - 450 Thou/uL 01/22/2025 4:29 AM EDT [facility] Hemoglobin 13.3 13.0 - 17.7 g/dL 01/22/2025 4:29 AM [facility] Hematocrit 39.6 39.0 - 54.0 % 01/22/2025 4:29 AM [facility] Red Blood Cell Count 4.40(L) 4.50 - 6.20 Mil/uL 01/22/2025 4:29 AM [facility] MCV 90 80 - 100 fL 01/22/2025 4:29 AM [facility] MCH 30.2 27.0 - 31.0 pg 01/22/2025 4:29 AM [facility] MCHC 33.6 30.0 - 36.0 g/dL 01/22/2025 4:29 AM [facility] RDW 12.0 11.5 - 14.5 % 01/22/2025 4:29 AM [facility] MPV 11.2 7.5 - 12.5 fL 01/22/2025 4:29 AM [facility] Immature Platelet Fraction 2.7 1.2 - 8.6 % 01/22/2025 4:29 AM [facility] Neutrophils Auto 89.2 % 01/23/20 4:29 AM [facility] Immature Granulocytes 0.2 % 01/22/2025 4:29 AM [facility] Lymphocytes Auto 8.0 % 01/23/20 4:29 AM [facility] Monocytes Auto 2.1 % 01/22/2025 4:29 AM [facility] Eosinophils Auto 0.3 % 01/23/20 4:29 AM [facility] Basophils Auto 0.2 % 01/22/2025 4:29 AM [facility] Abs Neutrophils Auto 5.83 2.00 - 7.50 Thou/uL 01/22/2025 4:29 AM [facility] Abs Immature Granulocytes 0.01 0.00 - 0.10 Thou/uL 01/22/2025 4:29 AM [facility] Abs Lymphocytes Auto 0.52(L) 1.50 - 4.50 Thou/uL 01/22/2025 4:29 AM [facility] Abs Monocytes Auto 0.14(L) 0.20 - 1.50 Thou/uL 01/22/2025 4:29 AM [facility] Abs Eosinophils Auto 0.02 0.00 - 0.70 Thou/uL 01/22/2025 4:29 AM EDT [facility] Abs Basophils Auto 0.01 0.00 - 0.20 Thou/uL 01/22/2025 4:29 AM EDT [facility] Blood Blood specimen / Unknown 01/22/2025 3:56 AM EDT 01/22/2025 4:12 AM EDT Elvis Ty MD LAB BLOOD ORDERABLES Final Result Performing Organization Address [facility] [place] [address], [place] [address] * (ABNORMAL) Phosphorus (01/22/2025 3:56 AM EDT) Phosphorus 2.3(L) 2.7 - 4.5 mg/dL 01/22/2025 4:40 AM EDT [facility] Blood Blood specimen / Unknown 01/22/2025 3:56 AM EDT 01/22/2025 4:12 AM EDT Elvis Ty MD LAB BLOOD ORDERABLES Final Result Performing Organization Address [facility] [place] [address], [place] [address] * Magnesium (01/22/2025 3:56 AM EDT) Only the most recent of2 resultswithin the time period is included. Magnesium 1.9 1.6 - 2.7 mg/dL 01/22/2025 4:40 AM EDT [facility] Blood Blood specimen / Unknown 01/22/2025 3:56 AM EDT 01/22/2025 4:12 AM EDT Elvis Ty MD LAB BLOOD ORDERABLES Final Result Performing Organization Address City/[facility]/ZIP Co de Phone Number [address] [address], [address] [address] * ABO Confirmation (01/21/2025 11:21 PM EDT) ABO/Rh O POSITIVE 01/22/2025 12:47 AM EDT [facility] Blood Blood specimen / Unknown 01/21/2025 11:21 PM EDT 01/22/2025 12:01 AM EDT us Zhane CHIN BLOOD BANK TEST ORDERABLES Fi nal Result [address] [address], [address] [address] * XR Abdomen 1 view-Portable (01/21/2025 11:12 PM EDT) Anatomical Region Laterality Modality Abdomen Computed Radiogr aphy 01/21/2025 11:0 1 PM EDT Impressions 01/21/2025 11:58 PM EDT NG tube within the stomach. Narrative 01/21/2025 11:58 PM EDT EXAMINATION: XR ABDOMEN KUB CLINICAL INDICATION: confirm ngt placement COMPARISON: None available. TECHNIQUE: AP view of the abdomen. FINDINGS: NG tube distal tip within the stomach. Procedure Note Francisco King MD - 01/22/2025 EXAMINATION: XR ABDOMEN KUB CLINICAL INDICATION: confirm ngt placement COMPARISON: None available. TECHNIQUE: AP view of the abdomen. FINDINGS: NG tube distal tip within the stomach. IMPRESSION: NG tube within the stomach. us Elvis CHIN DIAGNOSTIC IMAGING ASA COWAN Final Result * BESSY Archive for reference only (01/21/2025 9:55 PM EDT) Narrative GREG - 01/21/2025 9:54 PM EDT This order has been auto-finalized and does not contain a result. us Zhane D Qualey PA IMG DIGITIZE FILMS Final Resu lt Performing Organization Address City/[facility]/ZIP Co de Phone Number GREG [phone] * INR (01/21/2025 9:29 PM EDT) Anticoagulant NO ANTI COAGULANT MEDS 01/21/2025 9:18 PM EDT [facility] Prothrombin Time (PT) 11.8 10.0 - 13.5 seconds 01/21/2025 10:05 PM EDT [facility] INR 1.0 01/21/2025 10:05 PM EDT [facility] Comment:INR Therapeutic Rang es: Standard dose anticoagulant 2.0 to 3.0, High dose anticoagulant 2.5-3.5. Blood Blood specimen / Unknown 01/21/2025 9:29 PM EDT 01/21/2025 9:51 PM EDT us Zhane CHIN LAB BLOOD ORDERABLES Final Re sult Performing Organization Address [facility] [place] [address], [place] [address] * Lactic Acid, Plasma (01/21/2025 9:29 PM EDT) [facility] Lactic Acid 1.5 0.5 - 1.9 mmol/L 01/21/2025 10:14 PM EDT [facility] Blood Blood specimen / Unknown 01/21/2025 9:29 PM EDT 01/21/2025 9:51 PM EDT us Zhane CHIN LAB BLOOD ORDERABLES Final Re sult Performing Organization Address [facility] [place] [address], [address] [address] * (ABNORMAL) Comprehensive Metabolic Panel (01/21/2025 9:29 PM EDT) Glucose 247(H) 65 - 99 mg/dL 01/21/2025 10:18 PM EDT [facility] Comment:Fasting: <100 mg/dL, Non-Fasting: <200 mg/dL (ADA 2004) Blood Urea Nitrogen (BUN) 26(H) 8 - 21 mg/dL 01/21/2025 10:18 PM [facility] Creatinine 1.3 0.5 - 1.3 mg/dL 01/21/2025 10:18 PM [facility] eGFR 63 >59 01/21/2025 10:18 PM [facility] Comment:CKD-EPI (2020) in mL /min/1.73 sq meters. Sodium 136 136 - 145 mmol/L 01/21/2025 10:18 PM [facility] Potassium 5.0 3.4 - 5.3 mmol/L 01/21/2025 10:18 PM [facility] Chloride 106 98 - 107 mmol/L 01/21/2025 10:18 PM [facility] CO2 19(L) 22 - 33 mmol/L 01/21/2025 10:18 PM [facility] Calcium 9.2 8.7 - 10.5 mg/dL 01/21/2025 10:18 PM [facility] Alkaline Phosphatase 82 45 - 128 U/L 01/21/2025 10:18 PM [facility] Aspartate Aminotrans (AST) 15 10 - 55 U/L 01/21/2025 10:18 PM [facility] Alanine Aminotrans (ALT) 13 10 - 55 U/L 01/21/2025 10:18 PM [facility] Bilirubin, Total 1.1(H) 0.2 - 1.0 mg/dL 01/21/2025 10:18 PM [facility] Protein, Total 6.2(L) 6.3 - 8.3 g/dL 01/21/2025 10:18 PM [facility] Albumin 3.8 3.5 - 5.0 g/dL 01/21/2025 10:18 PM [facility] BUN/Creatinine Ratio 20 10.0 - 25.0 Ratio 01/21/2025 10:18 PM [facility] Globulin 2.4 1.5 - 3.9 g/dL 01/21/2025 10:18 PM [facility] Albumin/Globulin Ratio 1.6 1.0 - 3.0 Ratio 01/21/2025 10:18 PM EDT [facility] Anion Gap 11 7 - 17 01/21/2025 10:18 PM EDT [facility] Blood Blood specimen / Unknown 01/21/2025 9:29 PM EDT 01/21/2025 9:51 PM EDT us Zhane CHIN LAB BLOOD ORDERABLES Final Re sult Performing Organization Address City/[facility]/ZIP Co de Phone Number [address] [address], [address] [address] * Type and Screen (01/21/2025 9:27 PM EDT) ABO/Rh O POSITIVE 01/21/2025 10:34 PM EDT [facility] Antibody Screen NEGATIVE 10:34 PM EDT [facility] Specimen Expiration 01/24/2025 01/21/2025 10:34 PM EDT [facility] Blood Blood specimen / Unknown 01/21/2025 9:27 PM EDT 01/21/2025 9:56 PM EDT us Zhane CHIN BLOOD BANK TEST ORDERABLES Fi nal Result Performing Organization Address [facility] Co de Phone Number [address] [address], [address] [address] from Last 3 Months Insurance [facility] [employer] MEDICARE PART A & B Advance Directives * Full Code (Latest Code Status on File) Date Activated Date Inactivated Comments 01/21/2025 10:37 PM Care Teams Cardiology Physician Assistant Relationship Specialty Start Date End Date Rodger Dia MD PCP - General 01/23/25
--- OUTSIDE RECORDS SUMMARY | 2025-03-08 09:50 | XMS_ITS | Clinical Summary ---
Author Organization [address] Address [address] [place] [phone] Phone Care Team Providers Care Superintendent Pressure Name Role Phone Rodger Dia MD Primary Care Provider [phone] Allergies No known active allergies Medications pen needle, diabetic (PEN NEEDLE MISC) USE THREE TIMES DAILY WITH INSULIN 07/05/20 23 Active cycloSPORINE modified (NEORAL) 25 mg capsule Take 1 capsule (25 mg total) by mouth 2 (two) times a day. Transplant Team in [place] prescribe. He had a liver Transplant. Active [...] units , 351-400: 20 units >400: call nh. 21 units. 30 mL 2 07/25/20 24 [...] excess calories with serious comorbidity in adult ([facility] V24, [facility] V28) 12/24/2020 Assessment & Plan (10/16/2024 [...] kidney disease) stage 3, GFR 30-59 ml/min ([facility] V24, [facility] V28) 11/21/2019 Type II diabetes mellitus wi th peripheral circulatory disorder ([facility] V24, [facility] V28) 11/06/2019 Diabetic polyneuropathy asso ciated with diabetes mellitus due to underlying condition ([facility] V24, [facility] V28) 11/03/2019 Hypertension 05/09/2019 Assessment & [...] metabolic panel; Future Diabetes mellitus, type 2 ([facility] V24, [facility] V28) 07/01/2015 Assessment & Plan (10/16/2024 [...] Treatment initiated. Esophageal varices without b leeding ([facility] V24, [facility] V28) 10/11/2013 Overview (06/14/2024): Large at EGD 2006 and 2013. Esophageal varices without mention of bleeding in diseases classified elsewhere Compression fracture of vert ebrae ([facility] V24, [facility] V28) 12/07/2010 Overview (06/14/2024): Vertebral T10 of uncertain age, noted incidental finding 11/09/2010. [facility]. Pancytopenia ([facility]/HCC V24, [facility]/HCC V28) 12/02/19 11 Obesity (BMI 30-39.9) 12/04/2006 Portal hypertension ([facility] V24, [facility] V28) 0 12/04/2006 Overview (06/14/2024): See comment on cirrhosis of liver Encounters Date Type Department Care Team Description 01/29/2025 Telephone Adult Medicine [address] [phone] Gumaro Lan NP Lab Results (BMP results. /Renal function decrease) 01/25/2025 8:20 AM EDT Office Visit [address] [phone] Carisa Silverman PA Type II diabetes mellitus with peripheral circulatory disorder (CMS/HCC V24, CMS/HCC V28) (Primary Dx); Primary hypertension; Obesity (BMI 30-39.9); Mixed hyperlipidemia 12/14/[address] [phone] Carisa Silverman PA from Last 3 Months Immunizations Name Administration [...] HISTORY 03/30/2016 PROCEDURE: LIVER TRANSPLANT, HETEROTOPIC; COMMENT: [facility]. UPPER GASTROINTESTINAL ENDOSCOPY 10/11/2013 PROCEDURE: [place] UPPER GI ENDOSCOPY PERFORMED; COMMENT: gastritis, small duodenal ulcers, large esophageal varices. Gastric biopsies positive for H. pylori. UPPER GASTROINTESTINAL ENDOSCOPY 05/23/2007 PROCEDURE: [place] UPPER GI ENDOSCOPY PERFORMED; COMMENT: Large esoph [...] Sign Reading Time Taken Comments Blood Pressure 108/60 01/25/2025 8:33 AM EDT Pulse 78 01/25/2025 8:33 AM EDT Temperature 36.4 C (97.5 F) 01/25/2025 8:33 AM EDT Respiratory Rate 16 01/25/2025 8:33 AM EDT Oxygen Saturation 99% 11/15/2024 9:56 AM EDT Inhaled Oxygen Concentration - - Weight 105 kg (232 lb) 01/25/2025 8:33 AM EDT Height 165 cm (5' 4.96 ) 01/25/2025 8:33 AM EDT Body Mass Index 38.65 01/25/2025 8:33 AM EDT Plan of Treatment Upcoming Encounters Date Type Department Care Team (Late st Contact Info) Description 04/26/2025 11:00 AM EDT Office Visit Adult Medicine [address] [phone] Rodger Dia MD [address] [place] [address] 08/09/2025 8:00 AM EST Office Visit [address] [place] [address] Carisa Silverman PA [address] [place] [address] Health Maintenance Due Date Last Done Comments Zoster Vaccines (1 of 2) 1983 Medicare Annual Wellness Visit 08/15/2022 Social Influencers of Health Screening 08/15/2022 Diabetes: Annual Retina Eye Exam 11/24/2024 11/25/2023 COVID-19 Vaccine (7 - Moderna risk season) 2024 06/02/2024, 05/29/2022, 01/27/2022, Additional history exists Diabetes: Annual Foot Exam 03/13/2025 03/13/2024 Diabetes: Annual Urine Albumin-Creatinine Ratio (uACR) 03/28/2025 03/28/2024 Diabetes: Blood Sugar Control Test (HGBA1C) 07/28/2025 01/25/2025, 01/23/2025, 09/18/2024, Additional history exists Depression Screening 10/16/2025 10/16/2024, 09/14/19 Diabetes: Annual GFR (Glomerular Filtration Rate) 01/25/2026 01/25/2025, 01/22/2025, 01/22/2025, Additional history exists Hypertension/CHF/CAD Annual BMP Blood Test 01/25/2026 01/25/2025, 01/22/2025, 01/22/2025, Additional history exists Colorectal Cancer Screening: Colonoscopy 11/16/2027 11/15/2024, 10/18/2019 [...] Procedure Name Priority Date/Time Associated Diagnosis Comments PROSTATE SPECIFIC ANTIGEN SCREEN Routine 01/25/2025 10:54 AM EDT Encounter for screening for malignant neoplasm of prostate BASIC METABOLIC PANEL Routine 01/25/2025 10:54 AM EDT Controlled type 2 diabetes mellitus with stage 3 chronic kidney disease, without long-term current use of insulin ([facility], [facility] V28) Primary hypertension Mixed hyperlipidemia Class 2 severe obesity due to excess calories with serious comorbidity and body mass index (BMI) of 39.0 to 39.9 in adult ([facility] V24, [facility] V28) Encounter for screening for malignant neoplasm of prostate Need for tetanus, diphtheria, and acellular pertussis (Tdap) vaccine Need for vaccination with 20-polyvalent pneumococcal conjugate vaccine HEMOGLOBIN A1C Routine 01/25/2025 10:54 AM EDT Type II diabetes mellitus with peripheral circulatory disorder ([facility] V24, [facility] V28) EXTERNAL CT REPORT 01/21/[address] REPORT 01/21/[address] REPORT 01/21/2025 COLONOSCOPY Routine 11/15/2024 9:35 AM EDT History of colon polyps URINE ALBUMIN CREATININE RATIO Routine 03/28/2024 DIABETES FOOT EXAM Routine 03/13/2024 LIPID PANEL Routine 11/26/2023 DIABETES EYE EXAM Routine 11/25/2023 DEPRESSION SCREENING Routine 09/14/2023 HEPATITIS C SCREENING Routine 01/11/2007 from Last 3 Months or Most Recently Relevant to Health Maintenance Results * Prostate specific antigen screen (01/25/2025 10:54 AM EDT) PSA 0.64 0.00 - 4.00 ng/mL LAB CHEMISTRY METHOD 01/25/2025 1:49 PM EDT [facility] Blood Venous blood specimen / Unknown Venipuncture / Unknown 01/25/2025 10:54 AM EDT 01/25/2025 10:54 AM EDT Narrative [facility] - 01/25/2025 1:49 PM EDT The Siemens Advia Centaur Chemiluminescent Immunoassay is used. Results obtained with different assay methods or kits cannot be used interchangeably. Results cannot be interpreted as absolute evidence of the presence or absence of malignant disease. us Gumaro Lan TANK TESTER LAB BLOOD ORDERABLES Final R esult [facility] [address] [place] [address], * (ABNORMAL) Hemoglobin A1c (01/25/2025 10:54 AM EDT) Hemoglobin A1C 6.9(H) <6.5 % LAB CHEMISTRY METHOD 01/28/2025 9:40 AM EDT [facility] Mean Bld Glu Estim. 151 mg/dL LAB CHEMISTRY METHOD 01/28/2025 9:40 AM [facility] Blood Venous blood specimen / Unknown Venipuncture / Unknown 01/25/2025 10:54 AM EDT 01/25/2025 10:54 AM EDT us Carisa CHIN LAB BLOOD ORDERABLES Final Resul t [facility] [address] [place] [address], [place] [phone] * (ABNORMAL) Basic metabolic panel (01/25/2025 10:54 AM EDT) Sodium 143 133 - 145 mmol/L LAB CHEMISTRY METHOD 01/25/2025 12:47 PM [facility] Potassium 4.3 3.5 - 5.5 mmol/L LAB CHEMISTRY METHOD 01/25/2025 12:47 PM [facility] Chloride 112(H) 96 - 110 mmol/L LAB CHEMISTRY METHOD 01/25/2025 12:47 PM [facility] CO2 23 21 - 32 mmol/L LAB CHEMISTRY METHOD 01/25/2025 12:47 PM [facility] Anion Gap 8 3 - 11 LAB CHEMISTRY METHOD 01/25/2025 12:47 PM [facility] Glucose 155(H) 70 - 100 mg/dL LAB CHEMISTRY METHOD 01/25/2025 12:47 PM [facility] BUN 27(H) 5 - 25 mg/dL LAB CHEMISTRY METHOD 01/25/2025 12:47 PM [facility] Creatinine 1.57(H) 0.70 - 1.30 mg/dL LAB CHEMISTRY METHOD 01/25/2025 12:47 PM [facility] eGFR 50(L) >=60 mL/min/1. 73m2 LAB CHEMISTRY METHOD 01/25/2025 12:47 PM EDT [facility] Comment:Calculation based on the Chronic Kidney Disease Epidemiology Collaboration (CKD-EPI) equation refit without adjustment for race. BUN/Creatinine Ratio 17.2 LAB CHEMISTRY METHOD 01/25/2025 12:47 PM EDT [facility] Calcium 8.3(L) 8.5 - 10.5 mg/dL LAB CHEMISTRY METHOD 01/25/2025 12:47 PM EDT [facility] Blood Venous blood specimen / Unknown Venipuncture / Unknown 01/25/2025 10:54 AM EDT 01/25/2025 10:54 AM EDT Gumaro Lan NP LAB BLOOD ORDERABLES Final R esult [facility] [address] [place] [address], * External CT Report (01/21/2025) Only the most recent of3 resultswithin the time period is included. Anatomical Region Laterality Modality Computed Tomogra phy Provider [facility] CT PROCEDURES Final Result * COLONOSCOPY Anesthesia - MAC; [facility] ENDOSCOPY (11/15/2024 9:35 AM EDT) Anatomical Region Laterality Modality Endoscopy 11/15/2024 9:15 AM EDT Impressions 11/15/2024 9:38 AM EDT - Five 3 to 7 mm polyps in the descending colon, in the transverse colon and in the cecum, removed with a cold snare. Resected and retrieved. - Internal hemorrhoids. - The examination was otherwise normal. Recommendation: - Discharge patient to home. - Await pathology results. - Repeat colonoscopy in 3 years for surveillance. Narrative 11/15/2024 9:38 AM EDT [facility] Patient Name: Kathleen Salter Procedure Date: [...] the procedure, a History and Physical was performed, and patient medications and allergies were reviewed. The patient is competent. The risks and benefits of the procedure and the sedation options and risks were discussed with the patient. All questions were answered and informed consent was obtained. Patient identification and proposed procedure were verified by the physician, the nurse, the project technician and the ophthalmology surgical technician in the pre-procedure area in the endoscopy suite. Mental Status Examination: alert and oriented. Airway Examination: normal oropharyngeal airway and neck mobility. Respiratory Examination: clear to auscultation. CV Examination: normal. Prophylactic Antibiotics: The patient does not require prophylactic antibiotics. Prior Anticoagulants: The patient has taken no anticoagulant or antiplatelet agents. ASA Grade Assessment: III - A patient with severe systemic disease. After reviewing the risks and benefits, the patient was deemed in satisfactory condition to undergo the procedure. The anesthesia plan was to use monitored anesthesia care (MAC). Immediately prior to administration of medications, the patient was re-assessed for adequacy to receive sedatives. The heart rate, respiratory rate, oxygen saturations, blood pressure, adequacy of pulmonary ventilation, and response to care were monitored throughout the procedure. The physical status of the patient was re-assessed after the procedure. After I obtained informed consent, the scope was passed under direct vision. Throughout the procedure, the patient's blood pressure, pulse, and oxygen [...] colon and cecum. The polyps were 3 to 7 mm in size. These polyps were removed with a cold snare. Resection and retrieval were complete. Estimated blood loss was minimal. Internal hemorrhoids were found during retroflexion. The hemorrhoids were Grade I (internal hemorrhoids that do not prolapse). The exam was otherwise without abnormality. Procedure Code(s): --- Professional --- 00269, Colonoscopy, flexible; with removal of tumor(s), polyp(s), or other lesion(s) by snare technique Diagnosis Code(s): --- Professional --- D12.4, Benign neoplasm of descending colon D12.3, Benign neoplasm of transverse colon (hepatic flexure or splenic flexure) D12.0, Benign neoplasm of cecum CPT copyright 2020 [employer]. All rights reserved. The codes documented in this report are preliminary and upon relations manager review may be revised to meet current compliance requirements. Sameer Hanson MD 11/15/2024 9:38:16 AM This report has been signed electronically.Sameer Hanson MD Number of Addenda: 0 Note Initiated On: 11/15/2024 9:15 AM Scope Withdrawal Time: 0 hours 12 minutes 46 seconds Scope In: 9:18:29 AM Scope Out: 9:33:10 AM Endoscopy Department at [facility] - [address] [place] [phone] Procedure Note Sameer Hanson MD - 11/15/2024 [facility] GI Patient Name: Kathleen Salter Procedure Date: [...] the physician, the nurse, theanesthetist and the ophthalmology surgical technician in the pre-procedure area in the [...] without abnormality. Procedure Code(s): --- Professional --- 67824, Colonoscopy, flexible; with removal of tumor(s), polyp(s), or other lesion(s) by snare technique Diagnosis Code(s): --- Professional --- D12.4, Benign neoplasm of descending colon D12.3, Benign neoplasm of transverse colon (hepatic flexure or splenic flexure) D12.0, Benign neoplasm of cecum CPT copyright 2020 [employer]. All rights reserved. The codes documented in this report are preliminary and upon relations manager reviewmay be revised to meet current compliance requirements. Sameer Hanson MD 11/15/2024 9:38:16 AM This report has been signed electronically.Sameer Hanson MD Number of Addenda: 0 Note Initiated On: 11/15/2024 9:15 AM Scope Withdrawal Time: 0 hours 12 minutes 46 seconds Scope In: 9:18:29 AM Scope Out: 9:33:10 AM Endoscopy Department at [address] [phone] IMPRESSION: - Five 3 to 7 mm polyps in the descending colon, in the transverse colon and in the cecum, removed witha cold snare. Resected and retrieved. - Internal hemorrhoids. - The examination was otherwise normal. Recommendation: - Discharge patient to home. - Await pathology results. - Repeat colonoscopy in 3 years for surveillance. Result [facility] Sameer Hanson MD GI~PROCEDURE ORDERABLES Fin al Result * Urine Albumin Creatinine Ratio (03/28/2024) [facility] Urine Albumin Creatinine Ratio abstracted Result [facility] Provider HEALTH MAINTENANCE Final Result * Diabetes Foot Exam (03/13/2024) [facility] Diabetes: Annual Foot Exam abstracted Result [facility] Provider HEALTH MAINTENANCE Final Result * (ABNORMAL) Lipid panel (11/26/2023) [facility] LDL/HDL Ratio 4 0 - 4 Triglycerides 175(A) 0 - 150 mg/dL Cholesterol 166 0 - 200 mg/dL HDL 38(A) >=40 mg/dL LDL Cholesterol 93 0 - 100 mg/dL Blood Venous blood specimen / Unknown Result [facility] Provider LAB BLOOD ORDERABLES Saida l Result * Diabetes Eye Exam (11/25/2023) [facility] Diabetes: Annual Retina Eye Exam abstracted Result [facility] Provider HEALTH MAINTENANCE Final Result * Depression Screening (09/14/2023) Depression Screening abstracted us Historical Provider HEALTH MAINTENANCE Final Result * Hepatitis C Screening (01/11/2007) Hepatitis C Screening abstracted us Historical Provider HEALTH MAINTENANCE Final Result from Last 3 Months or Most Recently Relevant to Health Maintenance Insurance MEDICARE [place]ICA[place] - [place] Advance Directives Documents on File Type Date Recorded Patient Injection Molding Machine Setter Expl anation Health Care Decision (hx) 02/24/2014 [...] (hx) 02/23/2014 AD VALENCIA DIRECTIVE Care Teams Superintendent Pressure Relationship Specialty Start Date End Date Rodger Dia MD [address] [place] [address] PCP - General 02/10/11
--- OUTSIDE RECORDS SUMMARY | 2025-03-08 09:51 | XMS_ITS ---
Author Name [facility] Organization Unknown Results Test Name/Text Value Interpretation Date Range Source POC Glucose 201.0 mg/dL Above high normal 01/23/2025 65 - 99 [facility] Cyclosporin Bld-mCnc 621.0 ng/mL 01/23/2025 [facility] Tme Last Dose 1700.0 01/23/2025 [facility] Est. average glucose Bld gHb Est-mCnc 166.0 mg/dL 01/23/2025 [facility] Hgb A1c MFr Bld 7.4 % Above high normal 01/23/2025 - 5.7 [facility] Albumin/Glob SerPl 1.5 Ratio 01/23/2025 1 - 3 [facility] Bilirub SerPl-mCnc 1.0 mg/dL 01/23/2025 0.2 - 1 [facility] ALT SerPl-cCnc 11.0 U/L 01/23/2025 10 - 55 [facility] T Albumin SerPl-mCnc 3.3 g/dL Below low normal 01/23/2025 3.5 - 5 [facility] Bilirub Direct SerPl-mCnc 0.3 mg/dL Above high normal 01/23/2025 0 - 0.2 [facility] Globulin Ser Calc-mCnc 2.2 g/dL 01/23/2025 1.5 - 3.9 [facility] Prot SerPl-mCnc 5.5 g/dL Below low normal 01/23/2025 6.3 - 8.3 [facility] ALP SerPl-cCnc 71.0 U/L 01/23/2025 45 - 128 [facility] T AST SerPl-cCnc 21.0 U/L 01/23/2025 10 - 55 [facility] T POC Glucose 271.0 mg/dL Above high normal 01/23/2025 65 - 99 [facility] POC Glucose 319.0 mg/dL Above high normal 01/23/2025 65 - 99 [facility] POC Glucose 185.0 mg/dL Above high normal 01/23/2025 65 - 99 [facility] POC Glucose 217.0 mg/dL Above high normal 01/22/2025 65 - 99 [facility] AST SerPl-cCnc 16.0 U/L 01/22/2025 10 - 55 [facility] T Albumin/Glob SerPl 1.5 Ratio 01/22/2025 1 - 3 [facility] Globulin Ser Calc-mCnc 2.4 g/dL 01/22/2025 1.5 - 3.9 [facility] Bilirub SerPl-mCnc 1.1 mg/dL Above high normal 01/22/2025 0. 2 - 1 [facility] Prot SerPl-mCnc 6.1 g/dL Below low normal 01/22/2025 6.3 - 8.3 [facility] Albumin SerPl-mCnc 3.7 g/dL 01/22/2025 3.5 - 5 [facility] ALT SerPl-cCnc 10.0 U/L 01/22/2025 10 - 55 [facility] T Bilirub Direct SerPl-mCnc 0.4 mg/dL Above high normal 01/22/2025 0 - 0.2 [facility] ALP SerPl-cCnc 83.0 U/L 01/22/2025 45 - 128 [facility] T Potassium SerPl-sCnc 5.2 mmol/L 01/22/2025 3.4 - 5 .3 [facility] CO2 SerPl-sCnc 20.0 mmol/L Below low normal 01/22/2025 22 - 33 [facility] BUN SerPl-mCnc 32.0 mg/dL Above high normal 01/22/2025 8 - 2 1 [facility] Creat SerPl-mCnc 1.5 mg/dL Above high normal 01/22/2025 0.5 - 1.3 [facility] GFR/BSA.pred SerPlBld SXD-FLW-XmOTpv 53.0 Below low normal 01/22/2025 59 - [facility]CT Chloride SerPl-sCnc 107.0 mmol/L 01/22/2025 98 - 1 07 [facility] BUN/Creat SerPl 21.0 Ratio 01/22/2025 10 - 25 HH CCT Anion Gap Bld-sCnc 9.0 01/22/2025 7 - 17 [facility] Calcium SerPl-mCnc 9.3 mg/dL 01/22/2025 8.7 - 10.5 [facility] Glucose SerPl-mCnc 244.0 mg/dL Above high normal 01/22/2025 65 - 99 [facility] Sodium SerPl-sCnc 136.0 mmol/L 01/22/2025 136 - 14 5 [facility] POC Glucose 286.0 mg/dL Above high normal 01/22/2025 65 - 99 [facility] POC Glucose 367.0 mg/dL Above high normal 01/22/2025 65 - 99 [facility] Cyclosporin Bld-mCnc 60.0 ng/mL 01/22/2025 [facility] Tme Last Dose 1700.0 01/22/2025 [facility] AST SerPl-cCnc 14.0 U/L 01/22/2025 10 - 55 [facility] T Albumin SerPl-mCnc 3.7 g/dL 01/22/2025 3.5 - 5 [facility] Albumin/Glob SerPl 1.5 Ratio 01/22/2025 1 - 3 [facility] Globulin Ser Calc-mCnc 2.4 g/dL 01/22/2025 1.5 - 3.9 [facility]CT Bilirub Direct SerPl-mCnc 0.4 mg/dL Above high normal 01/22/2025 0 - 0.2 [facility]CT ALT SerPl-cCnc 7.0 U/L Below low normal 01/22/2025 10 - 55 [facility]CT Bilirub SerPl-mCnc 1.3 mg/dL Above high normal 01/22/2025 0. 2 - 1 [facility] Prot SerPl-mCnc 6.1 g/dL Below low normal 01/22/2025 6.3 - 8.3 [facility] ALP SerPl-cCnc 86.0 U/L 01/22/2025 45 - 128 [facility] T Phosphate SerPl-mCnc 2.3 mg/dL Below low normal 01/22/2025 2 .7 - 4.5 [facility] Glucose SerPl-mCnc 330.0 mg/dL Above high normal 01/22/2025 65 - 99 [facility] Potassium SerPl-sCnc 5.7 mmol/L Above high normal 01/22/2025 3.4 - 5.3 [facility] Anion Gap Bld-sCnc 11.0 01/22/2025 7 - 17 [facility] Chloride SerPl-sCnc 105.0 mmol/L 01/22/2025 98 - 1 07 [facility]CT Calcium SerPl-mCnc 9.2 mg/dL 01/22/2025 8.7 - 10.5 [facility]CT Creat SerPl-mCnc 1.4 mg/dL Above high normal 01/22/2025 0.5 - 1.3 [facility]CT BUN SerPl-mCnc 29.0 mg/dL Above high normal 01/22/2025 8 - 2 1 [facility]CT Sodium SerPl-sCnc 135.0 mmol/L Below low normal 01/22/2025 1 36 - 145 [facility]CT BUN/Creat SerPl 21.0 Ratio 01/22/2025 10 - 25 HH CCT CO2 SerPl-sCnc 19.0 mmol/L Below low normal 01/22/2025 22 - 33 [facility]CT GFR/BSA.pred SerPlBld [id number]-[id number]-[id number] 58.0 Below low normal 01/22/2025 59 - HHCCT Magnesium SerPl-mCnc 1.9 mg/dL 01/22/2025 1.6 - 2. 7 [facility]CT Eosinophil/leuk NFr Bld Auto 0.3 % 01/22/2025 [facility] MCV RBC Auto 90.0 fL 01/22/2025 80 - 100 [facility] Basophils num Bld Auto 0.01 Thou/uL 01/22/2025 0 - 0.2 [facility]CT Eosinophil num Bld Auto 0.02 Thou/uL 01/22/2025 0 - 0.7 [facility]CT Lymphocytes num Bld Auto 0.52 Thou/uL Below low normal 01/22/2025 1.5 - 4.5 H[facility]CT Imm Granulocytes num Bld Auto 0.01 Thou/uL 01/22/2025 0 - 0.1 [facility]CT Monocytes/leuk NFr Bld Auto 2.1 % 01/22/2025 H[facility]CT Hct VFr Bld Auto 39.6 % 01/22/2025 39 - 54 HH CCT Immature Platelet Fraction 2.7 % 01/22/2025 1.2 - 8.6 [facility]CT MCH RBC Qn Auto 30.2 pg 01/22/2025 27 - [address] RBC num Bld Auto 4.4 Mil/uL Below low normal 01/22/2025 4.5 - 6.2 [facility] RDW RBC Auto-Rto 12.0 % 01/22/2025 11.5 - 14.5 [facility] Monocytes num Bld Auto 0.14 Thou/uL Below low normal 01/22/2025 0.2 - 1.5 [facility]CT PMV Bld Auto 11.2 fL 01/22/2025 7.5 - 12.5 [facility] Imm Granulocytes/leuk NFr Bld Auto 0.2 % 01/22/2025 H[facility]CT MCHC RBC Auto-mCnc 33.6 g/dL 01/22/2025 30 - 36 [facility] WBC num Bld Auto 6.5 Thou/uL 01/22/2025 4 - 11 [facility]CT Neutrophils num Bld Auto 5.83 Thou/uL 01/22/2025 2 - 7.5 [facility]CT Lymphocytes/leuk NFr Bld Auto 8.0 % 01/22/2025 CCT Platelet num Bld Auto 84.0 Thou/uL Below low normal 01/23/20 25 150 - 450 [facility] Hgb Bld-mCnc 13.3 g/dL 01/22/2025 13 - 17.7 [facility]CT Neutrophils/leuk NFr Bld Auto 89.2 % 01/22/2025 CCT Basophils/leuk NFr Bld Auto 0.2 % 01/22/2025 CCT Basophils num Bld Auto 0.02 Thou/uL 01/22/2025 0 - 0.2 CCT Basophils/leuk NFr Bld Auto 0.3 % 01/22/2025 CCT MCV RBC Auto 91.0 fL 01/22/2025 80 - 100 [facility] MCHC RBC Auto-mCnc 33.7 g/dL 01/22/2025 30 - 36 [facility] Neutrophils/leuk NFr Bld Auto 74.9 % 01/22/2025 CCT Eosinophil/leuk NFr Bld Auto 1.8 % 01/22/2025 CCT Imm Granulocytes/leuk NFr Bld Auto 0.3 % 01/22/2025 [facility]CT Lymphocytes num Bld Auto 1.04 Thou/uL Below low normal 01/22/2025 1.5 - 4.5 [facility]CT Eosinophil num Bld Auto 0.12 Thou/uL 01/22/2025 0 - 0.7 [facility]CT MCH RBC Qn Auto 30.5 pg 01/22/2025 27 - [address] WBC num Bld Auto 6.8 Thou/uL 01/22/2025 4 - 11 [facility] RDW RBC Auto-Rto 12.3 % 01/22/2025 11.5 - 14.5 [facility]CT Lymphocytes/leuk NFr Bld Auto 15.2 % 01/22/2025 H[facility]CT Hct VFr Bld Auto 40.4 % 01/22/2025 39 - 54 HH CCT Monocytes num Bld Auto 0.51 Thou/uL 01/22/2025 0.2 - 1.5 [facility]CT RBC num Bld Auto 4.46 Mil/uL Below low normal 01/22/2025 4.5 - 6.2 [facility] Platelet num Bld Auto 83.0 Thou/uL Below low normal 01/23/20 25 150 - 450 [facility] Neutrophils num Bld Auto 5.11 Thou/uL 01/22/2025 2 - 7.5 [facility]CT Immature Platelet Fraction 4.2 % 01/22/2025 1.2 - 8.6 [facility]CT PMV Bld Auto 11.4 fL 01/22/2025 7.5 - 12.5 H[facility]CT Hgb Bld-mCnc 13.6 g/dL 01/22/2025 13 - 17.7 [facility] Imm Granulocytes num Bld Auto 0.02 Thou/uL 01/22/2025 0 - 0.1 [facility] Monocytes/leuk NFr Bld Auto 7.5 % 01/22/2025 H[facility]CT Magnesium SerPl-mCnc 2.0 mg/dL 01/22/2025 1.6 - 2. 7 [facility] GFR/BSA.pred SerPlBld RTD-QLJ-BdSLnx 63.0 01/22/2025 59 - HHCCT Calcium SerPl-mCnc 9.2 mg/dL 01/22/2025 8.7 - 10.5 H[facility]CT ALT SerPl-cCnc 13.0 U/L 01/22/2025 10 - 55 [facility] T BUN SerPl-mCnc 26.0 mg/dL Above high normal 01/22/2025 8 - 2 1 [facility]CT Creat SerPl-mCnc 1.3 mg/dL 01/22/2025 0.5 - 1.3 HH CCT Potassium SerPl-sCnc 5.0 mmol/L 01/22/2025 3.4 - 5 .3 [facility]CT Prot SerPl-mCnc 6.2 g/dL Below low normal 01/22/2025 6.3 - 8.3 H[facility]CT Glucose SerPl-mCnc 247.0 mg/dL Above high normal 01/22/2025 65 - 99 [facility] Albumin/Glob SerPl 1.6 Ratio 01/22/2025 1 - 3 [facility]CT Chloride SerPl-sCnc 106.0 mmol/L 01/22/2025 98 - 1 07 [facility]CT Albumin SerPl-mCnc 3.8 g/dL 01/22/2025 3.5 - 5 [facility]CT ALP SerPl-cCnc 82.0 U/L 01/22/2025 45 - 128 [facility] T Globulin Ser Calc-mCnc 2.4 g/dL 01/22/2025 1.5 - 3.9 H[facility]CT Sodium SerPl-sCnc 136.0 mmol/L 01/22/2025 136 - 14 5 H[facility]CT Bilirub SerPl-mCnc 1.1 mg/dL Above high normal 01/22/2025 0. 2 - 1 H[facility]CT AST SerPl-cCnc 15.0 U/L 01/22/2025 10 - 55 [facility] T BUN/Creat SerPl 20.0 Ratio 01/22/2025 10 - 25 HH CCT Anion Gap Bld-sCnc 11.0 01/22/2025 7 - 17 [facility] CO2 SerPl-sCnc 19.0 mmol/L Below low normal 01/22/2025 22 - 33 [facility]CT Lactate SerPl-sCnc 1.5 mmol/L 01/22/2025 0.5 - 1.9 HHCCT INR PPP 1.0 01/22/2025 [facility]CT Prothrombin time 11.8 seconds 01/22/2025 10 - 13.5 [facility] Anticoagulant NO ANTI COAGULANT MEDS 01/22/2025 [facility] Encounters Encounter Type Encounter Reason Primary Diagnosis Location Date Inpatient Unspecified intestinal obstruction, unspecified as to partial versus complete obstruction Unspecified intestinal obstruction, unspecified as to partial versus complete obstruction [facility] 01/21/2025 Care Team Organization Name Specialty Phone Email Start Date End Da carmen [facility] 01/22/2025 02/21/2025 [facility] 01/21/2025
[2025-03-08 10:07] LABS: Appearance Urine Clear; Glucose Urine UA >=1000 mg/dL (Negative); PH 6.0 (5.0-9.0); Specific Gravity - Urine 1.020 (1.005-1.025); UMIC TRIGGER UACC YES
[2025-03-08 10:55] LABS: Glucose, Whole Blood 335 mg/dL (60-115)
[2025-03-08 10:55] LABS: Glucose, Whole Blood 399 mg/dL (60-115)
[2025-03-08 11:38] VITALS: RESP 18
[2025-03-08 11:59] VITALS: BP 145/78; PULSE 88; RESP 18; TEMP 36.8; O2SAT 98
--- NOTE | 2025-03-08 12:16 | PC.NURSE ---
NGT iinserted- pt tolerated well. small amount pink tinged clr drainage out
[2025-03-08 12:32] LABS: Anion Gap 12 (12-20); Blood Urea Nitrogen 35 mg/dL (9-16); Calcium 8.8 mg/dL (8.4-10.2); Carbon Dioxide 22 mmol/L (22-29); Chloride 106 mmol/L (96-108); Creatinine Clr Calc Pharmacy 59.0; Estimated Glomerular Filt Rate 48; Potassium 5.1 mmol/L (3.3-5.1); Sodium 135 mmol/L (135-145)
--- NOTE | 2025-03-08 13:32 | PC.NURSE ---
Provider made aware of all POC glucose readings. No new orders received.
--- NOTE | 2025-03-08 13:38 | PC.NURSE ---
Report called to Marquise ARMENTA at [facility]. Pt remains A&O X4 VSS NAD NGT draining 75 mL dark green liquid. Secured per protocol.
--- NOTE | 2025-03-08 13:45 | PC.NURSE ---
Pt transferred to care of EMS. VSS NAD no complaints. NGT remains in place. IVF infusing as ordered. Bilat AC IV sites patent and nonsymptomatic.
[2025-03-08 13:46] VITALS: BP 145/78; PULSE 88; RESP 18; TEMP 36.8; O2SAT 98
== END 2025-03-08 13:48 | disposition short-term general hospital (02) ==
PROVIDERS: Emergency Provider Emergency Medicine Emergency Medical Services; PCP Internal Medicine
DX: E87.5 Hyperkalemia (principal); K56.699 Other intestinal obstruction unspecified as to partial versus complete obstruction; N28.9 Disorder of kidney and ureter, unspecified; R06.02 Shortness of breath; R10.31 Right lower quadrant pain; K43.2 Incisional hernia without obstruction or gangrene; Z79.4 Long term (current) use of insulin; Z79.02 Long term (current) use of antithrombotics/antiplatelets; Z79.899 Other long term (current) drug therapy
CPT/HCPCS: 36415; 71045; 74177; 80048; 80053; 81001; 82248; 82803; 82947; 83605; 83690; 83735; 84484; 85025; 85610; 93005; 96361; 96374; 96375; 99285; 99291; 99292; J1171; J2405; Q9967

== ENCOUNTER → 2025-03-08 08:17 | Outpatient (BNV) | payer MEDICARE, MEDICAID, SELFPAY | PROVIDERS: Emergency Provider Emergency Medicine Emergency Medical Services; PCP Internal Medicine; Visit Provider Internal Medicine Cardiovascular Disease | DX: R10.31 Right lower quadrant pain (principal) | CPT/HCPCS: 93010 ==

== ENCOUNTER → 2025-03-08 08:56 | Outpatient (BNV) | payer MEDICARE, MEDICAID, SELFPAY | PROVIDERS: Emergency Provider Emergency Medicine Emergency Medical Services; PCP Internal Medicine; Visit Provider Radiology Diagnostic Radiology | DX: K43.6 Other and unspecified ventral hernia with obstruction, without gangrene (principal); Z46.59 Encounter for fitting and adjustment of other gastrointestinal appliance and device | CPT/HCPCS: 71045 ==

== ENCOUNTER 2025-06-05 09:11 | Outpatient (AMB) | payer MEDICARE, MEDICAID, SELFPAY ==
--- NOTE | 2025-06-05 09:21 | MHC.OFFVIS ---
Vital Signs 06/05/25 09:23 Height 5 ft 5 in Weight 210 lb BMI 34.9 Intake Visit Reasons: OV-right shoulder pain Intake Note: Tavon is a 60 year old male who presents with complaints of intermittent pain in his right shoulder. He continues with his home stretching program. He reports mild weakness when lifting his right hand above shoulder height. The patient states that his symptoms have remained steady over the last 6 months. Allergies No Known Allergies Allergy (Verified 06/05/25 09:24) Medication List - Last Reconciled 06/05/25 by Harpal Franklin MD clotrimazole 1% (Antifungal (clotrimazole)) 1 appl topical BID 2 weeks cyclosporine modified 50 mg PO BID hydrocortisone 2.5% 1 appl topical BID PRN hydroxyzine HCl 25 mg PO QID PRN insulin detemir U-100 (Levemir FlexTouch U-100 Insulin) units subcut insulin glargine (Lantus Solostar U-100 Insulin) units subcut insulin lispro (Humalog KwikPen (U-100) Insulin) subcut lisinopril 5 mg PO DAILY pen needle, diabetic (BD Ultra-Fine Mini Pen Needle) As directed permethrin 5% 1 appl topical Q14D 2 doses pravastatin 20 mg PO DAILY PFSH Medical History (Updated 03/09/25 @ 00:00 by Ashley Townsend) Incisional hernia following transplant Flu-like symptoms Social History Alcohol intake: never Patient Tobacco Use Status: Never used Tobacco Current occupational status: unemployed Current occupation: rt handed Physical Exam Vital Signs: BMI result Body Mass Index 34.9 Const Other: Well-nourished well-developed very friendly male awake alert and oriented x3 in no acute distress Extrem Other: Right shoulder examination shows full range of motion when compared to his left shoulder, 4/5 strength with supraspinatus testing, positive impingement signs, no instability Results Reviewed Results Reviewed: MRI of the patient's right shoulder show severe acromioclavicular joint narrowing, a type 2 acromion, a small tear of the supraspinatus tendon Assessment & Plan Assessment & Plan (1) Rotator cuff insufficiency of right shoulder: Code(s): M25.311 - Other instability, right shoulder Category: Medical Plan Mr. Black presents with intermittent right shoulder discomfort due to impingement syndrome, acromioclavicular joint arthritis and a small rotator cuff tear. I had a lengthy discussion with the patient regarding the treatment options. At this point the patient's symptoms are tolerable to him. He will continue with his home stretching program. The do's and don'ts of lifting were discussed at length with the patient. He will follow up with me on an as-needed basis should his symptoms worsen in any way. I spent 21 minutes in reviewing the patient's records and imaging studies, seeing the patient and documenting in the medical record. Coding Level of Care Code Est Pt Level 3 (14592) Complex EM visit Add On G2211 Diagnoses Rotator cuff insufficiency of right shoulder M25.311
[2025-06-05 09:23] VITALS: BMI 34.9
--- OUTSIDE RECORDS SUMMARY | 2025-06-05 09:55 | XMS_ITS | Clinical Summary ---
Author Organization [facility] Address [address] [place] [address] Care Team Providers Care Criminology Teacher Name Role Phone Rodger Dia MD [...] Noted Date Diagnosed Date Bowel obstruction 01/21/2025 Social History Tobacco Use Types Packs/Day Years Used Date Smoking Tobacco: Never Passive Smoke Exposure: Never Smokeless Tobacco: Never Tobacco Cessation:Counseling Given: No Alcohol Use Standard Drinks/Week Comments Never 0 (1 standard drink = 0.6 oz pur e alcohol) [facility] Utilities Answer Date Recorded In the past 12 months has [facility] [employer], [facility] [employer], or [facility] [facility] threatened to shut off services in your [...] any time in the past 12 m [facility], were you homeless or living in a penitentiary (including now)? No 01/22/2025 Sex and Gender [...] Vaccine (1 of 2) 1983 Colonoscopy 2009 RSV Vaccine 60 years and older and Patients (1 - Risk 60-74 years 1-dose series) 2024 Influenza Vaccine 04/06/2025 05/10/2024, , 05/12/2023, Additional history exists COVID-19 Vaccine ( season) 2025 05/29/2022, 01/27/2022, 04/24/2021, Additional history exists Hepatitis B Vaccines Aged Out No long er eligible based on patient's age to complete this topic Insurance [facility] MEDIC[facility] PART A & B Advance Directives * Full Code (Latest Code Status on File) Date Activated Date Inactivated Comments 01/21/2025 10:37 PM Care Teams Criminology Teacher Relationship Specialty Start Date End Date Rodger Dia MD PCP - General 01/23/25
--- OUTSIDE RECORDS SUMMARY | 2025-06-05 09:55 | XMS_ITS | Clinical Summary ---
Author Organization [address] Address [address] [place] [phone] Phone Care Team Providers Care Technician Terminal And Repeater Name Role Phone Rodger Dia MD Primary Care Provider [phone] Allergies No known active allergies Medications pen needle, diabetic (PEN NEEDLE MISC) USE THREE TIMES DAILY WITH INSULIN 07/05/20 23 Active cycloSPORINE modified (NEORAL) 25 mg capsule Take 3 capsules (75 mg total) by mouth 2 (two) times a day. Transplant Team in [place] prescribe. He had a liver Transplant. Active [...] units , 351-400: 20 units >400: call va. 21 units. 30 mL 2 07/25/20 24 Active BD Ultra-Fine Short Pen Needle 31 gauge x 5/16 needleIndications: Diabetic polyneuropathy associated with diabetes mellitus due to underlying condition (CMS/HCC V24, CMS/[facility] V28) USE DIRECTED TO INJECT INSULIN 3 TIMES A DAY. 100 each 3 10/25/19 25 Active Lantus Solostar U-100 Insulin 100 unit/mL (3 mL) injection pen Inject 14 Units under the skin at bedtime. 10/20/19 25 Active lisinopriL (PRINIVIL,ZESTRIL) 5 mg tablet TAKE 1 TABLET BY MOUTH 1 TIME EACH DAY. 90 tablet 04/06/20 25 Active pravastatin (PRAVACHOL) 20 mg tablet Take 1 tablet (20 mg total) by mouth 1 (one) time each day. 90 tablet 1 05/29/20 25 Active pravastatin (PRAVACHOL) 20 mg tablet Take 1 tablet (20 mg total) by mouth 1 (one) time each day. 90 tablet 1 12/19/19 25 025 Discontin ued(Reord er) Active Problems Problem Noted Date Diagnosed Date S/P liver transplant ([facility] V24, [facility] V28) 04/26/2025 History of sepsis 04/26/2025 History of small bowel obstruction 04/26/2025 Diabetic ketoacidosis withou t coma associated with diabetes mellitus due to underlying condition [place] [place], [facility] V28) 04/26/2025 Supraspinatus tendon tear 12/07/2024 Overview (12/07/2024): Follows [...] 3, GFR 30-59 ml/min ([facility] V24, [facility] V28) 11/21/2019 Type II diabetes mellitus wi th peripheral circulatory disorder ([facility] [place], [facility] V28) 11/06/2019 Diabetic polyneuropathy asso ciated with diabetes mellitus due to underlying condition ([facility] [place], [facility] V28) 11/03/2019 Hypertension 05/09/2019 Assessment & Plan [...] Diabetes mellitus, type 2 ([facility] V24, [facility] V28) 07/01/2015 Assessment & Plan (10/16/2024 7:15 [...] varices without b leeding ([facility] V24, [facility] V28) 10/11/2013 Overview (06/14/2024): Large at EGD 2006 and 2013. Esophageal varices without mention of bleeding in diseases classified elsewhere Compression fracture of vert ebrae ([facility]/HCC V24, [facility] V28) 12/07/2010 Overview (06/14/2024): Vertebral T10 of uncertain age, noted incidental finding 11/09/2010. [facility]. Pancytopenia ([facility]/HCC V24, CMS/HCC V28) 12/02/19 11 Obesity (BMI 30-39.9) 12/04/2006 Portal hypertension ([facility]/HCC V24, [facility]/HCC V28) 0 12/04/2006 Overview (06/14/2024): See comment on cirrhosis of liver Encounters Date Type Department Care Team Description 05/29/2025 11:45 AM EDT Office Visit Adult Medicine [address] [place] [phone] Rodger Dia MD Upper respiratory tract infection, unspecified type (Primary Dx); Stage 3 chronic kidney disease, unspecified whether stage 3a or 3b CKD ([facility] V24, CMS/HCC V28); Obesity (BMI 30-39.9); Type 2 diabetes mellitus with stage 3 chronic kidney disease, without long-term current use of insulin, unspecified whether stage 3a or 3b CKD ([facility] V24, [facility] V28); Liver transplanted ([facility] V24, [facility] V28); History of small bowel obstruction 05/04/2025 Telephone Adult Medicine [address] [phone] Rodger Dia MD 04/26/2025 11:00 AM EDT Office Visit Adult [address] [phone] Rodger Dia MD History of small bowel obstruction (Primary Dx); History of sepsis; Diabetic ketoacidosis without coma associated with diabetes mellitus due to underlying condition ([facility]/HCC V24, [facility]28); S/P liver transplant ([facility] V24, [facility] V28) 03/26/2025 11:12 AM EDT - 03/26/2025 6:27 PM EDT Emergency [facility] Emergency [address] [place] [phone] Kg Wolfe MD Sepsis with acute renal failure without septic shock, due to unspecified organism, unspecified acute renal failure type ([facility] V24, [facility] V28) (Primary Dx); Hyperkalemia; Diabetic ketoacidosis without coma associated with type 2 diabetes mellitus ([facility]/HCC V24, CMS/[facility] V28); Acute lactic acidosis Discharge Disposition: Short Term Hospital from Last 3 Months Immunizations Immunization Administration Dates Next Due Hepatitis A Adult [...] HISTORY 03/30/2016 PROCEDURE: LIVER TRANSPLANT, HETEROTOPIC; COMMENT: [facility]. UPPER GASTROINTESTINAL ENDOSCOPY 10/11/2013 PROCEDURE: [place] UPPER [...] 05/14/2016 DX:Liver transplanted (HCC); COMMENT: 03/30/2016 at [facility]. CKD (chronic kidney disease) DX: CKD [...] Safety Answer Date Record ed Physical Abuse Unrecognized value 11/15/2024 Verbal Abuse Unrecognized value 11/15/2024 Sex and Gender Information Value Date Recorded Sex Assigned at Male 11/14/2024 9:31 AM EDT Legal Sex Male 11:01 AM EST Gender Identity Male 11/14/2024 9:31 AM EDT Sexual Orientation Straight 11/14/2024 9: 31 AM EDT Obstetrics History Last Filed Vital Signs Vital Sign Reading Time Taken Comments Blood Pressure 132/78 05/29/2025 11:41 AM EDT Pulse 90 05/29/2025 11:41 AM EDT Temperature 36.6 C (97.9 F) 05/29/2025 11:40 AM EDT Respiratory Rate 17 05/29/2025 11:40 AM EDT Oxygen Saturation 97% 05/29/2025 11:41 AM EDT Inhaled Oxygen Concentration - - Weight 96.6 kg (213 lb) 05/29/2025 11:40 AM EDT Height 165.1 cm (5' 5 ) 03/26/2025 9:54 AM EDT Body Mass Index 35.45 03/26/2025 9:54 AM EDT Plan of Treatment Upcoming Encounters Date Type Department Care Team (Late st Contact Info) Description 08/09/2025 8:00 AM EST Office Visit Endocrinology [address] [phone] Carisa Silverman PA [address] [place] [phone] 10/02/2025 9:45 AM EST Office Visit Adult Medicine [place] - [address] [phone] Rodger Dia MD [address] [place] [address] [phone] Health Maintenance Due Date Last Done Comments Zoster Vaccines (1 of 2) 1983 Medicare Annual Wellness Visit 08/15/2022 Social Influencers of Health Screening 08/15/2022 Diabetes: Annual Retina Eye Exam 11/24/2024 11/25/2023 Diabetes: Annual Foot Exam 03/13/2025 03/13/2024 COVID-19 Vaccine (7 - Moderna risk 2023- season) 2025 06/02/2024, 05/29/2022, 01/27/2022, Additional history exists Influenza Vaccine (#1) 2025 , 05/10/2024, 06/02/2023, Additional history exists Diabetes: Blood Sugar Control Test (HGBA1C) 11/25/2025 05/28/2025, 01/25/2025, 01/23/2025, Additional history exists Diabetes: Annual Urine Albumin-Creatinine Ratio (uACR) 05/28/2026 05/28/2025, 03/28/2024 Diabetes: Annual GFR (Glomerular Filtration Rate) 05/28/2026 05/28/2025, 03/26/2025, 03/26/2025, Additional history exists Hypertension/CHF/CAD Annual BMP Blood Test 05/28/2026 05/28/2025, 03/26/2025, 03/26/2025, Additional history exists Colorectal Cancer Screening: Colonoscopy 11/16/2027 11/15/2024, 10/18/2019 Cholesterol Screening (Lipid Panel) 05/28/2030 05/28/2025, 11/26/2023 DTaP,Tdap,and Td Vaccines (5 - Td or Tdap) 10/16/2034 10/16/2024, 01/16/2021, 01/16/2021, Additional history exists Hepatitis C Screening Completed 01/11/2007 Hepatitis A Vaccines Aged Out 05/02/2014 No long er eligible based on patient's age to complete this topic Hepatitis B Vaccines Discontinued 05/02/2014, 12/06/2013, 11/02/2013 RSV Immunization Adult Patients Completed 05/22/2024 Depression Screening Completed 10/16/2024, 09/14/19 24 Pneumococcal Vaccine: 50+ Years Completed 10/16/2024, 12/01/2010 HIB Vaccines Aged Out No [...] Procedure Name Priority Date/Time Associated Diagnosis Comments CBC WITH AUTO DIFFERENTIAL Routine 05/28/2025 7:44 AM EDT History of sepsis CBC AND DIFFERENTIAL Routine 05/28/2025 7:44 AM EDT History of sepsis COMPREHENSIVE METABOLIC PANEL Routine 05/28/2025 7:44 AM EDT Diabetic ketoacidosis without coma associated with diabetes mellitus due to underlying condition ([facility] V24, [facility] V28) S/P liver transplant ([facility] V24, [facility] V28) HEMOGLOBIN A1C Routine 05/28/2025 7:44 AM EDT Diabetic ketoacidosis without coma associated with diabetes mellitus due to underlying condition ([facility] V24, [facility] V28) LIPID PANEL WITH REFLEX TO DIRECT LDL Routine 05/28/2025 7:44 AM EDT Diabetic ketoacidosis without coma associated with diabetes mellitus due to underlying condition ([facility] V24, [facility] V28) MICROALBUMIN CREATININE URINE RATIO Routine 05/28/2025 7:44 AM EDT Type II diabetes mellitus with peripheral circulatory disorder ([facility] V24, [facility] V28) ECG ANNOTATED 03/29/2025 ECG ANNOTATED 03/28/2025 POCT GLUCOSE BLOOD Routine 03/26/2025 5: 07 PM EDT POCT GLUCOSE BLOOD Routine 03/26/2025 4: 07 PM EDT BASIC METABOLIC PANEL Timed 03/26/2025 3:50 PM EDT VENOUS BLOOD GAS Timed 03/26/2025 3:50 PM EDT POCT GLUCOSE BLOOD Routine 03/26/2025 3: 17 PM EDT XR CHEST 1 VIEW STAT 03/26/2025 3:05 PM EDT PROTHROMBIN TIME WITH INR STAT 03/26/2025 2:45 PM EDT ECG 12-LEAD STAT 03/26/2025 2:21 PM EDT POCT GLUCOSE BLOOD Routine 03/26/2025 2: 21 PM EDT BASIC METABOLIC PANEL Timed 03/26/2025 1:44 PM EDT LACTATE, WITH REFLEX Timed 03/26/2025 1:44 PM EDT POCT GLUCOSE BLOOD Routine 03/26/2025 1: 31 PM EDT CASTRO URINE CULTURE TUBE STAT 03/26/2025 1:22 PM EDT URINALYSIS WITH REFLEX MICROSCOPIC AND CULTURE STAT 03/26/2025 1:22 PM EDT URINALYSIS WITH REFLEX MICROSCOPIC AND CULTURE STAT 03/26/2025 1:[address] ABDOMEN PELVIS WO CONTRAST STAT 03/26/2025 1:13 PM EDT VENOUS BLOOD GAS CO-OXIMETRY STAT 03/26/2025 12:50 PM EDT VENOUS BLOOD GAS Timed 03/26/2025 12:5 0 PM EDT VENOUS BLOOD GAS STAT 03/26/2025 12:5 0 PM EDT POCT GLUCOSE BLOOD Routine 03/26/2025 12 :45 PM EDT ECG 12-LEAD STAT 03/26/2025 12:25 PM EDT LACTATE, WITH REFLEX STAT 03/26/2025 11:48 AM EDT BLOOD CULTURE PATHOGENS BY PCR Routine 03/26/2025 11:48 AM EDT CULTURE BLOOD STAT 03/26/2025 11:48 AM EDT CULTURE BLOOD STAT 03/26/2025 11:35 AM EDT PHOSPHORUS STAT Add-on 03/26/2025 10:35 AM EDT BETA HYDROXYBUTYRATE Add-On 03/26/2025 10:35 AM EDT CBC WITH AUTO DIFFERENTIAL STAT 03/26/2025 10:35 AM EDT LIPASE STAT 03/26/2025 10:35 AM EDT COMPREHENSIVE METABOLIC PANEL STAT 03/26/2025 10:35 AM EDT CBC AND DIFFERENTIAL STAT 03/26/2025 10:35 AM EDT EXTERNAL XRAY REPORT 03/08/2025 EXTERNAL XRAY REPORT 03/08/2025 EXTERNAL XRAY REPORT 03/08/2025 EXTERNAL XRAY REPORT 03/08/[address] REPORT 03/08/[address] REPORT 03/08/2025 COLONOSCOPY Routine 11/15/2024 9:35 AM EDT History of colon polyps DIABETES FOOT EXAM Routine 03/13/2024 DIABETES EYE EXAM Routine 11/25/2023 DEPRESSION SCREENING Routine 09/14/2023 HEPATITIS C SCREENING Routine 01/11/2007 from Last 3 Months or Most Recently Relevant to Health Maintenance Results * (ABNORMAL) Lipid panel with reflex to direct LDL (05/28/2025 7:44 AM EDT) [facility] Cholesterol 156 0 - 200 mg/dL LAB CHEMISTRY METHOD 05/28/2025 12:12 PM EDT [facility] Triglycerides 130 0 - 150 mg/dL LAB CHEMISTRY METHOD 05/28/2025 12:12 PM EDT [facility] HDL 37(L) >=40 mg/dL LAB CHEMISTRY METHOD 05/28/2025 12:12 PM EDT [facility] LDL Calculated 93 0 - 100 mg/dL LAB CHEMISTRY METHOD 05/28/2025 12:12 PM EDT [facility] Comment:Estimated LDL Calcul ated using equation: Total cholesterol - HDL cholesterol - (Triglycerides/5) VLDL Cholesterol Zain 26 mg/dL LAB CHEMISTRY METHOD 05/28/2025 12:12 PM EDT [facility] Non HDL Chol. (LDL+VLDL) 119 <145 mg/dL LAB CHEMISTRY METHOD 05/28/2025 12:12 PM EDT [facility] Chol/HDL Ratio 4.2 0.0 - 4.4 LAB CHEMISTRY METHOD 05/28/2025 12:12 PM EDT [facility] Blood Venous blood specimen / Unknown Venipuncture / Unknown 05/28/2025 7:44 AM EDT 05/28/2025 7:44 AM EDT us Rodger Dia MD LAB BLOOD ORDERABLES Final Resul t [facility] [address] [place] [address], * (ABNORMAL) CBC auto differential (05/28/2025 7:44 AM EDT) Only the most recent of2 resultswithin the time period is included. WBC 6.3 4.8 - 10.8 K/mcL LAB HEMETOLOGY METHOD 05/28/2025 11:39 AM EDT [facility] RBC 4.00(L) 4.50 - 5.50 M/mcL LAB HEMETOLOGY METHOD 05/28/2025 11:39 AM EDT [facility] Hemoglobin 12.3(L) 13.5 - 17.5 g/dL LAB HEMETOLOGY METHOD 05/28/2025 11:39 AM EDT [facility] Hematocrit 38.2(L) 42.0 - 54.0 % LAB HEMETOLOGY METHOD 05/28/2025 11:39 AM [facility] MCV 95.7 79.0 - 98.0 FL LAB HEMETOLOGY METHOD 05/28/2025 11:39 AM [facility] MCH 30.8 27.0 - 32.0 pcg LAB HEMETOLOGY METHOD 05/28/2025 11:39 AM [facility] MCHC 32.2 32.0 - 37.0 g/dL LAB HEMETOLOGY METHOD 05/28/2025 11:39 AM [facility] RDW 12.0 11.0 - 15.0 % LAB HEMETOLOGY METHOD 05/28/2025 11:39 AM [facility] Platelets 161 130 - 400 K/mcL LAB HEMETOLOGY METHOD 05/28/2025 11:39 AM [facility] MPV 12.1(H) 7.0 - 11.0 FL LAB HEMETOLOGY METHOD 05/28/2025 11:39 AM [facility] NRBC 0.0 <1.0 % LAB HEMETOLOGY METHOD 05/28/2025 11:39 AM [facility] NRBC Absolute 0.00 <0.10 K/mcL LAB HEMETOLOGY METHOD 05/28/2025 11:39 AM [facility] Neutrophils Relative 62.3 % LAB HEMETOLOGY METHOD 05/28/2025 11:39 AM [facility] Lymphocytes Relative 22.2 % LAB HEMETOLOGY METHOD 05/28/2025 11:39 AM [facility] Monocytes Relative 11.2 % LAB HEMETOLOGY METHOD 05/28/2025 11:39 AM [facility] Eosinophils Relative 3.5 % LAB HEMETOLOGY METHOD 05/28/2025 11:39 AM EDT [facility] Basophils Relative 0.3 % LAB HEMETOLOGY METHOD 05/28/2025 11:39 AM EDT [facility] Immature Granulocytes Relative 0.5 % LAB HEMETOLOGY METHOD 05/28/2025 11:39 AM EDT [facility] Neutrophils Absolute 3.94 1.50 - 7.00 K/mcL LAB HEMETOLOGY METHOD 05/28/2025 11:39 AM EDT [facility] Lymphocytes Absolute 1.40 1.00 - 5.00 K/mcL LAB HEMETOLOGY METHOD 05/28/2025 11:39 AM EDT [facility] Monocytes Absolute 0.71 0.20 - 1.00 K/mcL LAB [facility]EM[facility]OLOGY [facility] Eosin[facility] Absolute 0.22 0.00 - 0.50 K/mcL LAB HEMETOLOGY METHOD 05/28/2025 11:39 AM EDT [facility] Basophils Absolute 0.02 0.00 - 0.20 K/mcL LAB HEMETOLOGY METHOD 05/28/2025 [facility] Immature Granulocytes Absolute 0.03 0.00 - 0.03 K/mcL LAB HEMETOLOGY METHOD 05/28/2025 11:39 AM T [facility] Blood Venous blood specimen / Unknown Venipuncture / Unknown 05/28/2025 7:44 AM EDT 05/28/2025 7:44 AM EDT us Rodger Dia MD LAB BLOOD ORDERABLES Final Resul t [facility] [address] [place] [address], * Microalbumin creatinine urine ratio (05/28/2025 7:44 AM EDT) Creatinine, Urine 130.0 mg/dL LAB CHEMISTRY METHOD 05/28/2025 1:59 PM EDT [facility] Microalb, Ur 17.5 0.0 - 29.0 mg/L LAB CHEMISTRY METHOD 05/28/2025 1:59 PM EDT [facility] Microalb/Creat Ratio 13 <30 mg/g creat LAB CHEMISTRY METHOD 05/28/2025 1:59 PM EDT [facility] Urine Urine specimen obtained by clean catch procedure / Unknown Non-blood Collection / Unknown 05/28/2025 7:44 AM EDT 05/28/2025 7:44 AM EDT us Rodger Dia MD LAB URINE ORDERABLES Final Resul t Performing Organization Address [facility] Co de Phone Number [facility] [address] [place] [address], [place] [phone] * (ABNORMAL) Hemoglobin A1c (05/28/2025 7:44 AM EDT) [facility] Hemoglobin A1C 7.6(H) <6.5 % LAB CHEMISTRY METHOD 05/28/2025 1:29 PM EDT [facility] Mean Bld Glu Estim. 171 mg/dL LAB CHEMISTRY METHOD 05/28/2025 1:29 PM EDT [facility] Blood Venous blood specimen / Unknown Venipuncture / Unknown 05/28/2025 7:44 AM EDT 05/28/2025 7:44 AM EDT us Rodger Dia MD LAB BLOOD ORDERABLES Final Resul t Performing Organization Address City/[facility]/ZIP Co de Phone Number [facility] [address] [place] [address], [place] [phone] * (ABNORMAL) Comprehensive metabolic panel (05/28/2025 7:44 AM EDT) Only the most recent of2 resultswithin the time period is included. Sodium 138 133 - 145 mmol/L LAB CHEMISTRY METHOD 05/28/2025 12:28 PM [facility] Potassium 4.4 3.5 - 5.5 mmol/L LAB CHEMISTRY METHOD 05/28/2025 12:28 PM [facility] Chloride 105 96 - 110 mmol/L LAB CHEMISTRY METHOD 05/28/2025 12:28 PM [facility] CO2 24 21 - 32 mmol/L LAB CHEMISTRY METHOD 05/28/2025 12:28 PM [facility] Anion Gap 9 3 - 11 LAB CHEMISTRY METHOD 05/28/2025 12:28 PM [facility] Glucose 251(H) 70 - 100 mg/dL LAB CHEMISTRY METHOD 05/28/2025 12:28 PM [facility] BUN 27(H) 5 - 25 mg/dL LAB CHEMISTRY METHOD 05/28/2025 12:28 PM [facility] Creatinine 1.39(H) 0.70 - 1.30 mg/dL LAB CHEMISTRY METHOD 05/28/2025 12:28 PM [facility] eGFR 58(L) >=60 mL/min/1. 73m2 LAB CHEMISTRY METHOD 05/28/2025 12:28 PM [facility] Comment:Calculation based on the Chronic Kidney Disease Epidemiology Collaboration (CKD-EPI) equation refit without adjustment for race. BUN/Creatinine Ratio 19.4 LAB CHEMISTRY METHOD 05/28/2025 12:28 PM [facility] Calcium 9.0 8.5 - 10.5 mg/dL LAB CHEMISTRY METHOD 05/28/2025 12:28 PM [facility] AST (SGOT) 35 10 - 42 unit/L LAB CHEMISTRY METHOD 05/28/2025 12:28 PM [facility] ALT (SGPT) 32 10 - 60 unit/L LAB CHEMISTRY METHOD 05/28/2025 12:28 PM EDT [facility] Alkaline Phosphatase 147(H) 42 - 121 unit/L LAB CHEMISTRY METHOD 05/28/2025 12:28 PM EDT [facility] Total Protein 6.7 6.0 - 8.0 g/dL LAB CHEMISTRY METHOD 05/28/2025 12:28 PM EDT [facility] Albumin 3.3 3.2 - 5.0 g/dL LAB CHEMISTRY METHOD 05/28/2025 12:28 PM EDT [facility] Total Bilirubin 0.9 0.0 - 1.4 mg/dL LAB CHEMISTRY METHOD 05/28/2025 12:28 PM EDT [facility] Blood Venous blood specimen / Unknown Venipuncture / Unknown 05/28/2025 7:44 AM EDT 05/28/2025 7:44 AM EDT Rodger Dia MD LAB BLOOD ORDERABLES Final Resul t [facility] [address] [place] [address], [place] [phone] * ECG-Annotated (03/29/2025) Only the most recent of2 resultswithin the time period is included. us Provider Onbase ECG ORDERABLES Final Result * (ABNORMAL) POCT Glucose, blood (03/26/2025 5:07 PM EDT) Only the most recent of6 resultswithin the time period is included. Glucose POCT >600(HH) 70 - 100 mg/dL 03/26/2025 5:08 PM EDT [facility] Blood Capillary blood specimen / Unknown 03/26/2025 5:07 PM EDT 03/26/2025 5:09 PM EDT Kg Wolfe MD LAB POINT OF CARE TE ST DOCKED DEVICE UNSOLICITED RESULTS Final Result Performing Organization Address [facility]/ZIP Co de Phone Number [facility] [address] [place] [address], * (ABNORMAL) Venous blood gas (03/26/2025 3:50 PM EDT) Only the most recent of3 resultswithin the time period is included. pH, [facility] 7.26(L) 7.32 - 7.42 pH 03/26/2025 4:06 PM EDT [facility] pCO2, [facility] 30(L) 41 - 51 mmHg 03/26/2025 4:06 PM EDT [facility] pO2, [facility] 31 25 - 40 mmHg 03/26/2025 4:06 PM EDT [facility] HCO3, Venous 14.2(L) 22.0 - 26.0 mmol/L 03/26/2025 4:06 PM EDT [facility] O2 Sat, [facility] 55.6 % 03/26/2025 4:06 PM EDT [facility] Base Excess, [facility] -12.2(L) -2.0 - 2.0 mmol/L 03/26/2025 4:06 PM EDT [facility] Blood Venous blood specimen / Unknown Venipuncture / Unknown 03/26/2025 3:50 PM EDT 03/26/2025 4:04 PM EDT Kg Wolfe MD LAB BLOOD ORDERABLES Final Resul t Performing Organization Address [facility]/State/ZIP Co de Phone Number [facility] [address] [place] [address], [place] [phone] * (ABNORMAL) Basic metabolic panel (03/26/2025 3:50 PM EDT) Only the most recent of2 resultswithin the time period is included. Sodium 133 133 - 145 mmol/L LAB CHEMISTRY METHOD 03/26/2025 5:21 PM [facility] Potassium 5.1 3.5 - 5.5 mmol/L LAB CHEMISTRY METHOD 03/26/2025 5:21 PM [facility] Chloride 95(L) 96 - 110 mmol/L LAB CHEMISTRY METHOD 03/26/2025 5:21 PM [facility] CO2 13(LL) 21 - 32 mmol/L LAB CHEMISTRY METHOD 03/26/2025 5:21 PM [facility] Anion Gap 25(H) 3 - 11 LAB CHEMISTRY METHOD 03/26/2025 5:21 PM [facility] Glucose 845(HH) 70 - 100 mg/dL LAB CHEMISTRY METHOD 03/26/2025 5:21 PM [facility] BUN 84(H) 5 - 25 mg/dL LAB CHEMISTRY METHOD 03/26/2025 5:21 PM [facility] Creatinine 3.18(H) 0.70 - 1.30 mg/dL LAB CHEMISTRY METHOD 03/26/2025 5:21 PM [facility] eGFR 21(L) >=60 mL/min/1. 73m2 LAB CHEMISTRY METHOD 03/26/2025 5:21 PM [facility] Comment:Calculation based on the Chronic Kidney Disease Epidemiology Collaboration (CKD-EPI) equation refit without adjustment for race. BUN/Creatinine Ratio 26.4 LAB CHEMISTRY METHOD 03/26/2025 5:21 PM [facility] Calcium 9.5 8.5 - 10.5 mg/dL LAB CHEMISTRY METHOD 03/26/2025 5:21 PM [facility] Blood Venous blood specimen / Unknown Venipuncture / Unknown 03/26/2025 3:50 PM EDT 03/26/2025 4:04 PM EDT Kg Wolfe MD LAB BLOOD ORDERABLES Final Resul t [facility] [address] [place] [address], [place] [phone] * XR Chest 1 View (03/26/2025 3:05 PM EDT) Anatomical Region Laterality Modality Body Radiographic Mi ging 03/26/2025 4:46 PM EDT Impressions 03/26/2025 4:47 PM EDT FINDINGS/IMPRESSION: Normal heart size and pulmonary vascularity. Lungs are clear and costophrenic angles are sharp. Degenerative osseous changes. No acute osseous abnormality. -------- FINAL REPORT -------- Dictated By: Olegario Mcdonald Dictated Date: 03/26/2025 16:46 ET Assigned Physician: Olegario Mcdonald Reviewed and Electronically Signed By: Olegario Mcdonald Signed Date: 03/26/2025 16:47 ET Workstation ID: [id number] Transcribed By: Self Edit Transcribed Date: 03/26/2025 16:46 ET Narrative 03/26/2025 4:47 PM EDT XR CHEST 1 VIEW INDICATION: sepsis TECHNIQUE: XR CHEST 1 VIEW COMPARISON: No priors available. Procedure Note Olegario Mcdonald MD - 03/26/2025 XR CHEST 1 VIEW INDICATION: sepsis TECHNIQUE: XR CHEST 1 VIEW COMPARISON: No priors available. IMPRESSION: FINDINGS/IMPRESSION: Normal heart size and pulmonary vascularity. Lungsare clear and costophrenic angles are sharp. Degenerative osseouschanges. No acute osseous abnormality. -------- FINAL REPORT -------- Dictated By: Olegario Mcdonald Dictated Date: 03/26/2025 16:46 ET Assigned Physician: Olegario Mcdonald Reviewed and Electronically Signed By: Olegario Mcdonald Signed Date: 03/26/2025 16:47 ET Workstation ID: [id number] Transcribed By: Self Edit Transcribed Date: 03/26/2025 16:46 ET Kg Wolfe MD IMG XR PROCEDURES Final Result * Protime-INR (03/26/2025 2:45 PM EDT) Protime 12.1 10.6 - 13.9 sec LAB COAGULATION METHOD 03/26/2025 3:59 PM EDT [facility] INR 1.0 LAB COAGULATION METHOD 03/26/2025 3:59 PM EDT [facility] Blood Venous blood specimen / Unknown Venipuncture / Unknown 03/26/2025 2:45 PM EDT 03/26/2025 3:37 PM EDT Kg Wolfe MD LAB BLOOD ORDERABLES Final Resul t Performing Organization Address City/[facility]/ZIP Co de Phone Number [facility]) [facility] [address] [place] [address], [place] [phone] * ECG 12 lead (03/26/2025 2:21 PM EDT) Only the most recent of2 resultswithin the time period is included. Ventricular Rate ECG 149 BPM GEMUSE Atrial Rate 234 BPM GEMUSE QRS Duration 92 ms GEMUSE Q-T Interval 302 ms GEMUSE QTc 475 ms GEMUSE R Reading 14 degrees GEMUSE T Reading 73 degrees GEMUSE ECG Interpretation Critical Test Result: High HR Atrial fibrillation with rapid ventricular response Nonspecific ST abnormality Abnormal ECG When compared with ECG of 26-MAR-2025 12:25, (unconfirmed) Atrial fibrillation has replaced Sinus rhythm Questionable change in QRS duration Confirmed by Tae GUALLPA JAMES ([id number]) on 03/26/2025 2:39:31 PM GEMUSE 03/26/2025 2:21 PM EDT 03/26/2025 2:39 PM EDT Kg Wolfe MD ECG ORDERABLES Final Result Performing Organization Address City/[facility]/ZIP Co de Phone Number GEMUSE * (ABNORMAL) Lactate, with reflex (03/26/2025 1:44 PM EDT) Only the most recent of2 resultswithin the time period is included. LACTIC ACID 4.9(HH) 0.4 - 2.0 mmol/L LAB CHEMISTRY METHOD 03/26/2025 2:49 PM T [facility] Blood Venous blood specimen / Unknown Venipuncture / Unknown 03/26/2025 1:44 PM EDT 03/26/2025 1:51 PM EDT us Kg Wolfe MD LAB BLOOD ORDERABLES Final Resul t [facility] [address] [place] [address], [place] [phone] * (ABNORMAL) Urinalysis with reflex microscopic and culture (03/26/2025 1:22 PM EDT) Specific [place] Urine 1.024 1.003 - 1.030 LAB URINALYSIS - AUTOMATED METHOD 03/26/2025 2:03 PM [facility] pH, Urine 5.5 5.0 - 8.0 pH LAB URINALYSIS - AUTOMATED METHOD 03/26/2025 2:03 PM [facility] Leukocytes, Urine Negative Negative LAB URINALYSIS - AUTOMATED METHOD 03/26/2025 2:03 PM [facility] Nitrite, Urine Negative Negative LAB URINALYSIS - AUTOMATED METHOD 03/26/2025 2:03 PM [facility] Protein, Urine Trace <=Trace mg/dL LAB URINALYSIS - AUTOMATED METHOD 03/26/2025 2:03 PM [facility] Glucose, Urine >=1000(A) Negative mg/dL LAB URINALYSIS - AUTOMATED METHOD 03/26/2025 2:03 PM [facility] Ketones, Urine 15(A) Negative mg/dL LAB URINALYSIS - AUTOMATED METHOD 03/26/2025 2:03 PM [facility] Urobilinogen , Urine 0.2 0.2 - 1.0 mg/dL LAB URINALYSIS - AUTOMATED METHOD 03/26/2025 2:03 PM EDT [facility] Bilirubin, Urine Negative Negative LAB URINALYSIS - AUTOMATED METHOD 03/26/2025 2:03 PM EDT [facility] Blood, Urine Negative Negative LAB URINALYSIS - AUTOMATED METHOD 03/26/2025 2:03 PM EDT [facility] Urine Urine specimen obtained by clean catch procedure / Unknown Non-blood Collection / Unknown 03/26/2025 1:22 PM EDT 03/26/2025 1:34 PM EDT us Vikash Yuen MD LAB URINE ORDERABLES Final Resul t [facility] [address] [place] [address], [place] [phone] * Castro urine culture tube (03/26/2025 1:22 PM EDT) Extra Tube Hold for add-ons. 03/26/2025 3:01 PM EDT [facility] Comment:Auto resulted. Urine Urine specimen obtained by clean catch procedure / Unknown Non-blood Collection / Unknown 03/26/2025 1:22 PM EDT 03/26/2025 1:34 PM EDT us Vikash Yuen MD LAB URINE ORDERABLES Final Resul t [facility] [address] [place] [address], [place] [phone] * CT Abdomen Pelvis wo Contrast (03/26/2025 1:13 PM EDT) Anatomical Region Laterality Modality Body Computed Tomogra phy 03/26/2025 1:21 PM EDT Impressions 03/26/2025 2:16 PM EDT Thin collection abutting the right anterior abdominal wall measuring 7.4 x 2 cm in the region of presumed postsurgical change which is sterility indeterminate. -------- FINAL REPORT -------- Dictated By: Olegario Mcdonald Dictated Date: 03/26/2025 13:21 ET Assigned Physician: Olegario Mcdonald Reviewed and Electronically Signed By: Olegario Mcdonald Signed Date: 03/26/2025 14:16 ET Workstation ID: [id number] Transcribed By: Self Edit Transcribed Date: 03/26/2025 13:24 ET Narrative 03/26/2025 2:16 PM EDT PROCEDURE: CT Abdomen and Pelvis without contrast INDICATION: Abdominal pain, acute, nonlocalized TECHNIQUE: CT of the abdomen and pelvis without contrast. Multiplanar reformats. The examination was performed utilizing dose reduction techniques. DLP: 1210 mGy/cm COMPARISON: No priors available. FINDINGS: LOWER THORAX: Lung bases are clear. HEPATOBILIARY: Liver transplant. Nodular contour of the liver. Cholecystectomy SPLEEN: No splenomegaly. PANCREAS: Fatty atrophy of the pancreas. ADRENALS: No nodules. KIDNEYS/URETERS: No hydronephrosis, stones, or solid mass. Small hyperdense cysts. PELVIC ORGANS/BLADDER: Underdistended. PERITONEUM / RETROPERITONEUM: No ascites or free air. There is a small fluid collection abutting the anterior wall which is in angle measures 2 x 7.4 cm. No retroperitoneal lymphadenopathy. VESSELS: Prominent upper abdominal varices. GI TRACT: No bowel distention or wall thickening. Normal appendix. BONES AND SOFT TISSUES: Osteopenia and degenerative changes. No acute fractures. Lower lumbar disc bulges. There is a large fat-containing ventral hernia with defect measuring up to 2 cm and the hernia measuring 2.6 x 8.6 cm in 5.8 cm craniocaudal. Additional fat-containing ventral hernias upper abdomen and the midline. Subcutaneous stranding over the right hemiabdomen. Procedure Note Olegario Mcdonald MD - 03/26/2025 PROCEDURE: CT Abdomen and Pelvis without contrast INDICATION: Abdominal pain, acute, nonlocalized TECHNIQUE: CT of the abdomen and pelvis without contrast. Multiplanarreformats. The examination was performed utilizing dose reductiontechniques. DLP: 1210 mGy/cm COMPARISON: No priors available. FINDINGS: LOWER THORAX: Lung bases are clear. HEPATOBILIARY: Liver transplant. Nodular contour of the liver.Cholecystectomy SPLEEN: No splenomegaly. PANCREAS: Fatty atrophy of the pancreas. ADRENALS: No nodules. KIDNEYS/URETERS: No hydronephrosis, stones, or solid mass. Smallhyperdense cysts. PELVIC ORGANS/BLADDER: Underdistended. PERITONEUM / RETROPERITONEUM: No ascites or free air. There is a smallfluid collection abutting the anterior wall which is in angle measures 2 x7.4 cm. No retroperitoneal lymphadenopathy. VESSELS: Prominent upper abdominal varices. GI TRACT: No bowel distention or wall thickening. Normal appendix. BONES AND SOFT TISSUES: Osteopenia and degenerative changes. No acutefractures. Lower lumbar disc bulges. There is a large fat-containingventral hernia with defect measuring up to 2 cm and the hernia measuring2.6 x 8.6 cm in 5.8 cm craniocaudal. Additional fat-containing ventralhernias upper abdomen and the midline. Subcutaneous stranding over theright hemiabdomen. IMPRESSION: Thin collection abutting the right anterior abdominal wall measuring 7.4 x2 cm in the region of presumed postsurgical change which is sterilityindeterminate. -------- FINAL REPORT -------- Dictated By: Olegario Mcdonald Dictated Date: 03/26/2025 13:21 ET Assigned Physician: Olegario Mcdonald Reviewed and Electronically Signed By: Olegario Mcdonald Signed Date: 03/26/2025 14:16 ET Workstation ID: [id number] Transcribed By: Self Edit Transcribed Date: 03/26/2025 13:24 ET Kg Wolfe MD IM CT PROCEDURES Final Result * (ABNORMAL) Venous blood gas co-oximetry (03/26/2025 12:50 PM EDT) Carboxyhemoglobin 1.6 0.0 - 3.0 % 03/26/2025 1:02 PM EDT [facility] Methemoglobin 1.1(HH) 0.2 - 0.5 % 03/26/2025 1:02 PM EDT [facility] Oxyhemoglobin 79.4(H) 40 - 70 % 03/26/2025 1:02 PM EDT [facility] O2 Sat, [facility] 81.6 % 03/26/2025 1:02 PM EDT [facility] Total Hemoglobin Venous 15.7 12.0 - 18.0 g/dL 03/26/2025 1:02 PM EDT [facility] Blood Venous blood specimen / Unknown Venipuncture / Unknown 03/26/2025 12:50 PM EDT 03/26/2025 12:53 PM EDT us Kg Wolfe MD LAB BLOOD ORDERABLES Final Resul t Performing Organization Address [facility] de Phone Number [facility] [address] [place] [address], [place] [phone] * (ABNORMAL) Blood culture pathogens molecular study (03/26/2025 11:48 AM EDT) [facility] Staphylococcus epidermidis Detected (A) Not Detected LAB MICROBIOLOGY METHOD 03/27/2025 8:41 PM EDT [facility] mecA/C Detected (A) Not Detected LAB MICROBIOLOGY METHOD 03/27/2025 8:41 PM EDT [facility] Comment:mecA/C Gene Detected : Indicates Methicillin Resistant Staphylococcus. Blood Venous blood specimen / Unknown Venipuncture / Unknown 03/26/2025 11:48 AM EDT 03/26/2025 11:57 AM EDT us Kg Wolfe MD LAB MICROBIOLOGY - GENERAL ORDER RISHI Final Result Performing Organization Address [facility] de Phone Number [facility] [address] [place] [address], [place] [phone] * (ABNORMAL) Blood Culture, Peripheral #2 (03/26/2025 11:48 AM EDT) Only the most recent of2 resultswithin the time period is included. Pathologist [facility] Culture, Blood Staphylococcus coagulase negative(AA) 03/30/2025 9:40 AM EDT [facility] Comment: The organism value for this result has been updated. These results have been appended to the previously preliminary verified report. Gram Stain Result Aerobic and Anaerobic bottles Gram positive cocci in clusters(AA) 03/30/2025 9:40 AM EDT [facility] Comment: This is an appended report. These results have been appended to a previously preliminary verified report. Corrected result: Previously reported as Aerobic bottle Gram positive cocci in clusters on 03/28/2025 at 1905 EDT. Blood Venous blood specimen / Unknown Venipuncture / Unknown 03/26/2025 11:48 AM EDT 03/26/2025 11:57 AM EDT us Kg Wolfe MD LAB MICROBIOLOGY - GENERAL ORDER RISHI Edited Result - Final Performing Organization Address [facility] Co de Phone Number [facility] [address] [place] [address], [place] [phone] * (ABNORMAL) Beta hydroxybutyrate (03/26/2025 10:35 AM EDT) Beta-Hydroxyb utyrate >46.0(H) 0.2 - 2.8 mg/dL LAB CHEMISTRY METHOD 03/26/2025 7:45 PM EDT [facility] Blood Venous blood specimen / Unknown Venipuncture / Unknown 03/26/2025 10:35 AM EDT 03/26/2025 10:57 AM EDT us Kg Wolfe MD LAB BLOOD ORDERABLES Final Resul t Performing Organization Address [facility]/ZIP Co de Phone Number [facility] [address] [place] [address], [place] [phone] * (ABNORMAL) Phosphorus (03/26/2025 10:35 AM EDT) Phosphorus 8.2(H) 2.5 - 4.5 mg/dL LAB CHEMISTRY METHOD 03/26/2025 3:04 PM EDT [facility] Blood Venous blood specimen / Unknown Venipuncture / Unknown 03/26/2025 10:35 AM EDT 03/26/2025 10:57 AM EDT Kg Wolfe MD LAB BLOOD ORDERABLES Final Resul t Performing Organization Address [facility]/ZIP Co de Phone Number [facility] [address] [place] [address], [place] [phone] * Lipase (03/26/2025 10:35 AM EDT) [facility] Lipase 25 13 - 75 unit/L LAB CHEMISTRY METHOD 03/26/2025 11:59 AM EDT [facility] Blood Venous blood specimen / Unknown Venipuncture / Unknown 03/26/2025 10:35 AM EDT 03/26/2025 10:57 AM EDT Vikash Yuen MD LAB BLOOD ORDERABLES Final Resul t Performing Organization Address [facility] de Phone Number [facility] [address] [place] [address], [place] [phone] * External Xray Report (03/08/2025) Only the most recent of4 resultswithin the time period is included. Anatomical Region Laterality Modality Radiographic Mi ging Provider [facility] XR PROCEDURES Final Result * External CT Report (03/08/2025) Only the most recent of2 resultswithin the time period is included. Anatomical Region Laterality Modality Computed Tomogra phy Provider [facility] CT PROCEDURES Final Result * [place]OS[place] [facility]est[place] [facility] ENDOSCOPY (11/15/2024 9:35 AM EDT) Anatomical [...] for surveillance. Narrative 11/15/2024 9:38 AM EDT [facility] GI Patient Name: Tavon Black Procedure Date: 11/15/2024 9:15 AM Date of [...] verified by the physician, the nurse, the ship propeller finisher and the nuclear fuel processing technician in the pre-procedure area in the [...] without abnormality. Procedure Code(s): --- Professional --- 84334, Colonoscopy, flexible; with removal of tumor(s), polyp(s), or other lesion(s) by snare technique Diagnosis Code(s): --- Professional --- D12.4, Benign neoplasm of descending colon D12.3, Benign neoplasm of transverse colon (hepatic flexure or splenic flexure) D12.0, Benign neoplasm of cecum CPT copyright 2020 [employer]. All rights reserved. The codes documented in this report are preliminary and upon lead miner review may be revised to meet current compliance requirements. Sameer Hanson MD 11/15/2024 9:38:16 AM This report has been signed electronically.Sameer Hanson MD Number of Addenda: 0 Note Initiated On: 11/15/2024 9:15 AM Scope Withdrawal Time: 0 hours 12 minutes 46 seconds Scope In: 9:18:29 AM Scope Out: 9:33:10 AM Endoscopy Department at [facility] - [address] [place] [phone] Procedure Note Sameer Hanson MD - 11/15/2024 [facility] GI Patient Name: Tavon Black Procedure Date: 11/15/2024 9:15 AM Date of [...] the physician, the nurse, theanesthetist and the nuclear fuel processing technician in the pre-procedure area in the [...] without abnormality. Procedure Code(s): --- Professional --- 22938, Colonoscopy, flexible; with removal of tumor(s), polyp(s), or other lesion(s) by snare technique Diagnosis Code(s): --- Professional --- D12.4, Benign neoplasm of descending colon D12.3, Benign neoplasm of transverse colon (hepatic flexure or splenic flexure) D12.0, Benign neoplasm of cecum CPT copyright 2020 [employer]. All rights reserved. The codes documented in this report are preliminary and upon lead miner reviewmay be revised to meet current compliance requirements. Sameer Hanson MD 11/15/2024 9:38:16 AM This report has been signed electronically.Sameer Hanson MD Number of Addenda: 0 Note Initiated On: 11/15/2024 9:15 AM Scope Withdrawal Time: 0 hours 12 minutes 46 seconds Scope In: 9:18:29 AM Scope Out: 9:33:10 AM Endoscopy Department at [facility] - [address] [place] [phone] IMPRESSION: - Five 3 to 7 mm polyps in the descending colon, in the transverse colon and in the cecum, removed witha cold snare. Resected and retrieved. - Internal hemorrhoids. - The examination was otherwise normal. Recommendation: - Discharge patient to home. - Await pathology results. - Repeat colonoscopy in 3 years for surveillance. Result [facility] Sameer Hanson MD GI~PROCEDURE ORDERABLES Fin al Result * Diabetes Foot Exam (03/13/2024) [facility] Diabetes: Annual Foot Exam abstracted [facility] Provider HEALTH MAINTENANCE Final Result * Diabetes Eye Exam (11/25/2023) [facility] Diabetes: Annual Retina Eye Exam abstracted Result [facility] Provider HEALTH MAINTENANCE Final Result * Depression Screening (09/14/2023) [facility] Depression Screening abstracted Result [facility] Provider HEALTH MAINTENANCE Final Result * Hepatitis C Screening (01/11/2007) [facility] Hepatitis C Screening abstracted Historical Provider HEALTH MAINTENANCE Final Result from Last 3 Months or Most Recently Relevant to Health Maintenance Insurance MEDICARE [place]ICA[place] Advance Directives Documents on File Type Date Recorded 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
== END 2025-06-05 09:53 | disposition home or self-care (01) ==
LOC: HO.HOS 09:11
PROVIDERS: PCP Internal Medicine; Visit Provider Orthopaedic Surgery
DX: M25.311 Other instability, right shoulder (principal)
CPT/HCPCS: 99213; G2211

== ENCOUNTER → 2025-06-05 09:11 | Outpatient (BNVA) | payer MEDICARE, MEDICAID, SELFPAY | PROVIDERS: PCP Internal Medicine; Visit Provider Orthopaedic Surgery | DX: M25.331 Other instability, right wrist (principal) | CPT/HCPCS: 99212 ==